=== PATIENT | male | born 1940 | race Caucasian/White ===

== ENCOUNTER 2022-06-22 11:22 | Emergency (ER) | payer MEDICARE, SELFPAY ==
[2022-06-22 11:26] VITALS: BP 153/73; PULSE 50; RESP 18; TEMP 36.3; O2SAT 100; BMI 27.8
--- NOTE | 2022-06-22 11:36 | ED.GENADULT ---
HPI - General Adult General Time Seen by Provider: 11:37 Date Seen: 06/22/22 Chief complaint: Laceration/Wound Stated complaint: Fell, scraped face hurt right hand Time Seen by Provider: 06/22/22 11:27 Source: patient and RN notes reviewed Mode of arrival: ambulatory Limitations: no limitations History of Present Illness HPI narrative: Patient is an 82-year-old male coming in after a fall on his face. They were dropping their dog off at a [employer] daycare and the dog got out of the car quite rambunctious. The dog pulled on the leash and the patient fell forward. His right 5th finger is hurting up along the base at the hand. He states he can move it. There is some bruising along the 5th metacarpophalangeal joint. He injured his right face in its bleeding. The right upper lip is injured as well. He feels like his teeth are occluding normally. Initially he thought there was some visual disturbances but is glasses were just dirty. He is not having any visual problems now, no double vision. He hit his right face along the cheek. He is not any blood thinners, denies any headache. No neck pain or back pain. He did have a his her arm underneath them along the right ribcage in it is hurting where he points to the right anterolateral lower rib cage. He is not having any difficulty breathing, no shortness of breath. They were going to go to the [employer] and have lunch to celebrate his birthday. Related Data Home Medications Medication Instructions Recorded Confirmed latanoprost 0.005 % eye drops 1 drp ophthalmic (eye) QDAY 03/24/22 03/24/22 timolol 0.5 % eye drops 1 drp ophthalmic (eye) BID 03/24/22 03/24/22 Allergies Allergy/AdvReac Type Severity Reaction Status Date / Time iodine Allergy Mild Nausea Verified 03/24/22 10:10 Review of Systems Status of ROS: Reports: 10 or more systems reviewed and unremarkable except as noted in History and below [facility] Medical History (Updated 06/22/22 @ 13:56 by Winsome Solis MD) History of squamous cell carcinoma of skin (2019) Surgical History (Updated 03/23/22 @ 14:31 by Murtaza Oseguera) History of appendectomy (06/30/11) History of blepharoplasty (12/11/15) History of cholecystectomy (06/30/11) History of tonsillectomy and adenoidectomy History of umbilical hernia repair (09/16/11) Status post myringotomy with insertion of tube Social History (Updated 03/24/22 @ 10:44 by Gabo Negro MD) Narrative: SOCIAL HISTORY: He is . He lives with his in [place] where he lives when he was working. A few years ago he moved back from [facility] where they planned to retire. Children live far away but his daughter has a summer house in [place]. He is not sexually active. Four children. He walks 7 days per week for exercise. Overall he is less active than he was last year. HABITS: No tobacco or recreational drug use. Alcohol use is about 2 drinks per week. Tobacco use, quit 2006 per [facility] record Smoking Status: Never smoker Do you use any of these nicotine containing products: None How often do you have a drink containing alcohol: never AUDIT-C Alcohol total score: 0 Non-prescribed substance use: denies use Exam Const: Vital Signs, click to edit/add: Vital Signs - 24 hr 06/22/22 11:26 Temperature 97.4 F L Pulse Rate [Right Pulse Oximeter] 50 L Respiratory Rate 18 Blood Pressure [Ri ght Upper Arm] 153/73 H Pulse Oximetry 100 Oxygen Delivery Me thod Room Air Documenting provider has reviewed patient's vital signs: yes Common normals: no apparent distress, oriented x3, no limitations, healthy appearing, alert and well nourished General appearance: cooperative, comfortable and well kempt Other: Has bandage over his right cheek area. This was removed, has a superficial epidermis skin tear with the skin retracting inferiorly on the face. There is a central deeper wound into the dermis with some ongoing oozing. The more lateral portion is a little deeper, about a cm long. I do wonder if this was compression by his glasses into his face as it follows curvilinear pattern. The more central area of by his nose is just more skin tear. Nasal bridge is nontender, no drainage from nares. On his right upper lip there is a superficial skin tear of the epidermis, no active bleeding, lip is mildly swollen on that right upper lip area. There is some ecchymosis developing. There is nothing to repair here. HENMT: Common normals: hearing grossly normal bilaterally, external ears normal (Has what appears to be well-healed partial removal of the right upper ear.) and external nose normal Nose: external nose normal and nares normal External ear: external ears normal (Has what appears to be well-healed partial removal of the right upper ear.) Mouth: oral and palatal mucosa normal and tongue normal Throat: posterior oropharynx normal Eye: Common normals: PERRL, EOMs intact bilaterally, conjunctivae normal and no scleral icterus Conjunctiva: conjunctiva(e) normal Pupil: PERRL Neck & C-Spine: Common normals: full ROM (No tenderness), no lymphadenopathy, supple, no JVD and thyroid normal Thyroid: thyroid normal Chest: Common normals: inspection of chest normal and palpation of chest normal Resp: Common normals: normal respiratory effort, no retractions, no use of accessory muscles and clear to auscultation bilaterally Auscultation: clear to auscultation bilaterally Cardio: Common normals: no JVD, regular rate, regular rhythm, S1 normal heart sound, S2 normal heart sound, no gallops, no clicks and no murmurs Rate: regular rate Rhythm: regular rhythm Heart sounds: S1 normal and S2 normal GI: Common normals: Normal to inspection, nondistended, normoactive bowel sounds present, soft to palpation, non-tender, no hepatosplenomegaly and no masses Palpation: soft and no hepatosplenomegaly Extremity: Other: Has bruising along the medial aspect of the right 5th metacarpophalangeal joint. Sensation is intact, range of motion is intact. Neuro: Daniel Coma Scale: document GCS findings [place] coma scale eye opening: Spontaneous (4) Daniel coma scale verbal response: Orientated (5) [place] coma scale motor response: Obey commands (6) [place] coma scale total score: 15 Common normals: oriented x3, CN's II-XII intact bilaterally, moves all extremities, no focal motor deficits, no sensory deficits noted and gait normal Sensorium/orientation: alert Speech: speech normal Psych: Appearance: well kempt Course Course Hospital Course: Reviewed with him that I do believe part of that facial laceration would be improved with a few sutures. He does agree to that. Will also be imaging his facial bones with a CT to ensure no traumatic change. Trauma is over the zygomatic arch area and we do want to make sure that we do not need to have him watch for any orbital complications. Will look up his tetanus and see if he needs that updated. Will be imaging his hand as well as his chest with right rib views. Reevaluation(s) Reevaluation #1: Reviewed the fracture in the hand, he is clinically tender at the base of this 5th metacarpal. Splint was applied, see procedure. Did discuss tetanus in they would like to have this updated. His last tetanus was 08/08/2013. He is closing in on a year of having this do. Given that he has open wounds will update. Time: 13:57 Vital Signs Vital signs: Initial Vital Signs Temperature 97.4 F L 06/22/22 11:26 Temperature Source Temporal Artery Scan 06/22/22 11:26 Pulse Rate 50 L 06/22/22 11:26 Respiratory Rate 18 06/22/22 11:26 Blood Pressure 153/73 H 06/22/22 11:26 Blood Pressure Mean 99 06/22/22 11:26 Blood Pressure Position Sitting 06/22/22 11:26 Pulse Oximetry 100 06/22/22 11:26 Oxygen Delivery Method 06/22/22 11:26 Vital Signs Temperature 97.4 F L 06/22/22 11:26 Pulse Rate 50 L 06/22/22 11:26 Respiratory Rate 18 06/22/22 11:26 Blood Pressure 153/73 H 06/22/22 11:26 Pulse Oximetry 100 06/22/22 11:26 Oxygen Delivery Method 06/22/22 11:26 Temperature 97.4 F L 06/22/22 11:26 Pulse Rate 50 L 06/22/22 11:26 Respiratory Rate 18 06/22/22 11:26 Blood Pressure 153/73 H 06/22/22 11:26 Pulse Oximetry 100 06/22/22 11:26 Oxygen Delivery Method 06/22/22 11:26 Medical Decision Making Imaging Data CT- Other: Attestation: I have reviewed the pertinent imaging results. Radiologist's impression: Patient: [facility] Facility:?[facility] Patient ID:?[id number] Site Patient ID:?[id number]. Site :?[id number] Study:?CT Facial W/O-06/22/2022 12:30:07 PM Ordering Physician:?Will Schumacher Final Report: INDICATION: Fall, facial trauma. TECHNIQUE: CT maxillofacial without contrast. Coronal and sagittal reformats were generated. COMPARISON: None. FINDINGS: Facial bones: No fractures or bone lesions. Specifically the nasal bones, temporomandibular joints, maxilla, and mandible appear intact. Orbits and globes: Unremarkable. Globes are intact. No sign of intraorbital hemorrhage or emphysema. Sinuses: Mucosal thickening of the frontal sinus and ethmoid air cells. Small mucous retention cyst or polyp in the left maxillary sinus. The other paranasal sinuses are clear. Soft tissues: Mild soft tissue swelling and edema in the right infraorbital region. Small area of subcutaneous emphysema could be from a laceration. No radiopaque foreign body. IMPRESSION: No facial fractures. Right infraorbital soft tissue swelling and probable laceration. Please note that all CT scans at this facility use dose modulation, iterative reconstruction, and/or weight-based dosing when appropriate to reduce radiation dose to as low as reasonably achievable. Dictated by Flex Aponte MD @ 06/22/2022 12:44:28 PM (Electronic Signature) Chest x-ray: Attestation: I have reviewed the pertinent imaging results. Radiologist's impression: Patient: [facility] Facility:?[facility] Patient ID:?[id number] Site Patient ID:?[id number]. Site :?[id number] Study:?XRay Chest 3 VIEWS RIBS-06/22/2022 12:50:51 PM Ordering Physician:?Will Schumacher Final Report: INDICATION: Fall, right rib pain TECHNIQUE: Single view chest with AP and oblique views of the right chest COMPARISON: None available. FINDINGS: There is no dense consolidation, effusion, or pneumothorax. The cardiomediastinal silhouette is within normal limits. There is demonstration of a minimally displaced fracture of the lateral 8th and 9th ribs. The bony thorax is otherwise intact. IMPRESSION: No acute cardiopulmonary abnormality. Minimally displaced fracture of the lateral 8th and 9th ribs. If pain and clinical symptoms persist, subtle, non-displaced injuries are not entirely excluded. Dictated by Maxime Rankin MD @ 06/22/2022 12:59:58 PM (Electronic Signature) X-ray right hand: Attestation: I have reviewed the pertinent imaging results. Radiologist's impression: Patient: ANTHONY SAENZ Facility:?[facility] Patient ID:?[id number] Site Patient ID:?[id number]. Site :?[id number] Study:?XRay Extremity Right HAND 3 VIEWS-06/22/2022 12:49:17 PM Ordering Physician:Jessica Schumacher Final Report: Indication: Fall, pain primarily 1/5 finger Comparison: None available. Technique: AP, lateral, and oblique views right hand were obtained. Findings: There is a nondisplaced fracture at the base of the proximal 5th metacarpal. There are no other displaced fractures identified. Moderate degenerative changes of the metacarpophalangeal and interphalangeal joints are appreciated. There is mild proximal soft tissue swelling. Impression: Nondisplaced fracture at the base of the 5th proximal metacarpal with associated soft tissue swelling. Dictated by Maxime Rankin MD @ 06/22/2022 1:05:44 PM (Electronic Signature) Discharge Plan Discharge Clinical Impression: Multiple rib fractures, Fx metacarpal, Facial laceration, Multiple skin tears, Fall Patient Disposition: Home, Self-Care Condition: Stable Instructions: Laceration (ED), Hand Fracture (ED), Rib Fracture (ED), Skin Tear (ED) Additional Instructions: 1. For the laceration on your face and facial skin tears, use bacitracin or Vaseline to keep the wounds moist. May need to use it 3 4 times a day, can be used more if you find it helpful. Need to schedule a clinic followup in 5-7 days to assess the facial laceration for suture removal. If there is concerns for infection, please seek re-evaluation. 2. Need to call the [facility] at [phone] to get scheduled for followup. They will likely see you in 5-7 days. Ice elevate to help decrease any pain or swelling. Can use [id number] medicines that you typically would for pain management, follow bottle directions for dosing. Need to keep this splint clean and dry. 3. You splinting technique with position movement, coughing or sneezing. Need to focus on taking deep breaths to help keep the lung expanded. Should you develop difficulty breathing, shortness of breath, fever/cough, do need to be re-evaluated. Activity Level: Activity as Tolerated Prescriptions: No Action timolol 0.5 % drops 1 drp ophthalmic (eye) BID latanoprost 0.005 % drops 1 drp ophthalmic (eye) QDAY Follow Up/Referrals: Gabo Negro MD [Primary Care Provider] - Stand Alone Forms: [facility] Info Instructions Procedures Laceration Laceration 1: Pre procedure diagnosis: Facial laceration Post procedure diagnosis: Same Site marking: not applicable Verification/time out: correct patient, correct site and correct procedure Name of person performing procedure: Winsome Solis Site: face Size (cm): 1 Description: linear (Also surrounding skin tear of the epidermis with a deeper laceration) Depth: simple, single layer (Ongoing oozing, stopped after suture) Local Anesthetic: lidocaine 1% and with epi Amount of anesthesia used (mL): 5 (5 mL drawn up, about 2 mL required locally.) Pre-repair: wound explored and irrigated extensively Skin layer closed with: other (Ethilon) Size (cm): 5-0 Number of sutures: 3 Technique: simple, interrupted Conclusion: patient tolerated procedure Orthopedic Splinting/Casting Injury #1: Side: right Upper Extremity Injury Location: hand (Right) Upper extremity immobilizer: ulnar gutter Applied by clinician: / Conclusion: patient tolerated procedure
--- NOTE | 2022-06-22 11:54 | CRLHL7_ITS ---
For Patients: As a result of the Cures Act, medical imaging exams and procedure reports are released immediately into your electronic medical record. You may view this report before your referring provider. If you have questions, please contact your health care provider. INDICATION: Fall, facial trauma. TECHNIQUE: CT maxillofacial without contrast. Coronal and sagittal reformats were generated. COMPARISON: None. FINDINGS: Facial bones: No fractures or bone lesions. Specifically the nasal bones, temporomandibular joints, maxilla, and mandible appear intact. Orbits and globes: Unremarkable. Globes are intact. No sign of intraorbital hemorrhage or emphysema. Sinuses: Mucosal thickening of the frontal sinus and ethmoid air cells. Small mucous retention cyst or polyp in the left maxillary sinus. The other paranasal sinuses are clear. Soft tissues: Mild soft tissue swelling and edema in the right infraorbital region. Small area of subcutaneous emphysema could be from a laceration. No radiopaque foreign body. IMPRESSION: No facial fractures. Right infraorbital soft tissue swelling and probable laceration. Please note that all CT scans at this facility use dose modulation, iterative reconstruction, and/or weight-based dosing when appropriate to reduce radiation dose to as low as reasonably achievable. Dictated by Flex Aponte MD @ 06/22/2022 12:44:28 PM (Electronically Signed)
--- NOTE | 2022-06-22 11:54 | CRLHL7_ITS ---
For Patients: As a result of the Cures Act, medical imaging exams and procedure reports are released immediately into your electronic medical record. You may view this report before your referring provider. If you have questions, please contact your health care provider. INDICATION: Fall, right rib pain TECHNIQUE: Single view chest with AP and oblique views of the right chest COMPARISON: None available. FINDINGS: There is no dense consolidation, effusion, or pneumothorax. The cardiomediastinal silhouette is within normal limits. There is demonstration of a minimally displaced fracture of the lateral 8th and 9th ribs. The bony thorax is otherwise intact. IMPRESSION: No acute cardiopulmonary abnormality. Minimally displaced fracture of the lateral 8th and 9th ribs. If pain and clinical symptoms persist, subtle, non-displaced injuries are not entirely excluded. Dictated by Maxime Rankin MD @ 06/22/2022 12:59:58 PM (Electronically Signed)
--- NOTE | 2022-06-22 11:54 | CRLHL7_ITS ---
For Patients: As a result of the Century Cures Act, medical imaging exams and procedure reports are released immediately into your electronic medical record. You may view this report before your referring provider. If you have questions, please contact your health care provider. Indication: Fall, pain primarily 1/5 finger Comparison: None available. Technique: AP, lateral, and oblique views right hand were obtained. Findings: There is a nondisplaced fracture at the base of the proximal 5th metacarpal. There are no other displaced fractures identified. Moderate degenerative changes of the metacarpophalangeal and interphalangeal joints are appreciated. There is mild proximal soft tissue swelling. Impression: Nondisplaced fracture at the base of the 5th proximal metacarpal with associated soft tissue swelling. Dictated by Maxime Rankin MD @ 06/22/2022 1:05:44 PM (Electronically Signed)
--- OUTSIDE RECORDS SUMMARY | 2022-06-22 12:12 | XMS_ITS | Encounter Summary ---
:1940 Author Organization [facility] Address [address] [place] [address] Care Team Providers Name Role Phone Unavailable Primary Care Provider Unavailable Reason for Referral Outpatient (Routine) - Authorized Specialty Diagnoses / Procedures Referred By Contact Refer red To Contact Hematology Oncology Yessenia Montalvo M.D., [facility] Ph.D. [address] [place] [address] Referral ID Status Reason Start Date Expiration Date Visits V isits Requested Authorized [id number] Authorized 06/18/2022 06/17/2025 1 1 Reason for Visit Outpatient (Routine) - Closed Specialty Diagnoses / Procedures Referred By Contact Refer red To Contact Hematology Oncology Yessenia Montalvo M.D., [facility] Ph.D. 200 [place] [address] Referral ID Status Reason Start Date Expiration Date Visits Requ ested Visits Authorized [id number] Closed 12/22/2021 12/22/2022 1 1 Encounter Details Date Type Department Care Team Description 06/18/2022 Office Visit Division of Yessenia Montalvo, [place] [facility] L ymphoma Splenic (HCC) (Primary Dx); Hematology in [place], Ph.D. Thrombocytopenia (HCC) [place], [place] [address] [facility] [address] [place] [phone] Social History Tobacco Use Types Packs/Day Years Used Date Smoking Tobacco: Former Cigarettes Quit : 2006 Smokeless Tobacco: Never Alcohol Use Standard Drinks/Week Comments Yes 10 (1 standard drink = 0.6 oz pure alcoh ol) Alcohol Habits Answer Date Recorded How often do you have a drink containing 4 or more times a w [place] 06/14/2022 alcohol? How many drinks containing alcohol do you have 1 or 2 06/14/2022 on a typical day when you are drinking? How often do you have six or more drinks on one Never 06/14/2022 occasion? Social Isolation Answer Date Recorded In a typical week, how many times do you talk on the Three t imes a week 06/14/2022 phone with family, friends, or neighbors? How often do you get together with friends or Once a week 06/14/2022 relatives? How often do you attend taoist or confucianism Never 06/14/2022 services? Do you belong to any clubs or organizations such as No 06/14/2022 taoist groups, unions, fraternal or athletic groups, or school groups? How often do you attend meetings of the clubs or Never 06/14/2022 organizations you belong to? Are you now , , , , 06/14/2022 never or living with a partner? Physical Activity Answer Date Recorded On average, how many days per week do you engage in moderate 7 days 06/14/2022 to strenuous exercise (like walking fast, running, jogging, dancing, swimming, biking, or other activities that cause a light or heavy sweat)? On average, how many minutes do you engage in exercise at th is 150+ min 06/14/2022 level? Stress Answer Date Recorded Do you feel stress - tense, restless, nervous, or anxious, N ot at all 06/14/2022 or unable to sleep at night because your mind is troubled all the time - these days? Financial Resource Strain Answer Date Recorded How hard is it for you to pay for the very basics like Not h [place] at all 06/14/2022 food, housing, medical care, and heating? Intimate Partner Violence Answer Date Recorded Within the last year, have you been afraid of your partner o r No 06/14/2022 ex-partner? Within the last year, have you been humiliated or emotionall y No 06/14/2022 abused in other ways by your partner or ex-partner? Within the last year, have you been kicked, hit, slapped, or No 06/14/2022 otherwise physically hurt by your partner or ex-partner? Within the last year, have you been raped or forced to have any No 06/14/2022 kind of sexual activity by your partner or ex-partner? Food Insecurity Answer Date Recorded Within the past 12 months, you worried that your food would Never true 06/14/2022 run out before you got money to buy more. Within the past 12 months, the food you bought just didn't N ever true 06/14/2022 last and you didn't have money to get more. Transportation Needs Answer Date Recorded In the past 12 months, has lack of transportation kept you f rom No 06/14/2022 medical appointments or from getting medications? In the past 12 months, has lack of transportation kept you f rom No 06/14/2022 meetings, work, or getting things needed for daily living? Housing Stability Answer Date Recorded In the last 12 months, was there a time when you were not No 06/14/2022 able to pay the mortgage or rent on time? In the last 12 months, how many places have you lived? Not a sked In the last 12 months, was there a time when you did not hav e No 06/14/[address] or slept in a correction (including now)? Education Answer Date Recorded What is the highest level of school Bachelor's degree (e.g., BA, AB, 06/20/2020 you have completed or the highest BS) degree you have received? 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 - 06/18/2022 2:15 PM CDT SUBJECTIVE CHIEF COMPLAINT/REASON FOR VISIT Splenic marginal zone lymphoma Thrombocytopenia HISTORY OF PRESENT ILLNESS Mr. Rayo is a 81 y.o. male with a past medical history of splenic marginal zone lymphoma, splenomegaly, and thrombocytopenia, who presents for follow-up. Mr. Rayo initially presented with lymphocytosis in August of 2002. Due to persistence of lymphocytosis, a bone marrow biopsy was done on December 17, 2002, which showed 20% involvement of chronic lymphoproliferative disorder, CD5 positive, CD20 positive, CD23 positive. 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 The differential diagnosis included marginal zone lymphoma and atypical CLL. CT abdomen did show [id number] splenomegaly. Blood work also showed mild thrombocytopenia. He has been observed over the years without significant disease progression. [facility] his WBC and ALC as well as hemoglobin were normal from 8120-6539, but his platelet count were in the 70-90 range. Oncology History Marginal Zone Lymphoma Splenic (HCC) 12/17/2002 Initial Diagnosis Marginal Zone Lymphoma Splenic (HCC) Bone marrow biopsy on December 17, 2002 showed 20% involvement of chronic lymphoproliferative disorder,CD5 positive, CD20 positive, CD23 positive. Interval History: Mr. Rayo returns for follow-up today. He was last seen here 6 months ago. In the interval, he has been doing well. He denies B symptoms. No short of breath or chest pain. No GI symptoms. He notices mild early satiety but he is still satisfied with his oral intake. He lost approximately 15 lb in the last couple of years, by eating less and having more activities. ECOG PS 0. The following portions of the patient's history were reviewed and updated as appropriate: allergies,current medications, family history, medical history, social history, surgical history, and problem list. REVIEW OF SYSTEMS Pertinent items are noted in History of Present Illness; all other review of systems was negative. OBJECTIVE Vitals: 06/18/22 1348 BP: 135/77 Pulse: 60 Temp: (!) 35.2 ??C Height: 162.8 cm Weight: 77 kg Body mass index is 29.05 kg/m??. Body surface area is 1.87 meters squared. PHYSICAL EXAMINATION General: In no apparent distress. Alert and oriented x3. Skin: Grossly warm, dry, and intact. HEENT: Normocephalic, atraumatic. Extraocular movements intact. Moist mucosa. Lymph: No cervical, supraclavicular, infraclavicular, axillary, or inguinal lymphadenopathy palpated. Cardiovascular: Regular rhythm, normal rate. No murmurs, rubs, or gallops. Respiratory: Lungs clear to auscultation bilaterally. No wheezing, rhonchi, or rales. Abdomen: Soft, non-tender, non-distended. Spleen is palpable under the left costal margin, more obvious with deep breathing. Neurologic: No focal deficit. DIAGNOSTICS Reviewed in [facility]. ASSESSMENT / PLAN #1 Marginal Zone Lymphoma Splenic (HCC) Mr. Rayo is clinically stable. No B symptoms. His spleen is palpable but he is not quite symptomatic from that. His blood counts are stable. WBC 13, 80% lymphocytes, hemoglobin 13.4, platelets 75.The thrombocytopenia has been very stable. We will continue observation. We will pay special attention to any symptoms associated with the splenomegaly. We will continue to monitor blood counts. He has received flu vaccination and the new COVID-19 booster shot. Not reflected in immunization record yet. We will see him in 6 months. PATIENT EDUCATION Ready to learn, no apparent learning barriers were identified; learning preferences include listening. Explained diagnosis and treatment plan; patient expressed understanding of the content. Total time spent was 35 minutes with more than 50% of time spent in counseling, coordination of care, explanation of plan of care, chart review, fovi-[id number] interview. documented in this encounter Plan of Treatment Scheduled Orders Name Type Priority Associated Diagnoses Order S chedule Alkaline Phosphatase Lab Routine Marginal Zone Lympho ma Expected: 12/17/2022, Splenic (HCC) Expires: 06/18/2023 Thrombocytopenia (HCC) AST (Aspartate Lab Routine Marginal Zone Lymphoma Exp ected: 12/17/2022, Aminotransferase) Splenic (HCC) Expires: 06/18/2023 Thrombocytopenia (HCC) Basic Metabolic Panel Lab Routine Marginal Zone Lymph andie Expected: 12/17/2022, Splenic (HCC) Expires: 06/18/2023 Thrombocytopenia (HCC) Bilirubin, Total Lab Routine Marginal Zone Lymphoma E xpected: 12/17/2022, Splenic (HCC) Expires: 06/18/2023 Thrombocytopenia (HCC) CBC with Differential, Lab Routine Marginal Zone Lymp arlette Expected: 12/17/2022, Blood Splenic (HCC) Expires: 09/18/2023 Thrombocytopenia (HCC) LD (Lactate Lab Routine Marginal Zone Lymphoma Expec aimee: 12/17/2022, Dehydrogenase) Splenic (HCC) Expires: 06/18/2023 Thrombocytopenia (HCC) Scheduled Referrals Name Type Priority Associated Order Schedule Diagnoses Hematology office Outpatient Referral Routine Exp ected: visit (clinic) 12/17/2022, [facility]; Expires: Lymphoma; General 06/18/2023 documented as of this encounter Visit Diagnoses Diagnosis Marginal Zone Lymphoma Splenic (HCC) - P rimary Thrombocytopenia (HCC) documented in this encounter
--- OUTSIDE RECORDS SUMMARY | 2022-06-22 12:12 | XMS_ITS | Encounter Summary ---
:1940 Author Organization [facility] Address [address] [place] [address] Care Team Providers Name Role Phone Unavailable Primary Care Provider Unavailable Reason for Visit Outpatient (Routine) - Closed Specialty Diagnoses / Procedures Referred By Contact Refer red To Contact Hematology Oncology Yessenia Montalvo M.D., [facility] Ph.D. [address] [place] [phone] Referral ID Status Reason Start Date Expiration Date Visits Requ ested Visits Authorized [id number] Closed 06/26/2021 06/26/2022 1 1 Encounter Details Date Type Department Care Team Description 12/21/2021 Office Visit Division of Denilson Olson Marginal Zon e Lymphoma Splenic (HCC) (Primary Dx); Hematology in L, SUPERVISOR TITLE, Thrombocytopen ia (HCC) [place], [place] C.N.P., M.S. [address] [facility] [address] [place] [phone] Social History Tobacco Use Types Packs/Day Years Used Date Smoking Tobacco: Former Cigarettes Quit : 2006 Smokeless Tobacco: Never Alcohol Use Standard Drinks/Week Comments Yes 10 (1 standard drink = 0.6 oz pure alcoh ol) Alcohol Habits Answer Date Recorded How often do you have a drink containing 4 or more times a w [place] 06/14/2022 alcohol? How many drinks containing alcohol [...] 06/14/2022 relatives? How often do you attend gnosticist or adventist Never 06/14/2022 services? Do you belong to any clubs or organizations such as No 06/14/2022 gnosticist groups, unions, fraternal or athletic groups, or [...] place to sleep or slept in a prison (including now)? Education Answer Date Recorded What is the highest level of school Bachelor's degree (e.g., BA, AB, 06/20/2020 you have completed or the highest BS) degree you have received? 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 - 12/21/2021 3:00 PM CDT SUBJECTIVE Six-month follow-up of marginal zone lymphoma HISTORY OF PRESENT ILLNESS Gopi is a 81-year-old male who is seen in the hematology clinic today for a 6 month follow-up of hismarginal zone lymphoma. He is doing well. No new concerns. Denies new lumps bumps or masses. Denies B symptoms. Denies new infections. REVIEW OF SYSTEMS Constitutional: Negative for fatigue, fever, loss of appetite, night sweats and weight gain of more than 10 pounds. The following systems were negative: CV, Respiratory, GI, , Hematologic, Musculoskeletal, Neuro No Known Allergies Oncology History No history exists. OBJECTIVE Vitals: 12/21/21 1449 BP: 129/79 Pulse: 64 Temp: (!) 33.7 ??C PHYSICAL EXAMINATION General: In no acute distress, alert oriented x3. Lymph: No cervical, infraclavicular, supraclavicular, axilary, or inguinal lymphadenopathy. Cardiovascular: S1-S2, RRR, no rubs murmurs or gallops noted. Lungs: Clear throughout, no wheezes or rhonchi noted. Abdomen: Soft, nontender, tympany upon percussion throughout, no hepatosplenomegaly noted. ASSESSMENT / PLAN #1 Marginal Zone Lymphoma Splenic (HCC) - He is doing well today. He has no concerns today. Denies B symptoms. His labs today relatively normal for him. - His creatinine is elevated today at 1.36. His previous was 1.19. He denies new medications, dehydration, nausea/vomiting, or supplement/herbals. Recommend this is monitored by his primary care provider. - White blood cell count is 14.7. This is up from 11.7. He denies active/new infections or sickness.This is most likely due to his lymphoma. We will continue to monitor this. #2 Thrombocytopenia (HCC) - Platelets are 74,000 day. This has increased from his past below level of 70,000. He denies excessive bruising or bleeding. -Follow up labs and physical exam with Dr. Montalvo in 6 months. Wood Sanabria CUSTOMER PROGRAM MANAGER DNP Student [facility] Associated attestation - Denilson Olson APRN, C.N.P., M.S. - 12/21/2021 3:55 PM CDT Mr. Rayo left after waiting for the provider to enter the exam room after Wood Sanabria NP student saw the patient. Therefore, Patient will need to call for future appts.since I have not seen this patient. documented in this encounter Plan of Treatment Not on filedocumented as of this encounter Visit Diagnoses Diagnosis Marginal Zone Lymphoma Splenic (HCC) - P rimary Thrombocytopenia (HCC) documented in this encounter
--- OUTSIDE RECORDS SUMMARY | 2022-06-22 12:12 | XMS_ITS | Encounter Summary ---
:1940 Author Organization [facility] Address [address] [place] [address] Care Team Providers Name Role Phone Unavailable Primary Care Provider Unavailable Reason for Referral Outpatient (Routine) - Closed Specialty Diagnoses / Procedures Referred By Contact Refer red To Contact Hematology Oncology Yessenia Montalvo M.D., [facility] Ph.D. [address] [place] [address] Referral ID Status Reason Start Date Expiration Date Visits Requ ested Visits Authorized [id number] Closed 12/22/2021 12/22/2022 1 1 Encounter Details Date Type Department Care Team Description 12/22/2021 Orders Only Division of Hematology Yessenia Montalvo Margi nal Zone Lymphoma in [facility] linus Weber, Ph.D. Splenic (HCC) (Primary 200 [facility] 200 [facility]x) [place] [phone] Social History Tobacco Use Types Packs/Day Years Used Date Smoking Tobacco: Former Cigarettes Quit : 2006 Smokeless Tobacco: Never Alcohol Use Standard Drinks/Week Comments Yes 10 (1 standard drink = 0.6 oz pure alcoh ol) Alcohol Habits Answer Date Recorded How often do you have a drink containing 4 or more times a w [place] 06/14/2022 alcohol? How many drinks containing alcohol [...] 06/14/2022 relatives? How often do you attend faith or gnosticism Never 06/14/2022 services? Do you belong to any clubs or organizations such as No 06/14/2022 faith groups, unions, [employer] or athletic groups, or school groups? How [...] place to sleep or slept in a halfway (including now)? Education Answer Date Recorded What is the highest level of school Bachelor's degree (e.g., BA, AB, 06/20/2020 you have completed or the highest BS) degree you have received? 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 Plan of Treatment Scheduled Referrals Name Type Priority Associated Order Schedule Diagnoses Hematology office Outpatient Referral Routine Exp ected: visit (clinic) 06/23/2022 (Approximate), Expires: 12/22/2022 documented as of this encounter Results LD (Lactate Dehydrogenase) (06/18/2022 10:28 AM CDT) Analysis Performed At Patho logist Time Signature Lactate 193 122 - 222 06/18/2022 DTL Dehydrogenase U/L 11:23 AM CDT (LD), S Specimen Anatomical Collection Method Collection Time Receive d Time (Source) Location / / Volume Laterality Blood (Blood, 06/18/2022 10:28 06/18/2022 Venous) AM CDT 11:06 AM CDT Yessenia Montalvo M.D., Ph.D. LAB BLOOD NON ADD-ON Performing Organization Address City/State/ZIP Code Phon e Number [facility] - 200 [place], [place] [address] [place] [address] Laboratories-[address] (ABNORMAL) CBC with Differential, Blood (06/18/2022 10:28 AM CDT) Patholo gist Method Time Signature Hemoglobin 13.4 13.2 - 06/18/2022 DTL 16.6 g/dL 11:07 AM CDT Hematocrit 39.5 38.3 - 06/18/2022 DTL 48.6 % 11:07 AM CDT Erythrocytes 3.96 (L) 4.35 - 06/18/2022 DTL 5.65 11:07 AM CDT x10(12)/L MCV 99.7 (H) 78.2 - 06/18/2022 DTL 97.9 fL 11:07 AM CDT RBC Distrib 13.9 11.8 - 06/18/2022 DTL Width 14.5 % 11:07 AM CDT Platelet Count 75 (L) 135 - 317 06/18/2022 DTL x10(9)/L 11:07 AM CDT Leukocytes 13.0 (H) 3.4 - 9.6 06/18/2022 DTL x10(9)/L 11:43 AM CDT Neutrophils SeeComment 1.56 - 06/18/2022 DTL 6.45 11:43 AM CDT x10(9)/L Comment: Auto-diff results not valid. Se e manual differential. Specimen Anatomical Collection Method Collection Time Receive d Time (Source) Location / / Volume Laterality Blood (Blood, 06/18/2022 10:28 06/18/2022 Venous) AM CDT 10:57 AM CDT Yessenia Montalvo M.D., Ph.D. LAB BLOOD ADD-ON Performing Organization Address City/State/ZIP Code Phon e Number [facility] - 200 [place] [address] [address] [place] [address] [facility]-[address] (ABNORMAL) Bilirubin, Total (06/18/2022 10:28 AM CDT) P athologist Signature Bilirubin, 1.7 (H) <=1.2 06/18/2022 DTL Total, S mg/dL 11:23 AM CDT Specimen Anatomical Collection Method Collection Time Receive d Time (Source) Location / / Volume Laterality Blood (Blood, 06/18/2022 10:28 06/18/2022 Venous) AM CDT 11:06 AM CDT Yessenia Montalvo M.D., Ph.D. LAB BLOOD ADD-ON Performing Organization Address City/State/ZIP Code Phon e Number [facility] - 200 [place], [place] [address] [place] [address] Laboratories-[facility] [address] [facility] (ABNORMAL) Basic Metabolic Panel (06/18/2022 10:28 AM CDT) athologist Signature Potassium, S 5.1 3.6 - 5.2 06/18/2022 DTL mmol/L 11:23 AM CDT Sodium, S 142 135 - 145 06/18/2022 DTL mmol/L 11:23 AM CDT Chloride, S 107 98 - 107 06/18/2022 DTL mmol/L 11:23 AM CDT Bicarbonate, S 24 22 - 29 06/18/2022 DTL mmol/L 11:23 AM CDT Anion Gap 11 7 - 15 06/18/2022 DTL 11:23 AM CDT BUN (Blood Urea 22 8 - 24 06/18/2022 DTL Nitrogen), S mg/dL 11:23 AM CDT Creatinine 1.31 0.74 - 06/18/2022 DTL 1.35 mg/dL 11:23 AM CDT Estimated GFR 55 (L) >=60 06/18/2022 DTL (eGFR) mL/min/BSA 11:23 AM CDT Comment: Estimated GFR calculated using the 2020 CKD_EPI creatinine equation. Calcium, Total, S 9.6 8.8 - 10.2 mg/dL 06/18/2022 11:2 3 AM CDT DTL Glucose, S 97 70 - 140 mg/dL 06/18/2022 11:23 AM CDT DTL Specimen Anatomical Collection Method Collection Time Receive d Time (Source) Location / / Volume Laterality Blood (Blood, 06/18/2022 10:28 06/18/2022 Venous) AM CDT 11:06 AM CDT Yessenia Montalvo M.D., Ph.D. LAB BLOOD ADD-ON Performing Organization Address City/[facility]/ZIP Code Phon e Number [facility] - 200 [place], [place] [address] [place], [place] [id number] [place] [address] 200 [facility] AST (Aspartate Aminotransferase) (06/18/2022 10:28 AM CDT) Patholo gist Method Time Signature Aspartate 23 8 - 48 06/18/2022 DTL Aminotransferase U/L 11:23 AM CDT (AST), S Specimen Anatomical Collection Method Collection Time Receive d Time (Source) Location / / Volume Laterality Blood (Blood, 06/18/2022 10:28 06/18/2022 Venous) AM CDT 11:06 AM CDT Yessenia Montalvo M.D., Ph.D. LAB BLOOD ADD-ON Performing Organization Address City/[facility]/ZIP Code Phon e Number [facility] - [address] [place] [address] [address] [place] [address] Alkaline Phosphatase (06/18/2022 10:28 AM CDT) P athologist Signature Alkaline 107 40 - 129 06/18/2022 DTL Phosphatase, S U/L 11:23 AM CDT Specimen Anatomical Collection Method Collection Time Receive d Time (Source) Location / / Volume Laterality Blood (Blood, 06/18/2022 10:28 06/18/2022 Venous) AM CDT 11:06 AM CDT Yessenia Montalvo M.D., Ph.D. LAB BLOOD ADD-ON Performing Organization Address City/State/ZIP Code Phon e Number [facility] - [address] [place], [place] [address] [address] [place] [id number] [place] [address] documented in this encounter Visit Diagnoses Diagnosis Marginal Zone Lymphoma Splenic (HCC) - P rimary documented in this encounter
--- OUTSIDE RECORDS SUMMARY | 2022-06-22 12:12 | XMS_ITS | Encounter Summary ---
:1940 Author Organization [facility] Address [address] [place] [address] Care Team Providers Name Role Phone Unavailable Primary Care Provider Unavailable Encounter Details Date Type Department Care Team Description 06/09/2021 Admin Visit Department of Family Medicine, [address] [address] [facility] [phone] Social History Tobacco Use Types Packs/Day Years Used Date Smoking Tobacco: Former Cigarettes Quit : 2006 Smokeless Tobacco: Never Alcohol Use Standard Drinks/Week Comments Yes 10 (1 standard drink = 0.6 oz pure alcoh ol) Alcohol Habits Answer Date Recorded How often do you have a drink containing 4 or more times a w [place] 06/14/2022 alcohol? How many drinks containing alcohol [...] 06/14/2022 relatives? How often do you attend shinto or anglican Never 06/14/2022 services? Do you belong to any clubs or organizations such as No 06/14/2022 shinto groups, unions, fraternal or athletic groups, or [...] place to sleep or slept in a half-way (including now)? Education Answer Date Recorded What is the highest level of school Bachelor's degree (e.g., BA, AB, 06/20/2020 you have completed or the highest BS) degree you have received? 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
--- OUTSIDE RECORDS SUMMARY | 2022-06-22 12:12 | XMS_ITS | Clinical Summary ---
:1940 Author Organization [facility] Address [address] [place] [address] Care Team Providers Name Role Phone Unavailable Primary Care Provider Unavailable Source Comments Patient records contain information from all sites at [facility]. For routine questions regarding patient records, call [phone] during business hours, M-F 8:00 AM - 5:00 PM Central Time. Record requests for emergency care only can be directed to [phone] at any time.[facility] Allergies No known active allergies Medications Medication Sig Dispensed Refills Start Date End Date Status dorzolamide-timolol INSTILL 1 DROP 12 04/17/2019 Active (COSOPT) 22.3-6.8 mg/mL INTO RIGHT EYE ophthalmic solution TWICE A DAY latanoprost (XALATAN) 1 drop daily. 0 08/13/2015 Active 0.005 % ophthalmic solution ibuprofen Take 200 mg by 0 Activ e (ADVIL,MOTRIN) 200 mg mouth 2 (two) tablet times a day. glucosamine/chondr carter A Take by mouth. 0 Active sod (OSTEO BI-FLEX ORAL) multivit-min/folic/vit Take by mouth. 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 Thrombocytopeni a (HCC) 06/18/2022 Hospital Encounter Laboratory Yessenia Montalvo Marginal [facility] Lymphoma Medicine Gus, Ph.D. Splenic (HCC) 06/16/2022 Clinical Admitting/Central Communication Scheduling from Last 3 Months Immunizations Name Administration Dates Next Due Influenza (IM) Preservative Free 06/18/2013, 07/18/2012, , 06/02/2009, 06/26/2008 Influenza Split 06/05/2013, 06/27/2006, 07/12/2005, 07/08/2004, 07/15/2003 Influenza, Quadrivalent, Adjuvanted, 06/05/2021, 05/21/2020 Preservative Free Influenza, Seasonal, Injectable 06/16/2014, 08/01/2007, 06/06, 07/12/2005, 07/08/2004, 07/15/2003 Influenza, Unspecified 06/17/2010 PCV13 08/20/2015 PPSV23 01/11/2007 Td Preservative Free (TENIVAC, 09/18/2008 DECAVAC) Td, (Adult) Unspecified 09/18/2008 Tdap 08/08/2013, 06/05/2013 influenza high dose (65 years or 06/07/2019, 07/25/2015 older) (PF) Family History Medical History Relation Name Comments Breast cancer Mother Relation Name Status Comments Mother Social History Tobacco Use Types Packs/Day Years Used Date Smoking Tobacco: Former Cigarettes Quit : 2006 Smokeless Tobacco: Never Tobacco Cessation: Counseling Given: Not Answered Alcohol Use Standard Drinks/Week Comments Yes 10 (1 standard drink = 0.6 oz pure alcoh ol) Alcohol Habits Answer Date Recorded How often do you have a drink containing 4 or more times a w [place] 06/14/2022 alcohol? How many drinks containing alcohol [...] 06/14/2022 relatives? How often do you attend restorationist or yarsanism Never 06/14/2022 services? Do you belong to any clubs or organizations such as No 06/14/2022 restorationist groups, unions, fraternal or athletic groups, or [...] place to sleep or slept in a chcf (including now)? Education Answer Date Recorded What is the highest level of school Bachelor's degree (e.g., BA, AB, 06/20/2020 you have completed or the highest BS) degree you have received? 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 Vital Signs Vital Sign Reading [...] Mass Index 29.05 06/18/2022 1:48 PM CDT Plan of Treatment Health Maintenance Due Date Last Done Comments Zoster Vaccines (1 of 2) 1961 Pneumococcal vaccine (65+ years) 08/20/2016 08/20/2015, 05/2007 (3 - PPSV23 or PCV20) Depression Screening (Annual 09/05/2021 PHQ-2) Fall Risk Screen (Annual) 09/05/2021 COVID-19 Vaccine (5 - Booster for 03/20/2022 01/23/2022, , Pfizer series) 11/04/2020, Additional history exists Influenza Vaccine (#1) 2022 06/05/2021, 05/21/2020, 06/07/2019, Additional history exists DTaP,Tdap,and Td Vaccines (3 - Td 08/08/2023 08/08/2013, , or Tdap) 09/18/2008, Additional history exists Procedures Procedure Name Priority Date/Time Associated Comments Diagnosis SPSMA RESULT Routine 06/18/2022 10:28 Results for this AM CDT procedure are i n the results section. LACTATE DEHYDROGENASE Routine 06/18/2022 10:28 Marginal Zone R esults for this (LD), S AM CDT Lymphoma Splenic procedure a re in (HCC) the results section. CBC WITH DIFFERENTIAL, B Routine 06/18/2022 10:28 Marginal Zon e Results for this AM CDT Lymphoma Splenic procedure a re in (HCC) the results section. BILIRUBIN, TOT, S/P Routine 06/18/2022 10:28 Marginal Zone Res ults for this AM CDT Lymphoma Splenic procedure a re in ([facility]) the results section. BASIC METABOLIC PANEL, Routine 06/18/2022 10:28 Marginal Zone Results for this S/P AM CDT Lymphoma Splenic procedure a re in ([facility]) the results section. ASPARTATE Routine 06/18/2022 10:28 Marginal Zone Results fo r this AMINOTRANSFERASE (AST), AM CDT Lymphoma Splenic procedure are in S/P (HCC) the results section. ALKALINE PHOSPHATASE, Routine 06/18/2022 10:28 Marginal Zone R esults for this S/P AM CDT Lymphoma Splenic procedure a re in ([facility]) the results section. from Last 3 Months Results (ABNORMAL) SPSMA Result (06/18/2022 10:28 AM CDT) Analysis Performed At Patho logist Time Signature Neutrophilic Segs 18 (L) 50 - 75 % 06/18/2022 [facility] 11:43 AM CDT Lymphocytes 80 (H) 18 - 42 % 06/18/2022 [facility] 11:43 AM CDT Monocytes 1 (L) 2 - 11 % 06/18/2022 [facility] 11:43 AM CDT Eosinophils 1 1 - 3 % 06/18/2022 [facility] 11:43 AM CDT Manual Absolute 2.34 1.56 - 06/18/2022 [facility] Neutrophil Count 6.45 11:43 AM CDT x10(9)/L Comment: ----ADDITIONAL INFORMATION---- The manual absolute neutrophil count is derived from a manual differential count and therefore is not exactly comparable to the automated absolute lucho trophil count. 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 Reviewed by: Tech 06/18/2022 11:43 AM CDT [facility] Specimen Anatomical Collection Method Collection Time Receive d Time (Source) Location / / Volume Laterality Blood 06/18/2022 10:28 06/18/2022 AM CDT 10:57 AM CDT Yessenia Montalvo M.D., Ph.D. LAB BLOOD ADD-ON Performing Organization Address City/State/ZIP Code Phon e Number [facility] - [address] [place], [place] [address] [place] [address] Laboratories-[facility] [address] [facility] (ABNORMAL) CBC with Differential, Blood (06/18/2022 10:28 AM CDT) [facility] Method Time Signature Hemoglobin 13.4 13.2 - [...] Ph.D. LAB BLOOD ADD-ON Performing Organization Address City/[facility] Phon e Number [facility] - [address] [place], [place] [address] [facility] [place], [place] [id number] [place] [address] AST (Aspartate Aminotransferase) (06/18/2022 10:28 AM CDT) Patholo gist Method Time Signature Aspartate 23 8 - 48 06/18/2022 DTL Aminotransferase U/L 11:23 AM CDT (AST), S Specimen Anatomical Collection Method Collection Time Receive d Time (Source) Location / / Volume Laterality Blood (Blood, 06/18/2022 10:28 06/18/2022 Venous) AM CDT 11:06 AM CDT Yessenia Montalvo M.D., Ph.D. LAB BLOOD ADD-ON Performing Organization Address City/[facility] Phon e Number [facility] - [address] [place] [phone] [facility] [place], [place] [id number] [place] [address] Alkaline Phosphatase (06/18/2022 10:28 AM CDT) P athologist Signature Alkaline 107 40 - 129 06/18/2022 DTL Phosphatase, S U/L 11:23 AM CDT Specimen Anatomical Collection Method Collection Time Receive d Time (Source) Location / / Volume Laterality Blood (Blood, 06/18/2022 10:28 06/18/2022 Venous) AM CDT 11:06 AM CDT Yessenia Montalvo M.D., Ph.D. LAB BLOOD ADD-ON Performing Organization Address City/State/[facility] Phon e Number [facility] - [address] [place], [place] [address] [facility] [address] LD (Lactate Dehydrogenase) (06/18/2022 10:28 AM CDT) [...] LAB BLOOD NON ADD-ON Performing Organization Address City/[facility] Phon e Number [facility] - [address] [place], [place] [address] [place] [address] [address] (ABNORMAL) Bilirubin, Total (06/18/2022 10:28 AM CDT) athologist Signature Bilirubin, 1.7 (H) <=1.2 06/18/2022 DTL Total, S mg/dL 11:23 AM CDT Specimen Anatomical Collection Method Collection Time Receive d Time (Source) Location / / Volume Laterality Blood (Blood, 06/18/2022 10:28 06/18/2022 Venous) AM CDT 11:06 AM CDT Yessenia Montalvo M.D., Ph.D. LAB BLOOD ADD-ON Performing Organization Address City/[facility] Phon e Number [facility] - [address] [place], [place] [address] [place] [address] Laboratories-[address] (ABNORMAL) Basic Metabolic Panel (06/18/2022 10:28 AM [...] Organization Address City/State/ZIP Code Phon e Number [facility] - [address] [place], [place] [address] [facility] [place] [address] Laboratories-[facility] [address] from Last 3 Months Insurance Payer Benefit Plan / Subscriber ID Effective Dates Phone Addre ss Type Group [employer] [place] [id number] 2019-[place] [phone] [address] [address] PPO BLUE [facility] MEDICARE t [address] [facility] [phone]
--- OUTSIDE RECORDS SUMMARY | 2022-06-22 12:12 | XMS_ITS | Encounter Summary ---
:1940 Author Organization [facility] Address [address] [place] [address] Care Team Providers Name Role Phone Unavailable Primary Care Provider Unavailable Encounter Details Date Type Department Care Team Description 06/16/2022 Clinical Communication Visit Review in [place], [place] [address] [place], [place] [id number] Social History Tobacco Use Types Packs/Day Years Used Date Smoking Tobacco: Former Cigarettes Quit : 2006 Smokeless Tobacco: Never Tobacco Cessation: Counseling Given: Not Answered Alcohol Use Standard Drinks/Week Comments Yes 10 (1 standard drink = 0.6 oz pure alcoh ol) Alcohol Habits Answer Date Recorded How often do you have a drink containing 4 or more times a w [place] 06/14/2022 alcohol? How many drinks containing alcohol [...] 06/14/2022 relatives? How often do you attend zoroastrianism or latter-day Never 06/14/2022 services? Do you belong to any clubs or organizations such as No 06/14/2022 zoroastrianism groups, unions, fraternal or athletic groups, or [...] place to sleep or slept in a group home (including now)? Education Answer Date Recorded What is the highest level of school Bachelor's degree (e.g., BA, AB, 06/20/2020 you have completed or the highest BS) degree you have received? 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
--- OUTSIDE RECORDS SUMMARY | 2022-06-22 12:12 | XMS_ITS | Encounter Summary ---
:1940 Author Organization [facility] Address [address] [place] [id number] Care Team Providers Name Role Phone Unavailable Primary Care Provider Unavailable Encounter Details Date Type Department Care Team Description 06/26/2021 Hospital Encounter Department of Regine, Qasim White al Zone Lymphoma Splenic (HCC); Laboratory S, M.D. Thrombocytopenia (HCC) Medicine and [address] [place] [address], [place] [address] [facility] [phone] [place] (Work) [address] [place] [address] [place], [place] (Fax) [phone] Social History Tobacco Use Types Packs/Day Years Used Date Smoking Tobacco: Former Cigarettes Quit : 2006 Smokeless Tobacco: Never Alcohol Use Standard Drinks/Week Comments Yes 10 (1 standard drink = 0.6 oz pure alcoh ol) Alcohol Habits Answer Date Recorded How often do you have a drink containing 4 or more times a w [place] 06/14/2022 alcohol? How many drinks containing alcohol [...] 06/14/2022 relatives? How often do you attend jainism or judaism Never 06/14/2022 services? 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 latanoprost (XALATAN) 1 drop daily. 0 08/13/2015 0.005 % ophthalmic solution TURMERIC ORAL Take by mouth. 0 022 documented as of this encounter Plan of Treatment Not on filedocumented as of this encounter Procedures Procedure Name Priority Date/Time Associated Comments Diagnosis HEMATOPATHOLOGY REVIEW Routine 06/26/2021 9:08 Re sults for this AM CDT procedure are i n the results section. SPSMA RESULT Routine 06/26/2021 9:08 Results for this AM CDT procedure are i n the results section. RETICULOCYTES, B Routine 06/26/2021 9:08 Marginal Zone Results for this AM CDT Lymphoma Splenic procedure a re in ([facility]) the results Thrombocytopenia section. ([facility]) CBC WITH DIFFERENTIAL, B Routine 06/26/2021 9:08 Marginal Zone Results for this AM CDT Lymphoma Splenic procedure a re in ([facility]) the results Thrombocytopenia section. ([facility]) LACTATE DEHYDROGENASE Routine 06/26/2021 9:08 Marginal Zone Re sults for this (LD), S AM CDT Lymphoma Splenic procedure a re in ([facility]) the results Thrombocytopenia section. ([facility]) BILIRUBIN DIRECT, S/P Routine 06/26/2021 9:08 Marginal Zone Re sults for this AM CDT Lymphoma Splenic procedure a re in ([facility]) the results Thrombocytopenia section. ([facility]) COMPREHENSIVE METABOLIC Routine 06/26/2021 9:08 Marginal Zone Results for this PANEL, S/P AM CDT Lymphoma Splenic procedure a re in ([facility]) the results Thrombocytopenia section. ([facility]) documented in this encounter Results Peripheral Smear Interpretation (06/26/2021 9:08 AM CDT) Component Value Ref Test Analysis Performed At [facility] Range Method Time Signature 06/26/2021 [facility] 12:57 PM CDT Participated in [employer] Armaan, 06/26/2021 [facility] the Interpretation [facility] 12:57 PM ology CDT Resident Report Malathi Ocasio M.D. 06/26/2021 [facility] electronically 12:57 PM signed by CDT I verify that I have examined all relevant slides/materials for the specimen(s) and rendered or confirmed the diagnosis. 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 12:57 PM CDT Specimen Anatomical Collection Method Collection Time Receive d Time (Source) Location / / Volume Laterality Blood 06/26/2021 9:08 AM 9:34 CDT AM CDT Qasim Weiner M.D. LAB PATHOLOGY/CYTOLOGY ORDER JANIS Performing Organization Address City/State/ZIP Code Phon e Number [facility] - [address] [place], [place] [address] [place] [address] Laboratories-[employer] [facility] [employer] [facility] [address] (ABNORMAL) Morphology Evaluation (Special Smear) (06/26/2021 9:08 AM CDT) [facility] [employer] Method Time Signature Neutrophilic Segs 13 (L) 50 - 75 % 06/26/2021 [facility] and Bands 1:10 PM CDT Lymphocytes 82 (H) 18 - 42 % 06/26/2021 [facility] 1:10 PM CDT Monocytes 1 (L) 2 - 11 % 06/26/2021 [facility] 1:10 PM CDT Eosinophils 2 1 - 3 % 06/26/2021 [facility] 1:10 PM CDT Basophils 2 0 - 2 % 06/26/2021 [facility] 1:10 PM CDT Fragile Cells Moderate 06/26/2021 [facility] 1:10 PM CDT Manual Absolute 1.52 (L) 1.56 - 06/26/2021 [facility] Neutrophil Count 6.45 1:10 PM CDT x10(9)/L Comment: ----ADDITIONAL INFORMATION---- The manual absolute neutrophil count is derived from a manual differential count and therefore is not exactly comparable to the automated absolute lucho trophil count. Specimen Anatomical Collection Method Collection Time Receive d Time (Source) Location / / Volume Laterality Blood 06/26/2021 9:08 AM 9:34 CDT AM CDT Qasim Weiner M.D. LAB BLOOD ADD-ON Performing Organization Address City/[facility] Phon e Number [facility] [address] Bilirubin, Direct (06/26/2021 9:08 AM CDT) P athologist Signature Bilirubin, 0.3 0.0 - 0.3 06/26/2021 [facility] Direct, S mg/dL 10:14 AM CDT Specimen Anatomical Collection Method Collection Time Receive d Time (Source) Location / / Volume Laterality Blood (Blood, 06/26/2021 9:08 AM 06/26/20 9:56 Venous) CDT AM CDT Qasim Weiner M.D. LAB BLOOD ADD-ON Performing Organization Address City/[facility] Phon e Number [facility] [address] [place], [place] [address] [facility] [place] [address] (ABNORMAL) Reticulocytes (06/26/2021 9:08 AM CDT) Patholo gist Method Time Signature Reticulocytes, B 3.25 (H) 0.60 - 06/26/2021 [facility] 2.71 % 9:47 AM CDT Absolute 131.6 (H) 30.4 - 06/26/2021 [facility] Reticulocyte 110.9 9:47 AM CDT x10(9)/L Specimen Anatomical Collection Method Collection Time Receive d Time (Source) Location / / Volume Laterality Blood (Blood, 06/26/2021 9:08 AM 06/26/20 9:34 Venous) CDT AM CDT Qasim Weiner M.D. LAB BLOOD ADD-ON Performing Organization Address [facility] Phon e Number [facility] - [address] [place] [address] [address] [facility] [place] [address] [address] LD (Lactate Dehydrogenase) (06/26/2021 9:08 AM CDT) Analysis Performed At Patho logist Time Signature Lactate 201 122 - 222 06/26/2021 [facility] Dehydrogenase U/L 10:14 AM CDT (LD), S Specimen Anatomical Collection Method Collection Time Receive d Time (Source) Location / / Volume Laterality Blood (Blood, 06/26/2021 9:08 AM 06/26/20 9:56 Venous) CDT AM CDT Qasim Weiner M.D. LAB BLOOD NON ADD-ON Performing Organization Address City/[facility] Phon e Number [facility] - [address] [place], [place] [id number] [address] (ABNORMAL) Comprehensive Metabolic Panel (06/26/2021 9:08 AM CDT) P athologist Signature Potassium, S 5.3 (H) 3.6 - 5.2 06/26/2021 [facility] mmol/L 10:15 AM CDT Sodium, S 142 135 - 145 06/26/2021 [facility] mmol/L 10:15 AM CDT Chloride, S 106 98 - 107 06/26/2021 [facility] mmol/L 10:15 AM CDT Bicarbonate, S 26 22 - 29 06/26/2021 D[facility] mmol/L 10:15 AM CDT Anion Gap 10 7 - 15 06/26/2021 DTL 10:15 AM CDT BUN (Blood Urea 21 8 - 24 06/26/2021 DTL Nitrogen), S mg/dL 10:15 AM CDT Creatinine 1.19 0.74 - 06/26/2021 DTL 1.35 mg/dL 10:15 AM CDT eGFR-Non 58 (L) >=60 06/26/2021 [facility] Black/ mL/min/BSA 10:15 AM CDT [place] Comment: ----ADDITIONAL INFORMATION---- Estimated GFR calculated using the 2009 CKD_EPI creatinine equation. eGFR-Black/ 67 >=60 mL/min/BSA 2020 10:15 AM CDT DTL Comment: ----ADDITIONAL INFORMATION---- Estimated GFR calculated using the 2009 CKD_EPI creatinine equation. Calcium, Total, S 9.3 8.8 - 10.2 mg/dL 06/26/2021 10:1 5 AM CDT DTL Glucose, S 98 70 - 140 mg/dL 06/26/2021 10:15 AM CDT DTL Protein, Total, S 6.6 6.3 - 7.9 g/dL 06/26/2021 10:15 AM CDT DTL Albumin, S 4.8 3.5 - 5.0 g/dL 06/26/2021 10:15 AM CDT DTL Aspartate Aminotransferase 22 8 - 48 U/L 06/26/2021 1 0:15 AM CDT DTL (AST), S Alkaline Phosphatase, S 113 40 - 129 U/L 06/26/2021 10 :15 AM CDT DTL Alanine Aminotransferase 13 7 - 55 U/L 06/26/2021 10: 15 AM CDT DTL (ALT), S Bilirubin, Total, S 1.5 (H) <=1.2 mg/dL 06/26/2021 10:15 A M CDT DTL Specimen Anatomical Collection Method Collection Time Receive d Time (Source) Location / / Volume Laterality Blood (Blood, 06/26/2021 9:08 AM 06/26/20 9:56 Venous) CDT AM CDT Qasim Weiner M.D. LAB BLOOD ADD-ON Performing Organization Address City/State/ZIP Code Phon e Number [facility] - [address] [place], [place] [address] [facility] [place] [address] Laboratories-[facility] [address] (ABNORMAL) CBC with Differential, Blood (06/26/2021 9:08 AM CDT) [facility] gist Method Time Signature Hemoglobin 13.8 13.2 - 06/26/2021 DTL 16.6 g/dL 9:47 AM CDT Hematocrit 40.8 38.3 - 06/26/2021 DTL 48.6 % 9:47 AM CDT Erythrocytes 4.05 (L) 4.35 - 06/26/2021 DTL 5.65 9:47 AM CDT x10(12)/L MCV 100.7 (H) 78.2 - 06/26/2021 DTL 97.9 fL 9:47 AM CDT RBC Distrib Width 14.4 11.8 - 06/26/2021 DTL 14.5 % 9:47 AM CDT Platelet Count 70 (L) 135 - 317 06/26/2021 DTL x10(9)/L 9:47 AM CDT Leukocytes 11.7 (H) 3.4 - 9.6 06/26/2021 DTL x10(9)/L 10:25 AM CDT Comment: Results confirmed by smear. Neutrophils SeeComment 1.56 - 6.45 x10(9)/L 06/26/2021 10:25 AM CDT DTL Comment: Auto-diff results not valid. Se e manual differential. Specimen Anatomical Collection Method Collection Time Receive d Time (Source) Location / / Volume Laterality Blood (Blood, 06/26/2021 9:08 AM 06/26/20 9:34 Venous) CDT AM CDT Qasim Weiner M.D. LAB BLOOD ADD-ON Performing Organization Address City/State/ZIP Code Phon e Number [facility] - [address] [place], [place] [address] [facility] [place] [address] Laboratories[facility] [address] documented in this encounter Visit Diagnoses Diagnosis Marginal Zone Lymphoma Splenic (HCC) Thrombocytopenia (HCC) documented in this encounter
--- OUTSIDE RECORDS SUMMARY | 2022-06-22 12:12 | XMS_ITS | Encounter Summary ---
:1940 Author Organization [facility] Address [address] [place] [address] Care Team Providers Name Role Phone Unavailable Primary Care Provider Unavailable Encounter Details Date Type Department Care Team Description 12/22/2021 Clinical Communication Division of Hematology Tigist Montalvo, in [facility] linus Weber, Ph.D. [address] [facility] [address] [place] [phone] Social History Tobacco Use Types Packs/Day Years Used Date Smoking Tobacco: Former Cigarettes Quit : 2006 Smokeless Tobacco: Never Alcohol Use Standard Drinks/Week Comments Yes 10 (1 standard drink = 0.6 oz pure alcoh ol) Alcohol Habits Answer Date Recorded How often do you have a drink containing 4 or more times a w [place] 06/14/2022 alcohol? How many drinks containing alcohol [...] 06/14/2022 relatives? How often do you attend advent or mormonism Never 06/14/2022 services? Do you belong to any clubs or organizations such as No 06/14/2022 advent groups, unions, fraternal or athletic groups, or [...] place to sleep or slept in a [facility] (including now)? Education Answer Date Recorded What is the highest level of school Bachelor's degree (e.g., BA, AB, 06/20/2020 you have completed or the highest BS) degree you have received? 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 Patient waited for over 45 minutes had a student come into the room he was not all that versed in giving patient lab results. He then waited another 20 minutes all in all totally 45 minutes. He went to the desk stated he was not waiting any longer for gary. Hewould like to have his lab results given to him by you if you can let me know when you can do a phone call on this I will add to your calendar. I read the note from yesterday it mentioned a return in six months with you. Patient doesn't want tosee gary or any tariq for his next appointments. Can you please look at that request and put in return orders with that note attached. Thanks much Patient feels he should not have to pay for yesterdays appointment with gary. Advice/Action: Please review and let me know when you can call patient and when you put through new orders for return Best phone number to call back: [phone] Additional instructions: Thank you, Ophelia If replying please route to P RST HEM SCHEDULING documented in this encounter Plan of Treatment Not on filedocumented as of this encounter Visit Diagnoses Not on filedocumented in this encounter
--- OUTSIDE RECORDS SUMMARY | 2022-06-22 12:12 | XMS_ITS | Encounter Summary ---
:1940 Author Organization [facility] Address [address] [place] [address] Care Team Providers Name Role Phone Unavailable Primary Care Provider Unavailable Encounter Details Date Type Department Care Team Description 12/26/2020 Hospital Encounter Department of Yessenia Montalvo, [facility] Laboratory Medicine Gus, Ph.D. Lymphoma Splenic and Pathology, [address] [place] [address] in [place], [place] [address] [place] [address] [place], [place] (Work) [address] [phone] Social History Tobacco Use Types Packs/Day Years Used Date Smoking Tobacco: Former Cigarettes Quit : 2006 Smokeless Tobacco: Never Alcohol Use Standard Drinks/Week Comments Yes 10 (1 standard drink = 0.6 oz pure alcoh ol) Alcohol Habits Answer Date Recorded How often do you have a drink containing 4 or more times a w [place] 06/14/2022 alcohol? How many drinks containing alcohol [...] 06/14/2022 relatives? How often do you attend mormonism or mormonism Never 06/14/2022 services? Do you belong to any clubs or organizations such as No 06/14/2022 mormonism groups, unions, fraternal or athletic groups, or [...] place to sleep or slept in a fci (including now)? Education Answer Date Recorded What is the highest level of school Bachelor's degree (e.g., BA, AB, 06/20/2020 you have completed or the highest BS) degree you have received? 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 RETICULOCYTES, B Routine 12/26/2020 7:31 Marginal Zone Results for this AM CDT Lymphoma Splenic procedure a re in ([facility]) the results section. CBC WITH DIFFERENTIAL, B Routine 12/26/2020 7:31 Marginal Zone Results for this AM CDT Lymphoma Splenic procedure a re in ([facility]) the results section. ASPARTATE Routine 12/26/2020 7:31 Marginal Zone Results for this AMINOTRANSFERASE (AST), AM CDT Lymphoma Splenic procedure are in S/P ([facility]) the results section. ALKALINE PHOSPHATASE, Routine 12/26/2020 7:31 Marginal Zone Re sults for this S/P AM CDT Lymphoma Splenic procedure a re in ([facility]) the results section. LACTATE DEHYDROGENASE Routine 12/26/2020 7:31 Marginal Zone Re sults for this (LD), S AM CDT Lymphoma Splenic procedure a re in ([facility]) the results section. BILIRUBIN DIRECT, S/P Routine 12/26/2020 7:31 Marginal Zone Re sults for this AM CDT Lymphoma Splenic procedure a re in ([facility]) the results section. BILIRUBIN, TOT, S/P Routine 12/26/2020 7:31 Marginal Zone Resu lts for this AM CDT Lymphoma Splenic procedure a re in ([facility]) the results section. BASIC METABOLIC PANEL, Routine 12/26/2020 7:31 Marginal Zone R esults for this S/P AM CDT Lymphoma Splenic procedure a re in ([facility]) the results section. documented in this encounter Results Lipid Panel (12/26/2020 7:31 AM CDT) athologist Signature Cholesterol, 143 mg/dL 12/26/2020 DTL Total 8:36 AM CDT Comment: ----REFERENCE VALUE---- Desirable: < 200 Borderline high: 200 - 239 High: > or = 240 Triglycerides 70 mg/dL 12/26/2020 8:36 AM CDT DTL Comment: ----REFERENCE VALUE---- Normal: <150 Borderline high: 150-199 High: 200-499 Very high: > or =500 Cholesterol, HDL, S 47 >=40 mg/dL 12/26/2020 8:36 AM CDT DTL Calculated LDL 82 mg/dL 12/26/2020 8:36 AM CDT DT L Comment: ----REFERENCE VALUE---- Desirable: <100 Above Desirable: 100-129 Borderline high: 130-159 High: 160-189 Very high: > or =190 Cholesterol, Non-HDL, Calculated 96 mg/dL 021 8:36 AM CDT DTL Comment: ----REFERENCE VALUE---- Desirable: <130 Above Desirable: 130-159 Borderline high: 160-189 High: 190-219 Very high: > or =220 Specimen Anatomical Collection Method Collection Time Receive d Time (Source) Location / / Volume Laterality Blood (Blood, 12/26/2020 7:31 AM 12/27/19 7:57 Venous) CDT AM CDT Yessenia Montalvo M.D., Ph.D. LAB BLOOD ADD-ON Performing Organization Address City/[facility]/ZIP Code Phon e Number [facility] - 200 [place] [address] [place] [address] 200 [facility] Reticulocytes (12/26/2020 7:31 AM CDT) P athologist Signature Reticulocytes, B 2.56 0.60 - 12/26/2020 DTL 2.71 % 8:12 AM CDT Absolute 110.6 30.4 - 12/26/2020 DTL Reticulocyte 110.9 8:12 AM CDT x10(9)/L Specimen Anatomical Collection Method Collection Time Receive d Time (Source) Location / / Volume Laterality Blood (Blood, 12/26/2020 7:31 AM 12/27/19 7:57 Venous) CDT AM CDT Yessenia Montalvo M.D., Ph.D. LAB BLOOD ADD-ON Performing Organization Address City/[facility]/ZIP Code Phon e Number [facility] - [address] LD (Lactate Dehydrogenase) (12/26/2020 7:31 AM CDT) Analysis Performed At Patho logist Time Signature Lactate 172 122 - 222 12/26/2020 DTL Dehydrogenase U/L 8:36 AM CDT (LD), S Specimen Anatomical Collection Method Collection Time Receive d Time (Source) Location / / Volume Laterality Blood (Blood, 12/26/2020 7:31 AM 12/27/19 21 7:57 Venous) CDT AM CDT Yessenia Montalvo M.D., Ph.D. LAB BLOOD NON ADD-ON Performing Organization Address City/[facility]/ZIP Code Phon e Number [facility] - [address] [place], [place] [address] [place] [address] (ABNORMAL) CBC with Differential, Blood (12/26/2020 7:31 AM CDT) Patholo gist Method Time Signature Hemoglobin 14.1 13.2 - 12/26/2020 DTL 16.6 g/dL 8:12 AM CDT Hematocrit 42.1 38.3 - 12/26/2020 DTL 48.6 % 8:12 AM CDT Erythrocytes 4.32 (L) 4.35 - 12/26/2020 DTL 5.65 8:12 AM CDT x10(12)/L MCV 97.5 78.2 - 12/26/2020 DTL 97.9 fL 8:12 AM CDT RBC Distrib Width 15.3 (H) 11.8 - 12/26/2020 DTL 14.5 % 8:12 AM CDT Platelet Count 62 (L) 135 - 317 12/26/2020 DTL x10(9)/L 9:13 AM CDT Comment: Results confirmed by smear, no clumping or interference seen. Leukocytes 9.5 3.4 - 9.6 x10(9)/L 12/26/2020 9:13 AM C DT DTL Comment: Results confirmed by smear. Neutrophils 1.93 1.56 - 6.45 x10(9)/L 12/26/2020 9:13 A M CDT DTL Comment: Rechecked Lymphocytes 5.48 (H) 0.95 - 3.07 x10(9)/L 12/26/2020 9:13 A M CDT DTL Monocytes 1.87 (H) 0.26 - 0.81 x10(9)/L 12/26/2020 9:13 AM CDT DTL Eosinophils 0.17 0.03 - 0.48 x10(9)/L 12/26/2020 9:13 A M CDT DTL Basophils 0.04 0.01 - 0.08 x10(9)/L 12/26/2020 9:13 AM CDT DTL Specimen Anatomical Collection Method Collection Time Receive d Time (Source) Location / / Volume Laterality Blood (Blood, 12/26/2020 7:31 AM 12/27/19 7:57 Venous) CDT AM CDT Yessenia Montalvo M.D., Ph.D. LAB BLOOD ADD-ON Performing Organization Address City/State/ZIP Code Phon e Number [facility] - [address] [place], [place] [address] [place] [address] [facility] 200 [facility] Bilirubin, Direct (12/26/2020 7:31 AM CDT) athologist Signature Bilirubin, 0.3 0.0 - 0.3 12/26/2020 DTL Direct, S mg/dL 8:36 AM CDT Specimen Anatomical Collection Method Collection Time Receive d Time (Source) Location / / Volume Laterality Blood (Blood, 12/26/2020 7:31 AM 12/27/19 7:57 Venous) CDT AM CDT Yessenia Montalvo M.D., Ph.D. LAB BLOOD ADD-ON Performing Organization Address City/[facility] Phon e Number [facility] - [address] (ABNORMAL) Bilirubin, Total (12/26/2020 7:31 AM CDT) athologist Signature Bilirubin, 1.7 (H) <=1.2 12/26/2020 DTL Total, S mg/dL 8:36 AM CDT Specimen Anatomical Collection Method Collection Time Receive d Time (Source) Location / / Volume Laterality Blood (Blood, 12/26/2020 7:31 AM 12/27/19 7:57 Venous) CDT AM CDT Yessenia Montalvo M.D., Ph.D. LAB BLOOD ADD-ON Performing Organization Address City/State/[facility] Code Phon e Number [facility] - [address] (ABNORMAL) Basic Metabolic Panel (12/26/2020 7:31 AM CDT) athologist Signature Potassium, S 4.6 3.6 - 5.2 12/26/2020 DTL mmol/L 8:35 AM CDT Sodium, S 143 135 - 145 12/26/2020 DTL mmol/L 8:35 AM CDT Chloride, S 107 98 - 107 12/26/2020 DTL mmol/L 8:35 AM CDT Bicarbonate, S 27 22 - 29 12/26/2020 DTL mmol/L 8:35 AM CDT Anion Gap 9 7 - 15 12/26/2020 DTL 8:35 AM CDT BUN (Blood Urea 21 8 - 24 12/26/2020 DTL Nitrogen), S mg/dL 8:35 AM CDT Creatinine 1.24 0.74 - 12/26/2020 DTL 1.35 mg/dL 8:35 AM CDT eGFR-Non 55 (L) >=60 12/26/2020 DTL Black/ mL/min/BSA 8:35 AM CDT Japanese Comment: ----ADDITIONAL INFORMATION---- Estimated GFR calculated using the 2009 CKD_EPI creatinine equation. eGFR-Black/ 64 >=60 mL/min/BSA 2020 8:35 AM CDT DTL Comment: ----ADDITIONAL INFORMATION---- Estimated GFR calculated using the 2009 CKD_EPI creatinine equation. Calcium, Total, S 9.2 8.8 - 10.2 mg/dL 12/26/2020 8:35 AM CDT DTL Glucose, S 99 70 - 140 mg/dL 12/26/2020 8:35 AM CDT D TL Specimen Anatomical Collection Method Collection Time Receive d Time (Source) Location / / Volume Laterality Blood (Blood, 12/26/2020 7:31 AM 12/27/19 7:57 Venous) CDT AM CDT Yessenia Montalvo M.D., Ph.D. LAB BLOOD ADD-ON Performing Organization Address City/State/ZIP Code Phon e Number [facility] - [address] [place], [place] [address] [facility] [address] [facility] [address] AST (Aspartate Aminotransferase) (12/26/2020 7:31 AM CDT) Patholo gist Method Time Signature Aspartate 21 8 - 48 12/26/2020 DTL Aminotransferase U/L 8:36 AM CDT (AST), S Specimen Anatomical Collection Method Collection Time Receive d Time (Source) Location / / Volume Laterality Blood (Blood, 12/26/2020 7:31 AM 12/27/19 7:57 Venous) CDT AM CDT Yessenia Montalvo M.D., Ph.D. LAB BLOOD ADD-ON Performing Organization Address City/[facility]/ZIP Code Phon e Number [facility] - [address] [address] [place] 200 [facility] Alkaline Phosphatase (12/26/2020 7:31 AM CDT) athologist Signature Alkaline 99 40 - 129 12/26/2020 DTL Phosphatase, S U/L 8:36 AM CDT Specimen Anatomical Collection Method Collection Time Receive d Time (Source) Location / / Volume Laterality Blood (Blood, 12/26/2020 7:31 AM 12/27/19 7:57 Venous) CDT AM CDT Yessenia Montalvo M.D., Ph.D. 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
--- OUTSIDE RECORDS SUMMARY | 2022-06-22 12:12 | XMS_ITS | Encounter Summary ---
:1940 Author Organization [facility] Address [address] [place] [address] Care Team Providers Name Role Phone Unavailable Primary Care Provider Unavailable Encounter Details Date Type Department Care Team Description 05/15/2021 Orders Only RST PCP [facility] Myranda Mack M.D. [address] [place], [place] [phone] (Wo rk) Social History Tobacco Use Types Packs/Day Years Used Date Smoking Tobacco: Former Cigarettes Quit : 2006 Smokeless Tobacco: Never Alcohol Use Standard Drinks/Week Comments Yes 10 (1 standard drink = 0.6 oz pure alcoh ol) Alcohol Habits Answer Date Recorded How often do you have a drink containing 4 or more times a w [place] 06/14/2022 alcohol? How many drinks containing alcohol [...] 06/14/2022 relatives? How often do you attend quaker or restoration Never 06/14/2022 services? Do you belong to any clubs or organizations such as No 06/14/2022 quaker groups, unions, fraternal or athletic groups, or [...] place to sleep or slept in a fdc (including now)? Education Answer Date Recorded What is the highest level of school Bachelor's degree (e.g., BA, AB, 06/20/2020 you have completed or the highest BS) degree you have received? 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
--- OUTSIDE RECORDS SUMMARY | 2022-06-22 12:12 | XMS_ITS | Encounter Summary ---
:1940 Author Organization [facility] Address [address] [place] [address] Care Team Providers Name Role Phone Unavailable Primary Care Provider Unavailable Reason for Visit Reason Onset Date Comments Testing For Upper Respiratory Virus Symptoms 06/09/2021 Encounter Details Date Type Department Care Team Description 06/09/2021 External Outreach Department of [facility] Tony Torres Contact With And Medicine, [facility] Mendez Green D.O. (Suspected) Exposure Building, in [address] To COVID-19 (Primary [place], [place] Dx) [address] [facility] [address] [place], [place] [phone] [address] (Work) [phone] Social History Tobacco Use Types Packs/Day Years Used Date Smoking Tobacco: Former Cigarettes Quit : 2006 Smokeless Tobacco: Never Alcohol Use Standard Drinks/Week Comments Yes 10 (1 standard drink = 0.6 oz pure alcoh ol) Alcohol Habits Answer Date Recorded How often do you have a drink containing 4 or more times a w [place] 06/14/2022 alcohol? How many drinks containing alcohol [...] 06/14/2022 relatives? How often do you attend mandaen or sikh Never 06/14/2022 services? Do you belong to any clubs or organizations such as No 06/14/2022 mandaen groups, unions, fraternal or athletic groups, or [...] place to sleep or slept in a nursing home (including now)? Education Answer Date Recorded What is the highest level of school Bachelor's degree (e.g., BA, AB, 06/20/2020 you have completed or the highest BS) degree you have received? 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 - 06/09/2021 9:33 AM CDT Encounter created for symptomatic infectious disease screening with possible COVID, Influenza, RSV, and/or Group A Strep testing. documented in this encounter Plan of Treatment Not on filedocumented as of this encounter Procedures Procedure Name Priority Date/Time Associated Diagnosis Comme nts SARS CORONAVIRUS-2 Routine 06/09/2021 2:51 PM Contact With And Results for this RNA, V CDT (Suspected) Exposure procedu re are in To COVID-19 the results section. documented in this encounter Results SARS Coronavirus-2 RNA, V Symptomatic (06/09/2021 2:51 PM CDT) [facility] Method Time Signature SARS-CoV-2 Swab, 06/10/2021 MKTO Specimen Nasopharynx 2:26 PM CDT Source SARS CoV-2 Undetected Undetected 06/10/2021 MKTO RNA, TMA 2:26 PM CDT Comment: SARS-CoV-2 RNA absent. This result does not rule out COVID-19 in the patient, as the sensitivity of the test depends o n the timing of the specimen collection and the quality of the specim en. Result should be correlated with patient's history and clinical presentat ion. ----ADDITIONAL INFORMATION---- This molecular amplification test was pe rformed using the Aptima SARS-CoV-2 assay ([employer] on the [employer] tem under emergency use authorization (EUA) by the U.S. Food and Drug Administ ration. Fact sheets for this EUA assay can be fo und at the following links: For Healthcare Providers: https://www.atOnePlace.com a.gov/media/064357/download For Patients: https://www.fda.gov/media/ 727032/download Specimen Anatomical Collection Method Collection Time Receive d Time (Source) Location / / Volume Laterality Varies 06/09/2021 2:51 PM 2:32 (Nasopharynx) CDT AM CDT Tony Torres D.O. LAB MICROBIOLOGY - GENERAL [place] Performing Organization Address City/State/ZIP [facility] Phon e Number [facility]- [address] [place] [address] [place] [address] System [address] documented in this encounter Visit Diagnoses Diagnosis Contact With And (Suspected) Exposure To COVID-19 - Primary documented in this encounter Additional Health Concerns Infection Onset Date Last Indicated Resolved Time COVID19 Pending 06/09/2021 06/09/2021 06/10/2021 2:27 PM CDT documented as of this encounter
--- OUTSIDE RECORDS SUMMARY | 2022-06-22 12:12 | XMS_ITS | Encounter Summary ---
:1940 Author Organization [facility] Address [address] [place] [address] Care Team Providers Name Role Phone Unavailable Primary Care Provider Unavailable Encounter Details Date Type Department Care Team Description 06/18/2022 Hospital Encounter Department of Yessenia Montalvo, [facility]inal [facility] Laboratory Medicine Gus, Ph.D. Lymphoma Splenic and Pathology, [address] [place] [address] in [place], [place] [address] [place] [address] [place], [place] (Work) [phone] Social History Tobacco Use Types Packs/Day Years Used Date Smoking Tobacco: Former Cigarettes Quit : 2006 Smokeless Tobacco: Never Alcohol Use Standard Drinks/Week Comments Yes 10 (1 standard drink = 0.6 oz pure alcoh ol) Alcohol Habits Answer Date Recorded How often do you have a drink containing 4 or more times a w [place] 06/14/2022 alcohol? How many drinks containing alcohol [...] 06/14/2022 relatives? How often do you attend oriental orthodox or presybeterian Never 06/14/2022 services? Do you belong to any clubs or organizations such as No 06/14/2022 oriental orthodox groups, unions, fraternal or athletic groups, or [...] place to sleep or slept in a residential (including now)? Education Answer Date Recorded What is the highest level of school Bachelor's degree (e.g., BA, AB, 06/20/2020 you have completed or the highest BS) degree you have received? 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 0 sod (OSTEO BI-FLEX ORAL) ibuprofen (ADVIL,MOTRIN) Take 200 mg by mouth 0 200 mg tablet 2 (two) times a day. latanoprost (XALATAN) 1 drop daily. 0 08/13/2015 0.005 % ophthalmic solution multivit-min/folic/vit Take by mouth. 0 K/lycop (MEN'S 50 PLUS MULTIVITAMIN ORAL) documented as of this encounter Plan of Treatment Not on filedocumented as of this encounter Procedures Procedure Name Priority Date/Time Associated Comments Diagnosis SPSMA RESULT Routine 06/18/2022 10:28 Results for this AM CDT procedure are i n the results section. CBC WITH DIFFERENTIAL, B Routine 06/18/2022 10:28 Marginal Zon e Results for this AM CDT Lymphoma Splenic procedure a re in ([facility]) the results section. ASPARTATE Routine 06/18/2022 10:28 Marginal Zone Results fo r this AMINOTRANSFERASE (AST), AM CDT Lymphoma Splenic procedure are in S/P (HCC) the results section. ALKALINE PHOSPHATASE, Routine 06/18/2022 10:28 Marginal Zone R esults for this S/P AM CDT Lymphoma Splenic procedure a re in ([facility]) the results section. LACTATE DEHYDROGENASE Routine 06/18/2022 10:28 Marginal Zone R esults for this (LD), S AM CDT Lymphoma Splenic procedure a re in (HCC) the results section. BILIRUBIN, TOT, S/P Routine 06/18/2022 10:28 Marginal Zone Res ults for this AM CDT Lymphoma Splenic procedure a re in (HCC) the results section. BASIC METABOLIC PANEL, Routine 06/18/2022 10:28 Marginal Zone Results for this S/P AM CDT Lymphoma Splenic procedure a re in (HCC) the results section. documented in this encounter Results (ABNORMAL) SPSMA Result (06/18/2022 10:28 AM [...] count. 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 Reviewed by: Tech 06/18/2022 11:43 AM CDT [facility] Specimen Anatomical Collection Method Collection Time Receive d Time (Source) Location / / Volume Laterality Blood 06/18/2022 10:28 06/18/2022 AM CDT 10:57 AM CDT Yessenia Montalvo M.D., Ph.D. LAB BLOOD ADD-ON Performing Organization Address City/State/ZIP Code Phon e Number [facility] - [address] [place], [place] [address] [place] [address] [facility] [address] LD (Lactate Dehydrogenase) (06/18/2022 10:28 AM [...] LAB BLOOD NON ADD-ON Performing Organization Address City/State/[facility] Code Phon e Number [facility] - [address] [place], [place] [address] [facility] [place] [address] [facility] [address] [facility] (ABNORMAL) CBC with Differential, Blood (06/18/2022 10:28 [...] Ph.D. LAB BLOOD ADD-ON Performing Organization Address City/State/[facility] Phon e Number [facility] - 200 [place] [address] (ABNORMAL) Bilirubin, Total (06/18/2022 10:28 AM CDT) athologist Signature Bilirubin, 1.7 (H) <=1.2 06/18/2022 DTL Total, S mg/dL 11:23 AM CDT Specimen Anatomical Collection Method Collection Time Receive d Time (Source) Location / / Volume Laterality Blood (Blood, 06/18/2022 10:28 06/18/2022 Venous) AM CDT 11:06 AM CDT Yessenia Montalvo M.D., Ph.D. LAB BLOOD ADD-ON Performing Organization Address City/[facility] Phon e Number [facility] - 200 [place] [address] [address] (ABNORMAL) Basic Metabolic Panel (06/18/2022 10:28 [...] Ph.D. LAB BLOOD ADD-ON Performing Organization Address City/[facility] Phon e Number [facility] - 200 [place], [place] [address] [place] [address] AST (Aspartate Aminotransferase) (06/18/2022 10:28 AM CDT) Patholo gist Method Time Signature Aspartate 23 8 - 48 06/18/2022 DTL Aminotransferase U/L 11:23 AM CDT (AST), S Specimen Anatomical Collection Method Collection Time Receive d Time (Source) Location / / Volume Laterality Blood (Blood, 06/18/2022 10:28 06/18/2022 Venous) AM CDT 11:06 AM CDT Yessenia Montalvo M.D., Ph.D. 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
--- OUTSIDE RECORDS SUMMARY | 2022-06-22 12:12 | XMS_ITS | Encounter Summary ---
:1940 Author Organization [facility] Address [address] [place] [address] Care Team Providers Name Role Phone Unavailable Primary Care Provider Unavailable Reason for Referral Outpatient (Routine) - Closed Specialty Diagnoses / Procedures Referred By Contact Refer red To Contact Hematology Oncology Yessenia Montalvo M.D., [facility] Ph.D. [address] [place] [address] Referral ID Status Reason Start Date Expiration Date Visits Requ ested Visits Authorized [id number] Closed 06/26/2021 06/26/2022 1 1 Reason for Visit Outpatient (Routine) - Closed Specialty Diagnoses / Procedures Referred By Contact Refer red To Contact Hematology Oncology Qasim Weiner M. D. [facility] [address] [place] [phone] Referral ID Status Reason Start Date Expiration Date Visits Requ ested Visits Authorized [id number] Closed 12/26/2020 12/26/2021 1 1 Encounter Details Date Type Department Care Team Description 06/26/2021 Office Visit Division of Yessenia Montalvo, [place] L ymphoma Splenic (HCC) (Primary Dx); Hematology in [place], Ph.D. Thrombocytopenia (HCC) [place], [place] [address] [facility] [address] [place] [phone] Social History Tobacco Use Types Packs/Day Years Used Date Smoking Tobacco: Former Cigarettes Quit : 2006 Smokeless Tobacco: Never Alcohol Use Standard Drinks/Week Comments Yes 10 (1 standard drink = 0.6 oz pure alcoh ol) Alcohol Habits Answer Date Recorded How often do you have a drink containing 4 or more times a w [place] 06/14/2022 alcohol? How many drinks containing alcohol [...] How often do you attend mormonism or pentecostalism Never 06/14/2022 services? Do you belong to [...] place to sleep or slept in a penitentiary (including now)? Education Answer Date Recorded What is the highest level of school Bachelor's degree (e.g., BA, AB, 06/20/2020 you have completed or the highest BS) degree you have received? 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 - 06/26/2021 11:00 AM CDT Chief Complaint/Reason for Visit: Splenic marginal zone lymphoma Thrombocytopenia History of Present Illness: Mr. Rayo is a 81 y.o. male with a history of splenic marginal zone lymphoma, splenomegaly, and thrombocytopenia. Mr. Rayo initially presented with lymphocytosis in August of 2002. Due to persistence of lymphocytosis, a bone marrow biopsy was done on December 17, 2002, which showed 20% involvement of chronic lymphoproliferative disorder, CD5 positive, CD20 positive, CD23 positive. 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 The differential diagnosis included marginal zone lymphoma and atypical CLL. CT abdomen did show [id number] splenomegaly. Blood work also showed mild thrombocytopenia. He has been observed over the years without significant disease progression. In the epic records, his WBC and ALC as well as hemoglobin were normal from 4613-8466, but his platelet count were in the 70-90 range. Interval history Mr. Rayo returns for follow-up today. He has been doing well in the past 6 months. He denies fevers, chills, night sweats. No weight loss. He denies chest pain, short of breath, nausea, vomiting, diarrhea, abdominal pain. No bleeding. ECOG PS 0. Past Medical History: Past Medical History: Diagnosis Date ??? Arthritis ??? Benign Prostatic Hyperplasia Without Obstruction ??? 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 Marginal Zone Lymphoma Splenic (HCC) 2002 ??? Splenomegaly Acquired ??? Thrombocytopenia (HCC) Past Surgical History: Past Surgical History: Procedure Laterality Date ??? HERNIA REPAIR 2012 Umbilical ??? OTHER CONVERTED SHX (SEE COMMENT) N/A 01/26/2006 >Colonoscopy ??? SKIN CANCER EXCISION 2019 ??? TONSILECTOMY, ADENOIDECTOMY, BILATERAL MYRINGOTOMY AND TUBES Family History: Family History Problem Relation Age of Onset ??? Breast cancer Mother Social History: Social History Socioeconomic History ??? Marital status: Spouse name: Not on file ??? Number of children: Not on file ??? Years of education: Not on file ??? Highest education level: Bachelor's degree (e.g., BA, AB, BS) Occupational History ??? 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 Smoking status: Former Smoker Types: Cigarettes Quit date: 2006 Years since quittin.8 ??? Smokeless tobacco: Never Used Substance and Sexual Activity ??? Alcohol use: Yes Alcohol/week: 10.0 standard drinks Types: 10 Glasses of wine per week ??? Drug use: Not on file ??? Sexual activity: Not on file Other Topics Concern ??? Not on file Social History Narrative ??? Not on file Social Determinants of Health Financial Resource Strain: Not on file Food Insecurity: Not on file Transportation Needs: Not on file Physical Activity: Not on file Stress: Not on file Social Connections: Not on file Intimate Partner Violence: Not on file Housing Stability: Not on file Medications: Current Outpatient Medications Medication Sig ??? dorzolamide-timolol (COSOPT) 22.3-6.8 mg/mL ophthalmic solution INSTILL 1 DROP INTO RIGHT EYE TWICE A DAY ??? ibuprofen (ADVIL,MOTRIN) 200 mg tablet Take 200 mg by mouth 2 (two) times a day. ??? latanoprost (XALATAN) 0.005 % ophthalmic solution 1 drop daily. ??? TURMERIC ORAL Take by mouth. Allergies: No Known Allergies Review of Systems: Pertinent items are noted in HPI; all other review of systems was negative. Vitals: Vitals: 06/26/21 1043 BP: 116/61 Pulse: 60 Temp: (!) 34.5 ??C Height: 165.7 cm Weight: 81.1 kg Physical Exam GENERAL: In no apparent distress. Alert and oriented x3. SKIN: Grossly warm, dry, and intact. HEENT: Normocephalic, atraumatic. Extraocular movements intact. Moist mucosa. LYMPH: No cervical, supraclavicular, infraclavicular, axillary, or inguinal lymphadenopathy palpated. CARDIOVASCULAR: Regular rhythm, normal rate. No murmurs, rubs or gallops. RESPIRATORY: Lungs clear to auscultation bilaterally. No wheezing, rhonchi, or rales. ABDOMEN: Soft, non-tender, non-distended. No palpable hepatosplenomegaly. NEUROLOGIC: No focal deficit. Diagnostics I reviewed labs, path reports, and imaging. 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 Rayo is being followed for splenic marginal zone lymphoma. He has been observed since the diagnosis in 2002 without significant disease progression. He has no B symptoms. Physical examination is unremarkable today. His lymphocyte count slowly trended up again but is not very significant. His platelet has been in the 70-90 range in the past few years. His hemoglobin stable at 13.8. He may have some degree of subclinical hemolysis given reticulocyte count and bilirubin. We will continue observation. We will see him in 6 months for follow-up. Total time spent was 35 minutes for this encounter. Yessenia Montalvo M.D., Ph.D. 06/26/21 11:09 AM CDT documented in this encounter Plan of Treatment Scheduled Referrals Name Type Priority Associated Order Schedule Diagnoses Hematology office Outpatient Referral Routine Exp ected: visit (clinic) 12/25/2021, Expires: 06/26/2024 documented as of this encounter Results LD (Lactate Dehydrogenase) (12/21/2021 10:45 AM CDT) Analysis Performed At Patho logist Time Signature Lactate 170 122 - 222 12/21/2021 DTL Dehydrogenase U/L 12:21 PM CDT (LD), S Specimen Anatomical Collection Method Collection Time Receive d Time (Source) Location / / Volume Laterality Blood (Blood, 12/21/2021 10:45 12/21/2021 Venous) AM CDT 11:39 AM CDT Yessenia Montalvo M.D., Ph.D. LAB BLOOD NON ADD-ON Performing Organization Address City/State/ZIP Code Phon e Number [facility] - [address] [place], [place] [address] [facility] [place] [address] [facility] [address] (ABNORMAL) CBC with Differential, Blood (12/21/2021 10:45 AM CDT) [facility] Method Time Signature Hemoglobin 13.7 13.2 - 12/21/2021 DTL 16.6 g/dL 11:51 AM CDT Hematocrit 40.5 38.3 - 12/21/2021 DTL 48.6 % 11:51 AM CDT Erythrocytes 4.07 (L) 4.35 - 12/21/2021 DTL 5.65 11:51 AM CDT x10(12)/L MCV 99.5 (H) 78.2 - 12/21/2021 DTL 97.9 fL 11:51 AM CDT RBC Distrib Width 15.2 (H) 11.8 - 12/21/2021 DTL 14.5 % 11:51 AM CDT Platelet Count 74 (L) 135 - 317 12/21/2021 DTL x10(9)/L 11:51 AM CDT Leukocytes 14.7 (H) 3.4 - 9.6 12/21/2021 DTL x10(9)/L 12:28 PM CDT Neutrophils CANCELED x10(9)/L 12/21/2021 DHPM 12:31 PM CDT Comment: REVISED RESULTS ----PREVIOUSLY REPORTED ---- 2.12, Flagged as: Normal (Reported 12/21/2021 12:28) Lymphocytes CANCELED x10(9)/L 12/21/2021 12:31 PM CDT [facility] Comment: REVISED RESULTS ----PREVIOUSLY REPORTED ---- 10.10, Flagged as: Abnormal_High (Reported 12/21/2021 12:28) Monocytes CANCELED x10(9)/L 12/21/2021 12:31 PM CDT [facility] Comment: REVISED RESULTS ----PREVIOUSLY REPORTED ---- 2.33, Flagged as: Abnormal_High (Reported 12/21/2021 12:28) Eosinophils CANCELED x10(9)/L 12/21/2021 12:31 PM CDT [facility] Comment: REVISED RESULTS ----PREVIOUSLY REPORTED ---- 0.15, Flagged as: Normal (Reported 12/21/2021 12:28) Basophils CANCELED x10(9)/L 12/21/2021 12:31 PM CDT [facility] Comment: REVISED RESULTS ----PREVIOUSLY REPORTED ---- 0.03, Flagged as: Normal (Reported 12/21/2021 12:28) Specimen Anatomical Collection Method Collection Time Receive d Time (Source) Location / / Volume Laterality Blood (Blood, 12/21/2021 10:45 12/21/2021 Venous) AM CDT 11:14 AM CDT Yessenia Montalvo M.D., Ph.D. LAB BLOOD ADD-ON Performing Organization Address [facility] Phon e Number [facility] - [address] (ABNORMAL) Bilirubin, Total (12/21/2021 10:45 AM CDT) P athologist Signature Bilirubin, 1.7 (H) <=1.2 12/21/2021 DTL Total, S mg/dL 12:21 PM CDT Specimen Anatomical Collection Method Collection Time Receive d Time (Source) Location / / Volume Laterality Blood (Blood, 12/21/2021 10:45 12/21/2021 Venous) AM CDT 11:39 AM CDT Yessenia Montalvo M.D., Ph.D. LAB BLOOD ADD-ON Performing Organization Address [facility] Phon e Number [facility] - [address] (ABNORMAL) Basic Metabolic Panel (12/21/2021 10:45 AM CDT) Analysis Performed At Patho logist Time Signature Potassium, S 4.5 3.6 - 5.2 12/21/2021 DTL mmol/L 12:21 PM CDT Sodium, S 141 135 - 145 12/21/2021 DTL mmol/L 12:21 PM CDT Chloride, S 105 98 - 107 12/21/2021 DTL mmol/L 12:21 PM CDT Bicarbonate, S 23 22 - 29 12/21/2021 DTL mmol/L 12:21 PM CDT Anion Gap 13 7 - 15 12/21/2021 DTL 12:21 PM CDT BUN (Blood Urea 21 8 - 24 12/21/2021 DTL Nitrogen), S mg/dL 12:21 PM CDT Creatinine 1.36 (H) 0.74 - 12/21/2021 DTL 1.35 mg/dL 12:21 PM CDT eGFR-Non 49 (L) >=60 12/21/2021 DTL Black/ mL/min/BSA 12:21 PM CDT [place] Comment: ----ADDITIONAL INFORMATION---- Estimated GFR calculated using the 2009 CKD_EPI creatinine equation. eGFR-Black/ 57 (L) >=60 mL/min/BSA 2021 12:21 PM CDT DTL Comment: ----ADDITIONAL INFORMATION---- Estimated GFR calculated using the 2009 CKD_EPI creatinine equation. Calcium, Total, S 9.2 8.8 - 10.2 mg/dL 12/21/2021 1:28 PM CDT DTL Glucose, S 90 70 - 140 mg/dL 12/21/2021 12:21 PM CDT DTL Specimen Anatomical Collection Method Collection Time Receive d Time (Source) Location / / Volume Laterality Blood (Blood, 12/21/2021 10:45 12/21/2021 Venous) AM CDT 11:39 AM CDT Yessenia Montalvo M.D., Ph.D. LAB BLOOD ADD-ON Performing Organization Address City/State/ZIP Code Phon e Number [facility] - [address] [place], [place] [address] [facility] [place] [address] [facility] [address] AST (Aspartate Aminotransferase) (12/21/2021 10:45 AM CDT) Patholo gist Method Time Signature Aspartate 16 8 - 48 12/21/2021 DTL Aminotransferase U/L 12:21 PM CDT (AST), S Specimen Anatomical Collection Method Collection Time Receive d Time (Source) Location / / Volume Laterality Blood (Blood, 12/21/2021 10:45 12/21/2021 Venous) AM CDT 11:39 AM CDT Yessenia Montalvo M.D., Ph.D. LAB BLOOD ADD-ON Performing Organization Address City/[facility] Code Phon e Number [facility] - [address] [address] [facility] 200 [facility] Alkaline Phosphatase (12/21/2021 10:45 AM CDT) P athologist Signature Alkaline 117 40 - 129 12/21/2021 DTL Phosphatase, S U/L 12:21 PM CDT Specimen Anatomical Collection Method Collection Time Receive d Time (Source) Location / / Volume Laterality Blood (Blood, 12/21/2021 10:45 12/21/2021 Venous) AM CDT 11:39 AM CDT Yessenia Montalvo M.D., Ph.D. LAB BLOOD ADD-ON Performing Organization Address City/[facility] Code Phon e Number [facility] - [address] [place] [phone] 05 [place] [address] [facility] 200 [facility] documented in this encounter Visit Diagnoses Diagnosis Marginal Zone Lymphoma Splenic (HCC) - P rimary Thrombocytopenia (HCC) documented in this encounter
--- OUTSIDE RECORDS SUMMARY | 2022-06-22 12:12 | XMS_ITS | Encounter Summary ---
:1940 Author Organization [facility] Address [address] [place] [address] Care Team Providers Name Role Phone Unavailable Primary Care Provider Unavailable Encounter Details Date Type Department Care Team Description 12/21/2021 Hospital Encounter Department of Yessenia Montalvo, Marginal Zone Lymphoma Splenic (HCC); Laboratory Medicine M.D., Ph.D. Thrombocytopenia (HCC) and Pathology, [address] [place] [address], in [place] [phone] [place] [phone] [place] [address] (Work) [place], [place] [phone] (Fax) [phone] Social History Tobacco Use Types Packs/Day Years Used Date Smoking Tobacco: Former Cigarettes Quit : 2006 Smokeless Tobacco: Never Alcohol Use Standard Drinks/Week Comments Yes 10 (1 standard drink = 0.6 oz pure alcoh ol) Alcohol Habits Answer Date Recorded How often do you have a drink containing 4 or more times a w [place] 06/14/2022 alcohol? How many drinks containing alcohol [...] 06/14/2022 relatives? How often do you attend mandaeism or methodist Never 06/14/2022 services? Do you belong to any clubs or organizations such as No 06/14/2022 mandaeism groups, unions, fraternal or athletic groups, or [...] place to sleep or slept in a [place] facility (including now)? Education Answer Date Recorded What is the highest level of school Bachelor's degree (e.g., BA, AB, 06/20/2020 you have completed or the highest BS) degree you have received? 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 latanoprost (XALATAN) 1 drop daily. 0 08/13/2015 0.005 % ophthalmic solution documented as of this encounter Plan of Treatment Not on filedocumented as of this encounter Procedures Procedure Name Priority Date/Time Associated Comments Diagnosis SPSMA RESULT Routine 12/21/2021 10:45 Results for this AM CDT procedure are i n the results section. CBC WITH DIFFERENTIAL, B Routine 12/21/2021 10:45 Marginal Zon e Results for this AM CDT Lymphoma Splenic procedure a re in ([facility]) the results Thrombocytopenia section. ([facility]) ASPARTATE Routine 12/21/2021 10:45 Marginal Zone Results fo r this AMINOTRANSFERASE (AST), AM CDT Lymphoma Splenic procedure are in S/P ([facility]) the results Thrombocytopenia section. ([facility]) ALKALINE PHOSPHATASE, Routine 12/21/2021 10:45 Marginal Zone R esults for this S/P AM CDT Lymphoma Splenic procedure a re in ([facility]) the results Thrombocytopenia section. ([facility]) LACTATE DEHYDROGENASE Routine 12/21/2021 10:45 Marginal Zone R esults for this (LD), S AM CDT Lymphoma Splenic procedure a re in ([facility]) the results Thrombocytopenia section. (HCC) BILIRUBIN, TOT, S/P Routine 12/21/2021 10:45 Marginal Zone Res ults for this AM CDT Lymphoma Splenic procedure a re in ([facility]) the results Thrombocytopenia section. ([facility]) BASIC METABOLIC PANEL, Routine 12/21/2021 10:45 Marginal Zone Results for this S/P AM CDT Lymphoma Splenic procedure a re in ([facility]) the results Thrombocytopenia section. ([facility]) documented in this encounter Results (ABNORMAL) Morphology Evaluation (Special Smear) (12/21/2021 10:45 AM CDT) Analysis Performed At Patho logist Time Signature Neutrophilic Segs 12 (L) 50 - 75 % 12/21/2021 DTL and Bands 12:36 PM CDT Lymphocytes 82 (H) 18 - 42 % 12/21/2021 DHPM 12:36 PM CDT Monocytes 3 2 - 11 % 12/21/2021 DHPM 12:36 PM CDT Eosinophils 3 1 - 3 % 12/21/2021 DHPM 12:36 PM CDT Manual Absolute 1.76 1.56 - 12/21/2021 DHPM Neutrophil Count 6.45 12:36 PM CDT x10(9)/L Comment: ----ADDITIONAL INFORMATION---- The manual absolute neutrophil count is derived from a manual differential count and therefore is not exactly comparable to the automated absolute lucho trophil count. Reviewed by: Raymon 12/21/2021 12:36 PM CDT DHP M Specimen Anatomical Collection Method Collection Time Receive d Time (Source) Location / / Volume Laterality Blood 12/21/2021 10:45 12/21/2021 AM CDT 11:14 AM CDT Yessenia Montalvo M.D., Ph.D. LAB BLOOD ADD-ON Performing Organization Address City/State/ZIP Code Phon e Number [facility] - [address] [place], [place] [address] [facility] [place] [address] [facility] [address] [place] [address] [facility] [address] LD (Lactate Dehydrogenase) (12/21/2021 10:45 AM CDT) [facility] Time Signature Lactate 170 122 - 222 12/21/2021 DTL Dehydrogenase U/L 12:21 PM CDT (LD), S Specimen Anatomical Collection Method Collection Time Receive d Time (Source) Location / / Volume Laterality Blood (Blood, 12/21/2021 10:45 12/21/2021 Venous) AM CDT 11:39 AM CDT Yessenia Montalvo M.D., Ph.D. LAB BLOOD NON ADD-ON Performing Organization Address City/State/ZIP Code Phon e Number [facility] - 200 [place], [place] [address] [facility] [place] [place] [address] [facility] [address] [facility] (ABNORMAL) CBC with Differential, Blood (12/21/2021 10:45 AM CDT) [facility] Method Time Signature Hemoglobin 13.7 13.2 - [...] Lymphocytes CANCELED x10(9)/L 12/21/2021 12:31 PM CDT DHPM Comment: REVISED RESULTS ----PREVIOUSLY REPORTED ---- 10.10, [...] Ph.D. LAB BLOOD ADD-ON Performing Organization Address [facility] Phon e Number [facility] - [address] (ABNORMAL) Bilirubin, Total (12/21/2021 10:45 AM CDT) P athologist Signature Bilirubin, 1.7 (H) <=1.2 12/21/2021 DT Total, S mg/dL 12:21 PM CDT Specimen Anatomical Collection Method Collection Time Receive d Time (Source) Location / / Volume Laterality Blood (Blood, 12/21/2021 10:45 12/21/2021 Venous) AM CDT 11:39 AM CDT Yessenia Montalvo M.D., Ph.D. LAB BLOOD ADD-ON Performing Organization Address City/[facility] Phon e Number [facility] - 200 [place] [phone] [facility] [address] (ABNORMAL) Basic Metabolic Panel (12/21/2021 10:45 AM [...] 12/21/2021 DTL Black/ mL/min/BSA 12:21 PM CDT [place] Comment: ----ADDITIONAL INFORMATION---- Estimated GFR calculated using [...] Organization Address City/State/ZIP Code Phon e Number [facility] - [address] [place], [place] [address] [place] [address] [facility] 200 [facility] AST (Aspartate Aminotransferase) (12/21/2021 10:45 AM CDT) Patholo gist Method Time Signature Aspartate 16 8 - 48 12/21/2021 DTL Aminotransferase U/L 12:21 PM CDT (AST), S Specimen Anatomical Collection Method Collection Time Receive d Time (Source) Location / / Volume Laterality Blood (Blood, 12/21/2021 10:45 12/21/2021 Venous) AM CDT 11:39 AM CDT Yessenia Montalvo M.D., Ph.D. LAB BLOOD ADD-ON Performing Organization Address City/[facility]/ZIP Code Phon e Number [facility] - [address] Alkaline Phosphatase (12/21/2021 10:45 AM CDT) P athologist Signature Alkaline 117 40 - 129 12/21/2021 DTL Phosphatase, S U/L 12:21 PM CDT Specimen Anatomical Collection Method Collection Time Receive d Time (Source) Location / / Volume Laterality Blood (Blood, 12/21/2021 10:45 12/21/2021 Venous) AM CDT 11:39 AM CDT Yessenia Montalvo M.D., Ph.D. LAB BLOOD ADD-ON Performing Organization Address City/State/ZIP Code Phon e Number [facility] - [id number] [place] [address] documented in this encounter Visit Diagnoses Diagnosis Marginal Zone Lymphoma Splenic (HCC) Thrombocytopenia (HCC) documented in this encounter
--- OUTSIDE RECORDS SUMMARY | 2022-06-22 12:13 | XMS_ITS | Encounter Summary ---
:1940 Author Organization [facility] Address [address] [place] [address] Care Team Providers Name Role Phone Unavailable Primary Care Provider Unavailable Reason for Visit Reason Comments COVID Nurse Line Encounter Details Date Type Department Care Team Description 05/06/2020 Clinical Communication Division of Yessenia Montalvo COVID Nurse Line Hematology in M.D., Ph.D. [place], [place] [address] [facility] [address] [place] [phone] Social History Tobacco Use Types Packs/Day Years Used Date Smoking Tobacco: Former Cigarettes Quit : 2006 Smokeless Tobacco: Never Alcohol Use Standard Drinks/Week Comments Yes 10 (1 standard drink = 0.6 oz pure alcoh ol) Alcohol Habits Answer Date Recorded How often do you have a drink containing 4 or more times a w [place] 06/14/2022 alcohol? How many drinks containing alcohol [...] 06/14/2022 relatives? How often do you attend buddhist or moravian Never 06/14/2022 services? Do you belong to any clubs or organizations such as No 06/14/2022 buddhist groups, unions, fraternal or athletic groups, or [...] or slept in a residential (including now)? 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 Do you have a pending COVID test because you had symptoms or exposure to someone with COVID or you have tested positive for COVID in the last 30 days?no 1. In the past 14 days, do you, anyone in the household, or anyone you have had prolonged exposure have any of the following? a. Fever greater than or equal to 37.8 C (100.0 F)? no b. New symptoms (Specifically: headache, cough, shortness of breath, respiratory distress, sore throat, diarrhea, nausea, vomiting, chills and repeated shaking with chills, myalgia's (muscle aches), loss of smell, or change or loss of taste sensation)? No c. Had close contact with a patient with known or possible COVID-19 in the last 14 days? 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
--- OUTSIDE RECORDS SUMMARY | 2022-06-22 12:13 | XMS_ITS | Encounter Summary ---
:1940 Author Organization [facility] Address [address] [place] [id number] Care Team Providers Name Role Phone Unavailable Primary Care Provider Unavailable Encounter Details Date Type Department Care Team Description 03/04/2020 Ancillary Procedure Department of Dermatology Social History Tobacco Use Types Packs/Day Years Used Date Smoking Tobacco: Former Cigarettes Quit : 2006 Smokeless Tobacco: Never Alcohol Use Standard Drinks/Week Comments Yes 10 (1 standard drink = 0.6 oz pure alcoh ol) Alcohol Habits Answer Date Recorded How often do you have a drink containing 4 or more times a w [place] 06/14/2022 alcohol? How many drinks containing alcohol [...] 06/14/2022 relatives? How often do you attend mormon or worship Never 06/14/2022 services? Do you belong to any clubs or organizations such as No 06/14/2022 mormon groups, unions, fraternal or athletic groups, or [...] or slept in a prison (including now)? 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 documented in this encounter Results ear, right upper antihelix 120 Mohs micrographic surgery-Dermatology Image Exam (03/04/2020 12:05 PMCDT) Specimen (Source) Anatomical Collection Method Collection Time Re ceived Time Location / / Volume Laterality 03/04/2020 12:00 PM CDT Narrative [facility] - 03/04/2020 12:30 PM CDT This order has been created and auto-finalized to support the import of images acquired without order. The clini olga documentation to support these images can be found on the encounter lexx t produced images. Provider Not In System IMG NON RAD IMAGING PROCEDUR ES Performing Organization Address City/State/ZIP Code Phon e Number [facility] NA documented in this encounter Visit Diagnoses Not on filedocumented in this encounter
--- OUTSIDE RECORDS SUMMARY | 2022-06-22 12:13 | XMS_ITS | Encounter Summary ---
:1940 Author Organization [facility] Address [address] [place] [address] Care Team Providers Name Role Phone Unavailable Primary Care Provider Unavailable Reason for Visit Reason Comments COVID Inquiry Encounter Details Date Type Department Care Team Description 03/03/2020 Clinical Communication Department of Rafal Vicente C OVID Inquiry Dermatology in .. [place], [place] [address] [facility] [address] [place] [phone] Social History Tobacco Use Types Packs/Day Years Used Date Smoking Tobacco: Former Cigarettes Quit : 2006 Smokeless Tobacco: Never Alcohol Use Standard Drinks/Week Comments Yes 10 (1 standard drink = 0.6 oz pure alcoh ol) Alcohol Habits Answer Date Recorded How often do you have a drink containing 4 or more times a w [place] 06/14/2022 alcohol? How many drinks containing alcohol [...] How often do you attend mormonism or faith Never 06/14/2022 services? Do you belong to [...] or slept in a [facility] (including now)? 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 1. Do you have a pending COVID test because you had symptoms or exposure to someone with COVID or you have tested positive for COVID in the last 30 days? no 2. In the past 14 days, do you, [...] or change or loss of taste sensation)? no c. Had close contact with a patient with known or possible COVID-19 in the last 14 days? no Route reply to: HERNAN ANGULO DESK Scheduling Contact Number: [phone] documented in this encounter Plan of Treatment Not on filedocumented as of this encounter Visit Diagnoses Not on filedocumented in this encounter
--- OUTSIDE RECORDS SUMMARY | 2022-06-22 12:13 | XMS_ITS | Encounter Summary ---
:1940 Author Organization [facility] Address [address] [place] [address] Care Team Providers Name Role Phone Unavailable Primary Care Provider Unavailable Reason for Visit Reason Comments Pain Appointment Request (Routine) - Closed Specialty Diagnoses / Procedures Referred By Contact Refer red To Contact Orthopedic Surgery Diagnoses Pain Knee Left Referral ID Status Reason Start Date Expiration Date Visits Requ ested Visits Authorized [id number] Closed 09/08/2020 09/08/2021 1 1 Encounter Details Date Type Department Care Team Description 09/09/2020 Office Visit Department of Candido Starks, Pain Knee Ri t Orthopedic Surgery in M.D. (Primary Dx) [place], [place] [address] [place] [phone] Social History Tobacco Use Types Packs/Day Years Used Date Smoking Tobacco: Former Cigarettes Quit : 2006 Smokeless Tobacco: Never Alcohol Use Standard Drinks/Week Comments Yes 10 (1 standard drink = 0.6 oz pure alcoh ol) Alcohol Habits Answer Date Recorded How often do you have a drink containing 4 or more times a w [place] 06/14/2022 alcohol? How many drinks containing alcohol [...] 06/14/2022 relatives? How often do you attend denominational or moravian Never 06/14/2022 services? Do you belong to any clubs or organizations such as No 06/14/2022 denominational groups, unions, fraternal or athletic groups, or [...] place to sleep or slept in a skilled nursing (including now)? Education Answer Date Recorded What is the highest level of school Bachelor's degree (e.g., BA, AB, 06/20/2020 you have completed or the highest BS) degree you have received? 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 - 09/09/2020 2:30 PM CST HISTORY OF PRESENT ILLNESS The patient is a 80-year-old male with left knee pain. Both of his knees bother him a little bit, but the left is worse than the right. It is anterior pain along the inferior pole of the patella. It bothers him when he increases his walking. Going to walk in the evening with his and it will be painful by the end. Kneeling can be bothersome. They really do not ache at night. They do not bother him at night. It does not keep him up. It does not keep him from doing things he wants to do, but he wanted to get it checked out. X-rays taken show both of his knees have some lateral tilting of his patellas, osteophyte laterally in the left knee, so his pain definitely seems to be patellofemoral pain. ALLERGIES/CONTRAINDICATIONS No known drug allergies. CURRENT MEDICATIONS Include: Turmeric. Multiple eye drops. Ibuprofen. MEDICAL HISTORY Includes: Marginal zone lymphoma. Splenic lymphoma. Thrombocytopenia. REVIEW OF SYSTEMS No recent fever, chills, chest pain, shortness of breath. SOCIAL HISTORY Smoking and alcohol history unknown. OBJECTIVE PHYSICAL EXAMINATION General: He is a well-developed, well-nourished, pleasant, 80-year-old male in no acute distress. Oriented x3. Mood and affect are normal. Vital Signs: Vital signs as per nurse's note that are taken today. Extremities: Left knee has range of motion 0 to at least 120 degrees, stable ligamentously. He has got some tenderness over the inferior pole of the patella. Positive inhibition test for patellofemoralpain. No joint line tenderness. No swelling, redness, or warmth about his knees. Right knee also hasexcellent motion. He is neurovascularly intact in bilateral lower extremities. Bilateral feet are pink and warm. ASSESSMENT / PLAN #1 Patellofemoral pain, bilateral knees, left worse than right PLAN: I recommend quad strengthening. Compression sleeve if he does a lot a walking. Using Aleve or ibuprofen when he goes on a longer walk. At this point his knee does not look bad enough to consider knee replacement surgery. He really did not wish to go to any formal therapy. I will see him back with any worsening symptoms. 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
--- OUTSIDE RECORDS SUMMARY | 2022-06-22 12:13 | XMS_ITS | Encounter Summary ---
:1940 Author Organization [facility] Address [address] [place] [address] Care Team Providers Name Role Phone Unavailable Primary Care Provider Unavailable Encounter Details Date Type Department Care Team Description 02/25/2020 Hospital Encounter Department of Yessenia Montalvo, Marginal Zone Lymphoma Splenic (HCC); Laboratory Medicine M.D., Ph.D. Thrombocytopenia (HCC) and Pathology, [address] [place] [address] in [place] [id number] [place] [phone] [place] [address] (Work) [place], [place] [phone] [address] (Fax) [phone] Social History Tobacco Use Types Packs/Day Years Used Date Smoking Tobacco: Former Cigarettes Quit : 2006 Smokeless Tobacco: Never Alcohol Use Standard Drinks/Week Comments Yes 10 (1 standard drink = 0.6 oz pure alcoh ol) Alcohol Habits Answer Date Recorded How often do you have a drink containing 4 or more times a w [place] 06/14/2022 alcohol? How many drinks containing alcohol [...] 06/14/2022 relatives? How often do you attend alevism or presybeterian Never 06/14/2022 services? 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 ([facility]) HCV AB W/REFLEX TO HCV Routine 02/25/2020 10:14 Marginal Zone Results for this PCR, S AM CDT Lymphoma Splenic procedure a re in ([facility]) the results section. HBC TOTAL AB, SERUM Routine 02/25/2020 10:14 Marginal Zone Res ults for this AM CDT Lymphoma Splenic procedure a re in ([facility]) the results section. HBS ANTIBODY, SERUM Routine 02/25/2020 10:14 Marginal Zone Res ults for this AM CDT Lymphoma Splenic procedure a re in ([facility]) the results section. HEPATITIS B SURFACE Routine 02/25/2020 10:14 Marginal Zone Res ults for this ANTIGEN AM CDT Lymphoma Splenic procedure a re in ([facility]) the results section. RETICULOCYTES, B Routine 02/25/2020 10:14 Marginal Zone Result s for this AM CDT Lymphoma Splenic procedure a re in ([facility]) the results section. CBC WITH DIFFERENTIAL, B Routine 02/25/2020 10:14 Marginal Zon e Results for this AM CDT Lymphoma Splenic procedure a re in ([facility]) the results Thrombocytopenia section. (HCC) ASPARTATE Routine 02/25/2020 10:14 Marginal Zone Results fo r this AMINOTRANSFERASE (AST), AM CDT Lymphoma Splenic procedure are in S/P ([facility]) the results section. ALKALINE PHOSPHATASE, Routine 02/25/2020 10:14 Marginal Zone R esults for this S/P AM CDT Lymphoma Splenic procedure a re in ([facility]) the results section. LACTATE DEHYDROGENASE Routine 02/25/2020 10:14 Marginal Zone R esults for this (LD), S AM CDT Lymphoma Splenic procedure a re in ([facility]) the results section. BILIRUBIN DIRECT, S/P Routine 02/25/2020 10:14 Marginal Zone R esults for this AM CDT Lymphoma Splenic procedure a re in ([facility]) the results section. BILIRUBIN, TOT, S/P Routine 02/25/2020 10:14 Marginal Zone Res ults for this AM CDT Lymphoma Splenic procedure a re in ([facility]) the results section. BASIC METABOLIC PANEL, Routine 02/25/2020 10:14 Marginal Zone Results for this S/P AM CDT Lymphoma Splenic procedure a re in ([facility]) the results section. documented in this encounter Results Cell Bound Platelet Autoantibody Screen (02/25/2020 10:15 AM CDT) [facility] Method Time Signature Cell Bound Ab. Negative Not 02/26/2020 DBB8 Overall Result Applicable 2:51 PM CDT Cell Bound Ab. see below 02/26/2020 DBB8 Interpretation 2:51 PM CDT Comment: No platelet antibodies were det ected. GPIIb/IIIa Negative Not Applicable 02/26/2020 2:51 PM CDT D BB8 Comment: Observed OD Value: 0.042/Cutoff : 0.070 GPIb/IX Negative Not Applicable 02/26/2020 2:51 PM CDT DB B8 Comment: Observed OD Value: 0.036/Cutoff : 0.068 GPIa/IIa Negative Not Applicable 02/26/2020 2:51 PM CDT DB B8 Comment: Observed OD Value: 0.035/Cutoff: 0.066 ----ADDITIONAL INFORMATION---- Method: Lee Ann Based Assay CLIA: [id number] ??CLIA Seat Cover Installer: MERVAT GURROLA MD,PhD Cell Bound Ab. Reason Autoimmune Thrombocytopenia 02/25/2020 11:22 AM DBB8 for request? CDT IVIg in last month? No 02/25/2020 11:22 AM DBB8 CDT Plt Transfusion in last No 02/25/2020 11:22 AM DBB8 72 hours? CDT Platelet Count x 69 02/26/2020 2:30 PM CDT DBB8 10(9)/L? Specimen Anatomical Collection Method Collection Time Receive d Time (Source) Location / / Volume Laterality Blood (Blood, 02/25/2020 10:15 02/25/2020 Venous) AM CDT 11:22 AM CDT Narrative [facility] - 02/26/2020 2:51 PM CDT Specimen Information: Specimen ID: [id number] Specimen Type: Blood Specimen Collection Start Date: 02/25/20 10:15 AM Specimen Received Date: 02/25/2020 11:22 AM Specimen ID: [id number] Specimen Type: Blood Specimen Collection Start Date: 02/25/20 10:15 AM Specimen Received Date: 02/25/2020 11:22 AM Yessenia Montalvo M.D., Ph.D. LAB BLOOD NON ADD-ON Performing Organization Address City/[facility] Phon e Number [place] [address] [address] [place], [place] [address] [facility] DBB8 [place] [address] [facility] [address] [facility] HCV Ab w/Reflex to HCV PCR, Serum (02/25/2020 10:14 AM CDT) P athologist Signature HCV Ab, S Negative Negative 02/25/2020 [facility] 3:24 PM CDT Comment: Qkqpfm-zh-dyyujk ratio is <1.00 . Specimen Anatomical Collection Method Collection Time Receive d Time (Source) Location / / Volume Laterality Blood (Blood, 02/25/2020 10:14 02/25/2020 2:06 Venous) AM CDT PM CDT Yessenia Montalvo M.D., Ph.D. LAB MICROBIOLOGY - BLOOD ORD ERABLES Performing Organization Address City/[facility]/ZIP Code Phon e Number [facility] [address] [place] [address] SUPPORT [facility] [place] [address] Laboratory Medicine and Pathology [address] [place] [address] Dr. WILLIS HBc Total Ab, Serum (02/25/2020 10:14 AM CDT) athologist Signature HBc Total Ab, Negative Negative 02/25/2020 [facility] S 3:22 PM CDT Specimen Anatomical Collection Method Collection Time Receive d Time (Source) Location / / Volume Laterality Blood (Blood, 02/25/2020 10:14 02/25/2020 2:06 Venous) AM CDT PM CDT Yessenia Montalvo M.D., Ph.D. LAB MICROBIOLOGY - BLOOD ORD ERABLES Performing Organization Address City/[facility] Phon e Number [address] [place] Man [address] [place] [address] Laboratory Medicine and Pathology [address] [place] [address] Dr. WILLIS HBs Antibody, Serum (02/25/2020 10:14 AM CDT) athologist [facility] HBs Antibody, Negative 02/25/2020 [facility] S 3:22 PM CDT Comment: Patient is presumed to be not immune to infection with HBV. ----REFERENCE VALUE---- Unvaccinated: Negative Vaccinated: Positive HBs Antibody, Quantitative, S <5.0 mIU/mL 02/25/2020 3:22 PM CDT [facility] Comment: ----REFERENCE VALUE---- Unvaccinated: <5.0 Vaccinated: >=12.0 Specimen Anatomical Collection Method Collection Time Receive d Time (Source) Location / / Volume Laterality Blood (Blood, 02/25/2020 10:14 02/25/2020 2:06 Venous) AM CDT PM CDT Yessenia Montalvo M.D., Ph.D. LAB MICROBIOLOGY - BLOOD ORD ERABLES Performing Organization Address City/State/[facility] Code Phon e Number [place] [id number] [place] [address] [facility] [place] [address] Laboratory Medicine and Pathology [address] [place] [address] Dr. WILLIS Hepatitis B Surface Antigen (02/25/2020 10:14 AM CDT) athologist [facility] HBs Antigen, S Negative Negative 02/25/2020 [facility] 3:07 PM CDT Specimen Anatomical Collection Method Collection Time Receive d Time (Source) Location / / Volume Laterality Blood (Blood, 02/25/2020 10:14 02/25/2020 2:06 Venous) AM CDT PM CDT Yessenia Montalvo M.D., Ph.D. LAB MICROBIOLOGY - BLOOD ORD ERABLES Performing Organization Address City/State/ZIP Code Phon e Number [facility] [address] [place], [place] [address] SU[facility] [place] [address] Laboratory Medicine and Pathology [address] WILLIS Bilirubin, Direct (02/25/2020 10:14 AM CDT) P athologist Signature Bilirubin, 0.3 0.0 - 0.3 02/25/2020 D[facility] Direct, S mg/dL 11:51 AM CDT Specimen Anatomical Collection Method Collection Time Receive d Time (Source) Location / / Volume Laterality Blood (Blood, 02/25/2020 10:14 02/25/2020 Venous) AM CDT 11:15 AM CDT Yessenia Montalvo M.D., Ph.D. LAB BLOOD ADD-ON Performing Organization Address City/[facility] Phon e Number [facility] - [address] [place] [address] (ABNORMAL) Bilirubin, Total (02/25/2020 10:14 AM CDT) P athologist Signature Bilirubin, 1.6 (H) <=1.2 02/25/2020 DTL Total, S mg/dL 11:51 AM CDT Specimen Anatomical Collection Method Collection Time Receive d Time (Source) Location / / Volume Laterality Blood (Blood, 02/25/2020 10:14 02/25/2020 Venous) AM CDT 11:15 AM CDT Yessenia Montalvo M.D., Ph.D. LAB BLOOD ADD-ON Performing Organization Address City/State/ZIP Code Phon e Number [facility] - [address] [place], [place] [address] [facility] [place] [address] [facility] [address] (ABNORMAL) Basic Metabolic Panel (02/25/2020 10:14 AM CDT) P athologist Signature Potassium, S 5.4 (H) 3.6 - 5.2 02/25/2020 DTL mmol/L 11:51 AM CDT Sodium, S 142 135 - 145 02/25/2020 DTL mmol/L 11:51 AM CDT Chloride, S 105 98 - 107 02/25/2020 DTL mmol/L 11:51 AM CDT Bicarbonate, S 25 22 - 29 02/25/2020 DTL mmol/L 11:51 AM CDT Anion Gap 12 7 - 15 02/25/2020 DTL 11:51 AM CDT BUN (Blood Urea 22 8 - 24 02/25/2020 DTL Nitrogen), S mg/dL 11:51 AM CDT Creatinine 1.14 0.74 - 02/25/2020 DTL 1.35 mg/dL 11:51 AM CDT eGFR-Non 62 >=60 02/25/2020 DTL Black/ mL/min/BSA 11:51 AM CDT [place] Comment: ----ADDITIONAL INFORMATION---- Estimated GFR calculated using the 2009 CKD_EPI creatinine equation. eGFR-Black/ 71 >=60 mL/min/BSA 2019 11:51 AM CDT DTL Comment: ----ADDITIONAL INFORMATION---- Estimated GFR calculated using the 2009 CKD_EPI creatinine equation. Calcium, Total, S 9.2 8.8 - 10.2 mg/dL 02/25/2020 11:5 1 AM CDT DTL Glucose, S 99 70 - 140 mg/dL 02/25/2020 11:51 AM CDT DTL Specimen Anatomical Collection Method Collection Time Receive d Time (Source) Location / / Volume Laterality Blood (Blood, 02/25/2020 10:14 02/25/2020 Venous) AM CDT 11:15 AM CDT Yessenia Montalvo M.D., Ph.D. LAB BLOOD ADD-ON Performing Organization Address City/State/ZIP Code Phon e Number [facility] - [address] [place], [place] [address] [facility] [place] [address] Laboratories-[facility] [address] AST (Aspartate Aminotransferase) (02/25/2020 10:14 AM CDT) Pathclyde gist Method Time Signature Aspartate 21 8 - 48 02/25/2020 DTL Aminotransferase U/L 11:51 AM CDT (AST), S Specimen Anatomical Collection Method Collection Time Receive d Time (Source) Location / / Volume Laterality Blood (Blood, 02/25/2020 10:14 02/25/2020 Venous) AM CDT 11:15 AM CDT Yessenia Montalvo M.D., Ph.D. LAB BLOOD ADD-ON Performing Organization Address City/[facility] Code Phon e Number [facility] - [address] Alkaline Phosphatase (02/25/2020 10:14 AM CDT) P athologist Signature Alkaline 95 40 - 129 02/25/2020 DTL Phosphatase, S U/L 11:51 AM CDT Specimen Anatomical Collection Method Collection Time Receive d Time (Source) Location / / Volume Laterality Blood (Blood, 02/25/2020 10:14 02/25/2020 Venous) AM CDT 11:15 AM CDT Yessenia Montalvo M.D., Ph.D. LAB BLOOD ADD-ON Performing Organization Address City/[facility]/ZIP Code Phon e Number [facility] - [address] (ABNORMAL) Reticulocytes (02/25/2020 10:14 AM CDT) [facility] Method Time Signature Reticulocytes, B 2.86 (H) 0.60 - 02/25/2020 DTL 2.71 % 11:04 AM CDT Absolute 115.3 (H) 30.4 - 02/25/2020 DTL Reticulocyte 110.9 11:04 AM CDT x10(9)/L Specimen Anatomical Collection Method Collection Time Receive d Time (Source) Location / / Volume Laterality Blood (Blood, 02/25/2020 10:14 02/25/2020 Venous) AM CDT 10:44 AM CDT Yessenia Montalvo M.D., Ph.D. LAB BLOOD ADD-ON Performing Organization Address City/[facility]/ZIP Code Phon e Number [facility] - 200 [place], [place] [address] [facility] [place] [address] Laboratories-[address] LD (Lactate Dehydrogenase) (02/25/2020 10:14 AM CDT) Analysis Performed At Patho logist Time Signature Lactate 185 122 - 222 02/25/2020 DTL Dehydrogenase U/L 11:51 AM CDT (LD), S Specimen Anatomical Collection Method Collection Time Receive d Time (Source) Location / / Volume Laterality Blood (Blood, 02/25/2020 10:14 02/25/2020 Venous) AM CDT 11:15 AM CDT Yessenia Montalvo M.D., Ph.D. LAB BLOOD NON ADD-ON Performing Organization Address City/State/[facility] Code Phon e Number [facility] - [address] [address] Laboratories-[address] (ABNORMAL) CBC with Differential, Blood (02/25/2020 10:14 AM CDT) Patholo gist Method Time Signature Hemoglobin 13.7 13.2 - 02/25/2020 DTL 16.6 g/dL 11:04 AM CDT Hematocrit 39.8 38.3 - 02/25/2020 DTL 48.6 % 11:04 AM CDT Erythrocytes 4.03 (L) 4.35 - 02/25/2020 DTL 5.65 11:04 AM CDT x10(12)/L MCV 98.8 (H) 78.2 - 02/25/2020 DTL 97.9 fL 11:04 AM CDT RBC Distrib Width 14.5 11.8 - 02/25/2020 DTL 14.5 % 11:04 AM CDT Platelet Count 69 (L) 135 - 317 02/25/2020 DTL x10(9)/L 11:04 AM CDT Leukocytes 7.1 3.4 - 9.6 02/25/2020 DTL x10(9)/L 11:04 AM CDT Neutrophils 2.14 1.56 - 02/25/2020 DTL 6.45 11:53 AM CDT x10(9)/L Comment: Rechecked Lymphocytes 3.85 (H) 0.95 - 3.07 x10(9)/L 02/25/2020 11:53 AM CDT DTL Monocytes 0.87 (H) 0.26 - 0.81 x10(9)/L 02/25/2020 11:53 AM CDT DTL Eosinophils 0.23 0.03 - 0.48 x10(9)/L 02/25/2020 11:53 AM CDT DTL Basophils 0.05 0.01 - 0.08 x10(9)/L 02/25/2020 11:53 AM CDT DTL Specimen Anatomical Collection Method Collection Time Receive d Time (Source) Location / / Volume Laterality Blood (Blood, 02/25/2020 10:14 02/25/2020 Venous) AM CDT 10:44 AM CDT Yessenia Montalvo M.D., Ph.D. LAB BLOOD ADD-ON Performing Organization Address City/State/ZIP Code Phon e Number [facility] - [address] [place], [place] [address] [facility] [place] [address] Laboratories-[facility] [address] documented in this encounter Visit Diagnoses Diagnosis Marginal Zone Lymphoma Splenic (HCC) Thrombocytopenia (HCC) documented in this encounter
--- OUTSIDE RECORDS SUMMARY | 2022-06-22 12:13 | XMS_ITS | Encounter Summary ---
:1940 Author Organization [facility] Address [address] [place] [address] Care Team Providers Name Role Phone Unavailable Primary Care Provider Unavailable Reason for Visit Reason Comments Pre-visit Testing Orders Encounter Details Date Type Department Care Team Description 09/08/2020 Clinical Department of Barbara Edmonds Pre-visit Temo olivarez Communication Orthopedic Surgery Gus Michel Orders in [place], [address] [place], [place] [address]Siobhanjonah keys [place], [place] [address] [phone] (Work) [phone] Social History Tobacco Use Types Packs/Day Years Used Date Smoking Tobacco: Former Cigarettes Quit : 2006 Smokeless Tobacco: Never Alcohol Use Standard Drinks/Week Comments Yes 10 (1 standard drink = 0.6 oz pure alcoh ol) Alcohol Habits Answer Date Recorded How often do you have a drink containing 4 or more times a w [place] 06/14/2022 alcohol? How many drinks containing alcohol [...] How often do you attend gnosticist or restorationism Never 06/14/2022 services? Do you belong to [...] place to sleep or slept in a retirement (including now)? Education Answer Date Recorded What is the highest level of school Bachelor's degree (e.g., BA, AB, 06/20/2020 you have completed or the highest BS) degree you have received? 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 Age-indeterminate, probable chronic appe aring small osteocartilaginous loose body projected along the lateral margin of the distal left intracondylar notch and along the peripheral margin of the l eft lateral patellofemoral joint line. If clinically indicated MRI of the left knee may be helpful for further characterization of relative acuity of t he above stated findings. Narrative 09/09/2020 2:07 PM GR[employer]ES 7 8 TUTOR EXAM: DX KNEE LEFT 4+ VIEWS COMPARISON: None Procedure Note Tyree Reddy M.D. - 09/09/2020Forma tting of this note might be different from the original. EXAM: DX KNEE LEFT 4+ VIEWS COMPARISON: None IMPRESSION: Impression: Small amount hypertrophic sp urring along the peripheral margin of the lateral patellofemoral. Age-indeterminate, probable chronic appe aring small osteocartilaginous loose body projected along the lateral margin of the distal left intracondylar notch and along the peripheral margin of the l eft lateral patellofemoral joint line. If clinically indicated MRI of the left knee may be helpful for further characterization of relative acuity of t he above stated findings. Barbara [facility] KIERAN MUJICA documented in this encounter Visit Diagnoses Diagnosis Pain Knee Left - Primary Pain Knee Left documented in this encounter
--- OUTSIDE RECORDS SUMMARY | 2022-06-22 12:13 | XMS_ITS | Encounter Summary ---
:1940 Author Organization [facility] Address [address] [place] [address] Care Team Providers Name Role Phone Unavailable [...] containing 4 or more times a w [place] 06/14/2022 alcohol? How many drinks containing alcohol [...] 06/14/2022 relatives? How often do you attend episcopalian or zoroastrianism Never 06/14/2022 services? Do you belong to any clubs or organizations such as No 06/14/2022 episcopalian groups, unions, fraternal or athletic groups, or [...] place to sleep or slept in a senior living (including now)? 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 documented in this encounter Results cheek, right upper 14 Excision-Dermatology Image Exam (03/04/2020 12:15 PM CDT) Specimen (Source) Anatomical Collection Method Collection Time Re ceived Time Location / / Volume Laterality 03/04/2020 12:00 PM CDT Narrative [facility] - 03/04/2020 12:31 PM CDT This order has been created [...]
--- OUTSIDE RECORDS SUMMARY | 2022-06-22 12:13 | XMS_ITS | Encounter Summary ---
:1940 Author Organization [facility] Address [address] [place] [address] Care Team Providers Name Role Phone Unavailable Primary Care Provider Unavailable Reason for Visit Outpatient (Routine) - Closed Specialty Diagnoses / Procedures Referred By Contact Refer red To Contact Dermatology Diagnoses Squamous Cell Carcinoma In Situ Yasmany Edgar M.D. [facility] Procedures ROBERT MOHS 1-4 sites [address] [facility] [address] [place] [address] Referral ID Status Reason Start Date Expiration Date Visits Requ ested Visits Authorized [id number] Closed 10/25/2019 10/24/2020 1 1 Encounter Details Date Type Department Care Team Description 03/04/2020 Procedure visit Department of Rafal Vicente, Squamous Cell Carcinoma In Situ; Dermatology in M.D. Basal Cell Carcinoma Skin Other Parts Fa ce [place], [place] [address] [facility] [address] [place] [phone] Social History Tobacco Use Types Packs/Day Years Used Date Smoking Tobacco: Former Cigarettes Quit : 2006 Smokeless Tobacco: Never Alcohol Use Standard Drinks/Week Comments Yes 10 (1 standard drink = 0.6 oz pure alcoh ol) Alcohol Habits Answer Date Recorded How often do you have a drink containing 4 or more times a w [place] 06/14/2022 alcohol? How many drinks containing alcohol [...] 06/14/2022 relatives? How often do you attend hinduism or church Never 06/14/2022 services? Do you belong to any clubs or organizations such as No 06/14/2022 hinduism groups, unions, fraternal or athletic groups, or [...] place to sleep or slept in a detention (including now)? 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 - 03/04/2020 8:30 AM CDT PREOP INDICATION: REMOVAL. Date of Surgery: 03/04/2020 Surgeon: Dr. Rafal Vicente Solder Technician: Dr. Alberta Avitia and Dr. Yasmany Edgar Location: [facility] Floor:16 Room:[facility] Visit Type: Outpatient PostOp Diagnosis: Squamous cell carcinoma in situ Anatomic Location: Right upper anterior helix Preoperative size: 0.8 x 0.8 cm [facility] number: 120 Indication(s) for Mohs Micrographic Surgery: anatomic location where tissue conservation is critical Procedure(s): Mohs micrographic surgery with second-intention wound healing. Procedural pause conducted to verify: correct patient identity, procedure to be performed and as applicable, correct side and site, correct patient position, and availability of implants, special equipment or special requirements. INFORMED CONSENT Discussed the risks, benefits, alternatives, and the necessity of other members of the healthcare team participating in the procedure. All questions answered and consent given. PATIENT EDUCATION Ready to learn, no apparent learning barriers were identified; learning preferences include listening. Explained diagnosis and treatment plan; patient expressed understanding of the content. Preoperative medications: None The anesthesia used was 1% lidocaine and 0.25% bupivacaine with 1:200,000 epinephrine. The skin was prepped in a sterile fashion with Iodine. Histologic tumor-free margins were obtained in 1 stage and 1 block by standard Mohs micrographic techniques with the Mohs surgeon performing both the surgery and pathology. The final defect depth was down to level of: Perichondrium. Postoperative size: 1.2 x 1.2 cm. After discussing the options for wound management, it was decided to allow the wound to heal by second intention and assess the cosmetic and functional outcome at a later date. Estimated blood loss: Minimal. Complications: None. Wound care: Routine. Postoperative medications: None documented in this encounter Consult Notes Alberta Avitia M.D. - 03/04/2020 8:30 AM CDT Referral Yasmany Edgar M.D. Chief Complaint Squamous cell carcinoma in situ Supervising qa consultant: Dr. Vicente HISTORY OF THE PRESENT ILLNESS Gopi Rayo is a 79 y.o. 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 The dermatologic surgery preoperative information sheet was reviewed. The patient reports ibuprofen use and alcohol use occasionally. Patient denies Heart disease, Hypertension, Pacemaker, Defibrillator, Lung disease, Liver disease, Stroke, Infectious disease, Diabetes, Organ transplant, Bleeding problems, Artificial joints and Tobacco use. No Known Allergies PHYSICAL EXAM Vitals: Vitals: 03/04/20 0800 BP: 144/76 General: Awake, alert, in no acute distress Skin: A limited skin examination was performed per patient preference. Biopsy site noted over right upper cheek and right anterior helix/antihelix. 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 We discussed the diagnosis andpotential treatment options. Given the location and pathology in previous treatment, we recommended treatment with Mohs micrographic surgery. After discussing alternatives, risks including but not limited to bleeding, scar formation, infection, recurrence, and benefits, patient elected to proceed. Briefly, the area was treated with Mohs micrographic surgery and defect was left to heal by 2nd intention wound healing. See operative note for further details. #2 Superficial basal cell carcinoma over right upper cheek We discussed diagnosis and recommended treatment with electrodessication and curettage. After discussing alternatives, risks including scar, recurrence, and infection, and benefits, patient elected to proceed and area was treated electrodessication and curettage. Using 1% lidocaine with epinephrine for local anesthesia, the lesion was curetted with a 4-mm curette in three different directions and electrodessication of the base until clinically tumor-free margins were obtained. Postoperative size: 1.2 x 1.2 cm. Complications: None. Wound care: Routine. PROCEDURAL PAUSE Procedural pause conducted to verify: correct patient identity, procedure to be performed, and as applicable, correct side and site, correct patient position, and availability of implants, special equipment, or special requirements. INFORMED CONSENT Discussed the risks, benefits, alternatives, and the necessity of other members of the healthcare team participating in the procedure. All questions answered and consent given. PATIENT EDUCATION Ready to learn. No apparent learning barriers were identified. Learning preferences include listening. Explained diagnosis and treatment plan; patient/guardian of patient expressed understanding of thecontent. Associated attestation - Rafal Vicente M.D. - 03/04/2020 4:19 PM CDT I was present during all critical and best portions of the procedure(s) and immediately available to furnish services the entire duration. See resident/fellow note for details. Gopi Rayo is a 79 y.o. male here for two sites. Right helix treated with Mohs micrographic surgery based on site and pathology, cleared in 1 stage, healing by second intent (see op note). basal cell carcinoma on right cheek was superficial. Discussed ED&C versus Mohs micrographic surgery and he wanted to proceed with ED&C (see clinic note). Negative clinical Lymph node exam today of head/neck sites. Electronically signed by: Rafal Vicente M.D. 03/04/20 4:19 PM CDT documented in this encounter Plan of Treatment Not on filedocumented as of this encounter Visit Diagnoses Diagnosis Squamous Cell Carcinoma In Situ Basal Cell Carcinoma Skin Other Parts Fa ce documented in this encounter Administered Medications Inactive Administered Medications - up to 3 most recent administrations Medication Order MAR Action Action Date Dose Rate Site uuixkjmeurr-[id number] Given 03/04/2020 8:53 AM CDT 2 mL 0.25%-1%-1:200,000 injection 2-25 mL 2-25 mL, injection, As needed, may repeat if the patient complains of pain/discomfort at the site up to 50 mL for entire procedure, Starting on Tue03/04/20 at 0852, For 1 day lidocaine-EPINEPHrine 1%-1:200,000 injection Given 03/04/2020 8: 53 AM CDT 4 mL 2-50 mL (XYLOCAINE W/EPI) 2-50 mL, injection, As needed, may repeat if the patient complains of pain/discomfort at the site up to 50 mL for entire procedure, Starting on Tue03/04/20 at 0852, For 1 day documented in this encounter
--- OUTSIDE RECORDS SUMMARY | 2022-06-22 12:13 | XMS_ITS | Encounter Summary ---
:1940 Author Organization [facility] Address [address] [place] [address] Care Team Providers Name Role Phone Unavailable Primary Care Provider Unavailable Reason for Visit Reason Comments Intake Assessment Encounter Details Date Type Department Care Team Description 12/25/2020 Clinical Communication Division of Yessenia Montalvo Intak e Assessment Hematology in M.D., Ph.D. [place], [place] [address] [facility] [address] [place] [phone] Social History Tobacco Use Types Packs/Day Years Used Date Smoking Tobacco: Former Cigarettes Quit : 2006 Smokeless Tobacco: Never Alcohol Use Standard Drinks/Week Comments Yes 10 (1 standard drink = 0.6 oz pure alcoh ol) Alcohol Habits Answer Date Recorded How often do you have a drink containing 4 or more times a w [place] 06/14/2022 alcohol? How many drinks containing alcohol [...] How often do you attend quaker or advent Never 06/14/2022 services? 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
--- OUTSIDE RECORDS SUMMARY | 2022-06-22 12:13 | XMS_ITS | Encounter Summary ---
:1940 Author Organization [facility] Address [address] [place] [address] Care Team Providers Name Role Phone Unavailable Primary Care Provider Unavailable Encounter Details Date Type Department Care Team Description 09/09/2020 Hospital Encounter Department of Grey, Berhane Jackson in Knee Left Radiology in [place] [address] [place] [address] [facility] [place] [phone] (Wo rk) [address] [phone] Social History Tobacco Use Types Packs/Day Years Used Date Smoking Tobacco: Former Cigarettes Quit : 2006 Smokeless Tobacco: Never Alcohol Use Standard Drinks/Week Comments Yes 10 (1 standard drink = 0.6 oz pure alcoh ol) Alcohol Habits Answer Date Recorded How often do you have a drink containing 4 or more times a w [place] 06/14/2022 alcohol? How many drinks containing alcohol [...] 06/14/2022 relatives? How often do you attend yazdanism or christianity Never 06/14/2022 services? Do you belong to any clubs or organizations such as No 06/14/2022 yazdanism groups, unions, fraternal or athletic groups, or [...] place to sleep or slept in a [facility] (including now)? Education Answer Date Recorded What is the highest level of school Bachelor's degree (e.g., BA, AB, 06/20/2020 you have completed or the highest BS) degree you have received? 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 documented in this encounter Results DX Knee Left 4+ Views (09/09/2020 1:57 PM HEALTH AND SAFETY INSTRUCTOR) Anatomical Region Laterality Modality Lower Extremity, Knee, Musculoskeletal RST LOS, Left Digital Radiography Musculoskeletal ARZ LOS, Muskuloskeletal FLA LOS Specimen (Source) Anatomical Collection Method Collection Time Re ceived Time Location / / Volume Laterality 09/09/2020 2:04 PM HEALTH AND SAFETY INSTRUCTOR Impressions 09/09/2020 2:07 PM HEALTH AND SAFETY INSTRUCTOR Impression: Small amount hypertrophic spurring along the [...] above stated findings. Narrative 09/09/2020 2:07 PM HEALTH AND SAFETY INSTRUCTOR EXAM: DX KNEE LEFT 4+ VIEWS COMPARISON: [...] encounter Visit Diagnoses Diagnosis Pain Knee Left documented in this encounter
--- OUTSIDE RECORDS SUMMARY | 2022-06-22 12:13 | XMS_ITS | Encounter Summary ---
:1940 Author Organization [facility] Address [address] [place] [address] Care Team Providers Name Role Phone Unavailable Primary Care Provider Unavailable Encounter Details Date Type Department Care Team Description 06/24/2020 Hospital Encounter Department of Yessenia Montalvo, Marginal Zone Lymphoma Splenic (HCC); Laboratory Medicine M.D., Ph.D. Thrombocytopenia (HCC) and Pathology, [address] [place] [address] in [place] [phone] [place] [phone] [place] [address] (Work) [place], [place] [phone] [address] (Fax) [phone] Social History Tobacco Use Types Packs/Day Years Used Date Smoking Tobacco: Former Cigarettes Quit : 2006 Smokeless Tobacco: Never Alcohol Use Standard Drinks/Week Comments Yes 10 (1 standard drink = 0.6 oz pure alcoh ol) Alcohol Habits Answer Date Recorded How often do you have a drink containing 4 or more times a w [place] 06/14/2022 alcohol? How many drinks containing alcohol [...] 06/14/2022 relatives? How often do you attend sabianism or mu-ism Never 06/14/2022 services? 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 ([facility]) CBC WITH DIFFERENTIAL, B Routine 06/24/2020 8:13 Marginal Zone Results for this AM CDT Lymphoma Splenic procedure a re in ([facility]) the results Thrombocytopenia section. ([facility]) ASPARTATE Routine 06/24/2020 8:13 Marginal Zone Results for this AMINOTRANSFERASE (AST), AM CDT Lymphoma Splenic procedure are in S/P ([facility]) the results Thrombocytopenia section. ([facility]) ALKALINE PHOSPHATASE, Routine 06/24/2020 8:13 Marginal Zone Re sults for this S/P AM CDT Lymphoma Splenic procedure a re in ([facility]) the results Thrombocytopenia section. ([facility]) MAGNESIUM, S Routine 06/24/2020 8:13 Marginal Zone Results for this AM CDT Lymphoma Splenic procedure a re in ([facility]) the results Thrombocytopenia section. ([facility]) LACTATE DEHYDROGENASE Routine 06/24/2020 8:13 Marginal Zone Re sults for this (LD), S AM CDT Lymphoma Splenic procedure a re in ([facility]) the results Thrombocytopenia section. ([facility]) BILIRUBIN, TOT, S/P Routine 06/24/2020 8:13 Marginal Zone Resu lts for this AM CDT Lymphoma Splenic procedure a re in ([facility]) the results Thrombocytopenia section. ([facility]) BASIC METABOLIC PANEL, Routine 06/24/2020 8:13 Marginal Zone R esults for this S/P AM CDT Lymphoma Splenic procedure a re in ([facility]) the results Thrombocytopenia section. ([facility]) documented in this encounter Results (ABNORMAL) Reticulocytes (06/24/2020 8:13 AM CDT) Patholo gist Method Time Signature Reticulocytes, B 3.77 (H) 0.60 - 06/24/2020 DTL 2.71 % 8:47 AM CDT Absolute 153.4 (H) 30.4 - 06/24/2020 DTL Reticulocyte 110.9 8:47 AM CDT x10(9)/L Specimen Anatomical Collection Method Collection Time Receive d Time (Source) Location / / Volume Laterality Blood (Blood, 06/24/2020 8:13 AM 06/24/20 8:35 Venous) CDT AM CDT Yessenia Montalvo M.D., Ph.D. LAB BLOOD ADD-ON Performing Organization Address City/State/[facility] Code Phon e Number [facility] - [address] [place], [place] [address] [employer] [facility] [place] [address] [facility] [address] LD (Lactate Dehydrogenase) (06/24/2020 8:13 AM CDT) Analysis Performed At Patho logist Time Signature Lactate 202 122 - 222 06/24/2020 DTL Dehydrogenase U/L 10:09 AM CDT (LD), S Specimen Anatomical Collection Method Collection Time Receive d Time (Source) Location / / Volume Laterality Blood (Blood, 06/24/2020 8:13 AM 06/24/20 8:48 Venous) CDT AM CDT Yessenia Montalvo M.D., Ph.D. LAB BLOOD NON ADD-ON Performing Organization Address City/State/ZIP Code Phon e Number [facility] - [address] [place], [place] [address] [employer] [facility] [facility] [place] [address] [facility] [address] [facility] (ABNORMAL) CBC with Differential, Blood (06/24/2020 8:13 AM CDT) [facility] Method Time Signature Hemoglobin 13.6 13.2 - 06/24/2020 DTL 16.6 g/dL 8:47 AM CDT Hematocrit 40.8 38.3 - 06/24/2020 DTL 48.6 % 8:47 AM CDT Erythrocytes 4.07 (L) 4.35 - 06/24/2020 DTL 5.65 8:47 AM CDT x10(12)/L MCV 100.2 (H) 78.2 - 06/24/2020 DTL 97.9 fL 8:47 AM CDT RBC Distrib Width 14.4 11.8 - 06/24/2020 DTL 14.5 % 8:47 AM CDT Platelet Count 69 (L) 135 - 317 06/24/2020 DTL x10(9)/L 8:47 AM CDT Leukocytes 7.6 3.4 - 9.6 06/24/2020 DTL x10(9)/L 8:47 AM CDT Neutrophils 1.95 1.56 - 06/24/2020 DTL 6.45 9:55 AM CDT x10(9)/L Comment: Rechecked Lymphocytes 4.62 (H) 0.95 - 3.07 x10(9)/L 06/24/2020 9:55 A M CDT DTL Monocytes 0.81 0.26 - 0.81 x10(9)/L 06/24/2020 9:55 AM CDT DTL Eosinophils 0.21 0.03 - 0.48 x10(9)/L 06/24/2020 9:55 A M CDT DTL Basophils 0.05 0.01 - 0.08 x10(9)/L 06/24/2020 9:55 AM CDT DTL Specimen Anatomical Collection Method Collection Time Receive d Time (Source) Location / / Volume Laterality Blood (Blood, 06/24/2020 8:13 AM 06/24/20 8:35 Venous) CDT AM CDT Yessenia Montalvo M.D., Ph.D. LAB BLOOD ADD-ON Performing Organization Address City/[facility] Phon e Number [facility] - [address] Magnesium (06/24/2020 8:13 AM CDT) athologist Signature Magnesium, S 2.2 1.7 - 2.3 06/24/2020 DTL mg/dL 10:09 AM CDT Specimen Anatomical Collection Method Collection Time Receive d Time (Source) Location / / Volume Laterality Blood (Blood, 06/24/2020 8:13 AM 06/24/20 8:48 Venous) CDT AM CDT Yessenia Montalvo M.D., Ph.D. LAB BLOOD ADD-ON Performing Organization Address [facility] Phon e Number [facility] - [address] (ABNORMAL) Bilirubin, Total (06/24/2020 8:13 AM CDT) athologist Signature Bilirubin, 1.4 (H) <=1.2 06/24/2020 DTL Total, S mg/dL 10:09 AM CDT Specimen Anatomical Collection Method Collection Time Receive d Time (Source) Location / / Volume Laterality Blood (Blood, 06/24/2020 8:13 AM 06/24/20 8:48 Venous) CDT AM CDT Yessenia Montalvo M.D., Ph.D. LAB BLOOD ADD-ON Performing Organization Address City/[facility]/ZIP Code Phon e Number [facility] - [address] (ABNORMAL) Basic Metabolic Panel (06/24/2020 8:13 AM CDT) athologist Signature Potassium, S 4.7 3.6 - 5.2 06/24/2020 DTL mmol/L 10:09 AM CDT Sodium, S 141 135 - 145 06/24/2020 DTL mmol/L 10:09 AM CDT Chloride, S 104 98 - 107 06/24/2020 DTL mmol/L 10:09 AM CDT Bicarbonate, S 27 22 - 29 06/24/2020 DTL mmol/L 10:09 AM CDT Anion Gap 10 7 - 15 06/24/2020 DTL 10:09 AM CDT BUN (Blood Urea 20 8 - 24 06/24/2020 DTL Nitrogen), S mg/dL 10:09 AM CDT Creatinine 1.19 0.74 - 06/24/2020 DTL 1.35 mg/dL 10:09 AM CDT eGFR-Non 58 (L) >=60 06/24/2020 DTL Black/ mL/min/BSA 10:09 AM CDT Turkish Comment: ----ADDITIONAL INFORMATION---- Estimated GFR calculated using the 2009 CKD_EPI creatinine equation. eGFR-Black/ 67 >=60 mL/min/BSA 2019 10:09 AM CDT DTL Comment: ----ADDITIONAL INFORMATION---- Estimated GFR calculated using the 2009 CKD_EPI creatinine equation. Calcium, Total, S 9.4 8.8 - 10.2 mg/dL 06/24/2020 10:0 9 AM CDT DTL Glucose, S 76 70 - 140 mg/dL 06/24/2020 10:09 AM CDT DTL Specimen Anatomical Collection Method Collection Time Receive d Time (Source) Location / / Volume Laterality Blood (Blood, 06/24/2020 8:13 AM 06/24/20 8:48 Venous) CDT AM CDT Yessenia Montalvo M.D., Ph.D. LAB BLOOD ADD-ON Performing Organization Address City/State/ZIP Code Phon e Number [facility] - [address] [place], [place] [address] [employer] [facility] [place] [address] [facility] [address] Alkaline Phosphatase (06/24/2020 8:13 AM CDT) P athologist Signature Alkaline 96 40 - 129 06/24/2020 DTL Phosphatase, S U/L 10:09 AM CDT Specimen Anatomical Collection Method Collection Time Receive d Time (Source) Location / / Volume Laterality Blood (Blood, 06/24/2020 8:13 AM 06/24/20 8:48 Venous) CDT AM CDT Yessenia Montalvo M.D., Ph.D. LAB BLOOD ADD-ON Performing Organization Address City/[facility]/ZIP Code Phon e Number [facility] - [address] AST (Aspartate Aminotransferase) (06/24/2020 8:13 AM CDT) [facility] gist Method Time Signature Aspartate 21 8 - 48 06/24/2020 DTL Aminotransferase U/L 10:09 AM CDT (AST), S Specimen Anatomical Collection Method Collection Time Receive d Time (Source) Location / / Volume Laterality Blood (Blood, 06/24/2020 8:13 AM 06/24/20 8:48 Venous) CDT AM CDT Yessenia Montalvo M.D., Ph.D. LAB BLOOD ADD-ON Performing Organization Address City/[facility] Code Phon e Number [facility] - [address] documented in this encounter Visit Diagnoses Diagnosis Marginal Zone Lymphoma Splenic (HCC) Thrombocytopenia (HCC) documented in this encounter
--- OUTSIDE RECORDS SUMMARY | 2022-06-22 12:13 | XMS_ITS | Encounter Summary ---
:1940 Author Organization [facility] Address [address] [place] [address] Care Team Providers Name Role Phone Unavailable [...] containing 4 or more times a w [place] 06/14/2022 alcohol? How many drinks containing alcohol [...] 06/14/2022 relatives? How often do you attend religion or jehovah's witness Never 06/14/2022 services? Do you belong to any clubs or organizations such as No 06/14/2022 religion groups, unions, fraternal or athletic groups, or [...] to sleep or slept in a senior care (including now)? 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 documented in this encounter Results ear, right upper antihelix 120 Mohs micrographic surgery-Dermatology Image Exam (03/04/2020 12:00 PMCDT) Specimen (Source) Anatomical Collection Method Collection Time Re ceived Time Location / / Volume Laterality 03/04/2020 12:00 PM CDT Narrative [facility] - 03/04/2020 12:29 PM CDT This order has been created [...]
--- OUTSIDE RECORDS SUMMARY | 2022-06-22 12:13 | XMS_ITS | Encounter Summary ---
:1940 Author Organization [facility] Address [address] [place] [id number] Care Team Providers Name Role Phone Unavailable [...] or more times a w [place] 06/14/2022 alcohol? How many drinks containing alcohol [...] 06/14/2022 relatives? How often do you attend zoroastrian or christian Never 06/14/2022 services? Do you belong to any clubs or organizations such as No 06/14/2022 zoroastrian groups, unions, fraternal or athletic groups, or [...] or slept in a retirement (including now)? 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 documented in this encounter Results ear, right upper antihelix 120 Mohs micrographic surgery-Dermatology Image Exam (03/04/2020 12:10 PMCDT) Specimen (Source) Anatomical Collection Method Collection [...]
--- OUTSIDE RECORDS SUMMARY | 2022-06-22 12:13 | XMS_ITS | Encounter Summary ---
:1940 Author Organization [facility] Address [address] [place] [id number] Care Team Providers Name Role Phone Unavailable Primary Care Provider Unavailable Reason for Referral Outpatient (Routine) - Closed Specialty Diagnoses / Procedures Referred By Contact Refer red To Contact Hematology Oncology Qasim Weiner M. D. [facility] [address] [place] [address] Referral ID Status Reason Start Date Expiration Date Visits Requ ested Visits Authorized [id number] Closed 12/26/2020 12/26/2021 1 1 Scheduling Instructions Return with DENNY Reason for Visit Outpatient (Routine) - Closed Specialty Diagnoses / Procedures Referred By Contact Refer red To Contact Hematology Oncology Yessenia Montalvo M.D., [facility] Ph.D. [address] [place] [id number] Referral ID Status Reason Start Date Expiration Date Visits Requ ested Visits Authorized [id number] Closed 06/24/2020 06/24/2021 1 1 Encounter Details Date Type Department Care Team Description 12/26/2020 Office Visit Division of Yessenia Montalvo, [place] [facility] ymphoma Splenic (HCC) (Primary Dx); Hematology in M.Miguelangel, Ph.D. Thrombocytopenia (HCC) [place], [place] [address] [facility] [address] [place] [phone] Social History Tobacco Use Types Packs/Day Years Used Date Smoking Tobacco: Former Cigarettes Quit : 2006 Smokeless Tobacco: Never Alcohol Use Standard Drinks/Week Comments Yes 10 (1 standard drink = 0.6 oz pure alcoh ol) Alcohol Habits Answer Date Recorded How often do you have a drink containing 4 or more times a w [place] 06/14/2022 alcohol? How many drinks containing alcohol [...] 06/14/2022 relatives? How often do you attend christianity or cheondoism Never 06/14/2022 services? Do you belong to any clubs or organizations such as No 06/14/2022 christianity groups, unions, fraternal or athletic groups, or [...] slept in a senior care (including now)? Education Answer Date Recorded What is the highest level of school Bachelor's degree (e.g., BA, AB, 06/20/2020 you have completed or the highest BS) degree you have received? 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 - 12/26/2020 2:15 PM CDT Chief Complaint/Reason for Visit: Splenic marginal zone lymphoma Thrombocytopenia Primary/staffing practice clinician: Yessenia Montalvo M.D., Ph.D. Hematologic history is outlined by Dr. Montalvo: Mr. Rayo is a 80 y.o. male with a history of splenic marginal zone lymphoma, splenomegaly, and thrombocytopenia. Mr. Rayo initially presented with lymphocytosis in August of 2002. Due to persistence of lymphocytosis, a bone marrow biopsy was done on December 17, 2002, which showed 20% involvement of chronic lymphoproliferative disorder, CD5 positive, CD20 positive, CD23 positive. The differential diagnosis included marginal zone lymphoma and atypical CLL. CT abdomen did show qaae-jv-poetacff splenomegaly. Blood work also showed mild thrombocytopenia. He has been observed over the years without significant disease progression. In the [facility] records, his WBC and ALC as well as hemoglobin were actually normal from 8022-7155, but his platelet count were in the 70-90 range. Interval history Mr. Rayo returns for follow-up today. He has been doing well in the past 4 months. He denies fevers, chills, night sweats, early satiety, abnormal bleeding/bruising. He has lost 17 lbs, intentionally, after switching to a Mediterranean diet. He denies symptoms attributable to splenomegaly. Overall, he feels well. 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 He walks 3-4 miles daily. ECOG 0. Review of systems is otherwise negative. Past Medical History: Past Medical History: Diagnosis Date ??? Arthritis ??? Benign Prostatic Hyperplasia Without Obstruction ??? Malignant Neoplasm Of Ear Squamous Cell 2019 ??? Marginal Zone Lymphoma Splenic (HCC) 2002 ??? Splenomegaly Acquired ??? Thrombocytopenia (HCC) Past Surgical History: Past Surgical History: Procedure Laterality Date ??? HERNIA REPAIR 2012 Umbilical ??? OTHER CONVERTED SHX (SEE COMMENT) N/A 01/26/2006 >Colonoscopy ??? SKIN CANCER EXCISION 2018 ??? TONSILECTOMY, ADENOIDECTOMY, BILATERAL MYRINGOTOMY AND TUBES [...] status: Former Smoker Types: Cigarettes Quit date: 2007 Years since quittin.3 ??? Smokeless tobacco: Never Used Substance and Sexual Activity ??? Alcohol use: Yes Alcohol/week: 10.0 standard drinks Types: 10 Glasses of wine per week ??? Drug use: Not on file ??? Sexual activity: Not on file Other Topics Concern ??? Not on file Social History Narrative ??? Not on file Social Determinants of Health Financial Resource Strain: Low Risk ??? Difficulty of Paying Living Expenses: Not hard at all Food Insecurity: No Food Insecurity ??? Worried About Running Out of Food in the Last Year: Never true ??? Ran Out of Food in the Last Year: Never true Transportation Needs: No Transportation Needs ??? Lack of Transportation (Medical): No ??? Lack of Transportation (Non-Medical): No Physical Activity: Sufficiently Active ??? Days of Exercise per Week: 6 days ??? Minutes of Exercise per Session: 50 min Stress: No Stress Concern Present ??? Feeling of Stress : Not at all Social Connections: Moderately Isolated ??? Frequency of Communication with Friends and Family: Twice a week ??? Frequency of Social Gatherings with Friends and Family: Once a week ??? Attends Spiritism Services: Never ??? Active Member of Clubs or Organizations: Not on file ??? Attends Club or Organization Meetings: Never ??? Marital Status: Intimate Partner Violence: ??? Fear of Current or Ex-Partner: ??? Emotionally Abused: ??? Physically Abused: ??? Sexually Abused: Medications: Current Outpatient Medications Medication Sig ??? [...] all other review of systems was negative. Answers for HPI/ROS submitted by the patient on 06/20/2020 No general issues: Yes No eye issues: Yes No ENT issues: Yes No heart issues: Yes No respiratory issues: Yes No GI issues: Yes No muscle/bone issues: Yes No skin issues: Yes No neurologic issues: Yes No mental health issues: Yes No blood/lymph issues: Yes No urinary/reproductive issues: Yes Vitals: Vitals: 12/26/20 1325 BP: 128/77 Pulse: (!) 59 Temp: (!) 35 ??C Physical Exam GENERAL: In no apparent distress. Alert and oriented x3. SKIN: Grossly warm, dry, and intact. HEENT: Normocephalic, atraumatic. Extraocular movements intact. Moist mucosa. LYMPH: No cervical, supraclavicular, infraclavicular, axillary, or inguinal lymphadenopathy palpated. CARDIOVASCULAR: Regular rhythm, normal rate. Slight systolic ejection murmur right upper sternal border.. RESPIRATORY: Lungs clear to auscultation bilaterally. No wheezing, rhonchi, or rales. ABDOMEN: Soft, non-tender, non-distended. No hepatosplenomegaly. NEUROLOGIC: No focal deficit. EXTREMITIES: No edema Diagnostics I reviewed labs, path reports, and imaging. 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 Rayo is being followed for splenic marginal zone lymphoma. He has been observed since the diagnosis in 2002 without significant disease progression. His lymphocyte count slowly trended up verygradually. His platelet have been in the 60s since early 2019. Hemoglobin is normal. His total bilirubin is stabilely elevated with no suggestion of active hemolysis at this time. We will continue to monitor. Return to clinic in 6 months or sooner if symptoms develop. Total time spent with the patient around 20 minutes with more than 50% of time spent in counseling, coordination of care, explanation of plan of care, chart review, [id number] interview. Yessenia Montalvo M.D., Ph.D. - 12/26/2020 2:15 PM CDT I have seen and evaluated the patient, reviewed the electronic medical record, and discussed the case in detail with Dr. Weiner. We reviewed the management plan with the patient. I agree with Dr. Varghese's note of 12/26/20. In brief, Mr. Rayo is a 80 y.o. male with a history of splenic marginal zone and thrombocytopenia since December 2002. He has been observed without the need of treatment. He continues to do well clinically. No B symptoms. No left upper quadrant discomfort. Blood counts are stable. WBC 9.5, ALC 5.48,hemoglobin 14.1. Platelet overall stable, 62,000. There is no indication to treat at this time. We will continue observation. 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 He has completed COVID-19 vaccinations. documented in this encounter Plan of Treatment Scheduled Referrals Name Type Priority Associated Order Schedule Diagnoses Hematology office Outpatient Referral Routine Exp ected: visit (clinic) 06/27/2021, Expires: 12/27/2023 documented as of this encounter Results Bilirubin, Direct (06/26/2021 9:08 AM CDT) P [...] [facility] - [address] [place], [address] [place] [address] (ABNORMAL) Reticulocytes (06/26/2021 9:08 AM CDT) [...] M.D. LAB BLOOD ADD-ON Performing Organization Address City/[facility]/ZIP [facility] Phon e Number [facility] [address] [place] [address] LD (Lactate Dehydrogenase) (06/26/2021 9:08 AM [...] [facility] Code Phon e Number [facility] - [address] [place], [place] [address] [address] [facility] [place] [address] (ABNORMAL) Comprehensive Metabolic Panel (06/26/2021 9:08 [...] 06/26/2021 DTL Black/ mL/min/BSA 10:15 AM CDT Uzbek Comment: ----ADDITIONAL INFORMATION---- Estimated GFR calculated using [...] M.D. LAB BLOOD ADD-ON Performing Organization Address City/State/[facility] Code Phon e Number [facility] - [address] [place] [address] 05 [facility] [place] [address] Laboratories-[address] (ABNORMAL) CBC with Differential, Blood (06/26/2021 9:08 AM CDT) [employer] Method Time Signature Hemoglobin 13.8 13.2 - [...] M.D. LAB BLOOD ADD-ON Performing Organization Address City/State/[facility] Code Phon e Number [facility] - [address] [place] [address] 05 [facility] [place] [address] Laboratories-[place] [address] [place] [address] documented in this encounter Visit Diagnoses Diagnosis Marginal Zone Lymphoma Splenic (HCC) - P rimary Thrombocytopenia (HCC) documented in this encounter
--- OUTSIDE RECORDS SUMMARY | 2022-06-22 12:13 | XMS_ITS | Encounter Summary ---
:1940 Author Organization [facility] Address [address] [place] [address] Care Team Providers Name Role Phone Unavailable Primary Care Provider Unavailable Reason for Visit Reason Comments intake/ covid screening Encounter Details Date Type Department Care Team Description 06/23/2020 Clinical Communication Division of Yessenia Montalvo intak e/ covid Hematology in M.D., Ph.D. screening [place], [address] [place] [address] [place] [phone] [place], [place] [phone] (Work) [phone] Social History Tobacco Use Types Packs/Day Years Used Date Smoking Tobacco: Former Cigarettes Quit : 2006 Smokeless Tobacco: Never Alcohol Use Standard Drinks/Week Comments Yes 10 (1 standard drink = 0.6 oz pure alcoh ol) Alcohol Habits Answer Date Recorded How often do you have a drink containing 4 or more times a w [place] 06/14/2022 alcohol? How many drinks containing alcohol [...] 06/14/2022 relatives? How often do you attend hindu or sikh Never 06/14/2022 services? 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 Is the patient requesting a COVID test only or other appointments? Other Appointments 2. Have you tested positive for COVID-19 in the last 30 days or do you have a pending COVID-19 test because you had symptoms? no 3. In the last 14 days have you had close contact with a lab confirmed positive case of COVID-19 (close contact is defined as a household case of COVID or being within 6 feet of a COVID-19 patient for more than 5 minutes or having direct contact with infectious secretions, e.g., being coughed on)? no 4. In the past 14 days, are any of the following symptoms new to you and not related to an existing health condition? a. Fever greater than or equal to 37.8 C (100.0 F)? no b. New symptoms (Specifically: headache, cough, shortness of breath, respiratory distress, sore throat, diarrhea, nausea, vomiting, chills and repeated shaking with chills, myalgia's (muscle aches), loss of smell, or change or loss of taste sensation)? no 5. Are you having NEW trouble breathing, worsening breathing, or feeling as though you're going to collapse when you stand or sit up? no 6. Have you tested positive for COVID in the last 90 days? no Route reply to: billie Scheduling Contact Number: [id number] documented in this encounter Plan of Treatment Not on filedocumented as of this encounter Visit Diagnoses Not on filedocumented in this encounter
--- OUTSIDE RECORDS SUMMARY | 2022-06-22 12:13 | XMS_ITS | Encounter Summary ---
:1940 Author Organization [facility] Address [address] [place] [address] Care Team Providers Name Role Phone Unavailable Primary Care Provider Unavailable Reason for Referral Outpatient (Routine) - Closed Specialty Diagnoses / Procedures Referred By Contact Refer red To Contact Hematology Oncology Yessenai Montalvo M.D., [facility] Ph.D. [address] [place] [address] Referral ID Status Reason Start Date Expiration Date Visits Requ ested Visits Authorized [id number] Closed 06/24/2020 06/24/2021 1 1 Reason for Visit Outpatient (Routine) - Closed Specialty Diagnoses / Procedures Referred By Contact Refer red To Contact Hematology Oncology Yessenia Montalvo M.D., [facility] Ph.D. [address] [place] [address] Referral ID Status Reason Start Date Expiration Date Visits Requ ested Visits Authorized [id number] Closed 02/25/2020 02/24/2021 1 1 Encounter Details Date Type Department Care Team Description 06/24/2020 Office Visit Division of Yessenia Montalvo, [place] [facility] L ymphoma Splenic (HCC) (Primary Dx); Hematology in [place], Ph.D. Thrombocytopenia (HCC) [place], [place] [address] [facility] [address] [place] [phone] Social History Tobacco Use Types Packs/Day Years Used Date Smoking Tobacco: Former Cigarettes Quit : 2006 Smokeless Tobacco: Never Alcohol Use Standard Drinks/Week Comments Yes 10 (1 standard drink = 0.6 oz pure alcoh ol) Alcohol Habits Answer Date Recorded How often do you have a drink containing 4 or more times a w [place] 06/14/2022 alcohol? How many drinks containing alcohol [...] 06/14/2022 relatives? How often do you attend sikhism or hinduism Never 06/14/2022 services? 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 - 06/24/2020 11:30 AM CDT Chief Complaint/Reason for Visit: Splenic marginal zone lymphoma Thrombocytopenia History of Present Illness: Mr. Rayo is a 80 y.o. male [...] and atypical CLL. CT abdomen did show yfgf-lm-[id number] splenomegaly. Blood work also showed mild thrombocytopenia. He has been observed over the years without significant disease progression. In the [facility] records, his WBC and ALC as well as hemoglobin were actually normal from 7436-6651, but his platelet count were in the 70-90 range. Interval history Mr. Rayo returns for follow-up today. He has been doing well in the past 4 months. He denies fevers, chills, night sweats. No weight loss. He denies chest pain, short of breath, nausea, vomiting, diarrhea, abdominal pain. No bleeding. ECOG PS 0. Past Medical History: Past Medical History: Diagnosis Date ??? Arthritis ??? Benign Prostatic Hyperplasia Without Obstruction ??? Malignant Neoplasm Of Ear Squamous Cell 2018 ??? Marginal Zone Lymphoma Splenic (HCC) 2002 [...] AB, BS) Occupational History ??? 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 Financial resource strain: Not hard at all ??? Food insecurity Worry: Never true Inability: Never true ??? Transportation needs Medical: No Non-medical: No Tobacco Use ??? Smoking status: Former Smoker Types: Cigarettes Last attempt to quit: 2007 Years since quittin.8 ??? Smokeless tobacco: Never Used Substance and Sexual Activity ??? Alcohol use: Yes Alcohol/week: 10.0 standard drinks Types: 10 Glasses of wine per week Frequency: 4 or more times a week Drinks per session: 1 or 2 Binge frequency: Never ??? Drug use: Not on file ??? Sexual activity: Not on file Lifestyle ??? Physical activity Days per week: 6 days Minutes per session: 50 min ??? Stress: Not at all Relationships ??? Social connections Talks on phone: Twice a week Gets together: Once a week Attends hinduism service: Never Active member of club or organization: No Attends meetings of clubs or organizations: Never Relationship status: ??? Intimate partner violence Fear of current or ex partner: Not on file Emotionally abused: Not on file Physically abused: Not on file Forced sexual activity: Not on file Other Topics Concern ??? Not on file Social History Narrative ??? Not on file Medications: Current Outpatient Medications [...] Yes No urinary/reproductive issues: Yes Vitals: Vitals: 06/24/20 1137 BP: 144/72 BP Location: Left arm Patient Position: Sitting Pulse: 60 Temp: (!) 34.6 ??C PainSc: 0-No pain Physical Exam GENERAL: In no apparent distress. [...] non-distended. No hepatosplenomegaly. NEUROLOGIC: No focal deficit. Diagnostics I [...] today. His lymphocyte count slowly trended up but is not very significant. His platelet has been in the 70-90 range in the past few years. For this past year, the platelet count was around 70. He did not haveany bleeding. His hemoglobin trended down a little bit, and currently it is 13.6, compared with 14.4last year. He probably has some degree of subclinical hemolysis given reticulocyte count and bilirubin. We will continue observation. Given the stability of blood counts, we will see him every 6 movingforward unless anything changes. He sees his summer clerk once yearly given history of squamous cell carcinoma. He has not established care with primary care yet after he moved to [place]. We will check a lipid panel when he returnshe, in addition to the CBC and chemistry panel. Total time spent with the patient around 25 minutes with more than 50% of time spent in counseling, coordination of care, explanation of plan of care, chart review, tont-dm-lrle interview. Yessenia Montalvo M.D., Ph.D. 06/24/20 12:26 PM CDT documented in this encounter Plan of Treatment Scheduled Referrals Name Type Priority Associated Order Schedule Diagnoses Hematology office Outpatient Referral Routine Exp ected: visit (clinic) 12/23/2020 (Approximate), Expires: 06/24/2023 documented as of this encounter Results Lipid Panel (12/26/2020 7:31 AM CDT) P athologist Signature Cholesterol, 143 mg/dL 12/26/2020 DTL [...] Organization Address City/State/ZIP Code Phon e Number [facility] - [address] [place], [place] [address] [facility] [place] [address] [facility] 200 [facility] Reticulocytes (12/26/2020 7:31 AM CDT) P athologist [...] Ph.D. LAB BLOOD ADD-ON Performing Organization Address City/[facility] Phon e Number [facility] - 200 [place], [place] [address] [facility] [place] [id number] [place] [address] LD (Lactate Dehydrogenase) (12/26/2020 7:31 AM CDT) [...] LAB BLOOD NON ADD-ON Performing Organization Address City/[facility] Phon e Number [facility] - 200 [place], [place] [address] [facility] [place] [address] (ABNORMAL) CBC with Differential, Blood (12/26/2020 7:31 [...] Organization Address City/State/ZIP Code Phon e Number [facility] - [address] [place], [place] [address] [facility] [place] [address] [facility] [address] Bilirubin, Direct (12/26/2020 7:31 AM CDT) P athologist Signature Bilirubin, 0.3 0.0 - 0.3 12/26/2020 DTL Direct, S mg/dL 8:36 AM CDT Specimen Anatomical Collection Method Collection Time Receive d Time (Source) Location / / Volume Laterality Blood (Blood, 12/26/2020 7:31 AM 12/27/19 7:57 Venous) CDT AM CDT Yessenia Montalvo M.D., Ph.D. LAB BLOOD ADD-ON Performing Organization Address City/[facility]/ZIP Code Phon e Number [facility] - 200 [place], [place] [address] [facility] [place] [address] [address] (ABNORMAL) Bilirubin, Total (12/26/2020 7:31 AM CDT) athologist Signature Bilirubin, 1.7 (H) <=1.2 12/26/2020 DTL Total, S mg/dL 8:36 AM CDT Specimen Anatomical Collection Method Collection Time Receive d Time (Source) Location / / Volume Laterality Blood (Blood, 12/26/2020 7:31 AM 12/27/19 7:57 Venous) CDT AM CDT Yessenia Montalvo M.D., Ph.D. LAB BLOOD ADD-ON Performing Organization Address City/[facility] Code Phon e Number [facility] - 200 [place], [place] [address] [facility] [place] [address] [address] (ABNORMAL) Basic Metabolic Panel (12/26/2020 7:31 [...] 12/26/2020 DTL Black/ mL/min/BSA 8:35 AM CDT Yemeni Comment: ----ADDITIONAL INFORMATION---- Estimated GFR calculated using [...] City/State/[facility] Code Phon e Number [facility] - [address] [place] [address] AST (Aspartate Aminotransferase) (12/26/2020 7:31 AM CDT) [facility] gist Method Time Signature Aspartate 21 8 - 48 12/26/2020 DTL Aminotransferase U/L 8:36 AM CDT (AST), S Specimen Anatomical Collection Method Collection Time Receive d Time (Source) Location / / Volume Laterality Blood (Blood, 12/26/2020 7:31 AM 12/27/19 7:57 Venous) CDT AM CDT Yessenia Montalvo M.D., Ph.D. LAB BLOOD ADD-ON Performing Organization Address City/State/[facility] Code Phon e Number [facility] - [address] [place], [place] [address] [place] [address] Alkaline Phosphatase (12/26/2020 7:31 AM CDT) athologist Signature Alkaline 99 40 - 129 12/26/2020 DTL Phosphatase, S U/L 8:36 AM CDT Specimen Anatomical Collection Method Collection Time Receive d Time (Source) Location / / Volume Laterality Blood (Blood, 12/26/2020 7:31 AM 12/27/19 7:57 Venous) CDT AM CDT Yessenia Montalvo M.D., Ph.D. LAB BLOOD ADD-ON Performing Organization Address City/State/ZIP Code Phon e Number [facility] - [address] [place], [place] [address] [facility] [place] [address] [facility] [address] [facility] documented in this encounter Visit Diagnoses Diagnosis Marginal Zone Lymphoma Splenic (HCC) - P rimary Thrombocytopenia (HCC) documented in this encounter
--- OUTSIDE RECORDS SUMMARY | 2022-06-22 12:13 | XMS_ITS | Encounter Summary ---
:1940 Author Organization [facility] Address [address] [place] [address] Care Team Providers Name Role Phone Unavailable Primary Care Provider Unavailable Encounter Details Date Type Department Care Team Description 02/27/2020 Orders Only Department of Rafal Vicente, Encounter F or Dermatology in M.D. Screening For Other [place], [place] [address] [facility] Viral Diseases [address] [place], [place] (COVID-19) ([place] [address] Dx) [id number] [phone] Social History Tobacco Use Types Packs/Day Years Used Date Smoking Tobacco: Former Cigarettes Quit : 2006 Smokeless Tobacco: Never Alcohol Use Standard Drinks/Week Comments Yes 10 (1 standard drink = 0.6 oz pure alcoh ol) Alcohol Habits Answer Date Recorded How often do you have a drink containing 4 or more times a w [place] 06/14/2022 alcohol? How many drinks containing alcohol [...] How often do you attend quaker or hoahaoism Never 06/14/2022 services? Do you belong to [...] or slept in a halfway (including now)? 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 This result does not rule out COVID-19 in the patient, as the sensitivity of the test depends o n the timing of the specimen collection and the quality of the specim en. Result should be correlated with patient's history and clinical presentat ion. ----ADDITIONAL INFORMATION---- This test is performed using the Aptima SARS-CoV-2 assay ([employer] which has received Emergency Use Authori zation (EUA) by the U.S. Food and Drug Administration. Fact sheets for this Emergency Use Autho rization (EUA) assay can be found at the following links: For Healthcare Providers: https://www.fd a.gov/media/900349/download For Patients: https://www.fda.gov/media/ 127196/download Specimen Anatomical Collection Method Collection Time Receive d Time (Source) Location / / Volume Laterality Varies 02/29/2020 2:27 PM 0 7:56 (Nasopharynx) CDT PM CDT Rafal Vicente M.D. LAB MICROBIOLOGY - GENERAL O RDERABLES Performing Organization Address City/State/ZIP Code Phon e Number [facility]- [facility] [place] [address] [place] [address] [address] SARS-CoV-2 Total Antibody, Serum (02/29/2020 1:08 PM CDT) [facility] Method Time Signature SARS-CoV-2 Negative Negative 02/29/2020 [facility] Nucleocapsid 8:43 PM CDT Total Ab, S Comment: No antibodies to SARS-CoV-2 detected. Ne gative results may occur in serum collected too soon fo llowing infection or in immunosuppressed patients. Follow- up testing with a molecular test is recommended in symptom atic patients. This test should not be used to exclude activ e/recent COVID-19. ----ADDITIONAL INFORMATION---- Testing was performed using the [employer] El [employer]ys [id number] Reagent assay from [employer], which has received Emergency Use Authori zation(EUA) by the U.S. Food and Drug Administration . Fact sheets for this Emergency Use Autho rization (EUA) assay can be found at the following link s: For Healthcare Providers: https://www.fda.gov/media/619840/downloa d For Patients: https://www.fda.gov/media/243498/downloa d Specimen Anatomical Collection Method Collection Time Receive d Time (Source) Location / / Volume Laterality Blood (Blood, 02/29/2020 1:08 PM 02/29/20 20 7:05 Venous) CDT PM CDT Rafal Vicente M.D. LAB [facility]OLOGY [facility] Organization Address City/State/ZIP Code Phon e Number [facility]- [address] [place] [address] [place] [address] System [address] documented in this encounter Visit Diagnoses Diagnosis Encounter For Screening For Other Viral Diseases (COVID-19) - Primary documented in this encounter
--- OUTSIDE RECORDS SUMMARY | 2022-06-22 12:13 | XMS_ITS | Encounter Summary ---
:1940 Author Organization [facility] Address [address] [place] [address] Care Team Providers Name Role Phone Unavailable Primary Care Provider Unavailable Encounter Details Date Type Department Care Team Description 07/07/2020 Clinical Communication Department of Family Elsewhere, Pcp Medicine, [facility], in [place], [place] [address] [place] [address] [facility] [phone] Social History Tobacco Use Types Packs/Day Years Used Date Smoking Tobacco: Former Cigarettes Quit : 2006 Smokeless Tobacco: Never Alcohol Use Standard Drinks/Week Comments Yes 10 (1 standard drink = 0.6 oz pure alcoh ol) Alcohol Habits Answer Date Recorded How often do you have a drink containing 4 or more times a w [place] 06/14/2022 alcohol? How many drinks containing [...] 06/14/2022 relatives? How often do you attend yarsani or gnosticist Never 06/14/2022 services? 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
--- OUTSIDE RECORDS SUMMARY | 2022-06-22 12:13 | XMS_ITS | Encounter Summary ---
:1940 Author Organization [facility] Address [address] [place] [address] Care Team Providers Name Role Phone Unavailable Primary Care Provider Unavailable Encounter Details Date Type Department Care Team Description 02/29/2020 Hospital Encounter Department of Rafal Vicente Encou nter For Laboratory Medicine M.DRui Screening For Other in [place], [facility] [address] [facility] Viral Diseases [place], [place] (COVID-19) [address] [address] [facility] [place] [phone] [address] (Work) [phone] Social History Tobacco Use Types Packs/Day Years Used Date Smoking Tobacco: Former Cigarettes Quit : 2006 Smokeless Tobacco: Never Alcohol Use Standard Drinks/Week Comments Yes 10 (1 standard drink = 0.6 oz pure alcoh ol) Alcohol Habits Answer Date Recorded How often do you have a drink containing 4 or more times a w [place] 06/14/2022 alcohol? How many drinks containing alcohol [...] 06/14/2022 relatives? How often do you attend judaism or alevism Never 06/14/2022 services? 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 SARS-COV-2 TOTAL Routine 02/29/2020 1:08 PM Encounter For Resu lts for this ANTIBODY, SERUM CDT Screening For Other proce dure are in Viral Diseases the results (COVID-19) section. documented in this encounter Results SARS Coronavirus-2 RNA, V Asymptomatic (02/29/2020 2:27 PM CDT) [facility] Method Time Signature SARS-CoV-2 Swab, 03/01/2020 [facility] [...] is performed using the Aptima SARS-CoV-2 assay ([employer] which has received Emergency Use Authori zation (EUA) by the U.S. Food and Drug Administration. Fact sheets for this Emergency Use Autho rization (EUA) assay can be found at the following links: For Healthcare Providers: https://www.[employer] Trees a.gov/media/981805/download For Patients: https://www.fda.gov/media/ 238573/download Specimen Anatomical Collection Method Collection Time Receive d Time (Source) Location / / Volume Laterality Varies 02/29/2020 2:27 PM 0 7:56 (Nasopharynx) CDT PM CDT Rafal Vicente M.D. LAB MICROBIOLOGY - GENERAL O RDERABLES Performing Organization Address City/State/ZIP Code Phon e Number [facility]- [address] [place] [address] [place] [address] [address] SARS-CoV-2 Total Antibody, Serum (02/29/2020 1:08 PM CDT) [facility] Method Time Signature SARS-CoV-2 Negative Negative 02/29/2020 [facility] Nucleocapsid 8:43 PM CDT Total Ab, S [...] was performed using the [employer] [id number] Reagent assay from [employer], which has received Emergency Use Authori zation(EUA) by the U.S. Food and Drug Administration . Fact sheets for this Emergency Use Autho rization (EUA) assay can be found at the following link s: For Healthcare Providers: https://www.fda.gov/media/951300/downloa d For Patients: https://www.fda.gov/media/965096/downloa d Specimen Anatomical Collection Method Collection Time Receive d Time (Source) Location / / Volume Laterality Blood (Blood, 02/29/2020 1:08 PM 02/29/20 20 7:05 Venous) CDT PM CDT Rafal Vicente M.D. LAB MICROBIOLOGY - BLOOD ORD ERABLES Performing Organization Address City/State/ZIP Code Phon e Number [facility]- [address] [place] [address] [place] [address] [address] documented in this encounter Visit Diagnoses Diagnosis Encounter For Screening For Other Viral Diseases (COVID-19) documented in this encounter Additional Health Concerns Infection Onset Date Last Indicated Resolved Time COVID19 Pending 02/29/2020 02/29/2020 03/01/2020 4:05 PM CDT documented as of this encounter
--- OUTSIDE RECORDS SUMMARY | 2022-06-22 12:13 | XMS_ITS | Encounter Summary ---
:1940 Author Organization [facility] Address [address] [place] [address] Care Team Providers Name Role Phone Unavailable Primary Care Provider Unavailable Reason for Visit Reason Comments Pre-scheduling Questionnaire Encounter Details Date Type Department Care Team Description 09/08/2020 Clinical Department of Prescheduling, Pre-scheduli ng Communication Orthopedic Surgery Provider Question naire in [place], [place] [address] [place] [address] Social History Tobacco Use Types Packs/Day Years Used Date Smoking Tobacco: Former Cigarettes Quit : 2006 Smokeless Tobacco: Never Alcohol Use Standard Drinks/Week Comments Yes 10 (1 standard drink = 0.6 oz pure alcoh ol) Alcohol Habits Answer Date Recorded How often do you have a drink containing 4 or more times a w [place] 06/14/2022 alcohol? How many drinks containing alcohol [...] 06/14/2022 relatives? How often do you attend confucianist or religion Never 06/14/2022 services? 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
--- OUTSIDE RECORDS SUMMARY | 2022-06-22 12:13 | XMS_ITS | Encounter Summary ---
:1940 Author Organization [facility] Address [address] [place] [address] Care Team Providers Name Role Phone Unavailable Primary Care Provider Unavailable Reason for Visit Reason Comments Outside labs Encounter Details Date Type Department Care Team Description 08/04/2020 Clinical Communication Division of Hematology Tigist Montalvo, Outside labs in DonovanGus, Ph.D. [place] [address] [address] [facility] [address] [place] [phone] Social History Tobacco Use Types Packs/Day Years Used Date Smoking Tobacco: Former Cigarettes Quit : 2006 Smokeless Tobacco: Never Alcohol Use Standard Drinks/Week Comments Yes 10 (1 standard drink = 0.6 oz pure alcoh ol) Alcohol Habits Answer Date Recorded How often do you have a drink containing 4 or more times a w [place] 06/14/2022 alcohol? How many drinks containing alcohol [...] 06/14/2022 relatives? How often do you attend restorationism or shinto Never 06/14/2022 services? Do you belong to any clubs or organizations such as No 06/14/2022 restorationism groups, unions, fraternal or athletic groups, or [...] place to sleep or slept in a alf (including now)? Education Answer Date Recorded What is the highest level of school Bachelor's degree (e.g., BA, AB, 06/20/2020 you have completed or the highest BS) degree you have received? 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 - 08/04/2020 5:30 PM CST These tests were not requested by Hematology or Dr. Montalvo. CBC was not included. Results have been added to the patient's Labs flowsheet. E CUT OFF SAW OPERATOR Telephone Encounter - Emmy Harris - 08/04/2020 11:27 AM CST Outside labs collected on July, have been received. The fax has been placed in the eFax folder. Lipid panel, PSA screening, and comp panel. E CUT OFF SAW OPERATOR documented in this encounter Plan of Treatment Not on filedocumented as of this encounter Procedures Procedure Name Priority Date/Time Associated Diagnosis Comme nts HEMATOLOGY/ONCOLOGY - Routine 07/25/2020 Result s for this BLOOD, EXTERNAL LAB procedur e are in the RESULTS results section . documented in this encounter Results Hematology/Oncology - Blood, External Lab Results (07/25/2020) P athologist Signature EXT AST 31 EXT ALT 17 EXT Alkaline 97 Phosphatase EXT Bilirubin, 2.0 mg/dL Total EXT 1.68 Prostate-Specifi c Ag Diagnostic, S EXT Sodium 140 mmol/L EXT Potassium 5.1 EXT Calcium, 9.7 Total EXT Creatinine 1.1 mg/dL EXT Cholesterol, 153 Total, S EXT 85 Triglycerides, S EXT Cholesterol, 37 HDL, S EXT LDL 99 Cholesterol EXT Albumin 4.5 g/dL EXT BUN (Blood 22 Urea Nitrogen) Specimen (Source) Anatomical Location Collection Method / Collectio n Time Received Time / Laterality Volume Blood 07/25/2020 Historical Provider LAB BLOOD NON ADD-ON documented in this encounter Visit Diagnoses Not on filedocumented in this encounter
--- OUTSIDE RECORDS SUMMARY | 2022-06-22 12:14 | XMS_ITS | Encounter Summary ---
:1940 Author Organization [facility] Address [address] [place] [address] Care Team Providers Name Role Phone Unavailable Primary Care Provider Unavailable Reason for Visit Reason Comments COVID Inquiry Encounter Details Date Type Department Care Team Description 02/22/2020 Clinical Communication Division of Hematology Tigist Montalvo, COVID Inquiry in Gus Man, Ph.D. [place] [address] [address] [facility] [address] [place] [phone] Social History Tobacco Use Types Packs/Day Years Used Date Smoking Tobacco: Former Cigarettes Quit : 2006 Smokeless Tobacco: Never Alcohol Use Standard Drinks/Week Comments Yes 10 (1 standard drink = 0.6 oz pure alcoh ol) Alcohol Habits Answer Date Recorded How often do you have a drink containing 4 or more times a w [place] 06/14/2022 alcohol? How many drinks containing alcohol [...] 06/14/2022 relatives? How often do you attend amish or roman catholic Never 06/14/2022 services? Do you belong to any clubs or organizations such as No 06/14/2022 amish groups, unions, fraternal or athletic groups, or [...] place to sleep or slept in a intermediate (including now)? 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 1. Do you have a pending COVID [...] last 14 days? no Route reply to: desk 2 Scheduling Contact Number: [phone] documented in this encounter Plan of Treatment Not on filedocumented as of this encounter Visit Diagnoses Not on filedocumented in this encounter Additional Health Concerns Infection Onset Date Last Indicated Resolved Time COVID19 Pending 02/29/2020 02/29/2020 03/01/2020 4:05 PM CDT documented as of this encounter
--- OUTSIDE RECORDS SUMMARY | 2022-06-22 12:14 | XMS_ITS | Encounter Summary ---
:1940 Author Organization [facility] Address [address] [place] [address] Care Team Providers Name Role Phone Unavailable Primary Care Provider Unavailable Encounter Details Date Type Department Care Team Description 05/19/2010 Hospital Encounter [facility]X [facility] Calvin Pickering M.D. [address] [place], [place] [address] (Wo rk) Social History Tobacco Use Types Packs/Day Years Used Date Smoking Tobacco: Never Assessed Alcohol Habits Answer Date Recorded How often do you have a drink containing 4 or more times a w [place] 06/14/2022 alcohol? How many drinks containing alcohol [...] 06/14/2022 relatives? How often do you attend jewish or samaritan Never 06/14/2022 services? 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 - 05/19/2010 12:00 AM CDT [id number] CHIEF COMPLAINT / REASON FOR VISIT Cough. HISTORY OF PRESENT ILLNESS Gopi comes in with a 1-month history of persistent cough. He was bringing up yellow sputum. His sputum is now clear. He received some Zithromax in Urgent Care. He subsequently received an Albuterol inhaler, but that has not been helping him. He is a former smoker. He has not had any hemoptysis. No fevers currently. CURRENT MEDICATIONS Reviewed and no changes per EMR. ALLERGIES No known drug allergies. VITAL SIGNS WEIGHT: 88.0 kg TEMP: 36.9 degreesC RESP RATE: 18/min PULSE: 62 BLOOD PRESSURE: 120/76 PHYSICAL EXAM GENERAL: Alert, in no distress. ENT: TMs are clear. Oropharynx with mild erythema. NECK: No masses or adenopathy. HEART: Regular rate and rhythm. LUNGS: Clear to auscultation in all cooper. IMPRESSION / REPORT / PLAN IMAGING STUDIES: Chest x-ray negative. 1) Bronchitis. At this point, we will provide additional cough suppression with some Robitussin AC as per EMR. Continue generous fluids. He will notify us if this cough is not resolving. Gus Barnes Electronically Signed By:MARIAN PICKERING On 05/26/2010 03:36 PM Source: [id number] Document Id: [id number] documented in this encounter Miscellaneous Notes Miscellaneous - Danielle Cedeno L.P.N. 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 Intake/History Entered On: 05/19/2010 14:34 CDT Performed On: 05/19/2010 14:31 CDT by DANIELLE CEDENO Intake Chief Complaint: cough x 1 month night sweats Temperature Oral: 36.9C(Converted to: 98.4DegF) Peripheral Pulse Rate: 62/min Respiratory Rate: 18br/min Systolic Blood Pressure: 120mmHg Diastolic Blood Pressure: 76mmHg NIBP Mean: 91mmHg BP Location: Right upper extremity Actual Weight: 88.000kg(Converted to: 194lb 0oz) Dosing Weight Clinic: 88.00kg DANIELLE CEDENO - 05/19/2010 14:31 CDT Subjective Pain Symptoms: No DANIELLE CEDENO - 05/19/2010 14:31 CDT Dependent Habits Tobacco Use/Currently Using: No Exposure to Tobacco Smoke: Other: former DANIELLE CEDENO - 05/19/2010 14:31 CDT Tobacco Use Grid Last Use: 4 years ago DANIELLE CEDENO - 05/19/2010 14:31 CDT Allergies Allergies (Active) NKA Estimated Onset Date: Unspecified ; Created By: KRISTINE REIS; Reaction Status: Active ; Category: Drug ; Substance: NKA ; Type: Allergy ; Updated By: KRISTINE REIS; Reviewed Date: 05/13/2010 9:18 CDT Source: [facility] [employer] Document Id: [id number] documented in this encounter Plan of Treatment Not on filedocumented as of this encounter Procedures Procedure Name Priority Date/Time Associated Diagnosis Comme nts DX CHEST AP OR PA Routine 05/19/2010 4:18 PM Resu lts for this AND LATERAL 2 VIEWS CDT procedur e are in the results section. documented in this encounter Results DX Chest AP or PA and Lateral 2 Views (05/19/2010 4:18 PM CDT) Anatomical Region Laterality Modality Chest N/A Radiographic Imaging Specimen (Source) Anatomical Collection Method Collection Time Re ceived Time Location / / Volume Laterality 05/19/2010 4:18 PM CDT Addenda Addendum by Provider, Gus Marinelli 05/19/2010 4:18 PM CDT RAD^^^OW XR Chest 2 Views 05/19/2010 16:18:16 Narrative 05/19/2010 3:25 PM CDT PA and lateral chest. INDICATION Cough, not otherwise specified. FINDINGS Cardiac silhouette is the upper limits n ormal. ??Mildly tortuous thoracic aorta. ??Small infiltrate or atelectasis right lung base. ??Old healed left lower rib fractures. ??No focal areas of consolidation. ??No pneumothorax. Slight anterior wedging of several mid t horacic vertebral bodies with associate mild kyphosis. Tyree Reddy, ?? jws ?D: 0 05/19/2010T: 05/19/2010 03:25 pm M.D. ? THIS IS AN ELEC TRONICALLY VERIFIED REPORT 05/19/2010 3:25 PM: ??Anand Mckenzie Procedure Note Tyree Reddy M.D. / Provider, Edward tsai M.D. - 01/27/2017 PA and lateral chest. INDICATION Cough, not otherwise specified. FINDINGS Cardiac silhouette is the upper limits n ormal. Mildly tortuous thoracic aorta. Small infiltrate or atelectasis r ight lung base. Old healed left lower rib fractures. No focal areas of c onsolidation. No pneumothorax. Slight anterior wedging of several mid t horacic vertebral bodies with associate mild kyphosis. sandra Mckenzie T: 03:25 pm MRuiDRui THIS IS AN ELECTRONICALLY VERIFIED REPORT 05/19/2010 3:25 PM: Markus Mckenzie Penny Bonilla([place]) OZZIE DIAGNOSTIC IMAGING PROCE DURES documented in this encounter Visit Diagnoses Not on filedocumented in this encounter
--- OUTSIDE RECORDS SUMMARY | 2022-06-22 12:14 | XMS_ITS | Encounter Summary ---
:1940 Author Organization [facility] Address [address] [place] [address] Care Team Providers Name Role Phone Unavailable Primary Care Provider Unavailable Encounter Details Date Type Department Care Team Description 02/19/2011 Hospital Encounter HX [facility] Dom Edouard Jr., M.D. [address] [place], [place] [phone] (Wo rk) Social History Tobacco Use Types Packs/Day Years Used Date Smoking Tobacco: Never Assessed Alcohol Habits Answer Date Recorded How often do you have a drink containing 4 or more times a w [place] 06/14/2022 alcohol? How many drinks containing alcohol [...] How often do you attend jewish or latter day Never 06/14/2022 services? 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
--- OUTSIDE RECORDS SUMMARY | 2022-06-22 12:14 | XMS_ITS | Encounter Summary ---
:1940 Author Organization [facility] Address [address] [place] [address] Care Team Providers Name Role Phone Unavailable Primary Care Provider Unavailable Reason for Referral Outpatient (Routine) - Closed Specialty Diagnoses / Procedures Referred By Contact Refer red To Contact Hematology Oncology Yessenia Montalvo M.D., [facility] Ph.D. [address] [place] [address] Referral ID Status Reason Start Date Expiration Date Visits Requ ested Visits Authorized [id number] Closed 04/23/2019 04/22/2020 1 1 Encounter Details Date Type Department Care Team Description 04/23/2019 Orders Only Division of Hematology Yessenia Montalvo Macro cytosis (Primary Dx); [place] Ph.D[place] Marginal Zone Lymphoma Splenic (HCC) [address] [place] [phone] Social History Tobacco Use Types Packs/Day Years Used Date Smoking Tobacco: Former Cigarettes Quit : 2006 Smokeless Tobacco: Never Alcohol Use Standard Drinks/Week Comments Yes 10 (1 standard drink = 0.6 oz pure alcoh ol) Alcohol Habits Answer Date Recorded How often do you have a drink containing 4 or more times a w [place] 06/14/2022 alcohol? How many drinks containing alcohol [...] 06/14/2022 relatives? How often do you attend evangelical or sabianist Never 06/14/2022 services? Do you belong to any clubs or organizations such as No 06/14/2022 evangelical groups, unions, fraternal or athletic groups, or [...] slept in a skilled nursing (including now)? 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 Plan of Treatment Scheduled Referrals Name Type Priority Associated Order Schedule Diagnoses Hematology office Outpatient Referral Routine Exp ected: visit (clinic) 10/24/2019 (Approximate), Expires: 04/23/2022 documented as of this encounter Results (ABNORMAL) CBC with Differential, Blood (10/22/2019 8:46 AM BANK OPERATIONS OFFICER) [facility] gist Method Time Signature Hemoglobin 14.4 13.2 - 10/22/2019 DTL 16.6 g/dL 9:17 AM BANK OPERATIONS OFFICER Hematocrit 41.1 38.3 - 10/22/2019 DTL 48.6 % 9:17 AM BANK OPERATIONS OFFICER Erythrocytes 4.13 (L) 4.35 - 10/22/2019 DTL 5.65 9:17 AM BANK OPERATIONS OFFICER x10(12)/L MCV 99.5 (H) 78.2 - 10/22/2019 DTL 97.9 fL 9:17 AM BANK OPERATIONS OFFICER RBC Distrib Width 14.8 (H) 11.8 - 10/22/2019 DTL 14.5 % 9:17 AM BANK OPERATIONS OFFICER Platelet Count 61 (L) 135 - 317 10/22/2019 DTL x10(9)/L 9:17 AM BANK OPERATIONS OFFICER Leukocytes 6.7 3.4 - 9.6 10/22/2019 DTL x10(9)/L 9:17 AM BANK OPERATIONS OFFICER Neutrophils 2.69 1.56 - 10/22/2019 DTL 6.45 10:14 AM BANK OPERATIONS OFFICER x10(9)/L Comment: Rechecked Lymphocytes 3.29 (H) 0.95 - 3.07 x10(9)/L 10/22/2019 10:14 AM BANK OPERATIONS OFFICER DTL Monocytes 0.46 0.26 - 0.81 x10(9)/L 10/22/2019 10:14 AM BANK OPERATIONS OFFICER DTL Eosinophils 0.23 0.03 - 0.48 x10(9)/L 10/22/2019 10:14 AM BANK OPERATIONS OFFICER DTL Basophils 0.05 0.01 - 0.08 x10(9)/L 10/22/2019 10:14 AM BANK OPERATIONS OFFICER DTL Specimen Anatomical Collection Method Collection Time Receive d Time (Source) Location / / Volume Laterality Blood (Blood, 10/22/2019 8:46 AM 10/22/19 9:07 Venous) BANK OPERATIONS OFFICER AM BANK OPERATIONS OFFICER Yessenia Montalvo M.D., Ph.D. LAB BLOOD ADD-ON Performing Organization Address City/[facility] Code Phon e Number [facility] - [address] DTL [address] Direct Antiglobulin Test (Poly) (10/22/2019 8:46 AM BANK OPERATIONS OFFICER) [facility] gist Method Time Signature Direct Negative Negative 10/22/2019 ETRM Antiglobulin 11:52 AM BANK OPERATIONS OFFICER Test, Polyspecific Specimen Anatomical Collection Method Collection Time Receive d Time (Source) Location / / Volume Laterality Blood (Blood, 10/22/2019 8:46 AM 10/22/19 20 9:41 Venous) BANK OPERATIONS OFFICER AM BANK OPERATIONS OFFICER Yessenia Montalvo M.D., Ph.D. LAB BLOOD BANK TEST ORDERABL ES Performing Organization Address City/[facility] Code Phon e Number [facility] - [address] [place] [address] 05 [facility] ETRM [address] (ABNORMAL) Reticulocytes (10/22/2019 8:46 AM BANK OPERATIONS OFFICER) Patholo gist Method Time Signature Reticulocytes, B 3.32 (H) 0.60 - 10/22/2019 DTL 2.71 % 9:17 AM BANK OPERATIONS OFFICER Absolute 137.1 (H) 30.4 - 10/22/2019 DTL Reticulocyte 110.9 9:17 AM BANK OPERATIONS OFFICER x10(9)/L Specimen Anatomical Collection Method Collection Time Receive d Time (Source) Location / / Volume Laterality Blood (Blood, 10/22/2019 8:46 AM 10/22/19 9:07 Venous) BANK OPERATIONS OFFICER AM BANK OPERATIONS OFFICER Yessenia Montalvo M.D., Ph.D. LAB BLOOD ADD-ON Performing Organization Address [facility] Phon e Number [facility] - [address] [place] [address] LD (Lactate Dehydrogenase) (10/22/2019 8:46 AM BANK OPERATIONS OFFICER) Analysis Performed At Patho logist Time Signature Lactate 180 122 - 222 10/22/2019 DTL Dehydrogenase U/L 10:35 AM BANK OPERATIONS OFFICER (LD), S Specimen Anatomical Collection Method Collection Time Receive d Time (Source) Location / / Volume Laterality Blood (Blood, 10/22/2019 8:46 AM 10/22/19 9:07 Venous) BANK OPERATIONS OFFICER AM BANK OPERATIONS OFFICER Yessenia Montalvo M.D., Ph.D. LAB BLOOD NON ADD-ON Performing Organization Address City/[facility]/ZIP Code Phon e Number [facility] - [address] (ABNORMAL) Bilirubin, Total (10/22/2019 8:46 AM BANK OPERATIONS OFFICER) P athologist Signature Bilirubin, 1.6 (H) <=1.2 10/22/2019 DTL Total, S mg/dL 10:35 AM BANK OPERATIONS OFFICER Specimen Anatomical Collection Method Collection Time Receive d Time (Source) Location / / Volume Laterality Blood (Blood, 10/22/2019 8:46 AM 10/22/19 9:07 Venous) BANK OPERATIONS OFFICER AM BANK OPERATIONS OFFICER Yessenia Montalvo M.D., Ph.D. LAB BLOOD ADD-ON Performing Organization Address City/[facility]/ZIP Code Phon e Number [facility] - [address] [place] [address] Formerly [facility]-[address] Basic Metabolic Panel (10/22/2019 8:46 AM BANK OPERATIONS OFFICER) P athologist Signature Potassium, S 4.6 3.6 - 5.2 10/22/2019 DTL mmol/L 10:35 AM BANK OPERATIONS OFFICER Sodium, S 141 135 - 145 10/22/2019 DTL mmol/L 10:35 AM BANK OPERATIONS OFFICER Chloride, S 104 98 - 107 10/22/2019 DTL mmol/L 10:35 AM BANK OPERATIONS OFFICER Bicarbonate, S 25 22 - 29 10/22/2019 DTL mmol/L 10:35 AM BANK OPERATIONS OFFICER Anion Gap 12 7 - 15 10/22/2019 DTL 10:35 AM BANK OPERATIONS OFFICER BUN (Blood Urea 19 8 - 24 10/22/2019 DTL Nitrogen), S mg/dL 10:35 AM BANK OPERATIONS OFFICER Creatinine 1.13 0.74 - 10/22/2019 DTL 1.35 mg/dL 10:35 AM BANK OPERATIONS OFFICER eGFR-Non 62 >=60 10/22/2019 DTL Black/ mL/min/BSA 10:35 AM BANK OPERATIONS OFFICER [place] Comment: ----ADDITIONAL INFORMATION---- Estimated GFR calculated using the 2009 CKD_EPI creatinine equation. eGFR-Black/ 72 >=60 mL/min/BSA 2019 10:35 AM BANK OPERATIONS OFFICER DTL Comment: ----ADDITIONAL INFORMATION---- Estimated GFR calculated using the 2009 CKD_EPI creatinine equation. Calcium, Total, S 9.2 8.8 - 10.2 mg/dL 10/22/2019 10:3 5 AM BANK OPERATIONS OFFICER DTL Glucose, S 101 70 - 140 mg/dL 10/22/2019 10:35 AM BANK OPERATIONS OFFICER DTL Specimen Anatomical Collection Method Collection Time Receive d Time (Source) Location / / Volume Laterality Blood (Blood, 10/22/2019 8:46 AM 10/22/19 9:07 Venous) BANK OPERATIONS OFFICER AM BANK OPERATIONS OFFICER Yessenia Montalvo M.D., Ph.D. LAB BLOOD ADD-ON Performing Organization Address City/[facility] Phon e Number [facility] - [address] [place], [place] [address] [facility] [place], [place] [id number] [place] [address] [address] [facility] Bilirubin, Direct (10/22/2019 8:46 AM BANK OPERATIONS OFFICER) P athologist Signature Bilirubin, 0.3 0.0 - 0.3 10/22/2019 DTL Direct, S mg/dL 10:35 AM BANK OPERATIONS OFFICER Specimen Anatomical Collection Method Collection Time Receive d Time (Source) Location / / Volume Laterality Blood (Blood, 10/22/2019 8:46 AM 10/22/19 9:07 Venous) BANK OPERATIONS OFFICER AM BANK OPERATIONS OFFICER Yessenia Montalvo M.D., Ph.D. LAB BLOOD ADD-ON Performing Organization Address City/[facility]/ZIP Code Phon e Number [facility] - [address] [facility] AST (Aspartate Aminotransferase) (10/22/2019 8:46 AM BANK OPERATIONS OFFICER) Patholo gist Method Time Signature Aspartate 20 8 - 48 10/22/2019 DTL Aminotransferase U/L 10:35 AM BANK OPERATIONS OFFICER (AST), S Specimen Anatomical Collection Method Collection Time Receive d Time (Source) Location / / Volume Laterality Blood (Blood, 10/22/2019 8:46 AM 10/22/19 9:07 Venous) BANK OPERATIONS OFFICER AM BANK OPERATIONS OFFICER Yessenia Montalvo M.D., Ph.D. LAB BLOOD ADD-ON Performing Organization Address City/State/ZIP Code Phon e Number [facility] - [address] [facility] Alkaline Phosphatase (10/22/2019 8:46 AM BANK OPERATIONS OFFICER) P athologist Signature Alkaline 89 40 - 129 10/22/2019 DTL Phosphatase, S U/L 10:35 AM BANK OPERATIONS OFFICER Specimen Anatomical Collection Method Collection Time Receive d Time (Source) Location / / Volume Laterality Blood (Blood, 10/22/2019 8:46 AM 10/22/19 9:07 Venous) BANK OPERATIONS OFFICER AM BANK OPERATIONS OFFICER Yessenia Montalvo M.D., Ph.D. LAB BLOOD ADD-ON Performing Organization Address City/State/ZIP Code Phon e Number [facility] - [address] [employer], [place] [address] [place] [address] Laboratories-[facility] [address] Methylmalonic Acid (MMA), Quantitative (10/22/2019 8:46 AM BANK OPERATIONS OFFICER) Analysis Performed At [facility] Time Signature Methylmalonic 0.29 <=0.40 10/24/2019 DT Acid, QN, S nmol/mL 8:54 AM BANK OPERATIONS OFFICER Comment: ----ADDITIONAL INFORMATION---- This test was developed and its performa nce characteristics determined by [facility] in a manner consistent with CLIA requirements. This test has not been cleared or approved by the [place] d and Drug Administration. Specimen Anatomical Collection Method Collection Time Receive d Time (Source) Location / / Volume Laterality Blood (Blood, 10/22/2019 8:46 AM 10/22/19 20 Venous) BANK OPERATIONS OFFICER 10:00 AM BANK OPERATIONS OFFICER Yessenia Montavlo M.D., Ph.D. 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
--- OUTSIDE RECORDS SUMMARY | 2022-06-22 12:14 | XMS_ITS | Encounter Summary ---
:1940 Author Organization [facility] Address [address] [place] [address] Care Team Providers Name Role Phone Unavailable Primary Care Provider Unavailable Reason for Visit Reason Comments COVID Nurse Line Encounter Details Date Type Department Care Team Description 01/07/2020 Clinical Communication Division of Yessenia Montalvo COVID Nurse Line Hematology in M.D., Ph.D. [place], [place] [address] [facility] [address] [place] [phone] Social History Tobacco Use Types Packs/Day Years Used Date Smoking Tobacco: Former Cigarettes Quit : 2006 Smokeless Tobacco: Never Alcohol Use Standard Drinks/Week Comments Yes 10 (1 standard drink = 0.6 oz pure alcoh ol) Alcohol Habits Answer Date Recorded How often do you have a drink containing 4 or more times a w stebbins 06/14/2022 alcohol? How many drinks containing alcohol [...] 06/14/2022 relatives? How often do you attend restoration or methodist Never 06/14/2022 services? Do you belong to any clubs or organizations such as No 06/14/2022 restoration groups, unions, fraternal or athletic groups, or [...] place to sleep or slept in a long-term (including now)? 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 Sent PAG. 1. In the past 14 days, have you been tested for COVID-19 with a positive or pending result? no 2. In the past 14 days, do you, anyone in the household, or anyone you have had prolonged exposure have (any of the following)? a. Fever = 38.0 C (100.5 F) lasting 24 hours? no b. New symptoms (Specifically: cough, shortness of breath, respiratory distress, sore throat, diarrhea, chills, myalgia's (muscle aches), loss of smell, or change or loss of taste sensation)? no Had close contact with persons who are under quarantine or isolation for COVID?no Had close contact with a patient with known or possible COVID-19? no Route reply to: Scheduling Contact Number: documented in this encounter Plan of Treatment Not on filedocumented as of this encounter Visit Diagnoses Not on filedocumented in this encounter
--- OUTSIDE RECORDS SUMMARY | 2022-06-22 12:14 | XMS_ITS | Encounter Summary ---
:1940 Author Organization [facility] Address [address] [place] [address] Care Team Providers Name Role Phone Unavailable Primary Care Provider Unavailable Encounter Details Date Type Department Care Team Description 05/13/2010 Hospital Encounter [facility] Emmanuel Dick P.A. [address] [place] [address] (Wo rk) Social History Tobacco Use Types Packs/Day Years Used Date Smoking Tobacco: Never Assessed Alcohol Habits Answer Date Recorded How often do you have a drink containing 4 or more times a w hoh 06/14/2022 alcohol? How many drinks containing alcohol [...] How often do you attend restorationism or episcopalian Never 06/14/2022 services? Do you belong to [...] or slept in a alf (including now)? 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 - 05/13/2010 12:00 AM CDT [id number] CHIEF COMPLAINT / REASON FOR VISIT I have a horrific cough. HISTORY OF PRESENT ILLNESS This 69-year-old male complains of a cough of 2 weeks' duration. One week ago he came to Urgent Care, was treatment with Zithromax and actually felt quite a bit better. He has episodes of coughing, paroxysms where he really hacks and hacks. Has been afebrile and no longer feels ill. CURRENT MEDICATIONS Reviewed and no changes per EMR. ALLERGIES None. VITAL SIGNS Stable. PAST MEDICAL / SURGICAL HISTORY Negative for significant lung disease. PHYSICAL EXAM GENERAL: Well-nourished adult male in no acute distress. SKIN: Clear. ENT: All clear. Oral mucosa is moist. Neck is supple without adenopathy. LUNGS: Auscultation is clear throughout. HEART: Regular rate and rhythm without murmur. IMPRESSION / REPORT / PLAN 1) Postinfectious bronchitis. PLAN: 1) Explained etiology, that I think he has inflammation resulting from his recent bronchitis. 2) Pro-Air 1 or 2 puffs every 4 to 6 hours as needed. Discussed indications, appropriate use and potential side effects. 3) Advised on adequate fluids and appropriate follow up if symptoms progress or persist. 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 Entered On: 05/13/2010 9:20 CDT Performed On: 05/13/2010 9:18 CDT by KRISTINE REIS Intake Chief Complaint: Cough Onset of Symptoms: 2 weeks ago Ambulatory Intake Additional Information: Was given rx for z-mireille last week, still has cough Temperature Oral: 36.5DegC(Converted to: 97.7DegF) Peripheral Pulse Rate: 56bpm (LOW) Respiratory Rate: 14br/min Systolic Blood Pressure: 114mmHg Diastolic Blood Pressure: 72mmHg NIBP Mean: 86mmHg BP Location: Right upper extremity Actual Weight: 89.100kg(Converted to: 196lb 7oz) Dosing Weight Clinic: 89.10kg KRISTINE REIS - 05/13/2010 9:18 CDT Subjective Pain Symptoms: No KRISTINE REIS - 05/13/2010 9:18 CDT Dependent Habits Tobacco Use/Currently Using: No KRISTINE REIS - 05/13/2010 9:18 CDT Tobacco Use Grid Last Use: 4 years ago KRISTINE REIS - 05/13/2010 9:18 CDT Allergies Allergies (Active) NKA Estimated Onset Date: Unspecified ; Created By: KRISTINE REIS; Reaction Status: Active ; Category: Drug ; Substance: NKA ; Type: Allergy ; Updated By: KRISTINE REIS; Reviewed Date: 05/13/2010 9:18 CDT Source: [facility] [employer] Document Id: [id number] CDT!21 documented in this encounter Plan of Treatment Not on filedocumented as of this encounter Visit Diagnoses Not on filedocumented in this encounter
--- OUTSIDE RECORDS SUMMARY | 2022-06-22 12:14 | XMS_ITS | Encounter Summary ---
:1940 Author Organization [facility] Address [address] [place] [address] Care Team Providers Name Role Phone Unavailable Primary Care Provider Unavailable Encounter Details Date Type Department Care Team Description 08/10/2019 Clinical Communication Division of Hematology Tigist Monatlvo, in [facility] linus Weber, Ph.D. [address] [facility] [address] [place] [phone] [phone] Social History Tobacco Use Types Packs/Day Years Used Date Smoking Tobacco: Former Cigarettes Quit : 2006 Smokeless Tobacco: Never Alcohol Use Standard Drinks/Week Comments Yes 10 (1 standard drink = 0.6 oz pure alcoh ol) Alcohol Habits Answer Date Recorded How often do you have a drink containing 4 or more times a w kenaitze 06/14/2022 alcohol? How many drinks containing alcohol [...] How often do you attend quaker or mormonism Never 06/14/2022 services? Do you [...] slept in a nursing home (including now)? 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 Sent PAG. RAM SCHEDULE CLERK documented in this encounter Plan of Treatment Not on filedocumented as of this encounter Visit Diagnoses Not on filedocumented in this encounter
--- OUTSIDE RECORDS SUMMARY | 2022-06-22 12:14 | XMS_ITS | Encounter Summary ---
:1940 Author Organization [facility] Address [address] [place] [address] Care Team Providers Name Role Phone Unavailable Primary Care Provider Unavailable Encounter Details Date Type Department Care Team Description 03/09/2011 Hospital Encounter HX [facility] Dom Edouard Jr., M.D. [address] [place], [place] [phone] (Wo rk) Social History Tobacco Use Types Packs/Day Years Used Date Smoking Tobacco: Never Assessed Alcohol Habits Answer Date Recorded How often do you have a drink containing 4 or more times a w [place]ai-apache 06/14/2022 alcohol? How many drinks containing alcohol [...] 06/14/2022 relatives? How often do you attend pentecostalism or buddhist Never 06/14/2022 services? 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
--- OUTSIDE RECORDS SUMMARY | 2022-06-22 12:14 | XMS_ITS | Encounter Summary ---
:1940 Author Organization [facility] Address [address] [place] [address] Care Team Providers Name Role Phone Unavailable Primary Care Provider Unavailable Reason for Referral Outpatient (Routine) - Closed Specialty Diagnoses / Procedures Referred By Contact Refer red To Contact Hematology Oncology Yessenia Montalvo M.D., [facility] Ph.D. [address] [place] [address] Referral ID Status Reason Start Date Expiration Date Visits Requ ested Visits Authorized [id number] Closed 02/25/2020 02/24/2021 1 1 Reason for Visit Outpatient (Routine) - Closed Specialty Diagnoses / Procedures Referred By Contact Refer red To Contact Hematology Oncology Yessenia Montalvo M.D., [facility] Ph.D. [address] [place] [address] Referral ID Status Reason Start Date Expiration Date Visits Requ ested Visits Authorized [id number] Closed 10/22/2019 10/21/2020 1 1 Encounter Details Date Type Department Care Team Description 02/25/2020 Office Visit Division of Yessenia Montalvo, [facility] L ymphoma Splenic (HCC) (Primary Dx); Hematology in Gus, Ph.D. Thrombocytopenia (HCC) [place], [place] [address] [facility] [address] [place] [phone] Social History Tobacco Use Types Packs/Day Years Used Date Smoking Tobacco: Former Cigarettes Quit : 2006 Smokeless Tobacco: Never Alcohol Use Standard Drinks/Week Comments Yes 10 (1 standard drink = 0.6 oz pure alcoh ol) Alcohol Habits Answer Date Recorded How often do you have a drink containing 4 or more times a w [place] 06/14/2022 alcohol? How many drinks containing alcohol [...] 06/14/2022 relatives? How often do you attend roman catholic or christian Never 06/14/2022 services? Do you belong to any clubs or organizations such as No 06/14/2022 roman catholic groups, unions, fraternal or athletic groups, or [...] place to sleep or slept in a snf (including now)? 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 Rayo is a 79 y.o. male with a history of splenic [...] and atypical CLL. CT abdomen did show yqzj-tt-elgqxzjp splenomegaly. Blood work also showed mild thrombocytopenia. He has been observed over the years without significant disease progression. In the [facility] records, his WBC and ALC as well as hemoglobin were actually normal from [id number], but his platelet count were in the 70-90 range. Interval history Mr. Rayo returns for follow-up today. He has been doing well in the past 4 months. No fevers, chills, night sweats. No weight loss. [...] Not on file ??? Highest education level: Not on file Occupational History ??? 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 Financial resource strain: Not on file ??? Food insecurity Worry: Not on file Inability: Not on file ??? Transportation needs Medical: Not on file Non-medical: Not on file Tobacco Use ??? Smoking status: Former Smoker Types: Cigarettes Last attempt to quit: 2007 Years since quittin.4 ??? Smokeless tobacco: Never Used Substance and Sexual Activity ??? Alcohol use: Yes Alcohol/week: 10.0 standard drinks Types: 10 Glasses of wine per week Frequency: 4 or more times a week Drinks per session: 1 or 2 ??? Drug use: Not on file ??? Sexual activity: Not on file Lifestyle ??? Physical activity Days per week: 7 days Minutes per session: 80 min ??? Stress: Not on file Relationships ??? Social connections Talks on phone: Not on file Gets together: Three times a week Attends christian service: Not on file Active member of club or organization: No Attends meetings of clubs or organizations: Not on file Relationship status: Not on file ??? Intimate partner violence Fear of current [...] review of systems was negative. 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 He has been observed since the diagnosis in 2002 without significant disease progression. His platelet has been in the 70-90 range in the past few years. At last visit his platelet was 61 and we arranged for an earlier return this time. Most recent CBC showed a platelet count of 69. Hemoglobin 13.7. White count 7.1 with ALC 3.85. Clinically heis doing well without B symptoms or symptomatic lymphadenopathy or splenomegaly. We will continue observation. I will see him in 4 months. If his blood counts remain stable, we may go back to the every6 month follow-up schedule. Total time spent with the patient around 25 minutes with more than 50% of time spent in counseling, coordination of care, explanation of plan of care, chart review, tasq-ar-ghee interview. Yessenia Montalvo M.D., Ph.D. 02/25/20 3:47 PM CDT documented in this encounter Plan of Treatment Scheduled Referrals Name Type Priority Associated Order Schedule Diagnoses Hematology office Outpatient Referral Routine Exp ected: visit (clinic) 06/26/2020 (Approximate), Expires: 02/24/2023 documented as of this encounter Results (ABNORMAL) Reticulocytes (06/24/2020 8:13 AM CDT) [facility] gist Method Time Signature Reticulocytes, B 3.77 [...] Ph.D. LAB BLOOD ADD-ON Performing Organization Address [facility] Phon e Number [facility] - 200 [place], [place] [address] [place] [address] LD (Lactate Dehydrogenase) (06/24/2020 8:13 AM [...] LAB BLOOD NON ADD-ON Performing Organization Address [facility] Phon e Number [facility] - [address] [place], [place] [address] [place] [address] (ABNORMAL) CBC with Differential, Blood (06/24/2020 8:13 AM CDT) Patholo gist Method Time Signature Hemoglobin 13.6 13.2 - [...] Ph.D. LAB BLOOD ADD-ON Performing Organization Address City/State/[facility] Phon e Number [facility] - [address] [place] [address] [facility] Magnesium (06/24/2020 8:13 AM CDT) P athologist Signature Magnesium, S 2.2 1.7 - 2.3 06/24/2020 DTL mg/dL 10:09 AM CDT Specimen Anatomical Collection Method Collection Time Receive d Time (Source) Location / / Volume Laterality Blood (Blood, 06/24/2020 8:13 AM 06/24/20 8:48 Venous) CDT AM CDT Yessenia Montalvo M.D., Ph.D. LAB BLOOD ADD-ON Performing Organization Address City/State/[facility] Phon e Number [facility] - [address] [place] [address] [facility] (ABNORMAL) Bilirubin, Total (06/24/2020 8:13 AM CDT) athologist Signature Bilirubin, 1.4 (H) <=1.2 06/24/2020 DTL Total, S mg/dL 10:09 AM CDT Specimen Anatomical Collection Method Collection Time Receive d Time (Source) Location / / Volume Laterality Blood (Blood, 06/24/2020 8:13 AM 06/24/20 8:48 Venous) CDT AM CDT Yessenia Montalvo M.D., Ph.D. LAB BLOOD ADD-ON Performing Organization Address City/State/ZIP Code Phon e Number [facility] - [address] [place], [place] [address] [facility] [place] [address] Laboratories-[facility] [address] (ABNORMAL) Basic Metabolic Panel (06/24/2020 8:13 [...] 06/24/2020 DTL Black/ mL/min/BSA 10:09 AM CDT Dominican Comment: ----ADDITIONAL INFORMATION---- Estimated GFR calculated using [...] Ph.D. LAB BLOOD ADD-ON Performing Organization Address City/[facility]/ZIP Code Phon e Number [facility] - [address] [place] [address] Alkaline Phosphatase (06/24/2020 8:13 AM CDT) P athologist Signature Alkaline 96 40 - 129 06/24/2020 DTL Phosphatase, S U/L 10:09 AM CDT Specimen Anatomical Collection Method Collection Time Receive d Time (Source) Location / / Volume Laterality Blood (Blood, 06/24/2020 8:13 AM 06/24/20 8:48 Venous) CDT AM CDT Yessenia Montalvo M.D., Ph.D. LAB BLOOD ADD-ON Performing Organization Address City/State/ZIP Code Phon e Number [facility] - [address] AST (Aspartate Aminotransferase) (06/24/2020 8:13 AM CDT) Patholo gist Method [...] Organization Address City/State/ZIP Code Phon e Number [facility] - 200 [place] [address] [place], [place] [id number] [place] [address] documented in this encounter Visit Diagnoses Diagnosis Marginal Zone Lymphoma Splenic (HCC) - P rimary Thrombocytopenia (HCC) documented in this encounter
--- OUTSIDE RECORDS SUMMARY | 2022-06-22 12:14 | XMS_ITS | Encounter Summary ---
:1940 Author Organization [facility] Address [address] [place] [address] Care Team Providers Name Role Phone Unavailable Primary Care Provider Unavailable Encounter Details Date Type Department Care Team Description 06/17/2010 Hospital Encounter HX [facility] Ophelia De Jesus P.A. [address] [place] [address] (Wo rk) Social History Tobacco Use Types [...] 06/14/2022 relatives? How often do you attend synagogue or jew Never 06/14/2022 services? 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
--- OUTSIDE RECORDS SUMMARY | 2022-06-22 12:14 | XMS_ITS | Encounter Summary ---
:1940 Author Organization [facility] Address [address] [place] [address] Care Team Providers Name Role Phone Unavailable Primary Care Provider Unavailable Encounter Details Date Type Department Care Team Description 02/15/2011 Hospital Encounter HX [facility] Dom Edouard Jr., M.D. [address] [place], [place] [phone] (Wo rk) Social History Tobacco Use Types Packs/Day Years Used Date Smoking Tobacco: Never Assessed Alcohol Habits Answer Date Recorded How often do you have a drink containing 4 or more times a w ak[place]ok 06/14/2022 alcohol? How many drinks containing alcohol [...] How often do you attend denominational or sikh Never 06/14/2022 services? Do you [...] or slept in a penitentiary (including now)? 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
--- OUTSIDE RECORDS SUMMARY | 2022-06-22 12:14 | XMS_ITS | Encounter Summary ---
:1940 Author Organization [facility] Address [address] [place] [address] Care Team Providers Name Role Phone Unavailable Primary Care Provider Unavailable Encounter Details Date Type Department Care Team Description 10/22/2019 Ancillary Procedure Department of Dermatology Social History Tobacco Use Types Packs/Day Years Used Date Smoking Tobacco: Former Cigarettes Quit : 2006 Smokeless Tobacco: Never Alcohol Use Standard Drinks/Week Comments Yes 10 (1 standard drink = 0.6 oz pure alcoh ol) Alcohol Habits Answer Date Recorded How often do you have a drink containing 4 or more times a w [place] 06/14/2022 alcohol? How many drinks containing alcohol [...] How often do you attend evangelical or confucianist Never 06/14/2022 services? Do you belong to [...] or slept in a half-way (including now)? 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 documented in this encounter Results ear, right upper antihelix 120 Biopsy-Dermatology Image Exam (10/22/2019 12:00 PM TREASURY CONSULTANT) Specimen (Source) Anatomical Location Collection Method / Collectio n Time Received Time / Laterality Volume Narrative [facility] - 10/23/2019 11:25 AM TREASURY CONSULTANT This order has been created and auto-finalized [...]
--- OUTSIDE RECORDS SUMMARY | 2022-06-22 12:14 | XMS_ITS | Encounter Summary ---
:1940 Author Organization [facility] Address [address] [place] [id number] Care Team Providers Name Role Phone Unavailable Primary Care Provider Unavailable Reason for Visit Appointment Request (Routine) - Closed Specialty Diagnoses / Procedures Referred By Contact Refer red To Contact Hematology Diagnoses - [facility] Procedures - Referral ID Status Reason Start Date Expiration Date Visits Requ ested Visits Authorized [id number] Closed 02/22/2019 02/22/2020 2 2 Encounter Details Date Type Department Care Team Description 04/23/2019 Comprehensive Visit Division of Yessenia Montalvo, Marginal Zone Lymphoma Splenic (HCC) (Primary Dx); Hematology in M.D., Ph.D. Thrombocytopenia (HCC) [place], [address] [place] [address] [address] [facility] [id number] [phone] Social History Tobacco Use Types Packs/Day Years Used Date Smoking Tobacco: Former Cigarettes Quit : 2006 Smokeless Tobacco: Never Alcohol Use Standard Drinks/Week Comments Yes 10 (1 standard drink = 0.6 oz pure alcoh ol) Alcohol Habits Answer Date Recorded How often do you have a drink containing 4 or more times a w [place] 06/14/2022 alcohol? How many drinks containing alcohol [...] 06/14/2022 relatives? How often do you attend anabaptist or nondenominational Never 06/14/2022 services? Do you belong to any clubs or organizations such as No 06/14/2022 anabaptist groups, unions, fraternal or athletic groups, or [...] place to sleep or slept in a usp (including now)? 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 - 04/23/2019 8:30 AM CDT Chief Complaint/Reason for Consulation: Splenic marginal zone lymphoma History of Present Illness: Mr. Rayo is a 78 y.o. male with a history of splenic marginal zone lymphoma, splenomegaly, and thrombocytopenia, who presents back to [facility] for continued follow-up. Mr. Rayo initially presented with lymphocytosis in August of 2002. Due to persistence of lymphocytosis, a bone marrow biopsy was done on December 17, 2002, which showed 20% involvement of chronic lymphoproliferative disorder, CD5 positive, CD20 positive, CD23 positive. The differential diagnosis included marginal zone lymphoma and atypical CLL. CT abdomen did show [id number] splenomegaly. Blood work also showed mild thrombocytopenia. He has been observed over the years without significant disease progression. The last CBC available from June 2018 showed WBC 5.6, hemoglobin 14.2, platelets 76. Mr. Rayo moved to [place] in 2015 and recently just moved back to [place]. Currently he lives in [place] and feels well. He denies any B symptoms, such as fever, chills, night sweats, unintentional weight loss. He did intentionally lose some weight, through diet and exercising, approximately 20 lb in the past 3 years. No short of breath or chest pain. No nausea, vomiting, diarrhea, abdominal pain. No urinary symptoms. ECOG PS 0. Past Medical History: Past [...] resource strain: Not on file ??? Food insecurity: Worry: Not on file Inability: Not on file ??? Transportation needs: Medical: Not on file Non-medical: Not on file Tobacco Use ??? Smoking status: Former Smoker Types: Cigarettes Last attempt to quit: 2007 Years since quittin.6 ??? Smokeless tobacco: Never Used Substance and Sexual Activity ??? Alcohol use: Yes Alcohol/week: 10.0 standard drinks Types: 10 Glasses of wine per week Frequency: 4 or more times a week Drinks per session: 1 or 2 ??? Drug use: Not on file ??? Sexual activity: Not on file Lifestyle ??? Physical activity: Days per week: 7 days Minutes per session: 80 min ??? Stress: Not on file Relationships ??? Social connections: Talks on phone: Not on file Gets together: Three times a week Attends nondenominational service: Not on file Active member of club or organization: No Attends meetings of clubs or organizations: Not on file Relationship status: Not on file ??? Intimate partner violence: Fear of current or ex partner: Not [...] for HPI/ROS submitted by the patient on 04/23/2019 No general issues: Yes No eye issues: Yes No ENT issues: Yes No heart issues: Yes No respiratory issues: Yes No GI issues: Yes No muscle/bone issues: Yes No skin issues: Yes No neurologic issues: Yes No mental health issues: Yes No blood/lymph issues: Yes No urinary/reproductive issues: Yes Vitals: There were no vitals filed for this visit. No data recorded Physical Exam GENERAL: In no apparent distress. [...] the diagnosis in 2002 without significant disease progression or the need of treatment. His last blood work was in 2018, and the last CT scan was in 2011. We will obtain blood work and CT chest / abdomen / pelvis today. We will evaluate his spleen size, any lymphadenopathy, and the previously seen pulmonary nodules. If he is stable from the marginal zone lymphoma standpoint, we can follow up approximately every 6 months. 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 He requests Dermatology follow-up here in [facility]. We will request the consultation. Total time spent with the patient around 45 minutes with more than 50% of time spent in counseling, coordination of care, explanation of plan of care, chart review, [id number] interview. Yessenia Montalvo M.D., Ph.D. 04/23/19 9:27 AM documented in this encounter Plan of Treatment Not on filedocumented as of this encounter Visit Diagnoses Diagnosis Marginal Zone Lymphoma Splenic (HCC) - P rimary Thrombocytopenia (HCC) documented in this encounter
--- OUTSIDE RECORDS SUMMARY | 2022-06-22 12:14 | XMS_ITS | Encounter Summary ---
:[address] [facility] Address [address] [place] [address] Care Team Providers Name Role Phone Unavailable Primary Care Provider Unavailable Reason for Visit Outpatient (Routine) - Closed Specialty Diagnoses / Procedures Referred By Contact Refer red To Contact Dermatology Diagnoses Malignant Neoplasm Of Skin Of Ear Laterality Unknown Squamous Cell Yessenia Montalvo M.D., Ph.D. [facility] [address] [place] [address] Referral ID Status Reason Start Date Expiration Date Visits V isits Requested Authorized [id number] Closed Specialty 04/23/2019 04/22/2020 1 1 Services Required Encounter Details Date Type Department Care Team Description 10/22/2019 Comprehensive Visit Department of Yasmany Edgar (Primary Dx); Dermatology in [facility]; [place], [place] [address] Tumor Skin Uncertain Behavio r; [address] [facility] [place] [address] Malignant Neoplasm Of Ear Squamous Cell; [place], [place] CARLINE VALDOVINOS Personal Histo ry Of Other Malignant Neoplasm Of Skin; [id number] Screening Examination Skin Cancer [phone] Social History Tobacco Use Types Packs/Day Years Used Date Smoking Tobacco: Former Cigarettes Quit : 2006 Smokeless Tobacco: Never Alcohol Use Standard Drinks/Week Comments Yes 10 (1 standard drink = 0.6 oz pure alcoh ol) Alcohol Habits Answer Date Recorded How often do you have a drink containing 4 or more times a w [place] 06/14/2022 alcohol? How many drinks containing alcohol [...] How often do you attend jainism or scientology Never 06/14/2022 services? Do you belong to [...] or slept in a fci (including now)? 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 - 10/22/2019 3:20 PM CST CHIEF COMPLAINT / REASON FOR VISIT Personal history of skin cancer, skin cancer screening examination HISTORY OF PRESENT ILLNESS Gopi Rayo is a pleasant 79 y.o. male who presents today for a skin cancer screening examination. He is not aware of any new or changing skin lesions and has no specific cutaneous complaints today. Personal Hx of Skin Ca: Squamous cell carcinoma on the right helical rim, approximately 1-2 years ago. He tries to be diligent with photoprotective measures. No Known Allergies REVIEW OF SYSTEMS Negative except as per HPI PHYSICAL EXAM General: Awake, alert, in no acute distress. Psych: Mood and affect are within normal limits. Eyes: No scleral injection or icterus. No eyelid abnormalities. Respiratory: No accessory muscle use or evidence of respiratory distress. Skin: I have examined the scalp, face, neck, chest, abdomen, back, bilateral upper extremities, and bilateral lower extremities, and buttocks. Goldstein type II skin. Moderate to severe dermatoheliosis. On the midline forehead, left yazdanism, and left rice are three hyperkeratotic papules with erythematous base consistent with actinic keratoses. On the right upper cheek is a small pearly macule with overlying telangiectasias concerning for basal cell carcinoma. There is a thin plaque of hyperkeratosis with underlying erythema on the right anterior upper helix. ASSESSMENT / PLAN #1 Past history of squamous cell carcinoma on the right ear #2 Dermatoheliosis #3 Skin cancer screening examination Sun protection and sun avoidance were reviewed with the patient. Education provided regarding skin self-examination, the warning signs and symptoms of skin cancer, and the proper use of sunscreens. I would recommend a full skin cancer screening examination with an appropriately trained clinician everyyear. #4 Actinic keratoses x 3 Given the precancerous nature of these lesions, treatment is medically indicated. After discussion of the risks, benefits and alternatives to treatment with cryotherapy, informed consent was obtained. We treated a total of 3 lesions with two 20-second freeze-thaw cycles of liquid nitrogen cryotherapy.He tolerated the procedure well. Aftercare instructions were provided to the patient. Should any of these lesions recur, he should return for biopsy or further evaluation. All questions answered and consent given. #5 Skin tumor of uncertain behavior, right upper cheek Differential dx: Basal cell carcinoma Photographs obtained. Shave biopsy performed. PROCEDURAL PAUSE Prior to the procedure, final verification of the patient identity and correctly marked surgical site was performed. SHAVE BIOPSY PROCEDURE The anesthesia used was 1% lidocaine with epinephrine 1:200,000. The skin was prepped in a sterile fashion with alcohol. A shave biopsy specimen was obtained from the right upper cheek. Blood loss: Minimal. Complications: None. Wound care: Routine. The specimen was sent for Dermatopathology. The pathology report and recommendations will be communicated to the patient. #6 Skin tumor of uncertain behavior, right anterior upper helix Differential dx: Squamous cell carcinoma in situ, versus recurrence of his previously removed squamous cell carcinoma Photographs obtained. Shave biopsy performed. PROCEDURAL PAUSE Prior to the procedure, final verification of the patient identity and correctly marked surgical site was performed. SHAVE BIOPSY PROCEDURE The anesthesia used was 1% lidocaine with epinephrine 1:200,000. The skin was prepped in a sterile fashion with alcohol. A shave biopsy specimen was obtained from the right anterior upper helix. Blood loss: Minimal. Complications: None. Wound care: Routine. The specimen was sent for Dermatopathology. The pathology report and recommendations will be communicated to the patient. #7 Seborrheic keratoses The benign nature of these skin lesions was discussed with the patient. No treatment is required. I recommend continued observation. Should symptoms or changes develop related to this condition, I would recommend a return visit for reassessment. All questions answered. INFORMED CONSENT Discussed the risks, benefits, alternatives, and the necessity of other members of the healthcare team participating in the procedure. All questions answered and consent given. PATIENT EDUCATION Ready to learn. No apparent learning barriers were identified. Explained diagnosis and treatment plan; patient/guardian of patient expressed understanding of the content. Y CLEANER documented in this encounter Plan of Treatment Not on filedocumented as of this encounter Procedures Procedure Name Priority Date/Time Associated Diagnosis Comme nts DERMATOPATHOLOGY Routine 10/22/2019 3:14 PM Malignant Neoplasm Results for this ALLEY CLEANER Of Ear Squamous Cell procedu re are in the results section. documented in this encounter Results Dermatopathology (10/22/2019 3:14 PM ALLEY CLEANER) Component Value Ref Test Analysis Performed At [facility] gist Range Method Time Signature 10/24/2019 [facility] 10:52 AM ALLEY CLEANER Participated in Faiza Zadii 10/24/2019 [facility] the Interpretation Dirk, 10:52 AM Gus-Patholog ALLEY CLEANER y Fellow Report Paul Chance 10/24/2019 [facility] electronically Daniel, 10:52 AM signed by Gus DE LEÓN Gross Description A: ??Received in formalin labeled with the patien t's name, 10/24/2019 [facility] medical record number, and right upper cheek is a 0.8 x 10:52 AM 0.4 x 0.1 cm pale franklin skin shave biopsy. No discrete lesion ALLEY CLEANER is grossly identified on the skin surface. ??Specimen is bisected and submitted entirely in cassette A1. ??Grossed by ARG. B: ??Received in formalin labeled with the patient's name, medical record number, and right anterior upper helix is a 0.8 x 0.8 x 0.1 cm pale franklin, previously inked blue skin shave biopsy. ??There is a 0.4 x 0.2 cm pale franklin-red, slightly raised, slightly crusted lesion with irregular borders centrally located on the skin surface. ??Specimen is bisected and submitted entirely in cassette B1. ??Grossed by ARG. Interpretation FINAL DIAGNOSIS 10/24/2019 [facility] A. 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 ??Right anterior upper helix, Skin shave biopsy: Ulcerated squamous cell carcinoma in situ, involving biopsy border Specimen (Source) Anatomical Collection Method Collection Time Re ceived Time Location / / Volume Laterality Skin (Right upper 10/22/2019 3:14 PM cheek) ALLEY CLEANER Skin (Right 10/22/2019 3:15 PM anterior upper ALLEY CLEANER helix) Narrative This result has an attachment that is no t available. Yasmany Edgar M.D. LAB PATH DERM ORDERABLES Performing Organization Address City/State/ZIP Code Phon e Number [facility] - [address] [place], [place] [address] [place] [address] Laboratories-[facility] [address] documented in this encounter Visit Diagnoses Diagnosis Photodamage - Primary Keratosis Actinic Tumor Skin Uncertain Behavior Malignant Neoplasm Of Skin Of Ear Latera lity Unknown Squamous Cell Personal History Of Other Malignant Neop lasm Of Skin Screening Examination Skin Cancer documented in this encounter
--- OUTSIDE RECORDS SUMMARY | 2022-06-22 12:14 | XMS_ITS | Encounter Summary ---
:1940 Author Organization [facility] Address [address] [place] [address] Care Team Providers Name Role Phone Unavailable Primary Care Provider Unavailable Encounter Details Date Type Department Care Team Description 05/26/2010 Hospital Encounter HX [facility] Dom Barajas Jr., M.D. [address] [place], [place] [phone] (Wo rk) Social History Tobacco Use Types Packs/Day Years Used Date Smoking Tobacco: Never Assessed Alcohol Habits Answer Date Recorded How often do you have a drink containing 4 or more times a w [place] 06/14/2022 alcohol? How many drinks containing alcohol [...] 06/14/2022 relatives? How often do you attend yazidism or druze Never 06/14/2022 services? 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 (Comment: ROS: Cough X 1 m. Heart and lungs WNL [ERNA HICKEY - 05/26/2010 14:02 CDT] ) ERNA HICKEY - 05/26/2010 14:02 CDT Optometry Exam Familty History Grid Glaucoma: Mother EDELMIRA ERNA Michel - 05/26/2010 14:02 CDT Vision Testing Visual Acuity: Glasses Eye, Right with Correction: 20/20 Eye, Left w/Correction: 20/20 (Comment: -2 [ERNA HICKEY - 05/26/2010 14:02 CDT] ) Eye, Right w/ Correction Comment: Other Measurement Comment: W: -5.00 +.25 X 150 -4.50 +.75 X 180 +2.50 Add MRx: -4.75 +.25 X 150 -4.50 +1.25 X 180 +2.50 J1+ ERNA HICKEY - 05/26/2010 14:02 CDT Ocular Testing EOMS: Normal Pupils: Normal Comment: 4-2 4-2 Confrontation Vega: Normal ERNA HICKEY - 05/26/2010 14:02 CDT Eye Drops Exam Other Medication Eye Drops: n/m Other Medication Eye Drops Eye: Both eyes Other Medication Eye Drops Amnt: One drop Other Medication Eye Drops Time: 14:13 STONEMASON ERNA HICKEY - 05/26/2010 14:02 CDT Glaucoma Screen Glaucoma Screen Grid IOP Right: 19 IOP Left: 18 ERNA HICKEY - 05/26/2010 14:02 CDT Source: [facility] POWERCHART Document Id: [id number] CDT!26 Dom Ruvalcaba M.D. - 05/26/2010 12:00 AM CDT [id number] CHIEF COMPLAINT/REASON FOR VISIT He is here for an annual examination. States he is doing well with no problems noted. Visual acuity is 20/20 with his current correction. He has nearsightedness with presbyopia. Remainder of examination is within normal limits. IMPRESSION/REPORT/PLAN 1) Myopia with astigmatism. 2) Presbyopia. PLAN: New glasses only if desired. We will see him back in 1 year. Dom Ruvalcaba M.D. klj Electronically Signed By:DOM RUVALCABA MD On 06/01/2010 10:23 AM Source: [facility] MHSDOLBEYNONRADSYS Document Id: [id number] documented in this encounter Plan of Treatment Not on filedocumented as of this encounter Visit Diagnoses Not on filedocumented in this encounter
--- OUTSIDE RECORDS SUMMARY | 2022-06-22 12:14 | XMS_ITS | Encounter Summary ---
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 [facility] [address] [place] [address] Referral ID Status Reason Start Date Expiration Date Visits V isits Requested Authorized [id number] Closed Specialty 04/23/2019 04/22/2020 1 1 Services Required Reason for Visit Appointment Request (Routine) - Closed Specialty Diagnoses / Procedures Referred By Contact Refer red To Contact Hematology Diagnoses - [facility] Procedures - Referral ID Status Reason Start Date Expiration Date Visits Requ ested Visits Authorized [id number] Closed 02/22/2019 02/22/2020 2 2 Encounter Details Date Type Department Care Team Description 04/23/2019 Office Visit Division of Yessenia Montalvo, 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 Thrombocytopenia (HCC); [place], [place] [address] [facility] Malignant Neoplasm Of Ear Squamous Cell [address] [place] [phone] Social History Tobacco Use Types Packs/Day Years Used Date Smoking Tobacco: Former Cigarettes Quit : 2006 Smokeless Tobacco: Never Alcohol Use Standard Drinks/Week Comments Yes 10 (1 standard drink = 0.6 oz pure alcoh ol) Alcohol Habits Answer Date Recorded How often do you have a drink containing 4 or more times a w [place] 06/14/2022 alcohol? How many drinks containing alcohol [...] How often do you attend shinto or buddhism Never 06/14/2022 services? 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 Last Filed Vital Signs Vital Sign Reading Time Taken Comments Blood Pressure - - Pulse - - Temperature 36.8 ??C (98.2 ??F) 04/23/2019 8:44 AM CDT Respiratory Rate - - Oxygen Saturation - - Inhaled Oxygen Concentration - - Weight 80.5 kg (177 lb 7.5 oz) 04/23/2019 8:44 AM CDT Height 162.9 cm (5' 4.13) 04/23/2019 8:44 AM CDT Body Mass Index 30.34 04/23/2019 8:44 AM CDT documented in this encounter Plan of Treatment Scheduled Referrals Name Type Priority Associated Order Schedule Diagnoses Dermatology - General Outpatient Referral Routine Malignant Ne oplasm Expected: consult (clinic) Of Ear Squamous 10/24/19 20 Cell (Approximate), Expires: 04/23/2022 documented as of this encounter Results Vitamin B12 Assay (04/23/2019 10:30 AM CDT) P athologist Signature Vitamin B12 233 180 - 914 04/23/2019 Assay, S ng/L 12:01 PM CDT Comment: ----ADDITIONAL INFORMATION---- In patients being evaluated for vitamin B12 deficiency who have intrinsic factor blocking antibodie s (IFBA), false elevations of B12 may occur due to IFBA interference thus potentially obscuring a physiological de ficiency of B12. If observed B12 concentrations are disco rdant with clinical presentation, measurement of methylmalon ic acid (MMA) should be considered. Specimen Anatomical Collection Method Collection Time Receive d Time (Source) Location / / Volume Laterality Blood (Blood, 04/23/2019 10:30 04/23/2019 Venous) AM CDT 10:50 AM CDT Yessenia Montalvo M.D., Ph.D. LAB BLOOD ADD-ON Performing Organization Address City/[facility] Phon e Number [facility] - [address] LD (Lactate Dehydrogenase) (04/23/2019 10:30 AM CDT) Analysis Performed At Patho logist Time Signature Lactate 192 122 - 222 04/23/2019 Dehydrogenase U/L 11:29 AM CDT (LD), S Specimen Anatomical Collection Method Collection Time Receive d Time (Source) Location / / Volume Laterality Blood (Blood, 04/23/2019 10:30 04/23/2019 Venous) AM CDT 10:50 AM CDT Yessenia Montalvo M.D., Ph.D. LAB BLOOD NON ADD-ON Performing Organization Address City/State/[facility] Phon e Number [facility] - [address] (ABNORMAL) CBC with Differential, Blood (04/23/2019 10:30 AM CDT) Patholo gist Method Time Signature Hemoglobin 14.4 13.2 - 04/23/2019 16.6 g/dL 10:56 AM CDT Hematocrit 41.6 38.3 - 04/23/2019 48.6 % 10:56 AM CDT Erythrocytes 4.24 (L) 4.35 - 04/23/2019 5.65 10:56 AM CDT x10(12)/L MCV 98.1 (H) 78.2 - 04/23/2019 97.9 fL 10:56 AM CDT RBC Distrib Width 14.1 11.8 - 04/23/2019 14.5 % 10:56 AM CDT Platelet Count 73 (L) 135 - 317 04/23/2019 x10(9)/L 10:56 AM CDT Leukocytes 5.8 3.4 - 9.6 04/23/2019 x10(9)/L 10:56 AM CDT Neutrophils 2.52 1.56 - 04/23/2019 6.45 12:20 PM CDT x10(9)/L Comment: Rechecked Lymphocytes 2.61 0.95 - 3.07 x10(9)/L 04/23/2019 12:20 PM CDT Monocytes 0.45 0.26 - 0.81 x10(9)/L 04/23/2019 12:20 PM CDT Eosinophils 0.22 0.03 - 0.48 x10(9)/L 04/23/2019 12:20 PM CDT Basophils 0.03 0.01 - 0.08 x10(9)/L 04/23/2019 12:20 PM CDT Specimen Anatomical Collection Method Collection Time Receive d Time (Source) Location / / Volume Laterality Blood (Blood, 04/23/2019 10:30 04/23/2019 Venous) AM CDT 10:50 AM CDT Yessenia Montalvo M.D., Ph.D. LAB BLOOD ADD-ON Performing Organization Address City/State/ZIP Code Phon e Number [facility] - [address] [place] [address] [place] [address] (ABNORMAL) Bilirubin, Total (04/23/2019 10:30 AM CDT) P athologist Signature Bilirubin, 2.3 (H) <=1.2 04/23/2019 Total, S mg/dL 11:29 AM CDT Specimen Anatomical Collection Method Collection Time Receive d Time (Source) Location / / Volume Laterality Blood (Blood, 04/23/2019 10:30 04/23/2019 Venous) AM CDT 10:50 AM CDT Yessenia Montalvo M.D., Ph.D. LAB BLOOD ADD-ON Performing Organization Address City/[facility] Phon e Number [facility] - [address] (ABNORMAL) Bilirubin, Direct (04/23/2019 10:30 AM CDT) athologist Signature Bilirubin, 0.4 (H) 0.0 - 0.3 04/23/2019 Direct, S mg/dL 11:29 AM CDT Specimen Anatomical Collection Method Collection Time Receive d Time (Source) Location / / Volume Laterality Blood (Blood, 04/23/2019 10:30 04/23/2019 Venous) AM CDT 10:50 AM CDT Yessenia Montalvo M.D., Ph.D. LAB BLOOD ADD-ON Performing Organization Address City/[facility] Code Phon e Number [facility] - [address] [place] [address] [facility] (ABNORMAL) Basic Metabolic Panel (04/23/2019 10:30 AM CDT) athologist Signature Potassium, S 4.6 3.6 - 5.2 04/23/2019 mmol/L 11:29 AM CDT Sodium, S 140 135 - 145 04/23/2019 mmol/L 11:29 AM CDT Chloride, S 105 98 - 107 04/23/2019 mmol/L 11:29 AM CDT Bicarbonate, S 24 22 - 29 04/23/2019 mmol/L 11:29 AM CDT Anion Gap 11 7 - 15 04/23/2019 11:29 AM CDT BUN (Blood Urea 25 (H) 8 - 24 04/23/2019 Nitrogen), S mg/dL 11:29 AM CDT Creatinine 1.17 0.74 - 04/23/2019 1.35 mg/dL 11:29 AM CDT eGFR-Non 60 >=60 04/23/2019 Black/ mL/min/BSA 11:29 AM CDT Uzbek Comment: ----ADDITIONAL INFORMATION---- Estimated GFR calculated using the 2009 CKD_EPI creatinine equation. eGFR-Black/ 70 >=60 mL/min/BSA 2018 11:29 AM CDT Comment: ----ADDITIONAL INFORMATION---- Estimated GFR calculated using the 2009 CKD_EPI creatinine equation. Calcium, Total, S 8.9 8.8 - 10.2 mg/dL 04/23/2019 11:2 9 AM CDT Glucose, S 101 70 - 140 mg/dL 04/23/2019 11:29 AM CDT Specimen Anatomical Collection Method Collection Time Receive d Time (Source) Location / / Volume Laterality Blood (Blood, 04/23/2019 10:30 04/23/2019 Venous) AM CDT 10:50 AM CDT Yessenia Montalvo M.D., Ph.D. LAB BLOOD ADD-ON Performing Organization Address City/[facility]/ZIP Code Phon e Number [facility] - [address] AST (Aspartate Aminotransferase) (04/23/2019 10:30 AM CDT) Patholo gist Method Time Signature Aspartate 24 8 - 48 04/23/2019 Aminotransferase U/L 11:29 AM CDT (AST), S Specimen Anatomical Collection Method Collection Time Receive d Time (Source) Location / / Volume Laterality Blood (Blood, 04/23/2019 10:30 04/23/2019 Venous) AM CDT 10:50 AM CDT Yessenia Montalvo M.D., Ph.D. LAB BLOOD ADD-ON Performing Organization Address City/[facility]/ZIP Code Phon e Number [facility] - [address] Alkaline Phosphatase (04/23/2019 10:30 AM CDT) P athologist Signature Alkaline 95 40 - 129 04/23/2019 Phosphatase, S U/L 11:29 AM CDT Specimen Anatomical Collection Method Collection Time Receive d Time (Source) Location / / Volume Laterality Blood (Blood, 04/23/2019 10:30 04/23/2019 Venous) AM CDT 10:50 AM CDT Yessenia Montalvo M.D., Ph.D. 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
--- OUTSIDE RECORDS SUMMARY | 2022-06-22 12:14 | XMS_ITS | Encounter Summary ---
:1940 Author Organization [facility] Address [address] [place] [address] Care Team Providers Name Role Phone Unavailable Primary Care Provider Unavailable Reason for Referral Outpatient (Routine) - Closed Specialty Diagnoses / Procedures Referred By Contact Refer red To Contact Hematology Oncology Yessenia Montalvo M.D., [facility] Ph.D. 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 Thrombocytopenia (HCC) [place], [place] [address] [facility] [address] [place] [phone] Social History Tobacco Use Types Packs/Day Years Used Date Smoking Tobacco: Former Cigarettes Quit : 2006 Smokeless Tobacco: Never Alcohol Use Standard Drinks/Week Comments Yes 10 (1 standard drink = 0.6 oz pure alcoh ol) Alcohol Habits Answer Date Recorded How often do you have a drink containing 4 or more times a w [place] 06/14/2022 alcohol? How many drinks containing alcohol [...] 06/14/2022 relatives? How often do you attend yazidi or bahai Never 06/14/2022 services? 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 CT abdomen did show biju-wi-ynuncuqj splenomegaly. Blood work also showed mild thrombocytopenia. He has been observed over the years without significant disease progression. In the the medical center records, his WBC and ALC as well as hemoglobin were actually normal from 2165-0490, but his platelet count were in the 70-90 range. Interval history Mr. Rayo returns for follow-up today. He has been doing well in the past 6 months. No B symptoms. No weight loss. He denies lymphadenopathy, chest pain, short of breath, nausea, vomiting, diarrhea, abdominal pain. ECOG PS 0. Past Medical History: Past [...] Last attempt to quit: 2007 Years since quittin.1 ??? Smokeless tobacco: Never Used Substance and [...] Gets together: Three times a week Attends bahai service: Not on file Active member of [...] review of systems was negative. Vitals: Vitals: 10/22/19 1424 BP: 127/77 BP Location: Right arm Patient Position: Sitting Cuff Size: Regular Pulse: 60 Temp: 36.5 ??C TempSrc: Tympanic Physical Exam GENERAL: In no apparent distress. [...] His platelet has been in the 70-90 range. However, today his CBC showed a platelet count of 61. At the same time, ALC has increased to 3.3 while it has been normal for the past 7 or 8 years. Hemoglobin remains normal. We discussed that the disease might be progressing. We will repeat CBC in 3 month for a closer follow- up. We discussed that if the platelet count keeps trending down we should do a bone marrow biopsy and CT scan at that time. In terms of treatment options, we can do single agent rituximab versus splenomegaly. I will probably offer rituximab 1st. We will check his hepatitis panel next time. Total time spent with the patient around 25 minutes with more than 50% of time spent in counseling, coordination of care, explanation of plan of care, chart review, eiit-pk-mygf interview. Yessenia Montalvo M.D., Ph.D. 10/22/19 2:49 PM TURFGRASS MANAGEMENT PROFESSOR GRASS MANAGEMENT PROFESSOR documented in this encounter Plan of Treatment Scheduled Referrals Name Type Priority Associated Order Schedule Diagnoses Hematology office Outpatient Referral Routine Exp ected: visit (clinic) 01/20/2020 (Approximate), Expires: 10/22/2022 documented as of this encounter Results Cell Bound Platelet Autoantibody Screen (02/25/2020 10:15 AM CDT) [facility] Method Time Signature Cell Bound Ab. Negative [...] INFORMATION---- Method: Lee Ann Based Assay CLIA: [id number] ??CLIA Turret Lathe Operator: MERVAT GURROLA MD,PhD Cell Bound Ab. Reason [...] Venous) AM CDT 11:22 AM CDT Narrative [facility] - 02/26/2020 2:51 PM CDT Specimen Information: Specimen ID: [id number] Specimen Type: Blood Specimen Collection Start Date: 02/25/20 10:15 AM Specimen Received Date: 02/25/2020 11:22 AM Specimen ID: [id number] Specimen Type: Blood Specimen Collection Start Date: 02/25/20 10:15 AM Specimen Received Date: 02/25/2020 11:22 AM Yessenia Montalvo M.D., Ph.D. LAB BLOOD NON ADD-ON Performing Organization Address City/State/ZIP Code Phon e Number [facility] - [address] [place] [address] [facility] [address] [place] [address] [facility] 200 [facility] HCV Ab w/Reflex to HCV PCR, Serum (02/25/2020 10:14 AM CDT) athologist Signature HCV Ab, S Negative Negative 02/25/2020 [facility] 3:24 PM CDT Comment: Niwiaj-tn-orffyy ratio is <1.00 . Specimen Anatomical Collection Method Collection Time Receive d Time (Source) Location / / Volume Laterality Blood (Blood, 02/25/2020 10:14 02/25/2020 2:06 Venous) AM CDT PM CDT Yessenia Montalvo M.D., Ph.D. LAB MICROBIOLOGY - BLOOD ORD ERABLES Performing Organization Address [facility] Phon e Number [address] [place] [address] [address] [place] [address] Laboratory Medicine and Pathology [address] [place] [address] Dr. WILLIS HBc Total Ab, Serum (02/25/2020 10:14 AM CDT) athologist Signature HBc Total Ab, Negative Negative 02/25/2020 [facility] S 3:22 PM CDT Specimen Anatomical Collection Method Collection Time Receive d Time (Source) Location / / Volume Laterality Blood (Blood, 02/25/2020 10:14 02/25/2020 2:06 Venous) AM CDT PM CDT Yessenia Montalvo M.D., Ph.D. LAB MICROBIOLOGY - BLOOD ORD ERABLES Performing Organization Address City/[facility] Phon e Number [address] [place] [address] [place] [address] Laboratory Medicine and Pathology [address] [place] [address] Dr. WILLIS HBs Antibody, Serum (02/25/2020 10:14 AM CDT) athologist Signature HBs Antibody, Negative 02/25/2020 [facility] S 3:22 PM CDT Comment: Patient is presumed to be not immune to infection with HBV. ----REFERENCE VALUE---- Unvaccinated: Negative Vaccinated: Positive HBs Antibody, Quantitative, S <5.0 mIU/mL 02/25/2020 3:22 PM CDT [facility] Comment: ----REFERENCE VALUE---- Unvaccinated: <5.0 Vaccinated: >=12.0 Specimen Anatomical Collection Method Collection Time Receive d Time (Source) Location / / Volume Laterality Blood (Blood, 02/25/2020 10:14 02/25/2020 2:06 Venous) AM CDT PM CDT Yessenia Montalvo M.D., Ph.D. LAB MICROBIOLOGY - BLOOD ORD ERABLES Performing Organization Address City/[facility]/ZIP Code Phon e Number [facility] [address] [place] [address] [place] [address] Laboratory Medicine and Pathology [address] [place] [address] Dr. WILLIS Hepatitis B Surface Antigen (02/25/2020 10:14 AM CDT) athologist Signature HBs Antigen, S Negative Negative 02/25/2020 [facility] 3:07 PM CDT Specimen Anatomical Collection Method Collection Time Receive d Time (Source) Location / / Volume Laterality Blood (Blood, 02/25/2020 10:14 02/25/2020 2:06 Venous) AM CDT PM CDT Yessenia Montalvo M.D., Ph.D. LAB MICROBIOLOGY - BLOOD ORD ERABLES Performing Organization Address City/[facility]/ZIP [facility] Phon e Number [facility] [address] [place] [address] 05 [place] [address] Laboratory Medicine and Pathology [address] [place] [address] Dr. WILLIS Bilirubin, Direct (02/25/2020 10:14 AM CDT) athologist Signature Bilirubin, 0.3 0.0 - 0.3 02/25/2020 [facility] Direct, S mg/dL 11:51 AM CDT Specimen Anatomical Collection Method Collection Time Receive d Time (Source) Location / / Volume Laterality Blood (Blood, 02/25/2020 10:14 02/25/2020 Venous) AM CDT 11:15 AM CDT Yessenia Montalvo M.D., Ph.D. LAB BLOOD ADD-ON Performing Organization Address City/State/ZIP Code Phon e Number [facility] - [address] [place], [place] [address] [facility] [place] [address] [facility] [address] (ABNORMAL) Bilirubin, Total (02/25/2020 10:14 AM CDT) athologist Signature Bilirubin, 1.6 (H) <=1.2 02/25/2020 [facility] Total, S mg/dL 11:51 AM CDT Specimen Anatomical Collection Method Collection Time Receive d Time (Source) Location / / Volume Laterality Blood (Blood, 02/25/2020 10:14 02/25/2020 Venous) AM CDT 11:15 AM CDT Yessenia Montalvo M.D., Ph.D. LAB BLOOD ADD-ON Performing Organization Address City/State/ZIP Code Phon e Number [facility] - [address] [place], [place] [address] [facility] [place] [address] [facility] [address] [facility] (ABNORMAL) Basic Metabolic Panel (02/25/2020 10:14 AM [...] 02/25/2020 [facility] Black/ mL/min/BSA 11:51 AM CDT Slovenian Comment: ----ADDITIONAL INFORMATION---- Estimated GFR calculated using [...] Ph.D. LAB BLOOD ADD-ON Performing Organization Address City/[facility] Code Phon e Number [facility] - [address] [place], [place] [address] [facility] [place] [address] [place] [address] [address] [facility] AST (Aspartate Aminotransferase) (02/25/2020 10:14 AM CDT) [facility] Method Time Signature Aspartate 21 8 - 48 02/25/2020 [facility] Aminotransferase U/L 11:51 AM CDT (AST), S Specimen Anatomical Collection Method Collection Time Receive d Time (Source) Location / / Volume Laterality Blood (Blood, 02/25/2020 10:14 02/25/2020 Venous) AM CDT 11:15 AM CDT Yessenia Montalvo M.D., Ph.D. LAB BLOOD ADD-ON Performing Organization Address City/[facility] Phon e Number [facility] - [address] [place] [address] 05 [facility] [place], [place] [address] [place] [address] Alkaline Phosphatase (02/25/2020 10:14 AM CDT) P athologist Signature Alkaline 95 40 - 129 02/25/2020 [facility] Phosphatase, S U/L 11:51 AM CDT Specimen Anatomical Collection Method Collection Time Receive d Time (Source) Location / / Volume Laterality Blood (Blood, 02/25/2020 10:14 02/25/2020 Venous) AM CDT 11:15 AM CDT Yessenia Montalvo M.D., Ph.D. LAB BLOOD ADD-ON Performing Organization Address City/[facility] Phon e Number [facility] - [address] [place], [place] [address] [facility] [address] (ABNORMAL) Reticulocytes (02/25/2020 10:14 AM CDT) Patholo gist Method Time Signature Reticulocytes, B 2.86 (H) [...] Ph.D. LAB BLOOD ADD-ON Performing Organization Address City/[facility] Code Phon e Number [facility] - 200 [place], [place] [address] [facility] [place] [address] Laboratories-[address] LD (Lactate Dehydrogenase) (02/25/2020 10:14 AM [...] LAB BLOOD NON ADD-ON Performing Organization Address City/[facility] Code Phon e Number [facility] - 200 [place], [place] [address] [facility] [address] (ABNORMAL) CBC with Differential, Blood (02/25/2020 [...] Organization Address City/State/ZIP Code Phon e Number [facility] - [address] [place], [place] [address] [facility] [place] [address] [facility] [address] documented in this encounter Visit Diagnoses Diagnosis 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
--- OUTSIDE RECORDS SUMMARY | 2022-06-22 12:14 | XMS_ITS | Encounter Summary ---
:1940 Author Organization [facility] Address [address] [place] [address] Care Team Providers Name Role Phone Unavailable Primary Care Provider Unavailable Reason for Referral Outpatient (Routine) - Closed Specialty Diagnoses / Procedures Referred By Contact Refer red To Contact Dermatology Diagnoses Squamous Cell Carcinoma In Situ Yasmany Edgar M.D. 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 Encounter Details Date Type Department Care Team Description 10/25/2019 Orders Only Department of Yasmany Edgar Squamous C ell Dermatology in [place] Carcinoma In Situ [place], [place] 1861 [facility] (Primary Dx) 200 [facility] [place], [place] [phone] Social History Tobacco Use Types Packs/Day Years Used Date Smoking Tobacco: Former Cigarettes Quit : 2006 Smokeless Tobacco: Never Alcohol Use Standard Drinks/Week Comments Yes 10 (1 standard drink = 0.6 oz pure alcoh ol) Alcohol Habits Answer Date Recorded How often do you have a drink containing 4 or more times a w [place] 06/14/2022 alcohol? How many drinks containing alcohol [...] 06/14/2022 relatives? How often do you attend jain or mormonism Never 06/14/2022 services? Do you belong to any clubs or organizations such as No 06/14/2022 jain groups, unions, fraternal or athletic groups, or [...] place to sleep or slept in a long term (including now)? 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
--- OUTSIDE RECORDS SUMMARY | 2022-06-22 12:14 | XMS_ITS | Encounter Summary ---
:1940 Author Organization [facility] Address [address] [place] [address] Care Team Providers Name Role Phone Unavailable Primary Care Provider Unavailable Reason for Visit MRI/CAT/PET Scan (Routine) - Closed Specialty Diagnoses / Procedures Referred By Contact Refer red To Contact Radiology Diagnoses Marginal Zone Lymphoma Splenic (HCC) Thrombocytopenia (HCC) Yessenia Montalvo M.D., Ph.D. [facility] Procedures CT Chest with IV Contrast CT Chest without and with IV Contrast [address] [place] [address] [phone] Referral ID Status Reason Start Date Expiration Date Visits Requ ested Visits Authorized [id number] Closed 04/23/2019 04/22/2020 1 1 Encounter Details Date Type Department Care Team Description 04/23/2019 Hospital Encounter Department of Yessenia Montalvo, Marginal Zone Lymphoma Splenic (HCC); Radiology, Cas Weber, Ph.D. Thrombocytopenia (HCC) [place] [address] [place] [phone] [place] [address] [place], [place] (Work) [phone] Social History Tobacco Use Types Packs/Day Years Used Date Smoking Tobacco: Former Cigarettes Quit : 2006 Smokeless Tobacco: Never Alcohol Use Standard Drinks/Week Comments Yes 10 (1 standard drink = 0.6 oz pure alcoh ol) Alcohol Habits Answer Date Recorded How often do you have a drink containing 4 or more times a w [place] 06/14/2022 alcohol? How many drinks containing alcohol [...] How often do you attend jewish or mormonism Never 06/14/2022 services? Do you [...] or slept in a ch[facility] (including now)? 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 Last Filed Vital Signs Vital Sign Reading Time Taken Comments Blood Pressure - - Pulse - - Temperature - - Respiratory Rate - - Oxygen Saturation - - Inhaled Oxygen Concentration - - Weight 80.5 kg (177 lb 7.5 oz) 04/23/2019 1:53 PM CDT Height 162 cm (5' 3.78) 04/23/2019 1:53 PM CDT Body Mass Index 30.67 04/23/2019 1:53 PM CDT documented in this encounter Medications at Time of Discharge [...] Procedure Name Priority Date/Time Associated Comments Diagnosis CT ABDOMEN PELVIS RAD - Routine 04/23/2019 2:28 Marginal Zone Resul ts for this WITH IV CONTRAST (most inpatients PM CDT Lymphoma Splenic pro cedure are in and all (HCC) the results outpatients) Thrombocytopenia section. (HCC) CT CHEST WITH IV RAD - Routine 04/23/2019 2:28 Marginal Zone Result s for this CONTRAST (most inpatients PM CDT Lymphoma Splenic procedu re are in and all (HCC) the results outpatients) Thrombocytopenia section. (HCC) documented in this encounter Results CT Abdomen Pelvis with IV Contrast (04/23/2019 2:28 PM CDT) Anatomical Region Laterality Modality Abdomen, Pelvis, Abdominal RST LOS, Abdominal ARZ LOS, N/A Computed Tomography Abdominal FLA LOS Specimen (Source) Anatomical Collection Method Collection Time Re ceived Time Location / / Volume Laterality 04/24/2019 12:56 PM CDT Impressions 04/23/2019 2:38 PM CDT Mild progression of splenomegaly. No new masses or lymphadenopathy are demonstrated. Narrative 04/23/2019 2:38 PM CDT REVISED REPORT: (REVISED REPORT TO CHANGE EXAM DESCRIPTO R) EXAM: ??CT ABDOMEN PELVIS WITH IV CONTRA ST COMPARISON: ??09/28/2011 CT FINDINGS: ??Mild splenomegaly. Spleen si ze has increased from 15 cm to 16 cm in CC diameter. No masses or lymphadenopath y are demonstrated. Left renal cysts. Small bilateral fat-containing inguinal hernias. Aortoiliac calcifications. Remainder negative or unchanged. This examination was performed in conjun ction with a CT of the chest, which will be reported separately. Procedure Note Bhavik Joshua M.D. - 04/25/2019For matting of this note might be different from the original. REVISED REPORT: (REVISED REPORT TO CHANGE EXAM DESCRIPTO R) EXAM: CT ABDOMEN PELVIS WITH IV CONTRAST COMPARISON: 09/28/2011 CT FINDINGS: Mild splenomegaly. Spleen size has increased from 15 cm to 16 cm in CC diameter. No masses or lymphadenopath y are demonstrated. Left renal cysts. Small bilateral fat-containing inguinal hernias. Aortoiliac calcifications. Remainder negative or unchanged. This examination was performed in conjun ction with a CT of the chest, which will be reported separately. IMPRESSION: Mild progression of splenomegaly. No new masses or lymphadenopathy are demonstrated. Yessenia Montalvo M.D., Ph.D. IMG CT PROCEDURES CT Chest with IV Contrast (04/23/2019 2:28 PM CDT) Anatomical Region Laterality Modality Chest, Thoracic RST LOS, Thoracic ARZ LOS, Thoracic N/A Computed Tomography ARZ LOS, Thoracic FLA LOS Specimen (Source) Anatomical Collection Method Collection Time Re ceived Time Location / / Volume Laterality 04/23/2019 2:33 PM CDT Impressions 04/23/2019 2:46 PM CDT 1. New tiny nodule in the left lower lobe is indeterminate. Additional pulmonary nodules are stable and should be benign. 2. No adenopathy in the chest. 3. 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 Narrative 04/23/2019 2:46 PM CDT REVISED REPORT: EXAM: CT CHEST WITH IV CONTRAST 3D maximum intensity projection (MIP) im ages were created on a dependent workstation as ordered by the treating p rovider and reviewed by the radiologist to increase sensitivity for detection of pulmonary nodules. COMPARISON: CT chest 09/28/2011. FINDINGS: 2 mm nodule in the left lower lobe poste rolaterally (series 6, image 357) is new since 09/28/2011. Additional bilateral p ulmonary nodules including the 6 mm nodule in the right lower lobe posterior ly (image 312) are stable and should be benign. Emphysematous changes bilaterall y. Mild fibrosis in the lower lungs. Scattered nodes in the chest without tono nopathy. Soft tissue opacities between the scapular tip and ribs bilaterally, l arger on the left, have developed in the interval. Coronary artery calcification. Degenerative changes both shoulders. This examination was performed in conjun ction with a CT of the abdomen, which will be reported separately. Procedure Note Chidi Jacobs M.D. - 04/23/2019Form atting of this note might be different from the original. REVISED REPORT: EXAM: CT CHEST WITH IV CONTRAST 3D maximum intensity projection (MIP) im ages were created on a dependent workstation as ordered by the treating p rovider and reviewed by the radiologist to increase sensitivity for detection of pulmonary nodules. COMPARISON: CT chest 09/28/2011. FINDINGS: 2 mm nodule in the left lower lobe poste rolaterally (series 6, image 357) is new since 09/28/2011. Additional bilateral p ulmonary nodules including the 6 mm nodule in the right lower lobe posterior ly (image 312) are stable and should be benign. Emphysematous changes bilaterall y. Mild fibrosis in the lower lungs. Scattered nodes in the chest without tono nopathy. Soft tissue opacities between the scapular tip and ribs bilaterally, l arger on the left, have developed in the interval. Coronary artery calcification. Degenerative changes both shoulders. This examination was performed in conjun ction with a CT of the abdomen, which will be reported separately. IMPRESSION: 1. New tiny nodule in the left lower lob e is indeterminate. Additional pulmonary nodules are stable and should be benign. 2. No adenopathy in the chest. 3. 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 Yessenia Montalvo M.D., Ph.D. IMG CT PROCEDURES documented in this encounter Visit Diagnoses Diagnosis Marginal Zone Lymphoma Splenic (HCC) Thrombocytopenia (HCC) documented in this encounter Administered Medications Inactive Administered Medications - up to 3 most recent administrations Medication Order MAR Action Action Date Dose Rate Site iohexol 300 mg iodine/mL solution Given 04/23/2019 2:31 PM CDT 1 40 mL 1-200 mL (OMNIPAQUE) 1-200 mL, intravenous, Once in imaging, contrast, Starting on Tue04/23/19 at 1353, For 1 dose, Imaging Protocol Orders, Dose per Radiant Medication Guidelines sodium chloride (PF) 0.9 % injection 1-1 00 mL Given 04/23/2019 2:31 PM CDT 50 mL 1-100 mL, intravenous, Once, On Tue04/23/19 at 1400, For 1 dose, Imaging Protocol Orders documented in this encounter
--- OUTSIDE RECORDS SUMMARY | 2022-06-22 12:14 | XMS_ITS | Encounter Summary ---
:1940 Author Organization [facility] Address [address] [place] [address] Care Team Providers Name Role Phone Unavailable [...] containing 4 or more times a w [place] 06/14/2022 alcohol? How many drinks containing [...] 06/14/2022 relatives? How often do you attend worship or tenriism Never 06/14/2022 services? 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 documented in this encounter Results cheek, right upper 14 Biopsy-Dermatology Image Exam (10/22/2019 12:05 PM PROGRAM MANAGER SLP) Specimen (Source) Anatomical Location Collection Method / Collectio n Time Received Time / Laterality Volume Narrative IIMS - 10/23/2019 11:25 AM PROGRAM MANAGER SLP This order has been created and auto-finalized [...]
--- OUTSIDE RECORDS SUMMARY | 2022-06-22 12:14 | XMS_ITS | Encounter Summary ---
:1940 Author Organization [facility] Address [address] [place] [address] Care Team Providers Name Role Phone Unavailable Primary Care Provider Unavailable Encounter Details Date Type Department Care Team Description 04/23/2019 Hospital Encounter Department of Yessenia Montalvo, Marginal Zone Lymphoma Splenic (HCC); Laboratory Medicine M.D., Ph.D. Thrombocytopenia (HCC) and Pathology, [address] [place] [address] in [place] [phone] [place] [phone] [place] [address] (Work) [place], [place] [phone] (Fax) [phone] Social History Tobacco Use Types Packs/Day Years Used Date Smoking Tobacco: Former Cigarettes Quit : 2006 Smokeless Tobacco: Never Alcohol Use Standard Drinks/Week Comments Yes 10 (1 standard drink = 0.6 oz pure alcoh ol) Alcohol Habits Answer Date Recorded How often do you have a drink containing 4 or more times a w [place] 06/14/2022 alcohol? How many drinks containing alcohol [...] How often do you attend judaism or orthodoxy Never 06/14/2022 services? 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 ([facility]) ASPARTATE Routine 04/23/2019 10:30 Marginal Zone Results fo r this AMINOTRANSFERASE (AST), AM CDT Lymphoma Splenic procedure are in S/P ([facility]) the results Thrombocytopenia section. ([facility]) ALKALINE PHOSPHATASE, Routine 04/23/2019 10:30 Marginal Zone R esults for this S/P AM CDT Lymphoma Splenic procedure a re in ([facility]) the results Thrombocytopenia section. ([facility]) LACTATE DEHYDROGENASE Routine 04/23/2019 10:30 Marginal Zone R esults for this (LD), S AM CDT Lymphoma Splenic procedure a re in ([facility]) the results Thrombocytopenia section. ([facility]) VITAMIN B12 ASSAY, S Routine 04/23/2019 10:30 Marginal Zone Re sults for this AM CDT Lymphoma Splenic procedure a re in ([facility]) the results Thrombocytopenia section. ([facility]) BILIRUBIN DIRECT, S/P Routine 04/23/2019 10:30 Marginal Zone R esults for this AM CDT Lymphoma Splenic procedure a re in (HCC) the results Thrombocytopenia section. ([facility]) BILIRUBIN, TOT, S/P Routine 04/23/2019 10:30 Marginal Zone Res ults for this AM CDT Lymphoma Splenic procedure a re in ([facility]) the results Thrombocytopenia section. ([facility]) BASIC METABOLIC PANEL, Routine 04/23/2019 10:30 Marginal Zone Results for this S/P AM CDT Lymphoma Splenic procedure a re in ([facility]) the results Thrombocytopenia section. ([facility]) documented in this encounter Results Vitamin B12 Assay (04/23/2019 [...] Ph.D. LAB BLOOD ADD-ON Performing Organization Address City/[facility] Phon e Number [facility] - 200 [place], [place] [address] [place] [address] LD (Lactate Dehydrogenase) (04/23/2019 10:30 AM CDT) [...] LAB BLOOD NON ADD-ON Performing Organization Address City/[facility] Phon e Number [facility] - [address] (ABNORMAL) CBC with Differential, Blood (04/23/2019 10:30 AM CDT) [facility] Method Time Signature Hemoglobin 14.4 13.2 - [...] City/State/ZIP Code Phon e Number [facility] - 200 [place] [address] [facility] (ABNORMAL) Bilirubin, Total (04/23/2019 10:30 AM CDT) athologist Signature Bilirubin, 2.3 (H) <=1.2 04/23/2019 Total, S mg/dL 11:29 AM CDT Specimen Anatomical Collection Method Collection Time Receive d Time (Source) Location / / Volume Laterality Blood (Blood, 04/23/2019 10:30 04/23/2019 Venous) AM CDT 10:50 AM CDT Yessenia Montalvo M.D., Ph.D. LAB BLOOD ADD-ON Performing Organization Address [facility] Phon e Number [facility] - [address] [place] [address] (ABNORMAL) Bilirubin, Direct (04/23/2019 10:30 AM CDT) athologist Signature Bilirubin, 0.4 (H) 0.0 - 0.3 04/23/2019 Direct, S mg/dL 11:29 AM CDT Specimen Anatomical Collection Method Collection Time Receive d Time (Source) Location / / Volume Laterality Blood (Blood, 04/23/2019 10:30 04/23/2019 Venous) AM CDT 10:50 AM CDT Yessenia Montalvo M.D., Ph.D. LAB BLOOD ADD-ON Performing Organization Address City/[facility] Phon e Number [address] (ABNORMAL) Basic Metabolic Panel (04/23/2019 10:30 AM [...] >=60 04/23/2019 Black/ mL/min/BSA 11:29 AM CDT Montserratian Comment: ----ADDITIONAL INFORMATION---- Estimated GFR calculated using [...] Ph.D. LAB BLOOD ADD-ON Performing Organization Address City/[facility] Phon e Number [facility] - [address] AST (Aspartate Aminotransferase) (04/23/2019 10:30 AM CDT) Patholo gist Method Time Signature Aspartate 24 8 - 48 04/23/2019 Aminotransferase U/L 11:29 AM CDT (AST), S Specimen Anatomical Collection Method Collection Time Receive d Time (Source) Location / / Volume Laterality Blood (Blood, 04/23/2019 10:30 04/23/2019 Venous) AM CDT 10:50 AM CDT Yessenia Montalvo M.D., Ph.D. LAB BLOOD ADD-ON Performing Organization Address City/[facility] Phon e Number [facility] - 200 [place] [address] [facility] Alkaline Phosphatase (04/23/2019 10:30 AM CDT) P [...] City/State/ZIP Code Phon e Number [facility] - [address] [place], [place] [address] [facility] documented in this encounter Visit Diagnoses Diagnosis Marginal Zone Lymphoma Splenic (HCC) Thrombocytopenia (HCC) documented in this encounter
--- OUTSIDE RECORDS SUMMARY | 2022-06-22 12:14 | XMS_ITS | Encounter Summary ---
:1940 Author Organization [facility] Address [address] [place] [address] Care Team Providers Name Role Phone Unavailable Primary Care Provider Unavailable Encounter Details Date Type Department Care Team Description 10/22/2019 Hospital Encounter Department of Yessenia Montalvo Macrocyt osis; Laboratory Medicine MMartin, Ph.D. 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 How many drinks [...] 06/14/2022 relatives? How often do you attend rastafari or nondenominational Never 06/14/2022 services? 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 RETICULOCYTES, B Routine 10/22/2019 8:46 Marginal Zone Results for this AM ENVIRONMENTAL COMPLIANCE TECHNICIAN Lymphoma Splenic procedure a re in ([facility]) the results section. CBC WITH DIFFERENTIAL, B Routine 10/22/2019 8:46 Marginal Zone Results for this AM ENVIRONMENTAL COMPLIANCE TECHNICIAN Lymphoma Splenic procedure a re in ([facility]) the results section. DIRECT ANTIGLOBULIN TEST Routine 10/22/2019 8:46 Marginal Zone Results for this (POLYSPECIFIC) AM ENVIRONMENTAL COMPLIANCE TECHNICIAN Lymphoma Splenic procedure are in ([facility]) the results section. ASPARTATE Routine 10/22/2019 8:46 Marginal Zone Results for this AMINOTRANSFERASE (AST), AM ENVIRONMENTAL COMPLIANCE TECHNICIAN Lymphoma Splenic procedure are in S/P (HCC) the results section. ALKALINE PHOSPHATASE, Routine 10/22/2019 8:46 Marginal Zone Re sults for this S/P AM ENVIRONMENTAL COMPLIANCE TECHNICIAN Lymphoma Splenic procedure a re in ([facility]) the results section. LACTATE DEHYDROGENASE Routine 10/22/2019 8:46 Marginal Zone Re sults for this (LD), S AM ENVIRONMENTAL COMPLIANCE TECHNICIAN Lymphoma Splenic procedure a re in (HCC) the results section. BILIRUBIN DIRECT, S/P Routine 10/22/2019 8:46 Marginal Zone Re sults for this AM ENVIRONMENTAL COMPLIANCE TECHNICIAN Lymphoma Splenic procedure a re in (HCC) the results section. BILIRUBIN, TOT, S/P Routine 10/22/2019 8:46 Marginal Zone Resu lts for this AM ENVIRONMENTAL COMPLIANCE TECHNICIAN Lymphoma Splenic procedure a re in (HCC) the results section. BASIC METABOLIC PANEL, Routine 10/22/2019 8:46 Marginal Zone R esults for this S/P AM ENVIRONMENTAL COMPLIANCE TECHNICIAN Lymphoma Splenic procedure a re in (HCC) the results section. documented in this encounter Results (ABNORMAL) CBC with Differential, Blood (10/22/2019 8:46 AM ENVIRONMENTAL COMPLIANCE TECHNICIAN) [facility] Method Time Signature Hemoglobin 14.4 13.2 - 10/22/2019 DTL 16.6 g/dL 9:17 AM ENVIRONMENTAL COMPLIANCE TECHNICIAN Hematocrit 41.1 38.3 - 10/22/2019 DTL 48.6 % 9:17 AM ENVIRONMENTAL COMPLIANCE TECHNICIAN Erythrocytes 4.13 (L) 4.35 - 10/22/2019 DTL 5.65 9:17 AM ENVIRONMENTAL COMPLIANCE TECHNICIAN x10(12)/L MCV 99.5 (H) 78.2 - 10/22/2019 DTL 97.9 fL 9:17 AM ENVIRONMENTAL COMPLIANCE TECHNICIAN RBC Distrib Width 14.8 (H) 11.8 - 10/22/2019 DTL 14.5 % 9:17 AM ENVIRONMENTAL COMPLIANCE TECHNICIAN Platelet Count 61 (L) 135 - 317 10/22/2019 DTL x10(9)/L 9:17 AM ENVIRONMENTAL COMPLIANCE TECHNICIAN Leukocytes 6.7 3.4 - 9.6 10/22/2019 DTL x10(9)/L 9:17 AM ENVIRONMENTAL COMPLIANCE TECHNICIAN Neutrophils 2.69 1.56 - 10/22/2019 DTL 6.45 10:14 AM ENVIRONMENTAL COMPLIANCE TECHNICIAN x10(9)/L Comment: Rechecked Lymphocytes 3.29 (H) 0.95 - 3.07 x10(9)/L 10/22/2019 10:14 AM ENVIRONMENTAL COMPLIANCE TECHNICIAN DTL Monocytes 0.46 0.26 - 0.81 x10(9)/L 10/22/2019 10:14 AM ENVIRONMENTAL COMPLIANCE TECHNICIAN DTL Eosinophils 0.23 0.03 - 0.48 x10(9)/L 10/22/2019 10:14 AM ENVIRONMENTAL COMPLIANCE TECHNICIAN DTL Basophils 0.05 0.01 - 0.08 x10(9)/L 10/22/2019 10:14 AM ENVIRONMENTAL COMPLIANCE TECHNICIAN DTL Specimen Anatomical Collection Method Collection Time Receive d Time (Source) Location / / Volume Laterality Blood (Blood, 10/22/2019 8:46 AM 10/22/19 9:07 Venous) ENVIRONMENTAL COMPLIANCE TECHNICIAN AM ENVIRONMENTAL COMPLIANCE TECHNICIAN Yessenia Montalvo M.D., Ph.D. LAB BLOOD ADD-ON Performing Organization Address City/[facility] Code Phon e Number [facility] - [address] DTL [address] Direct Antiglobulin Test (Poly) (10/22/2019 8:46 AM ENVIRONMENTAL COMPLIANCE TECHNICIAN) [facility] Method Time Signature Direct Negative Negative 10/22/2019 ET Antiglobulin 11:52 AM ENVIRONMENTAL COMPLIANCE TECHNICIAN Test, Polyspecific Specimen Anatomical Collection Method Collection Time Receive d Time (Source) Location / / Volume Laterality Blood (Blood, 10/22/2019 8:46 AM 10/22/19 9:41 Venous) ENVIRONMENTAL COMPLIANCE TECHNICIAN AM ENVIRONMENTAL COMPLIANCE TECHNICIAN Yessenia Montalvo M.D., Ph.D. LAB BLOOD BANK TEST ORDERABL ES Performing Organization Address [facility] Code Phon e Number [facility] - [address] ETRM [address] (ABNORMAL) Reticulocytes (10/22/2019 8:46 AM ENVIRONMENTAL COMPLIANCE TECHNICIAN) [facility] Method Time Signature Reticulocytes, B 3.32 (H) 0.60 - 10/22/2019 DTL 2.71 % 9:17 AM ENVIRONMENTAL COMPLIANCE TECHNICIAN Absolute 137.1 (H) 30.4 - 10/22/2019 DTL Reticulocyte 110.9 9:17 AM ENVIRONMENTAL COMPLIANCE TECHNICIAN x10(9)/L Specimen Anatomical Collection Method Collection Time Receive d Time (Source) Location / / Volume Laterality Blood (Blood, 10/22/2019 8:46 AM 10/22/19 9:07 Venous) ENVIRONMENTAL COMPLIANCE TECHNICIAN AM ENVIRONMENTAL COMPLIANCE TECHNICIAN Yessenia Montalvo M.D., Ph.D. LAB BLOOD ADD-ON Performing Organization Address City/[facility]/ZIP Code Phon e Number [facility] - [address] LD (Lactate Dehydrogenase) (10/22/2019 8:46 AM ENVIRONMENTAL COMPLIANCE TECHNICIAN) Analysis Performed At Patho logist Time Signature Lactate 180 122 - 222 10/22/2019 DTL Dehydrogenase U/L 10:35 AM ENVIRONMENTAL COMPLIANCE TECHNICIAN (LD), S Specimen Anatomical Collection Method Collection Time Receive d Time (Source) Location / / Volume Laterality Blood (Blood, 10/22/2019 8:46 AM 10/22/19 9:07 Venous) ENVIRONMENTAL COMPLIANCE TECHNICIAN AM ENVIRONMENTAL COMPLIANCE TECHNICIAN Yessenia Montalvo M.D., Ph.D. LAB BLOOD NON ADD-ON Performing Organization Address City/State/[facility] Phon e Number [facility] - [address] (ABNORMAL) Bilirubin, Total (10/22/2019 8:46 AM ENVIRONMENTAL COMPLIANCE TECHNICIAN) P athologist Signature Bilirubin, 1.6 (H) <=1.2 10/22/2019 DTL Total, S mg/dL 10:35 AM ENVIRONMENTAL COMPLIANCE TECHNICIAN Specimen Anatomical Collection Method Collection Time Receive d Time (Source) Location / / Volume Laterality Blood (Blood, 10/22/2019 8:46 AM 10/22/19 9:07 Venous) ENVIRONMENTAL COMPLIANCE TECHNICIAN AM ENVIRONMENTAL COMPLIANCE TECHNICIAN Yessenia Montalvo M.D., Ph.D. LAB BLOOD ADD-ON Performing Organization Address City/State/ZIP [facility] Phon e Number [facility] - [address] Basic Metabolic Panel (10/22/2019 8:46 AM ENVIRONMENTAL COMPLIANCE TECHNICIAN) P athologist Signature Potassium, S 4.6 3.6 - 5.2 10/22/2019 DTL mmol/L 10:35 AM ENVIRONMENTAL COMPLIANCE TECHNICIAN Sodium, S 141 135 - 145 10/22/2019 DTL mmol/L 10:35 AM ENVIRONMENTAL COMPLIANCE TECHNICIAN Chloride, S 104 98 - 107 10/22/2019 DTL mmol/L 10:35 AM ENVIRONMENTAL COMPLIANCE TECHNICIAN Bicarbonate, S 25 22 - 29 10/22/2019 DTL mmol/L 10:35 AM ENVIRONMENTAL COMPLIANCE TECHNICIAN Anion Gap 12 7 - 15 10/22/2019 DTL 10:35 AM ENVIRONMENTAL COMPLIANCE TECHNICIAN BUN (Blood Urea 19 8 - 24 10/22/2019 DTL Nitrogen), S mg/dL 10:35 AM ENVIRONMENTAL COMPLIANCE TECHNICIAN Creatinine 1.13 0.74 - 10/22/2019 DTL 1.35 mg/dL 10:35 AM ENVIRONMENTAL COMPLIANCE TECHNICIAN eGFR-Non 62 >=60 10/22/2019 DTL Black/ mL/min/BSA 10:35 AM ENVIRONMENTAL COMPLIANCE TECHNICIAN [place] Comment: ----ADDITIONAL INFORMATION---- Estimated GFR calculated using the 2009 CKD_EPI creatinine equation. eGFR-Black/ 72 >=60 mL/min/BSA 2019 10:35 AM ENVIRONMENTAL COMPLIANCE TECHNICIAN DTL Comment: ----ADDITIONAL INFORMATION---- Estimated GFR calculated using the 2009 CKD_EPI creatinine equation. Calcium, Total, S 9.2 8.8 - 10.2 mg/dL 10/22/2019 10:3 5 AM ENVIRONMENTAL COMPLIANCE TECHNICIAN DTL Glucose, S 101 70 - 140 mg/dL 10/22/2019 10:35 AM ENVIRONMENTAL COMPLIANCE TECHNICIAN DTL Specimen Anatomical Collection Method Collection Time Receive d Time (Source) Location / / Volume Laterality Blood (Blood, 10/22/2019 8:46 AM 10/22/19 9:07 Venous) ENVIRONMENTAL COMPLIANCE TECHNICIAN AM ENVIRONMENTAL COMPLIANCE TECHNICIAN Yessenia Montalvo M.D., Ph.D. LAB BLOOD ADD-ON Performing Organization Address City/[facility]/ZIP Code Phon e Number [facility] - [address] [place], [place] [address] [facility] [address] [facility] [address] [facility] Bilirubin, Direct (10/22/2019 8:46 AM ENVIRONMENTAL COMPLIANCE TECHNICIAN) P athologist Signature Bilirubin, 0.3 0.0 - 0.3 10/22/2019 DTL Direct, S mg/dL 10:35 AM ENVIRONMENTAL COMPLIANCE TECHNICIAN Specimen Anatomical Collection Method Collection Time Receive d Time (Source) Location / / Volume Laterality Blood (Blood, 10/22/2019 8:46 AM 10/22/19 9:07 Venous) ENVIRONMENTAL COMPLIANCE TECHNICIAN AM ENVIRONMENTAL COMPLIANCE TECHNICIAN Yessenia Montalvo M.D., Ph.D. LAB BLOOD ADD-ON Performing Organization Address City/[facility]/ZIP Code Phon e Number [facility] - [address] AST (Aspartate Aminotransferase) (10/22/2019 8:46 AM ENVIRONMENTAL COMPLIANCE TECHNICIAN) Patholo gist Method Time Signature Aspartate 20 8 - 48 10/22/2019 DTL Aminotransferase U/L 10:35 AM ENVIRONMENTAL COMPLIANCE TECHNICIAN (AST), S Specimen Anatomical Collection Method Collection Time Receive d Time (Source) Location / / Volume Laterality Blood (Blood, 10/22/2019 8:46 AM 10/22/19 9:07 Venous) ENVIRONMENTAL COMPLIANCE TECHNICIAN AM ENVIRONMENTAL COMPLIANCE TECHNICIAN Yessenia Montalvo M.D., Ph.D. LAB BLOOD ADD-ON Performing Organization Address City/[facility]/ZIP [facility] Phon e Number [facility] - [address] Alkaline Phosphatase (10/22/2019 8:46 AM ENVIRONMENTAL COMPLIANCE TECHNICIAN) P athologist Signature Alkaline 89 40 - 129 10/22/2019 DTL Phosphatase, S U/L 10:35 AM ENVIRONMENTAL COMPLIANCE TECHNICIAN Specimen Anatomical Collection Method Collection Time Receive d Time (Source) Location / / Volume Laterality Blood (Blood, 10/22/2019 8:46 AM 10/22/19 9:07 Venous) ENVIRONMENTAL COMPLIANCE TECHNICIAN AM ENVIRONMENTAL COMPLIANCE TECHNICIAN Yessenia Montalvo M.D., Ph.D. LAB BLOOD ADD-ON Performing Organization Address City/State/ZIP Code Phon e Number [facility] - [address] Methylmalonic Acid (MMA), Quantitative (10/22/2019 8:46 AM ENVIRONMENTAL COMPLIANCE TECHNICIAN) Analysis Performed At Patho logist Time Signature Methylmalonic 0.29 <=0.40 10/24/2019 DTL Acid, QN, S nmol/mL 8:54 AM ENVIRONMENTAL COMPLIANCE TECHNICIAN Comment: ----ADDITIONAL INFORMATION---- This test was developed and its performa nce characteristics determined by [facility] in a manner consistent with CLIA requirements. This test has not been cleared or approved by the [place] d and Drug Administration. Specimen Anatomical Collection Method Collection Time Receive d Time (Source) Location / / Volume Laterality Blood (Blood, 10/22/2019 8:46 AM 10/22/19 20 Venous) ENVIRONMENTAL COMPLIANCE TECHNICIAN 10:00 AM ENVIRONMENTAL COMPLIANCE TECHNICIAN Yessenia Montalvo M.D., Ph.D. 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
--- OUTSIDE RECORDS SUMMARY | 2022-06-22 12:15 | XMS_ITS | Encounter Summary ---
:1940 Author Organization [facility] Address [address] [place] [address] Care Team Providers Name Role Phone Unavailable Primary Care Provider Unavailable Encounter Details Date Type Department Care Team Description 05/06/2010 Hospital Encounter HX [facility] URGENTCAR Sven Stone, MiguelangelORui Social History Tobacco Use Types Packs/Day Years Used Date Smoking Tobacco: Never Assessed Alcohol Habits Answer Date Recorded How often do you have a drink containing 4 or more times a w [place] 06/14/2022 alcohol? How many drinks containing alcohol [...] 06/14/2022 relatives? How often do you attend samaritan or caodaism Never 06/14/2022 services? 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 - 05/06/2010 12:00 AM CDT [id number] CHIEF COMPLAINT / REASON FOR VISIT Cough, body aches, sore throat. HISTORY OF PRESENT ILLNESS This is a 69-year-old nonsmoker who has had these symptoms for 1 week. He thought he was getting better but feels like he is getting worse. He has a productive cough, profuse sweats when he coughs although he has not had an objective febrile episode that he is aware of. His back is sore, probably, he thinks, from coughing. CURRENT MEDICATIONS None at the present time. ALLERGIES None. VITAL SIGNS Normal per EMR. PHYSICAL EXAM GENERAL: He is alert, afebrile. Does not appear to be in any distress. HEENT: TMs and canals are normal. Oropharynx is slightly red, no exudate. LUNGS: Scattered rhonchi in the posterior cooper. HEART: Regular in rate and rhythm. IMPRESSION/REPORT/PLAN 1) Cough, probable bronchitis. To [employer], Zithromax Z-TOBI as directed. Increase his fluid intake. Follow up as needed with his regular physician. Segun Stone D.O. bft Electronically Signed By:SEGUN STONE DO On 05/13/2010 09:21 AM Source: [facility] [id number] Document Id: [id number] documented in this encounter Miscellaneous Notes Miscellaneous - Conversion, Historical Provider Ser - 05/06/2010 9:28 AM CDT Adult Co Founder & Ceo Intake/History Adult Co Founder & Ceo Intake/History Entered On: 05/06/2010 9:30 CDT Performed On: 05/06/2010 9:28 CDT by KRISTINE REIS Intake Chief Complaint: Cough, drainage, bodyaches, S/T Onset of Symptoms: 1 week ago Temperature Oral: 36.8DegC(Converted to: 98.2DegF) Peripheral Pulse Rate: 58bpm (LOW) Heart Rhythm: Regular Respiratory Rate: 12br/min (LOW) Systolic Blood Pressure: 112mmHg Diastolic Blood Pressure: 70mmHg NIBP Mean: 84mmHg BP Location: Right upper extremity Actual Weight: 88.700kg(Converted to: 195.550lb) Dosing Weight Clinic: 88.70kg KRISTINE REIS - 05/06/2010 9:28 CDT Subjective Pain Symptoms: No KRISTINE REIS - 05/06/2010 9:28 CDT Dependent Habits Tobacco Use/Currently Using: No Tobacco Use/Last 12 months: No KRISTINE REIS - 05/06/2010 9:28 CDT Tobacco Use Grid Last Use: 4 years ago KRISTINE REIS - 05/06/2010 9:28 CDT Allergies Allergies (Active) NKA Estimated Onset Date: Unspecified ; Created By: KRISTINE REIS; Reaction Status: Active ; Category: Drug ; Substance: NKA ; Type: Allergy ; Updated By: KRISTINE REIS; Reviewed Date: 05/06/2010 9:28 CDT Source: [employer] Document Id: [id number] documented in this encounter Plan of Treatment Not on filedocumented as of this encounter Visit Diagnoses Not on filedocumented in this encounter
--- OUTSIDE RECORDS SUMMARY | 2022-06-22 12:15 | XMS_ITS | Encounter Summary ---
:1940 Author Organization [facility] Address [address] [place] [address] Care Team Providers Name Role Phone Unavailable Primary Care Provider Unavailable Encounter Details Date Type Department Care Team Description 05/24/2007 Hospital Encounter HX [facility] FAMILY[facility] Paul Vang M.D. [address] [place] [address] (Wo rk) Social History Tobacco Use Types Packs/Day Years Used Date Smoking Tobacco: Never Assessed Alcohol Habits Answer Date Recorded How often do you have a drink containing 4 or more times a w [place] 06/14/2022 alcohol? How many drinks containing alcohol [...] How often do you attend mandaen or orthodoxy Never 06/14/2022 services? 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
--- OUTSIDE RECORDS SUMMARY | 2022-06-22 12:15 | XMS_ITS | Encounter Summary ---
:1940 Author Organization [facility] Address [address] [place] [address] Care Team Providers Name Role Phone Unavailable Primary Care Provider Unavailable Encounter Details Date Type Department Care Team Description 06/17/2003 Hospital Encounter HX [facility] FAMILY[facility] Calvin Lloyd M.D. [address] [place], [place] [address] (Wo rk) Social History Tobacco Use Types Packs/Day Years Used Date Smoking Tobacco: Never Assessed Alcohol Habits Answer Date Recorded How often do you have a drink containing 4 or more times a w [place] 06/14/2022 alcohol? How many drinks containing alcohol [...] 06/14/2022 relatives? How often do you attend taoism or druze Never 06/14/2022 services? 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
--- OUTSIDE RECORDS SUMMARY | 2022-06-22 12:15 | XMS_ITS | Encounter Summary ---
:1940 Author Organization [facility] Address [address] [place] [address] Care Team Providers Name Role Phone Unavailable Primary Care Provider Unavailable Encounter Details Date Type Department Care Team Description 11/17/2009 Hospital Encounter HX NO MAPPING Provider, Historical Social History Tobacco Use Types Packs/Day Years Used Date Smoking Tobacco: Never Assessed Alcohol Habits Answer Date Recorded How often do you have a drink containing 4 or more times a w [place] 06/14/2022 alcohol? How many drinks containing alcohol [...] How often do you attend quaker or latter day Never 06/14/2022 services? 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
--- OUTSIDE RECORDS SUMMARY | 2022-06-22 12:15 | XMS_ITS | Encounter Summary ---
:1940 Author Organization [facility] Address [address] [place] [address] Care Team Providers Name Role Phone Unavailable Primary Care Provider Unavailable Encounter Details Date Type Department Care Team Description 11/12/2002 Hospital Encounter HX [facility] INTERNMED Guillermina Gregorio M.D. [address] [phone] (Wo rk) Social History Tobacco Use Types Packs/Day Years Used Date Smoking Tobacco: Never Assessed Alcohol Habits Answer Date Recorded How often do you have a drink containing 4 or more times a w [place] 06/14/2022 alcohol? How many drinks containing alcohol [...] How often do you attend mandaen or islam Never 06/14/2022 services? 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
--- OUTSIDE RECORDS SUMMARY | 2022-06-22 12:15 | XMS_ITS | Encounter Summary ---
:1940 Author Organization [facility] Address [address] [place] [address] Care Team Providers Name Role Phone Unavailable Primary Care Provider Unavailable Encounter Details Date Type Department Care Team Description 06/07/2006 Hospital Encounter HX [facility] Dom Edouard Jr., M.D. [address] [place], [place] [phone] (Wo rk) Social History Tobacco Use Types Packs/Day Years Used Date Smoking Tobacco: Never Assessed Alcohol Habits Answer Date Recorded How often do you have a drink containing 4 or more times a w [place] 06/14/2022 alcohol? How many drinks containing alcohol [...] 06/14/2022 relatives? How often do you attend jew or restorationist Never 06/14/2022 services? 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
--- OUTSIDE RECORDS SUMMARY | 2022-06-22 12:15 | XMS_ITS | Encounter Summary ---
:1940 Author Organization [facility] Address [address] [place] [address] Care Team Providers Name Role Phone Unavailable Primary Care Provider Unavailable Encounter Details Date Type Department Care Team Description 12/19/2008 Hospital Encounter HX [facility] FAMILYPRA Grandfani, Mojgan Marks-[facility] [place] [address] Social History Tobacco Use Types Packs/Day Years Used Date Smoking Tobacco: Never Assessed Alcohol Habits Answer Date Recorded How often do you have a drink containing 4 or more times a w [place] 06/14/2022 alcohol? How many drinks containing alcohol [...] How often do you attend zoroastrian or druze Never 06/14/2022 services? Do you [...] place to sleep or slept in a longterm (including now)? 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
--- OUTSIDE RECORDS SUMMARY | 2022-06-22 12:15 | XMS_ITS | Encounter Summary ---
:1940 Author Organization [facility] Address [address] [place] [address] Care Team Providers Name Role Phone Unavailable Primary Care Provider Unavailable Encounter Details Date Type Department Care Team Description 10/09/2009 Hospital Encounter [facility] Dom Edouard Jr., M.D. [address] [place], [place] [phone] (Wo rk) Social History Tobacco Use Types Packs/Day Years Used Date Smoking Tobacco: Never Assessed Alcohol Habits Answer Date Recorded How often do you have a drink containing 4 or more times a w [place] 06/14/2022 alcohol? How many drinks containing alcohol [...] How often do you attend mandaeism or confucianist Never 06/14/2022 services? 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
--- OUTSIDE RECORDS SUMMARY | 2022-06-22 12:15 | XMS_ITS | Encounter Summary ---
:1940 Author Organization [facility] Address [address] [place] [address] Care Team Providers Name Role Phone Unavailable Primary Care Provider Unavailable Encounter Details Date Type Department Care Team Description 09/18/2008 Hospital Encounter HX NO MAPPING Provider, Historical Social History Tobacco Use Types Packs/Day Years Used Date Smoking Tobacco: Never Assessed Alcohol Habits Answer Date Recorded How often do you have a drink containing 4 or more times a w [place] 06/14/2022 alcohol? How many drinks containing alcohol [...] How often do you attend zoroastrianism or scientology Never 06/14/2022 services? 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
--- OUTSIDE RECORDS SUMMARY | 2022-06-22 12:15 | XMS_ITS | Encounter Summary ---
:1940 Author Organization [facility] Address [address] [place] [address] Care Team Providers Name Role Phone Unavailable Primary Care Provider Unavailable Encounter Details Date Type Department Care Team Description 06/05/2008 Hospital Encounter [facility]X [facility] Dom Edouard Jr., M.D. [address] [place], [place] [phone] (Wo rk) Social History [...] 06/14/2022 relatives? How often do you attend baptism or mormon Never 06/14/2022 services? Do you belong to any clubs or organizations such as No 06/14/2022 baptism groups, unions, fraternal or athletic groups, or [...] or slept in a correction (including now)? 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
--- OUTSIDE RECORDS SUMMARY | 2022-06-22 12:15 | XMS_ITS | Encounter Summary ---
:1940 Author Organization [facility] Address [address] [place] [address] Care Team Providers Name Role Phone Unavailable Primary Care Provider Unavailable Encounter Details Date Type Department Care Team Description 12/03/2002 Hospital Encounter [facility]X [facility] OWOC INTERNMED Guillermina Gregorio M.D. [address] [address] (Wo rk) Social History Tobacco Use Types Packs/Day Years Used Date Smoking Tobacco: Never Assessed Alcohol Habits Answer Date Recorded How often do you have a drink containing 4 or more times a w [place] 06/14/2022 alcohol? How many drinks containing [...] 06/14/2022 relatives? How often do you attend lutheran or druze Never 06/14/2022 services? 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
--- OUTSIDE RECORDS SUMMARY | 2022-06-22 12:15 | XMS_ITS | Encounter Summary ---
:1940 Author Organization [facility] Address [address] [place] [address] Care Team Providers Name Role Phone Unavailable Primary Care Provider Unavailable Encounter Details Date Type Department Care Team Description 09/19/2006 Hospital Encounter [facility]X [facility] OWOC FAMILYPRA Franchesca Pepe M.D. [address] [place] [address] (Wo rk) Social History Tobacco Use Types Packs/Day Years Used Date Smoking Tobacco: Never Assessed Alcohol Habits Answer Date Recorded How often do you have a drink containing 4 or more times a w [place] 06/14/2022 alcohol? How many drinks containing alcohol [...] 06/14/2022 relatives? How often do you attend mosque or sikhism Never 06/14/2022 services? 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
--- OUTSIDE RECORDS SUMMARY | 2022-06-22 12:15 | XMS_ITS | Encounter Summary ---
:1940 Author Organization [facility] Address [address] [place] [address] Care Team Providers Name Role Phone Unavailable Primary Care Provider Unavailable Encounter Details Date Type Department Care Team Description 06/07/2006 Hospital Encounter [facility]X [facility] Justin Xiao M.D. [address] [place], [place] [phone] (Wo rk) Social History Tobacco Use Types Packs/Day Years Used Date Smoking Tobacco: Never Assessed Alcohol Habits Answer Date Recorded How often do you have a drink containing 4 or more times a w [place] 06/14/2022 alcohol? How many drinks containing alcohol [...] How often do you attend alevism or roman catholic Never 06/14/2022 services? 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
--- OUTSIDE RECORDS SUMMARY | 2022-06-22 12:15 | XMS_ITS | Encounter Summary ---
:1940 Author Organization [facility] Address [address] [place] [address] Care Team Providers Name Role Phone Unavailable Primary Care Provider Unavailable Encounter Details Date Type Department Care Team Description 05/08/2008 Hospital Encounter [facility]X [facility] OWOC Fredi Hull M.D. [facility], Lower Level [place] [phone] (Wo rk) Social History Tobacco Use Types Packs/Day Years Used Date Smoking Tobacco: Never Assessed Alcohol Habits Answer Date Recorded How often do you have a drink containing 4 or more times a w [place] 06/14/2022 alcohol? How many drinks containing [...] 06/14/2022 relatives? How often do you attend sikh or religion Never 06/14/2022 services? 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
--- OUTSIDE RECORDS SUMMARY | 2022-06-22 12:15 | XMS_ITS | Encounter Summary ---
:1940 Author Organization [facility] Address [address] [place] [address] Care Team Providers Name Role Phone Unavailable Primary Care Provider Unavailable Encounter Details Date Type Department Care Team Description 10/05/2002 Hospital Encounter [facility]X [facility] OWOC FAMILYPRA Calvin Lloyd M.D. [address] [place], [place] [address] (Wo rk) Social History Tobacco Use Types Packs/Day Years Used Date Smoking Tobacco: Never Assessed Alcohol Habits Answer Date Recorded How often do you have a drink containing 4 or more times a w [place] 06/14/2022 alcohol? How many drinks containing alcohol [...] 06/14/2022 relatives? How often do you attend congregation or shinto Never 06/14/2022 services? 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
--- OUTSIDE RECORDS SUMMARY | 2022-06-22 12:15 | XMS_ITS | Encounter Summary ---
:1940 Author Organization [facility] Address [address] [place] [address] Care Team Providers Name Role Phone Unavailable Primary Care Provider Unavailable Encounter Details Date Type Department Care Team Description 08/21/2008 Hospital Encounter [facility]X [facility] OWOC FAMILYPRA Calvin Lloyd M.D. [address] [place], [place] [address] (Wo rk) Social History [...] How often do you attend faith or taoist Never 06/14/2022 services? Do you belong to any clubs or organizations such as No 06/14/2022 faith groups, unions, fraternal or athletic groups, or [...] a [facility] ([facility] 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
--- OUTSIDE RECORDS SUMMARY | 2022-06-22 12:15 | XMS_ITS | Encounter Summary ---
:1940 Author Organization [facility] Address [address] [place] [address] Care Team Providers Name Role Phone Unavailable Primary Care Provider Unavailable Encounter Details Date Type Department Care Team Description 09/20/2008 Hospital Encounter [facility]X [facility] OWOC FAMILYPRA Calvin Lloyd M.D. [address] [place], [place] [address] (Wo rk) Social History [...] 06/14/2022 relatives? How often do you attend religious or zoroastrianism Never 06/14/2022 services? Do you belong to any clubs or organizations such as No 06/14/2022 religious groups, unions, fraternal or athletic groups, or [...] or slept in a fdc (including now)? 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
--- OUTSIDE RECORDS SUMMARY | 2022-06-22 12:15 | XMS_ITS | Encounter Summary ---
:1940 Author Organization [facility] Address [address] [place] [address] Care Team Providers Name Role Phone Unavailable Primary Care Provider Unavailable Encounter Details Date Type Department Care Team Description 04/30/2003 Hospital Encounter [facility]X [facility] OWOC FAMILYPRA Calvin Lloyd M.D. [address] [place], [place] [address] (Wo rk) Social History Tobacco Use Types Packs/Day Years Used Date Smoking Tobacco: Never Assessed Alcohol Habits Answer Date Recorded How often do you have a drink containing 4 or more times a w [place] 06/14/2022 alcohol? How many drinks containing alcohol [...] How often do you attend rastafari or zoroastrianism Never 06/14/2022 services? 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
--- OUTSIDE RECORDS SUMMARY | 2022-06-22 12:15 | XMS_ITS | Encounter Summary ---
:1940 Author Organization [facility] Address [address] [place] [address] Care Team Providers Name Role Phone Unavailable Primary Care Provider Unavailable Encounter Details Date Type Department Care Team Description 06/26/2008 Hospital Encounter [facility]X [facility] Calvin Islas M.D. [address] [place], [place] [address] (Wo rk) Social History Tobacco Use Types Packs/Day Years Used Date Smoking Tobacco: Never Assessed Alcohol Habits Answer Date Recorded How often do you have a drink containing 4 or more times a w [place] 06/14/2022 alcohol? How many drinks containing alcohol [...] How often do you attend yarsani or methodist Never 06/14/2022 services? Do you [...] slept in a group home (including now)? 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
--- OUTSIDE RECORDS SUMMARY | 2022-06-22 12:15 | XMS_ITS | Encounter Summary ---
:1940 Author Organization [facility] Address [address] [place] [address] Care Team Providers Name Role Phone Unavailable Primary Care Provider Unavailable Encounter Details Date Type Department Care Team Description 01/26/2006 Hospital Encounter HX NO MAPPING Social History Tobacco Use Types Packs/Day Years Used Date Smoking Tobacco: Never Assessed Alcohol Habits Answer Date Recorded How often do you have a drink containing 4 or more times a w [place] 06/14/2022 alcohol? How many drinks containing alcohol [...] 06/14/2022 relatives? How often do you attend druze or christian Never 06/14/2022 services? 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
--- OUTSIDE RECORDS SUMMARY | 2022-06-22 12:15 | XMS_ITS | Encounter Summary ---
:1940 Author Organization [facility] Address [address] [place] [address] Care Team Providers Name Role Phone Unavailable Primary Care Provider Unavailable Encounter Details Date Type Department Care Team Description 04/09/2008 Hospital Encounter [facility]X [facility] OWOC Fredi Hull M.D. [facility] Division [facility], Lower Level [place], [place] [address] (Wo rk) Social History Tobacco Use Types Packs/Day Years Used Date Smoking Tobacco: Never Assessed Alcohol Habits Answer Date Recorded How often do you have a drink containing 4 or more times a w [place] 06/14/2022 alcohol? How many drinks containing alcohol [...] How often do you attend amish or rastafarian Never 06/14/2022 services? 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
--- OUTSIDE RECORDS SUMMARY | 2022-06-22 12:15 | XMS_ITS | Encounter Summary ---
:1940 Author Organization [facility] Address [address] [place] [address] Care Team Providers Name Role Phone Unavailable Primary Care Provider Unavailable Encounter Details Date Type Department Care Team Description 05/08/2004 Hospital Encounter [facility]X [facility] OWOC Fredi Hull M.D. [facility], Lower Level [place], [place] [address] (Wo rk) Social History Tobacco Use Types Packs/Day Years Used Date Smoking Tobacco: Never Assessed Alcohol Habits Answer Date Recorded How often do you have a drink containing 4 or more times a w [place] 06/14/2022 alcohol? How many drinks containing [...] 06/14/2022 relatives? How often do you attend mu-ism or anabaptist Never 06/14/2022 services? 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
--- OUTSIDE RECORDS SUMMARY | 2022-06-22 12:15 | XMS_ITS | Encounter Summary ---
:1940 Author Organization [facility] Address [address] [place] [address] Care Team Providers Name Role Phone Unavailable Primary Care Provider Unavailable Encounter Details Date Type Department Care Team Description 06/27/2006 Hospital Encounter [facility]X [facility] Calvin Islas M.D. [address] [place], [place] [address] (Wo rk) Social History Tobacco Use Types Packs/Day Years Used Date Smoking Tobacco: Never Assessed Alcohol Habits Answer Date Recorded How often do you have a drink containing 4 or more times a w [place] 06/14/2022 alcohol? How many drinks containing alcohol [...] How often do you attend lutheran or jehovah's witness Never 06/14/2022 services? 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
--- OUTSIDE RECORDS SUMMARY | 2022-06-22 12:15 | XMS_ITS | Encounter Summary ---
:1940 Author Organization [facility] Address [address] [place] [address] Care Team Providers Name Role Phone Unavailable Primary Care Provider Unavailable Encounter Details Date Type Department Care Team Description 04/08/2005 Hospital Encounter [facility]X [facility] OWOC Fredi Hull M.D. [facility] Division [facility], Lower Level [place], [place] [address] (Wo rk) Social History Tobacco Use Types Packs/Day Years Used Date Smoking Tobacco: Never Assessed Alcohol Habits Answer Date Recorded How often do you have a drink containing 4 or more times a w [place] 06/14/2022 alcohol? How many drinks containing alcohol [...] How often do you attend yazdanism or worship Never 06/14/2022 services? 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
--- OUTSIDE RECORDS SUMMARY | 2022-06-22 12:15 | XMS_ITS | Encounter Summary ---
:1940 Author Organization [facility] Address [address] [place] [address] Care Team Providers Name Role Phone Unavailable Primary Care Provider Unavailable Encounter Details Date Type Department Care Team Description 11/12/2002 Hospital Encounter HX NO MAPPING Nilo Card M.D. [address] [place], [place] [phone] (Wo rk) Social History Tobacco Use Types Packs/Day Years Used Date Smoking Tobacco: Never Assessed Alcohol Habits Answer Date Recorded How often do you have a drink containing 4 or more times a w [place] 06/14/2022 alcohol? How many drinks containing alcohol [...] How often do you attend shinto or alevism Never 06/14/2022 services? 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
--- OUTSIDE RECORDS SUMMARY | 2022-06-22 12:15 | XMS_ITS | Encounter Summary ---
:1940 Author Organization [facility] Address [address] [place] [address] Care Team Providers Name Role Phone Unavailable Primary Care Provider Unavailable Encounter Details Date Type Department Care Team Description 06/02/2009 Hospital Encounter HX [facility] Lina Cardenas M.D. [address] [place] [address] (Wo rk) Social History Tobacco Use Types Packs/Day Years Used Date Smoking Tobacco: Never Assessed Alcohol Habits Answer Date Recorded How often do you have a drink containing 4 or more times a w [place] 06/14/2022 alcohol? How many drinks containing alcohol [...] 06/14/2022 relatives? How often do you attend uatsdin or druze Never 06/14/2022 services? 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
--- OUTSIDE RECORDS SUMMARY | 2022-06-22 12:15 | XMS_ITS | Encounter Summary ---
:1940 Author Organization [facility] Address [address] [place] [address] Care Team Providers Name Role Phone Unavailable Primary Care Provider Unavailable Encounter Details Date Type Department Care Team Description 07/08/2004 Hospital Encounter [facility]X [facility] OWOC FAMILYPRA Calvin Lloyd M.D. [address] [place], [place] [address] (Wo rk) Social History Tobacco Use Types Packs/Day Years Used Date Smoking Tobacco: Never Assessed Alcohol Habits Answer Date Recorded How often do you have a drink containing 4 or more times a w [place] 06/14/2022 alcohol? How many drinks containing alcohol [...] 06/14/2022 relatives? How often do you attend latter-day or presybeterian Never 06/14/2022 services? 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
--- OUTSIDE RECORDS SUMMARY | 2022-06-22 12:15 | XMS_ITS | Encounter Summary ---
:1940 Author Organization [facility] Address [address] [place] [address] Care Team Providers Name Role Phone Unavailable Primary Care Provider Unavailable Encounter Details Date Type Department Care Team Description 09/18/2008 Hospital Encounter [facility]X [facility] OWOC FAMILYPRA Calvin Lloyd M.D. [address] [place], [place] [address] (Wo rk) Social History Tobacco Use Types Packs/Day Years Used Date Smoking Tobacco: Never Assessed Alcohol Habits Answer Date Recorded How often do you have a drink containing 4 or more times a w [place] 06/14/2022 alcohol? How many drinks containing alcohol [...] How often do you attend jewish or zoroastrianism Never 06/14/2022 services? 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
--- OUTSIDE RECORDS SUMMARY | 2022-06-22 12:15 | XMS_ITS | Encounter Summary ---
:1940 Author Organization [facility] Address [address] [place] [address] Care Team Providers Name Role Phone Unavailable Primary Care Provider Unavailable Encounter Details Date Type Department Care Team Description 10/02/2003 Hospital Encounter [facility]X [facility] OWOC FAMILYPRA Calvin Lloyd M.D. [address] [place], [place] [address] (Wo rk) Social History Tobacco Use Types Packs/Day Years Used Date Smoking Tobacco: Never Assessed Alcohol Habits Answer Date Recorded How often do you have a drink containing 4 or more times a w [place] 06/14/2022 alcohol? How many drinks containing alcohol [...] How often do you attend rastafari or rastafarian Never 06/14/2022 services? Do you [...] place to sleep or slept in a custodial (including now)? 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
--- OUTSIDE RECORDS SUMMARY | 2022-06-22 12:15 | XMS_ITS | Encounter Summary ---
:1940 Author Organization [facility] Address [address] [place] [address] Care Team Providers Name Role Phone Unavailable Primary Care Provider Unavailable Encounter Details Date Type Department Care Team Description 12/17/2002 Hospital Encounter HX [facility] OWOC INTERNMED Guillermina Gregorio M.D. [address] [address] (Wo rk) Social History Tobacco Use Types Packs/Day Years Used Date Smoking Tobacco: Never Assessed Alcohol Habits Answer Date Recorded How often do you have a drink containing 4 or more times a w [place] 06/14/2022 alcohol? How many drinks containing alcohol [...] How often do you attend mormonism or lutheran Never 06/14/2022 services? Do you belong to [...] place to sleep or slept in a fpc (including now)? 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
--- OUTSIDE RECORDS SUMMARY | 2022-06-22 12:15 | XMS_ITS | Encounter Summary ---
:1940 Author Organization [facility] Address [address] [place] [address] Care Team Providers Name Role Phone Unavailable Primary Care Provider Unavailable Encounter Details Date Type Department Care Team Description 07/12/2005 Hospital Encounter [facility] Calvin Islas M.D. [address] [place], [place] [address] (Wo rk) Social History Tobacco Use Types Packs/Day Years Used Date Smoking Tobacco: Never Assessed Alcohol Habits Answer Date Recorded How often do you have a drink containing 4 or more times a w [place] 06/14/2022 alcohol? How many drinks containing alcohol [...] 06/14/2022 relatives? How often do you attend cheondoism or temple Never 06/14/2022 services? 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
--- OUTSIDE RECORDS SUMMARY | 2022-06-22 12:15 | XMS_ITS | Encounter Summary ---
:1940 Author Organization [facility] Address [address] [place] [address] Care Team Providers Name Role Phone Unavailable Primary Care Provider Unavailable Encounter Details Date Type Department Care Team Description 08/01/2007 Hospital Encounter [facility] Calvin Islas M.D. [address] [place], [place] [address] (Wo rk) Social History [...] 06/14/2022 relatives? How often do you attend anabaptism or denominational Never 06/14/2022 services? 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
--- OUTSIDE RECORDS SUMMARY | 2022-06-22 12:15 | XMS_ITS | Encounter Summary ---
:1940 Author Organization [facility] Address [address] [place] [address] Care Team Providers Name Role Phone Unavailable Primary Care Provider Unavailable Encounter Details Date Type Department Care Team Description 05/21/2008 Hospital Encounter [facility]X [facility] Dom Barajas Jr., M.D. [address] [place], [place] [phone] (Wo rk) Social History Tobacco Use Types Packs/Day Years Used Date Smoking Tobacco: Never Assessed Alcohol Habits Answer Date Recorded How often do you have a drink containing 4 or more times a w [place] 06/14/2022 alcohol? How many drinks containing alcohol [...] 06/14/2022 relatives? How often do you attend pentecostal or quaker Never 06/14/2022 services? 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
--- OUTSIDE RECORDS SUMMARY | 2022-06-22 12:15 | XMS_ITS | Encounter Summary ---
:1940 Author Organization [facility] Address [address] [place] [address] Care Team Providers Name Role Phone Unavailable Primary Care Provider Unavailable Encounter Details Date Type Department Care Team Description 12/26/2008 Hospital Encounter [facility] FAMILYPRA Grandfani, Mojgan Marks-Maximus[place] [address] Social History Tobacco Use Types Packs/Day Years Used Date Smoking Tobacco: Never Assessed Alcohol Habits Answer Date Recorded How often do you have a drink containing 4 or more times a w [place] 06/14/2022 alcohol? How many drinks containing alcohol [...] 06/14/2022 relatives? How often do you attend latter day or christian Never 06/14/2022 services? 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
--- OUTSIDE RECORDS SUMMARY | 2022-06-22 12:15 | XMS_ITS | Encounter Summary ---
:1940 Author Organization [facility] Address [address] [place] [address] Care Team Providers Name Role Phone Unavailable Primary Care Provider Unavailable Encounter Details Date Type Department Care Team Description 07/15/2003 Hospital Encounter [facility] FAMILYPRA Calvin Lloyd M.D. [address] [place], [place] [address] (Wo rk) Social History Tobacco Use Types Packs/Day Years Used Date Smoking Tobacco: Never Assessed Alcohol Habits Answer Date Recorded How often do you have a drink containing 4 or more times a w [place] 06/14/2022 alcohol? How many drinks containing alcohol [...] How often do you attend jainism or gnosticist Never 06/14/2022 services? 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
--- OUTSIDE RECORDS SUMMARY | 2022-06-22 12:15 | XMS_ITS | Encounter Summary ---
:1940 Author Organization [facility] Address [address] [place] [address] Care Team Providers Name Role Phone Unavailable Primary Care Provider Unavailable Encounter Details Date Type Department Care Team Description 05/17/2006 Hospital Encounter [facility] Dom Barajas Jr., M.D. [address] [place], [place] [phone] (Wo rk) Social History Tobacco Use Types Packs/Day Years Used Date Smoking Tobacco: Never Assessed Alcohol Habits Answer Date Recorded How often do you have a drink containing 4 or more times a w [place] 06/14/2022 alcohol? How many drinks containing alcohol [...] How often do you attend lutheran or protestant Never 06/14/2022 services? 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
--- OUTSIDE RECORDS SUMMARY | 2022-06-22 12:16 | XMS_ITS | Encounter Summary ---
:1940 Author Organization [facility] Address [address] [place] [address] Care Team Providers Name Role Phone Unavailable Primary Care Provider Unavailable Encounter Details Date Type Department Care Team Description 02/14/2001 Hospital Encounter [facility] FAMILYPRA Calvin Lloyd M.D. [address] [place], [place] [address] (Wo rk) Social History Tobacco Use Types Packs/Day Years Used Date Smoking Tobacco: Never Assessed Alcohol Habits Answer Date Recorded How often do you have a drink containing 4 or more times a w [place] 06/14/2022 alcohol? How many drinks containing alcohol [...] 06/14/2022 relatives? How often do you attend voodoo or evangelical Never 06/14/2022 services? 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
--- OUTSIDE RECORDS SUMMARY | 2022-06-22 12:16 | XMS_ITS | Encounter Summary ---
:1940 Author Organization [facility] Address [address] [place] [address] Care Team Providers Name Role Phone Unavailable Primary Care Provider Unavailable Encounter Details Date Type Department Care Team Description 10/24/2000 Hospital Encounter [facility] URGENTCAR Carlos Collazo W, P.A. [address] [place], [place] [address] (Wo rk) Social History Tobacco Use Types [...] 06/14/2022 relatives? How often do you attend rastafarian or buddhist Never 06/14/2022 services? Do you belong to any clubs or organizations such as No 06/14/2022 rastafarian groups, unions, fraternal or athletic groups, or [...] place to sleep or slept in a jail (including now)? Sex Assigned at Date Recorded Male 10/26/2019 9:31 AM CRAYON SAWYER documented as of this encounter Plan of Treatment Not on filedocumented as of this encounter Visit Diagnoses Not on filedocumented in this encounter
--- OUTSIDE RECORDS SUMMARY | 2022-06-22 12:16 | XMS_ITS | Encounter Summary ---
:1940 Author Organization [facility] Address [address] [place] [address] Care Team Providers Name Role Phone Unavailable Primary Care Provider Unavailable Encounter Details Date Type Department Care Team Description 04/12/2002 Hospital Encounter HX NO MAPPING Nilo Card M.D. [address] [place], [place] [phone] (Wo rk) Social History Tobacco Use Types Packs/Day Years Used Date Smoking Tobacco: Never Assessed Alcohol Habits Answer Date Recorded How often do you have a drink containing 4 or more times a w [place] 06/14/2022 alcohol? How many drinks containing alcohol [...] How often do you attend yazdanism or hoahaoism Never 06/14/2022 services? Do you [...] place to sleep or slept in a assisted (including now)? 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
--- OUTSIDE RECORDS SUMMARY | 2022-06-22 12:16 | XMS_ITS | Encounter Summary ---
:1940 Author Organization [facility] Address [address] [place] [address] Care Team Providers Name Role Phone Unavailable Primary Care Provider Unavailable Encounter Details Date Type Department Care Team Description 09/07/2002 Hospital Encounter [facility] FAMILYPRA Calvin Lloyd M.D. [address] [place], [place] [address] (Wo rk) Social History Tobacco Use Types Packs/Day Years Used Date Smoking Tobacco: Never Assessed Alcohol Habits Answer Date Recorded How often do you have a drink containing 4 or more times a w [place] 06/14/2022 alcohol? How many drinks containing alcohol [...] How often do you attend sikhism or adventism Never 06/14/2022 services? 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
--- OUTSIDE RECORDS SUMMARY | 2022-06-22 12:16 | XMS_ITS | Encounter Summary ---
:1940 Author Organization [facility] Address [address] [place] [address] Care Team Providers Name Role Phone Unavailable Primary Care Provider Unavailable Encounter Details Date Type Department Care Team Description 04/12/2002 Hospital Encounter HX NO MAPPING Michele Lima M.D. [address] [place], [place] [phone] (Wo rk) Social History Tobacco Use Types Packs/Day Years Used Date Smoking Tobacco: Never Assessed Alcohol Habits Answer Date Recorded How often do you have a drink containing 4 or more times a w [place] 06/14/2022 alcohol? How many drinks containing alcohol [...] How often do you attend congregation or lutheran Never 06/14/2022 services? 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
--- OUTSIDE RECORDS SUMMARY | 2022-06-22 12:16 | XMS_ITS | Encounter Summary ---
:[address] [facility] Address [address] [place] [address] Care Team Providers Name Role Phone Unavailable Primary Care Provider Unavailable Encounter Details Date Type Department Care Team Description 05/17/2002 Hospital Encounter [facility]X [facility] MAGNUSOC All Larry M.D. [address] [place], [place] [phone] (Wo rk) Social History [...] How often do you attend druze or yazdanism Never 06/14/2022 services? 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
--- OUTSIDE RECORDS SUMMARY | 2022-06-22 12:16 | XMS_ITS | Encounter Summary ---
:1940 Author Organization [facility] Address [address] [place] [address] Care Team Providers Name Role Phone Unavailable Primary Care Provider Unavailable Encounter Details Date Type Department Care Team Description 07/23/2002 Hospital Encounter [facility]X [facility] FAMILYPRA Calvin Lloyd M.D. [address] [place], [place] [address] (Wo rk) Social History Tobacco Use Types Packs/Day Years Used Date Smoking Tobacco: Never Assessed Alcohol Habits Answer Date Recorded How often do you have a drink containing 4 or more times a w [place] 06/14/2022 alcohol? How many drinks containing alcohol [...] How often do you attend worship or rastafari Never 06/14/2022 services? 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
--- OUTSIDE RECORDS SUMMARY | 2022-06-22 12:16 | XMS_ITS | Encounter Summary ---
:1940 Author Organization [facility] Address [address] [place] [address] Care Team Providers Name Role Phone Unavailable Primary Care Provider Unavailable Encounter Details Date Type Department Care Team Description 08/23/2002 Hospital Encounter [facility]X [facility] Social History Tobacco Use Types Packs/Day Years Used Date Smoking Tobacco: Never Assessed Alcohol Habits Answer Date Recorded How often do you have a drink containing 4 or more times a w [place] 06/14/2022 alcohol? How many drinks containing alcohol [...] 06/14/2022 relatives? How often do you attend congregational or evangelical Never 06/14/2022 services? 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
[2022-06-22] MEDS: TETANUS/DIPHTH/PERTUSSIS 0.5 ML SYRINGE IM (14:13)
== END 2022-06-22 14:16 | disposition home or self-care (01) ==
PROVIDERS: Emergency Provider Family Medicine; PCP Family Medicine
DX: S22.41XA Multiple fractures of ribs, right side, initial encounter for closed fracture (principal); S62.306A Unspecified fracture of fifth metacarpal bone, right hand, initial encounter for closed fracture; W18.39XA Other fall on same level, initial encounter; S01.81XA Laceration without foreign body of other part of head, initial encounter
CPT/HCPCS: 12011; 70486; 71101; 73130; 90471; 90715; 99284

== ENCOUNTER 2024-01-26 13:41 | Outpatient (CLI) | payer MEDICARE, SELFPAY ==
--- OUTSIDE RECORDS SUMMARY | 2024-01-26 13:44 | XMS_ITS | Encounter Summary ---
Author Organization [facility] Address [address] [place] [address] Care Team Providers Care Bulker Name Role Phone Unavailable Primary Care Provider Unavailabl e Reason for Visit * Reason Comments Leg Pain Encounter Details Date Type Department Care Team (Late st Contact Info) Description 11/28/2023 Documentation Department of Vascular Medicine in [place], [place] [address] [place] [phone] Nettie Medina P.A.-C. [address] [place] [address] Leg Pain Social History Tobacco Use Types Packs/Day Years Used Date Smoking Tobacco: Former Cigarettes Q uit: 2007 Smokeless Tobacco: Never Comments:Not sure when I sta rted/stopped but years ago Alcohol Use Standard Drinks/Week Comments Yes 8 (1 standard drink = 0.6 oz pur e alcohol) Moderate consumption Humiliation, Afraid, Rape, and Kick questionnair e Answer Date Recorded Within the last year, have y ou been afraid of your partner or ex-partner? No 04/04/2023 Within the last year, have y ou been humiliated or emotionally abused in other ways by your partner or ex-partner? No Within the last year, have y ou been kicked, hit, slapped, or otherwise physically hurt by your partner or ex-partner? No 04/04/2023 Within the last year, have y ou been raped or forced to have any kind of sexual activity by your partner or ex-partner? No 04/04/2023 Social Connection and Isolation Panel [NHANES] A nswer Date Recorded In a typical week, how many times do you talk on the phone with family, friends, or neighbors? Three times a week 12/24/2022 How often do you get togethe r with friends or relatives? Twice a week 12/24/2022 How often do you attend chur ch or druze services? Never 12/24/2022 Do you belong to any clubs o r organizations such as anabaptist groups, unions, fraternal or athletic groups, or school groups? No 12/24/2022 How often do you attend meet ings of the clubs or organizations you belong to? Never 12/24/2022 Are you , , di vorced, , never , or living with a partner? 12/24/2022 AUDIT-C Answer Date Recorded Q1: How often do you have a drink containing alcohol? 4 or more times a week 12/24/2022 Q2: How many drinks containi ng alcohol do you have on a typical day when you are drinking? 1 or 2 3 Q3: How often do you have si x or more drinks on one occasion? Never 12/24/2022 Overall Financial Resource Strain (CARDIA) Answe r Date Recorded How hard is it for you to pa y for the very basics like food, housing, medical care, and heating? Not hard at all 04/04/2023 [facility] - Occupational Stress Questionnaire Answer Date Recorded Do you feel stress - tense, restless, nervous, or anxious, or unable to sleep at night because your mind is troubled all the time - these days? Not at all 12/24/2022 Exercise Vital Sign Answer Date Recorde d On average, how many days pe r week do you engage in moderate to strenuous exercise (like a brisk walk)? 5 days 12/24/2022 On average, how many minutes do you engage in exercise at this level? 30 min 12/24/2022 Hunger Vital Sign Answer Date Recorded Within the past 12 months, y ou worried that your food would run out before you got the money to buy more. Never true 04/04/20 23 Within the past 12 months, t he food you bought just didn't last and you didn't have money to get more. Never true 04/04/2023 PRAPARE - Transportation Answer Date Re corded In the past 12 months, has l ack of transportation kept you from medical appointments or from getting medications? No 03/07 In the past 12 months, has l ack of transportation kept you from meetings, work, or from getting things needed for daily living? No 04/04/2023 Nutrition Answer Date Recorded Nutrition: EVOO Fat Source Yes 12/24 On average, how many serving s of fruits and vegetables do you eat per day (serving size is equal to 1 cup or approximately the size of a tennis ball)? 4-5 12/24/2022 Dental Answer Date Recorded Dental: Regular Dentist Yes 06/14/20 Employment Answer Date Recorded Employment status Retired 12/24/2022 Housing Stability Answer Date Recorded What is your living situation today? I have a [facility] place to live 04/04/2023 Education Answer Date Recorded What is the highest level of school you have completed or the highest degree you have received? 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 - 11/28/2023 1:05 PM CDT REFERRAL SOURCE No referring provider defined for this encounter. SUBJECTIVE CHIEF COMPLAINT / REASON FOR VISIT Left leg pain HISTORY OF PRESENT ILLNESS Mr. Rayo is a 83 y.o. male that left a message for me to day to contact him about some symptoms he is having. I had seen him on 11/07/2023 and reduced his apixaban dosing from 5 mg b.i.d. to 2.5mg b.i.d. 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 Today he states that the left leg is hurting. There is no pain in the right leg. He feels it mostlywhen he is walking or climbing stairs. He has not noticed specifically any swelling. The following portions of the patient's history were reviewed and updated as appropriate: allergies, current medications, family history, medical history, social history, surgical history, psychiatric history, substance abuse history, problem list, labs, diagnostics tests. I reviewed the pertinent clinical notes in the electronic health record. OBJECTIVE VITALS There were no vitals taken for this visit. This is a phone contact. DIAGNOSTIC REVIEW All labs and diagnostic studies were reviewed. ASSESSMENT / PLAN #1 Marginal Zone Lymphoma Splenic (HCC) #2 Thrombocytopenia (HCC) #3 Anticoagulant Therapy #4 Thrombosis Deep Vein Personal History I called the patient back and discuss the situation with him. It is possible that because of his underlying cancer, he could have had a failure of apixaban at the 2.5 mg b.i.d. dosing. I am concernedbecause his pain is mostly in the left leg, from the knee down to the ankle, and he feels it mostlywhen he is walking. Sometimes a calf vein DVT, especially soleal vein DVT, can be quite painful when people try to walk. He was told it could be joint pain but since he talks about the whole leg from the knee to the calf, I am more concerned about DVT. I am going to order an ultrasound to be done close to his home in [place] on the left leg. If he does have new DVT, then we are going to have to bring his apixaban back up to treatment dose. If there is no DVT, then I will refer him to his primary care provider to follow-up on the leg pain. He is happy with this plan. Total time spent with patient including greater than 50% of time spent in counseling and education.15 minutes. Lilly Medina P.A.-C. documented in this encounter Plan of Treatment Not on file documented as of this encounter Visit Diagnoses Diagnosis Anticoagulant Therapy- Primary Marginal Zone Lymphoma Splenic (HCC) Thrombocytopenia (HCC) Thrombosis Deep Vein Personal History documented in this encounter Additional Health Concerns Infection Onset Date Last Indicated Resolved Time Protective Environment 04/26/2023 04/26/2023 documented as of this encounter
--- OUTSIDE RECORDS SUMMARY | 2024-01-26 13:44 | XMS_ITS ---
Author Organization [facility] Address [address] [place] [address] Care Team Providers Care Perianesthesia Nurse Name Role Phone Unavailable Primary Care Provider Unavailabl e Active Problems Problem Noted Date Diagnosed Date Thrombosis Deep Vein Acute Lower Extremity Right 01/10/2023 Thrombosis Deep Vein Acute Lower Extremity Left 01/10/2023 Embolus Pulmonary 01/10/2023 Thrombosis Deep Vein Personal History 01/07/2023 Anticoagulant Therapy 01/07/2023 Thrombocytopenia 04/23/2019 Marginal Zone Lymphoma Splenic 01/02/2004 Current Oncology Plans riTUXimab* Plan Start Date:04/27/2023 Plan Provider:Yessenia Montalvo M.D., Ph.D. Linked Problems Marginal Zone Lymphoma Splen ic (HCC) Treatment Medications riTUXimab-pvvr (RUXIENCE) IVPB (RESTRICTED) (RIT UXAN) Vascular Access Patency - Peripheral Intravenous Catheter and Rapid Infusion Catheter* Plan Start Date:04/28/2023 Linked Problems Marginal Zone Lymphoma Splen ic (HCC) Treatment Medications No medications scheduled. Past Plans No past plan information found. Radiation Treatments * No radiation treatments are documented for this patient in [facility]. Treatments may have been administered in another system.
--- OUTSIDE RECORDS SUMMARY | 2024-01-26 13:44 | XMS_ITS | Encounter Summary ---
Author Organization [facility] Address [address] [place] [address] Care Team Providers Care Foreign Exchange Dealer Name Role Phone Unavailable Primary Care Provider Unavailabl e Reason for Visit * Reason Onset Date Comments Med Question 11/28/2023 Encounter Details Date Type Department Care Team (Late st Contact Info) Description 11/28/2023 Clinical Communication Division of Hematology in [place], [place] [address] [place] [phone] Yessenia Montalvo M.D., Ph.D. [address] [place] [phone] Med Question Social History Tobacco Use Types Packs/Day Years [...] often do you attend chur ch or worship services? Never 12/24/2022 Do you belong to any clubs o r organizations such as baptism groups, unions, fraternal or athletic groups, [...] and heating? Not hard at all 04/04/2023 [facility] Occupat ional Health - Occupational Stress [...] your living situation today? I have a [facility] place to live 04/04/2023 Education Answer Date Recorded What is the highest level of school you have completed or the highest degree you have received? 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 - 11/28/2023 2:32 PM CDT ASSESSMENT Diagnosis/ treatment: Splenic marginal zone lymphoma, weekly Rituximab x 4 in 2022; thrombocytopenia. Currently on observation. Last Hematology appointment: 10/25/23 office visit with Haritha Corrigan, PRODUCT TEST ENGINEER, FORMING ROLL OPERATOR HEAVY DUTY, DNP Next Hematology appointment: 01/23/24 CT, labs, office visit Primary board stacker: Dr. Montalvo RN spoke with the patient. He had also called [facility] and spoke with them today. They recommended and ordered an ultrasound. They also recommended compression stockings, which he is wearingnow. He's been having a lot of pain in his left leg for about a week. It has progressively gotten worse.By end of day it is really sore and hard to walk. He describes it as a constant shooting pain, mostly in the lower part of his leg by his ankle. He has no swelling and his leg is not hot to touch. He has a history of blood clots and is on Eliquis 2.5 mg twice daily. PLAN Disposition/Recommendation: RN will send update to Dr. Montalvo for review and any additional recommendations . Information/Education: patient/caller able to teach back. Caller agreeable to plan of care: yes. The following references were used: nursing clinical judgement. documented in this encounter Plan of Treatment Not on file documented as of this encounter Visit Diagnoses Not on filedocumented in this encounter Additional Health Concerns Infection Onset Date Last Indicated Resolved Time Protective Environment 04/26/2023 04/26/2023 documented as of this encounter
--- OUTSIDE RECORDS SUMMARY | 2024-01-26 13:44 | XMS_ITS | Encounter Summary ---
Author Organization [facility] Address [address] [place] [id number] Care Team Providers Care Ambulatory Nurse Name Role Phone Unavailable Primary Care Provider Unavailabl e Reason for Referral * Outpatient (Routine) - Closed Specialty Diagnoses / Procedures Referred By Stella cobb Referred To Contact Diagnoses Thrombosis Deep Vein Personal History Procedures US Lower Extremity Veins Left Nettie Medina P.A.-C. 200 [place] [phone] [facility] Region Referral ID Status Reason Start Date Expiration Date Visits Re quested Visits Authorized [id number] Closed 11/28/2023 11/27/2024 1 1 Encounter Details Date Type Department Care Team (Late st Contact Info) Description 11/28/2023 Orders Only Department of Vascular Medicine in [place], [place] [address] [place] [phone] Nettie Medina P.A.-C. [address] [place] [phone] Thrombosis Deep Vein Personal History (Primary Dx); Embolus Pulmonary (HCC) Social History Tobacco Use Types Packs/Day Years [...] often do you attend chur ch or latter day services? Never 12/24/2022 Do you belong to any clubs o r organizations such as uatsdin groups, unions, fraternal or athletic groups, [...] and heating? Not hard at all 04/04/2023 [facility] [place] of Occupat ional [facility] - Occupational Stress Questionnaire Answer Date Recorded [...] money to buy more. Never true 04/04/20 Within the past 12 months, t he [...] your living situation today? I have a [facility] place to live 04/04/2023 Education Answer Date Recorded What is the highest level of school you have completed or the highest degree you have received? Bachelor's degree (e.g., BA, AB, BS) 06/20/2020 Sex and Gender Information Value Date Recorded Sex Assigned at Male 10/26/2019 9:31 AM HAND LAMINATOR Gender Identity Male 10/24/2019 8:47 AM HAND LAMINATOR Sexual Orientation Straight 10/24/2019 8: 47 AM HAND LAMINATOR documented as of this encounter Plan of Treatment Not on file documented as of this encounter Results * US Lower Extremity Veins Left (12/01/2023 3:23 PM CDT) Anatomical Region Laterality Modality Lower Extremity, Ultrasound RST LOS, Ultrasound ARZ LOS, Ultrasound FLA LOS Left Ultrasound Impressions 12/01/2023 3:26 PM CDT Negative for acute DVT. Narrative 12/01/2023 3:26 PM CDT EXAM: US LOWER EXTREMITY VEINS LEFT Exam performed with color and spectral Doppler analysis. COMPARISON: Bilateral lower extremity venous ultrasound 01/07/2023. FINDINGS: LEFT: Common Femoral Vein: Negative. Profunda Femoral Vein: Negative. Femoral Vein: Negative. Popliteal Vein: Negative. Gastrocnemius Veins: Negative where seen. Soleal Veins: Negative where seen. Posterior Tibial Veins: Negative where seen. Peroneal Veins: Negative where seen. Great Saphenous Vein: Negative where seen. Small Saphenous Vein: Not evaluated. Popliteal Fossa: Cyst. Other: n/a Information on venous thrombosis and management can be found on the [employer] site. Link [email or web address] Procedure Note Leann Linton D.O. - 12/01/2023 EXAM: US LOWER EXTREMITY VEINS LEFT Exam performed with color and spectral Doppler analysis. COMPARISON: Bilateral lower extremity venous ultrasound 01/07/2023. FINDINGS: LEFT: Common Femoral Vein: Negative. Profunda Femoral Vein: Negative. Femoral Vein: Negative. Popliteal Vein: Negative. Gastrocnemius Veins: Negative where seen. Soleal Veins: Negative where seen. Posterior Tibial Veins: Negative where seen. Peroneal Veins: Negative where seen. Great Saphenous Vein: Negative where seen. Small Saphenous Vein: Not evaluated. Popliteal Fossa: Cyst. Other: n/a Information on venous thrombosis and management can be found on the[facility] site. [email or web address] IMPRESSION: Negative for acute DVT. Nettie HORNE US PROCEDURES documented in this encounter Visit Diagnoses Diagnosis Thrombosis Deep Vein Personal History- Primary Embolus Pulmonary (HCC) Thrombosis Deep Vein Personal History documented in this encounter Additional Health Concerns Infection Onset Date Last Indicated Resolved Time Protective Environment 04/26/2023 04/26/2023 documented as of this encounter
--- OUTSIDE RECORDS SUMMARY | 2024-01-26 13:44 | XMS_ITS | Clinical Summary ---
Author Organization [facility] Address [address] [place] [address] Care Team Providers Care Brasswind Instrument Repairer Name Role Phone Unavailable Primary Care Provider Unavailabl e Source Comments Patient records contain information from all sites at [facility]. For routine questions regarding patient records, call [phone] during business hours, M-F 8:00 AM - 5:00 PM Central Time. Record requests for emergency care only can be directed to [phone] at any time.[facility] Allergies Active Allergy Reactions Criticality Noted Date Comments Iodine Other (see comments) Low 03/24/2022 Patient explains he does not have problems or reaction to contrast Medications Medication Sig Dispensed Refills Start Date End Date Status dorzolamide-timolol (COSOPT) 22.3-6.8 mg/mL ophthalmic solution INSTILL 1 DROP INTO RIGHT EYE TWICE A DAY 12 04/17/2019 Active latanoprost (XALATAN) 0.005 % ophthalmic solution Administer 1 drop into both eyes daily. 08/13/2015 Active glucosamine/chondr carter A sod (OSTEO BI-FLEX ORAL) Take by mouth daily. Active multivit-min/folic/v it K/lycop (MEN'S 50 PLUS MULTIVITAMIN ORAL) Take by mouth daily. Active brimonidine (ALPHAGAN) 0.2 % ophthalmic solution Administer 1 drop into the right eye 2 (two) times a day. Active acetaminophen (Tylenol Extra Strength) 500 mg tablet 03/17/2023 Active apixaban (ELIQUIS) 2.5 mg tablet Take 1 tablet (2.5 mg total) by mouth 2 (two) times a day. 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 Marginal Zone Lymphoma Splenic (HCC) (Primary Dx) 01/23/2024 9:20 AM CDT - 01/23/2024 11:59 PM CDT Hospital Encounter Department of Laboratory Medicine and Pathology, [facility] in [place], [place] [address] [place] [phone] Haritha Corrigan APRN, C.N.P., D.N.P. Marginal Zone Lymphoma Splenic (HCC) Discharge Disposition: Home or Self Care 01/23/2024 8:53 AM CDT - 01/23/2024 9:19 AM CDT Hospital Encounter Department of Radiology, [facility] in [place], [place] [address] [place] [phone] Haritha Corrigan APRN, C.N.P., D.N.P. Marginal Zone Lymphoma Splenic (HCC) Discharge Disposition: Home or Self Care 01/20/2024 2:00 PM CDT Clinical Communication Virtual Review in [place], [place] [address] [place] [phone] 12/01/2023 2:11 PM CDT - 12/01/2023 11:59 PM CDT Hospital Encounter Department of Radiology in [address] [phone] Nettie Medina P.A.-C. Thrombosis Deep Vein Personal History Discharge Disposition: Home or Self Care 11/28/2023 Documentation Department of Vascular Medicine in [place], [place] [address] [place] [phone] Nettie Medina P.A.-C. Leg Pain 11/28/2023 Orders Only Department of Vascular Medicine in [place], [place] [address] [place] [phone] Nettie Medina P.A.-C. Thrombosis Deep Vein Personal History (Primary Dx); Embolus Pulmonary (HCC) 11/28/2023 Clinical Communication Division of Hematology in [place], [place] [address] [place] [phone] Yessenia Montalvo M.D., Ph.D. Med Question 11/28/2023 Clinical Communication Department of Vascular Medicine in [place], [place] [address] [place] [phone] Nettie Medina P.A.-C. Phone Contact 11/07/2023 1:30 PM LASTING ROOM SUPERVISOR Comprehensive Visit Department of Vascular Medicine in [place], [place] [address] [place] [phone] Nettie Medina P.A.-C. Embolus Pulmonary (HCC) (Primary Dx); Thrombosis Deep Vein Personal History; Marginal Zone Lymphoma Splenic (HCC); Thrombocytopenia (HCC) 11/07/2023 11:16 AM LASTING ROOM SUPERVISOR - 11/07/2023 11:59 PM LASTING ROOM SUPERVISOR Hospital Encounter Department of Laboratory Medicine and Pathology, [facility] in [place], [place] [address] [place] [phone] Haritha Corrigan APRN, C.N.P., D.N.P. Marginal Zone Lymphoma Splenic (HCC); Thrombocytopenia (HCC); Thrombosis Deep Vein Personal History; Embolus Pulmonary (HCC) Discharge Disposition: Home or Self Care from Last 3 Months Immunizations Name Administration Dates Next Due Influenza (IM) Preservative Free 013,07/18/2012,06/30/2011,2008,06/26/2008 Influenza Split 06/05/2013, 6,07/12/2005,2003,07/15/2003 Influenza, Injectable, Quadrivalent 05/07,06/05/2021,05/21/2020,2018,07/25/2015,06/16/2014,06/18/2013,1 09/17/2011,06/30/2011,06/17/2010, 009,06/26/2008,08/01/2007,06/27/2006,,07/08/2004,07/15/2003 Influenza, Quadrivalent, Adj uvanted, Preservative Free 06/02/2022,06/05/2021,05/21/2020 Influenza, Seasonal, Injectable 06/16/20 14,08/01/2007,06/27/2006,2004,07/08/2004,07/15/2003 Influenza, Unspecified 06/17/2010 PCV13 08/20/2015 PPSV23 01/11/2007 Td Preservative Free (TENIVA C, DECAVAC) 09/18/2008 Td, (Adult) Unspecified 09/18/2008 Tdap 2022,08/08/2013,06/05/2013 influenza high dose (65 year s or older) (PF) 06/07/2019,07/25/2015 Family History Medical History Relation Name Comments Breast cancer Mother Milo Rayo Relation Name Status Comments Mother Milo Rayo Social History Tobacco Use Types Packs/Day Years Used Date Smoking Tobacco: Former Cigarettes Q uit: 2007 Smokeless Tobacco: Never Tobacco Cessation:Counseling Given: Not Answered Comments:Not sure when I started/stopped but years ago Alcohol Use Standard Drinks/Week Comments Yes 8 (1 standard drink = 0.6 oz pur e alcohol) Moderate consumption [facility] Utilities Answer Date Recorded In the past 12 months has th e Pure Storage, gas, oil, or water Site[employer] threatened to shut off services in your home? No 01/18/2024 Humiliation, Afraid, Rape, and Kick questionnair e [...] often do you attend chur ch or sabianism services? Never 12/24/2022 Do you belong to any clubs o r organizations such as yazidi groups, unions, fraternal or athletic groups, [...] and heating? Not hard at all 04/04/2023 [facility] of Occupat ional Health - Occupational Stress [...] to strenuous exercise (like a brisk walk)? Patient declined On average, how many minutes do you engage in exercise at this level? Patient declined 01/18/2024 Hunger Vital Sign Answer Date Recorded Within the past 12 months, y ou worried that your food would run out before you got the money to buy more. Never true 01/18/20 24 Within the past 12 months, t he food you bought just didn't last and you didn't have money to get more. Never true 01/18/2024 PRAPARE - Transportation Answer Date Re corded In the past 12 months, has l ack of transportation kept you from medical appointments or from getting medications? No 01/03 In the past 12 months, has l ack of transportation kept you from meetings, work, or from getting things needed for daily living? No 01/18/2024 Nutrition Answer Date Recorded On average, how many serving s of fruits and vegetables do you eat per day (serving size is equal to 1 cup or approximately the size of a tennis ball)? 3-5 01/18/2024 Dental Answer Date Recorded Dental: Regular Dentist Yes 06/14/20 Employment Answer Date Recorded Employment status Retired 01/18/2024 Housing Stability Answer Date Recorded What is your living situation today? I have a [facility] place to live 01/18/2024 Education Answer Date Recorded What is the highest level of school you have completed or the highest degree you have received? Bachelor's degree (e.g., BA, AB, BS) 06/20/2020 Sex and Gender Information Value Date Recorded Sex Assigned at Male 10/26/2019 9:31 AM LASTING ROOM SUPERVISOR Gender Identity Male 10/24/2019 8:47 AM LASTING ROOM SUPERVISOR Sexual Orientation Straight 10/24/2019 8: 47 AM LASTING ROOM SUPERVISOR Last Filed Vital Signs Vital Sign Reading Time Taken Comments Blood Pressure 134/78 01/23/2024 2:52 PM CDT Pulse 73 01/23/2024 2:52 PM CDT Temperature 36.3 ??C (97.4 ??F) 01/23/2024 2:52 PM CD T Respiratory Rate 18 05/19/2023 1:37 PM CDT Oxygen Saturation 96% 01/23/2024 2:52 PM CDT Inhaled Oxygen Concentration - - Weight 78.9 kg (174 lb 0.9 oz) 01/23/2024 2:52 P M CDT Height 163.1 cm (5' 4.21) 01/23/2024 2:52 PM CD T Body Mass Index 29.68 01/23/2024 2:52 PM CDT Plan of Treatment Health Maintenance Due Date Last Done Comments Zoster Vaccines (1 of 2) 1959 Pneumococcal vaccine (65+ years) (3 of 3 - PPSV23 or PCV20) 10/15/2015 08/20/2015, 01/11/2007 COVID-19 Vaccine (2022-24 season) 2023 06/01/2023, 06/02/2022, 01/23/2022, Additional history exists Depression Screening (Annual PHQ-2) 09/05/2023 Fall Risk Screen (Annual) 09/05/2023 DTaP,Tdap,and Td Vaccines (4 - Td or Tdap) 2032 2022, 08/08/2013, 06/05/2013, Additional history exists Influenza Vaccine Completed 06/01/2023, , 06/02/2022, Additional history exists HPV Vaccines Aged Out No longer eligi ble based on patient's age to complete this topic Procedures Procedure Name Priority Date/Time Associated Diagnosis Comments POTASSIUM, S/P Routine 01/23/2024 9:37 AM CDT Marginal Zone Lymphoma Splenic (HCC) LACTATE DEHYDROGENASE (LD), S Routine 01/23/2024 9:37 AM CDT Marginal Zone Lymphoma Splenic (HCC) CREATININE WITH EGFR, S/P Routine 01/23/2024 9:37 AM CDT Marginal Zone Lymphoma Splenic (HCC) CBC WITH DIFFERENTIAL, B Routine 01/23/2024 9:37 AM CDT Marginal Zone Lymphoma Splenic (HCC) CALCIUM, TOT, S/P Routine 01/23/2024 9:3 7 AM CDT Marginal Zone Lymphoma Splenic (HCC) BILIRUBIN, TOT, S/P Routine 01/23/2024 9 :37 AM CDT Marginal Zone Lymphoma Splenic (HCC) ASPARTATE AMINOTRANSFERASE (AST), S/P Routine 01/23/2024 9:37 AM CDT Marginal Zone Lymphoma Splenic (HCC) ALKALINE PHOSPHATASE, S/P Routine 01/23/2024 9:37 AM CDT Marginal Zone Lymphoma Splenic (HCC) CT ABDOMEN PELVIS WITHOUT IV CONTRAST RAD - Routine (most inpatients and all outpatients) 01/23/2024 9:32 AM CDT Marginal Zone Lymphoma Splenic (HCC) CT CHEST WITHOUT IV CONTRAST RAD - Routine (most inpatients and all outpatients) 01/23/2024 9:32 AM CDT Marginal Zone Lymphoma Splenic (HCC) US LOWER EXTREMITY VEINS LEFT RAD - Semiurgent (Fast; most ED patients; some inpatients) 12/01/2023 3:23 PM CDT Thrombosis Deep Vein Personal History ACTIVATED PARTIAL THROMBOPLASTIN TIME (APTT), P Routine 11/07/2023 11:30 AM LASTING ROOM SUPERVISOR Marginal Zone Lymphoma Splenic (HCC) Thrombocytopenia (HCC) Thrombosis Deep Vein Personal History Embolus Pulmonary (HCC) PROTHROMBIN TIME (PT), P Routine 11/07/2023 11:30 AM LASTING ROOM SUPERVISOR Marginal Zone Lymphoma Splenic (HCC) Thrombocytopenia (HCC) Thrombosis Deep Vein Personal History Embolus Pulmonary (HCC) CBC WITH DIFFERENTIAL, B Routine 11/07/2023 11:30 AM LASTING ROOM SUPERVISOR Marginal Zone Lymphoma Splenic (HCC) Thrombocytopenia (HCC) Thrombosis Deep Vein Personal History Embolus Pulmonary (HCC) from Last 3 Months Results * (ABNORMAL) CBC with Differential, Blood (01/23/2024 9:37 AM CDT) Only the most recent of2 resultswithin the time period is included. Hemoglobin 13.3 13.2 - 16.6 g/dL 01/23/2024 11:09 AM CDT DTL Hematocrit 37.1(L) 38.3 - 48.6 % 01/23/2024 11:09 AM CDT DTL Erythrocytes 3.64(L) 4.35 - 5.65 x10(12)/L 01/23/2024 11:09 AM CDT DTL MCV 101.9(H) 78.2 - 97.9 fL 01/23/2024 11:09 AM CDT DTL RBC Distrib Width 14.3 11.8 - 14.5 % 01/23/2024 11:09 AM CDT DTL Platelet Count 79(L) 135 - 317 x10(9)/L 01/23/2024 11:09 AM CDT DTL Leukocytes 5.1 3.4 - 9.6 x10(9)/L 01/23/2024 11:09 AM CDT DTL Neutrophils 3.00 1.56 - 6.45 x10(9)/L 01/23/2024 11:09 AM CDT DHPM Lymphocytes 1.05 0.95 - 3.07 x10(9)/L 01/23/2024 11:09 AM CDT DTL Monocytes 0.72 0.26 - 0.81 x10(9)/L 01/23/2024 11:09 AM CDT DTL Eosinophils 0.25 0.03 - 0.48 x10(9)/L 01/23/2024 11:09 AM CDT DTL Basophils 0.04 0.01 - 0.08 x10(9)/L 01/23/2024 11:09 AM CDT DTL Blood (Blood, Venous) 01/23/2024 9:37 AM CDT 01/23/2024 10:02 AM CDT Haritha Corrigan APRN, C.N.P., D.N.P. LAB BLOOD ADD-ON [facility] [address] [place] [address], [facility] DTL [facility] [address] [place] [address] DHPM [facility] [address] [place] [address] * AST (Aspartate Aminotransferase) (01/23/2024 9:37 AM CDT) Aspartate Aminotransferase (AST), S 21 8 - 48 U/L 01/23/2024 10:50 AM CDT DTL Blood (Blood, Venous) 01/23/2024 9:37 AM CDT 01/23/2024 10:13 AM CDT Gerber Watson APRN.N.P., D.N.P. LAB BLOOD ADD-ON Performing Organization Address City/[facility]/ZIP Co de Phone Number [facility] [address] [place] [address] * Potassium (01/23/2024 9:37 AM CDT) Potassium, S 4.4 3.6 - 5.2 mmol/L 01/23/2024 10:50 AM CDT DT Blood (Blood, Venous) 01/23/2024 9:37 AM CDT 01/23/2024 10:13 AM CDT Haritha Corrigan APRN, C.N.P., D.N.P. LAB BLOOD ADD-ON Performing Organization Address City/[facility] Co de Phone Number [facility] [address] [place] [address] * Alkaline Phosphatase (01/23/2024 9:37 AM CDT) Alkaline Phosphatase, S 104 40 - 129 U/L 01/23/2024 10:50 AM CDT DT Blood (Blood, Venous) 01/23/2024 9:37 AM CDT 01/23/2024 10:13 AM CDT Haritha Corrigan APRN C.N.P., D.N.P. LAB BLOOD ADD-ON Performing Organization Address City/[facility] Co de Phone Number [facility] [address] [place], [place] [id number] [place] [address] 200 [place] [address] * LD (Lactate Dehydrogenase) (01/23/2024 9:37 AM CDT) Lactate Dehydrogenase (LD), S 187 122 - 222 U/L 01/23/2024 10:50 AM CDT DTL Blood (Blood, Venous) 01/23/2024 9:37 AM CDT 01/23/2024 10:13 AM CDT Gerber Watson APRN.N.P., D.N.P. LAB BLOOD NON ADD-ON Performing Organization Address City/[facility] Co de Phone Number [facility] [address] [place], [place] [id number] [place] [address] [address] [place] [address] * Creatinine with Estimated GFR (01/23/2024 9:37 AM CDT) Creatinine 1.19 0.74 - 1.35 mg/dL 01/23/2024 10:50 AM CDT DTL Estimated GFR (eGFR) 61 >=60 mL/min/BSA 01/23/2024 10:50 AM CDT DT Comment: Estimated GFR calculated using the 2020 CKD_EPI creatinine equation. Blood (Blood, Venous) 01/23/2024 9:37 AM CDT 01/23/2024 10:13 AM CDT Gerber Watson APRN.N.P., D.N.P. LAB BLOOD ADD-ON Performing Organization Address City/[facility]/ZIP Co de Phone Number [facility] [address] [place] [address], [facility] [address] [place] [address] * Calcium, Total (01/23/2024 9:37 AM CDT) Calcium, Total, S 9.4 8.8 - 10.2 mg/dL 01/23/2024 10:50 AM CDT DTL Blood (Blood, Venous) 01/23/2024 9:37 AM CDT 01/23/2024 10:13 AM CDT Haritha Corrigan APRN C.N.P., D.N.P. LAB BLOOD ADD-ON Performing Organization Address City/[facility] [place] [address] * (ABNORMAL) Bilirubin, Total (01/23/2024 9:37 AM CDT) Bilirubin, Total, S 2.5(H) 0.0 - 1.2 mg/dL 01/23/2024 10:50 AM CDT DT Blood (Blood, Venous) 01/23/2024 9:37 AM CDT 01/23/2024 10:13 AM CDT Haritha Corrigan APRN, C.N.P., D.N.P. LAB BLOOD ADD-ON Performing Organization Address [facility] [place] [address] * CT Chest without IV Contrast (01/23/2024 9:32 AM CDT) Anatomical Region Laterality Modality Chest, Thoracic RST LOS, Tho racic ARZ LOS, Thoracic FLA LOS N/A Computed Tomography, Compute d Tomography Impressions 01/23/2024 1:19 PM CDT 1. Stable chest CT without evidence of recurrent lymphoma in the chest. 2. Stable small pulmonary nodules with a few examples listed in the body the report. Narrative 01/23/2024 1:19 PM CDT EXAM: CT CHEST WITHOUT IV CONTRAST COMPARISON: 07/24/2023, 01/05/2023, 04/23/2019 FINDINGS: Previously identified eccentric nonocclusive pulmonary emboli in the distal main pulmonary artery and interlobar artery are not appreciated without the benefit of IV contrast. No secondary signs of acute pulmonary embolus. No thoracic lymphadenopathy to suggest recurrent lymphoma. Stability of a few small pulmonary nodules with no new nodules. Some examples include tandem 5-6 mm nodules in the lateral left lower lobe (series 201/image 343), 7 x 5 mm nodule posterior left lower lobe (201/313), 3 mm nodule posterior left lower lobe (201/383) and 4-5 mm nodule posterior left lower lobe (201/394). Mild centrilobular emphysema. Nonspecific peripheral patchy groundglass opacities in the mid and lower lungs. Stable mild interlobular septal thickening predominantly within the lower lungs left greater than right with areas of mild bronchiectasis in the left lower lobe. Tiny calcified lung granulomas. Atherosclerotic arterial calcification including aorta, coronary arteries and mitral annular calcification. Degenerative changes both shoulders. Minor degenerative changes of the spine. This examination was performed in conjunction with a CT of the abdomen, which will be reported separately. Procedure Note Bonifacio Chavarria M.D. - 01/23/2024 EXAM: CT CHEST WITHOUT IV CONTRAST COMPARISON: 07/24/2023, 01/05/2023, 04/23/2019 FINDINGS: Previously identified eccentric nonocclusive pulmonary emboli in thedistal main pulmonary artery and interlobar artery are not appreciatedwithout the benefit of IV contrast. No secondary signs of acute pulmonaryembolus. No thoracic lymphadenopathy to suggest recurrent lymphoma. Stability of a few small pulmonary nodules with no new nodules. Someexamples include tandem 5-6 mm nodules in the lateral left lower lobe(series 201/image 343), 7 x 5 mm nodule posterior left lower lobe(201/313), 3 mm nodule posterior left lower lobe (201/383) and 4-5 mm nodule posterior left lower lobe (201/394). Mild centrilobular emphysema. Nonspecific peripheral patchy groundglassopacities in the mid and lower lungs. Stable mild interlobular septalthickening predominantly within the lower lungs left greater than rightwith areas of mild bronchiectasis in the left lower lobe. Tiny calcified lung granulomas. Atherosclerotic arterial calcification including aorta, coronary arteriesand mitral annular calcification. Degenerative changes both shoulders. Minor degenerative changes of thespine. This examination was performed in conjunction with a CT of the abdomen,which will be reported separately. IMPRESSION: 1. Stable chest CT without evidence of recurrent lymphoma in the chest. 2. Stable small pulmonary nodules with a few examples listed in the bodythe report. Haritha Corrigan APRN, C.N.P., D.N.P. IMG CT PROCEDURES * CT Abdomen Pelvis without IV Contrast (01/23/2024 9:32 AM CDT) Anatomical Region Laterality Modality Abdomen, Pelvis, Abdominal R ST LOS, Abdominal ARZ LOS, Abdominal FLA LOS N/A Computed Tomograp hy, Computed Tomography Impressions 01/23/2024 11:19 AM CDT Further mild interval decrease in the sagittal splenomegaly. No lymphadenopathy. Narrative 01/23/2024 11:19 AM CDT EXAM: ??CT ABDOMEN PELVIS WITHOUT IV CONTRAST COMPARISON: ??CT 07/24/2023 and 01/06/2020 FINDINGS: ??Further mild interval decrease in the size of the splenomegaly. The spleen volume today measures approximately 7 30 cc as compared to 7 50 cc on the prior study (Se206/ Image49). No focal lesions within the spleen. No retroperitoneal or abdominal lymphadenopathy. Liver normal size. No suspicious focal liver lesions. Both adrenals normal size. Cortical scarring both kidneys. Scattered vascular calcifications. No free fluid in the abdomen or pelvis. Small fat-containing bilateral inguinal hernias. This examination was performed in conjunction with a CT of the chest, which will be reported separately. Procedure Note Dusty Guzmán M.D. - 01/23/2024 EXAM: CT ABDOMEN PELVIS WITHOUT IV CONTRAST COMPARISON: CT 07/24/2023 and 01/06/2020 FINDINGS: Further mild interval decrease in the size of the splenomegaly.The spleen volume today measures approximately 7 30 cc as compared to 7 50cc on the prior study (Se206/ Image49). No focal lesions within thespleen. No retroperitoneal or abdominal lymphadenopathy. Liver normal size. No suspicious focal liver lesions. Both adrenals normal size. Cortical scarring both kidneys. Scattered vascular calcifications. No free fluid in the abdomen or pelvis. Small fat-containing bilateral inguinal hernias. This examination was performed in conjunction with a CT of the chest,which will be reported separately. IMPRESSION: Further mild interval decrease in the sagittal splenomegaly. Nolymphadenopathy. Haritha Corrigan APRN, C.N.P., D.N.P. IMG CT PROCEDURES * US Lower Extremity Veins Left (12/01/2023 [...] and management can be found on the [employer] site. Link [email or web address] Procedure Note Leann Linton D.O. - 12/01/2023 [...] thrombosis and management can be found on the[employer] site. [email or web address] [email or web address]/[email or web address] -[email or web address] [id number] IMPRESSION: Negative for acute DVT. Nettie Medina P.A.-C. IMG US PROCEDURES * APTT (Activated Partial Thromboplastin Time) (11/07/2023 11:30 AM LASTING ROOM SUPERVISOR) Activated Partial Thrombopl Time, P 30 25 - 37 sec 11/07/2023 12:30 PM LASTING ROOM SUPERVISOR DTL Blood (Blood, Venous) 11/07/2023 11:30 AM LASTING ROOM SUPERVISOR 11/07/2023 11:56 AM LASTING ROOM SUPERVISOR Gerber Watson APRN.N.PRui, D.N.P. [place] [address], [facility] [place] [address] * Prothrombin Time (PT) (11/07/2023 11:30 AM LASTING ROOM SUPERVISOR) Prothrombin Time, P 12.2 9.4 - 12.5 sec 11/07/2023 12:30 PM LASTING ROOM SUPERVISOR DTL INR 1.1 0.9 - 1.1 11/07/2023 12:30 PM LASTING ROOM SUPERVISOR DTL Comment: ----ADDITIONAL INFORMATION---- Standard intensity warfarin therapeutic range: 2.0 to 3.0 ?? High intensity warfarin therapeutic range: 2.5 to 3.5 Blood (Blood, Venous) 11/07/2023 11:30 AM LASTING ROOM SUPERVISOR 11/07/2023 11:56 AM LASTING ROOM SUPERVISOR Gerber Watson APRN.N.P., D.N.P. LAB BLOOD ADD-ON [facility] [address] [place] [address], [place] DTL [facility] [address] [place] [address] from Last 3 Months Additional Health Concerns Infection Onset Date Last Indicated Protective Environment 04/26/2023 3
--- OUTSIDE RECORDS SUMMARY | 2024-01-26 13:44 | XMS_ITS | Encounter Summary ---
Author Organization [facility] Address [address] [place] [address] Care Team Providers Care Snow Groomer Name Role Phone Unavailable Primary Care Provider Unavailabl e Encounter Details Date Type Department Care Team (Latest Contact Info) Description 01/20/2024 2:00 PM CDT Clinical Communication Virtual Review in [place], [place] [address] [place] [address] Social History Tobacco Use Types Packs/Day Years Used Date Smoking Tobacco: Former Cigarettes Q uit: 2007 Smokeless Tobacco: Never Tobacco Cessation:Counseling Given: Not Answered Comments:Not sure when I started/stopped but years ago Alcohol Use Standard Drinks/Week Comments Yes 8 (1 standard drink = 0.6 oz pur e alcohol) Moderate consumption [facility] Utilities Answer Date Recorded In the past 12 months has light, gas, oil, or water [employer] threatened to shut off services in your [...] often do you attend chur ch or shinto services? Never 12/24/2022 Do you belong to any clubs o r organizations such as zoroastrianism groups, unions, fraCitygoo or athletic groups, or school groups? No [...] and heating? Not hard at all 04/04/2023 [facility] [place] of Occupat ional Health - Occupational Stress [...] your living situation today? I have a [facility] place to live 01/18/2024 Education Answer Date Recorded What is the highest level of school you have completed or the highest degree you have received? Bachelor's degree (e.g., BA, AB, BS) 06/20/2020 Sex and Gender Information Value Date Recorded Sex Assigned at Male 10/26/2019 9:31 AM MARKETING COMMUNITY LIAISON Gender Identity Male 10/24/2019 8:47 AM MARKETING COMMUNITY LIAISON Sexual Orientation Straight 10/24/2019 8: 47 AM MARKETING COMMUNITY LIAISON documented as of this encounter Plan of Treatment Not on file documented as of this encounter Visit Diagnoses Not on filedocumented in this encounter Additional Health Concerns Infection Onset Date Last Indicated Resolved Time Protective Environment 04/26/2023 04/26/2023 documented as of this encounter
--- OUTSIDE RECORDS SUMMARY | 2024-01-26 13:44 | XMS_ITS | Encounter Summary ---
Author Organization [facility] Address [address] [place] [address] Care Team Providers Care Finish Cleaner Name Role Phone Unavailable Primary Care Provider Unavailabl e Reason for Referral * Outpatient (Routine) - Closed Specialty Diagnoses / Procedures Referred By Stella cobb Referred To Contact Diagnoses Thrombosis Deep Vein Personal History Procedures US Lower Extremity Veins Left Nettie Medina P.A.-C. [address] [place] [address] [facility] Region Referral ID Status Reason Start Date Expiration Date Visits Re quested Visits Authorized [id number] Closed 11/28/2023 11/27/2024 1 1 Reason for Visit * Outpatient (Routine) - Closed Specialty Diagnoses / Procedures Referred By Stella cobb Referred To Contact Diagnoses Thrombosis Deep Vein Personal History Procedures US Lower Extremity Veins Left Nettie Medina P.A.-C. [address] [place] [address] [facility] Region Referral ID Status Reason Start Date Expiration Date Visits Re quested Visits Authorized [id number] Closed 11/28/2023 11/27/2024 1 1 Encounter Details Date Type Department Care Team (Latest Contact Info) Description 12/01/2023 2:11 PM CDT - 12/01/2023 11:59 PM CDT Hospital Encounter Department of Radiology in [place], [place] [address] [place] [address] Nettie Medina P.A.-C. [address] [place] [address] Thrombosis Deep Vein Personal History Discharge Disposition: Home or Self Care Social History Tobacco Use Types Packs/Day Years Used Date Smoking Tobacco: Former Cigarettes Q uit: 2006 Smokeless Tobacco: Never Comments:Not sure when I [...] often do you attend chur ch or gnosticist services? Never 12/24/2022 Do you belong to any clubs o r organizations such as rastafarian groups, unions, fraternal or athletic groups, [...] and heating? Not hard at all 04/04/2023 [facility] of Occupat ional [facility] - Occupational Stress Questionnaire Answer Date Recorded [...] Sex Assigned at Male 10/26/2019 9:31 AM BEER MAKER Gender Identity Male 10/24/2019 8:47 AM BEER MAKER Sexual Orientation Straight 10/24/2019 8: 47 AM BEER MAKER documented as of this encounter Medications at Time of Discharge Medication Sig Dispensed Refills Start Date End Date acetaminophen (Tylenol Extra Strength) 500 mg tablet 03/17/2023 apixaban (ELIQUIS) 2.5 mg tablet Take 1 tablet (2.5 mg total) by mouth 2 (two) times a day. 180 tablet 3 11/07/2023 brimonidine (ALPHAGAN) 0.2 % ophthalmic solution Administer 1 drop into the right eye 2 (two) times a day. dorzolamide-timolol (COSOPT) 22.3-6.8 mg/mL ophthalmic solution INSTILL 1 DROP INTO RIGHT EYE TWICE A DAY 12 04/17/2019 glucosamine/chondr carter A sod (OSTEO BI-FLEX ORAL) Take by mouth daily. latanoprost (XALATAN) 0.005 % ophthalmic solution Administer 1 drop into both eyes daily. 08/13/2015 multivit-min/folic/vit K/lycop (MEN'S 50 PLUS MULTIVITAMIN ORAL) Take by mouth daily. documented as of this encounter Plan of Treatment Not on file documented as of this encounter Procedures Procedure Name Priority Date/Time Associated Diagnosis Comments US LOWER EXTREMITY VEINS LEFT RAD - Semiurgent (Fast; most ED patients; some inpatients) 12/01/2023 3:23 PM CDT Thrombosis Deep Vein Personal History documented in this encounter Results * US Lower Extremity [...] and management can be found on the [employer] site. Link [email or web address]/clinical-answers/[email or web address] Procedure Note Leann Linton D.O. - 12/01/2023 [...] thrombosis and management can be found on the[employer] site. [email or web address]/clinical-answers/[email or web address]/cpm -[email or web address] 1725 IMPRESSION: Negative for acute DVT. Nettie HORNE US PROCEDURES documented in this encounter Visit Diagnoses Diagnosis Thrombosis Deep Vein Personal History documented in this encounter Additional Health Concerns Infection Onset Date Last Indicated Resolved Time Protective Environment 04/26/2023 04/26/2023 documented as of this encounter
--- OUTSIDE RECORDS SUMMARY | 2024-01-26 13:44 | XMS_ITS | Encounter Summary ---
Author Organization [facility] Address [address] [place] [address] Care Team Providers Care Fire Fighter Airport Name Role Phone Unavailable Primary Care Provider Unavailabl e Reason for Visit * Reason Onset Date Comments Phone Contact 11/28/2023 Encounter Details Date Type Department Care Team (Late st Contact Info) Description 11/28/2023 Clinical Communication Department of Vascular Medicine in [place], [place] [address] [place] [address] Nettie Medina P.A.-C. [address] [place] [address] Phone Contact Social History Tobacco Use Types Packs/Day Years [...] often do you attend chur ch or scientologist services? Never 12/24/2022 Do you belong to any clubs o r organizations such as confucianist groups, unions, fraternal or athletic groups, [...] and heating? Not hard at all 04/04/2023 [facility] of Occupat ional Health - Occupational Stress [...] your living situation today? I have a [facility] place to live 04/04/2023 Education Answer Date Recorded What is the highest level of school you have completed or the highest degree you have received? Bachelor's degree (e.g., BA, AB, BS) 06/20/2020 Sex and Gender Information Value Date Recorded Sex Assigned at Male 10/26/2019 9:31 AM CHIP CRUSHER OPERATOR Gender Identity Male 10/24/2019 8:47 AM CHIP CRUSHER OPERATOR Sexual Orientation Straight 10/24/2019 8: 47 AM CHIP CRUSHER OPERATOR documented as of this encounter Plan of Treatment Not on file documented as of this encounter Visit Diagnoses Not on filedocumented in this encounter Additional Health Concerns Infection Onset Date Last Indicated Resolved Time Protective Environment 04/26/2023 04/26/2023 documented as of this encounter
--- OUTSIDE RECORDS SUMMARY | 2024-01-26 13:44 | XMS_ITS | Referral Summary ---
Author Organization [facility] Address [address] [place] [address] Care Team Providers Care Meter Installer Name Role Phone Unavailable Primary Care Provider Unavailabl e Source Comments Patient records contain information from all sites at [facility]. For routine questions regarding patient records, call [phone] during business hours, M-F 8:00 AM - 5:00 PM Central Time. Record requests for emergency care only can be directed to [phone] at any time.[facility] Encounters Date Type Department Care Team Description 01/23/2024 9:20 AM CDT - 01/23/2024 11:59 PM CDT Hospital Encounter Department of Laboratory Medicine and Pathology, [place], [place] [address] [place] [address] Haritha Corrigan APRN, C.N.P., D.N.P. 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 Marginal Zone Lymphoma Splenic (HCC) (Primary Dx) 01/20/2024 2:00 PM CDT Clinical Communication Virtual Review in [place], [place] 200 [place] [address] 12/01/2023 2:11 PM CDT - 12/01/2023 11:59 PM CDT Hospital Encounter Department of Radiology in [address] [phone] Nettie Medina P.A.-C. Thrombosis Deep Vein Personal History Discharge Disposition: Home or Self Care 11/28/2023 Documentation Department of Vascular Medicine in [address] [phone] Nettie Medina P.A.-C. Leg Pain 11/28/2023 Orders Only Department of Vascular Medicine in [address] [phone] Nettie Medina P.A.-C. Thrombosis Deep Vein Personal History (Primary Dx); Embolus Pulmonary (HCC) 11/28/2023 Clinical Communication Division of Hematology in [address] [phone] Yessenia Montalvo M.D., Ph.D. Med Question 11/28/2023 Clinical Communication Department of Vascular Medicine in [place], [place] [address] [place] [phone] Nettie Medina P.A.-C. Phone Contact 11/07/2023 11:16 AM HEAVY EQUIPMENT MECHANIC - 11/07/2023 11:59 PM HEAVY EQUIPMENT MECHANIC Hospital Encounter Department of Laboratory Medicine and Pathology, [facility], in [place], [place] [address] [place] [phone] Haritha Corrigan APRN, C.N.P., D.N.P. Marginal Zone Lymphoma Splenic (HCC); Thrombocytopenia (HCC); Thrombosis Deep Vein Personal History; Embolus Pulmonary (HCC) Discharge Disposition: Home or Self Care 11/07/2023 1:30 PM HEAVY EQUIPMENT MECHANIC Comprehensive Visit Department of Vascular Medicine in [place], [place] [address] [place] [address] Nettie Medina P.A.-C. Embolus Pulmonary (HCC) (Primary Dx); Thrombosis Deep Vein Personal History; Marginal Zone Lymphoma Splenic (HCC); Thrombocytopenia (HCC) from Last 3 Months Allergies Active Allergy Reactions Criticality Noted Date [...] Thrombocytopenia 04/23/2019 Marginal Zone Lymphoma Splenic 01/02/2004 Immunizations Name Administration Dates Next Due Influenza (IM) Preservative Free 013,07/18/2012,06/30/2011,2008,06/26/2008 Influenza Split 06/05/2013, 6,07/12/2005,2003,07/15/2003 Influenza, Injectable, Quadrivalent 05/07,06/05/2021,05/21/2020,2018,07/25/2015,06/16/2014,06/18/2013,1 09/17/2011,06/30/2011,06/17/2010, 009,06/26/2008,08/01/2007,06/27/2006,,07/08/2004,07/15/2003 Influenza, Quadrivalent, Adj uvanted, Preservative Free 06/02/2022,06/05/2021,05/21/2020 Influenza, Seasonal, Injectable 06/16/20 14,08/01/2007,06/27/2006,2004,07/08/2004,07/15/2003 Influenza, Unspecified 06/17/2010 PCV13 08/20/2015 PPSV23 01/11/2007 Td Preservative Free (TENIVA C, DECAVAC) 09/18/2008 Td, (Adult) Unspecified 09/18/2008 Tdap 2022,08/08/2013,06/05/2013 influenza high dose (65 year s or older) (PF) 06/07/2019,07/25/2015 Social History Tobacco Use Types Packs/Day Years Used Date Smoking Tobacco: Former Cigarettes Q uit: 2006 Smokeless Tobacco: Never Tobacco Cessation:Counseling Given: Not Answered Comments:Not sure when I started/stopped but years ago Alcohol Use Standard Drinks/Week Comments Yes 8 (1 standard drink = 0.6 oz pur e alcohol) Moderate consumption [facility] Utilities Answer Date Recorded In the past 12 months has [employer], gas, oil, or water [employer] threatened to shut off services in your [...] often do you attend chur ch or jewish services? Never 12/24/2022 Do you belong to any clubs o r organizations such as yarsanism groups, unions, fraternal or athletic groups, or [...] and heating? Not hard at all 04/04/2023 [facility] [place] of Occupat ional Health - Occupational Stress [...] your living situation today? I have a [facility] place to live 01/18/2024 Education Answer Date Recorded What is the highest level of school you have completed or the highest degree you have received? Bachelor's degree (e.g., BA, AB, BS) 06/20/2020 Sex and Gender Information Value Date Recorded Sex Assigned at Male 10/26/2019 9:31 AM HEAVY EQUIPMENT MECHANIC Gender Identity Male 10/24/2019 8:47 AM HEAVY EQUIPMENT MECHANIC Sexual Orientation Straight 10/24/2019 8: 47 AM HEAVY EQUIPMENT MECHANIC Last Filed Vital Signs Vital Sign Reading [...] 01/23/2024 2:52 PM CDT Plan of Treatment Not on file Procedures Procedure Name Priority Date/Time Associated Diagnosis [...] TIME (APTT), P Routine 11/07/2023 11:30 AM HEAVY EQUIPMENT MECHANIC Marginal Zone Lymphoma Splenic (HCC) Thrombocytopenia (HCC) Thrombosis Deep Vein Personal History Embolus Pulmonary (HCC) PROTHROMBIN TIME (PT), P Routine 11/07/2023 11:30 AM HEAVY EQUIPMENT MECHANIC Marginal Zone Lymphoma Splenic (HCC) Thrombocytopenia (HCC) Thrombosis Deep Vein Personal History Embolus Pulmonary (HCC) CBC WITH DIFFERENTIAL, B Routine 11/07/2023 11:30 AM HEAVY EQUIPMENT MECHANIC Marginal Zone Lymphoma Splenic (HCC) Thrombocytopenia (HCC) Thrombosis Deep Vein Personal History Embolus Pulmonary (HCC) from Last 3 Months Results * (ABNORMAL) CBC with Differential, Blood (01/23/2024 9:37 AM CDT) Only the most recent of2 resultswithin the time period is included. Pathologist [facility] Hemoglobin 13.3 13.2 - 16.6 g/dL 01/23/2024 [...] 01/23/2024 10:02 AM CDT Haritha Corrigan APRN, Gerber.N.P., D.N.P. LAB BLOOD ADD-ON [facility] [address] [place] [address] * AST (Aspartate Aminotransferase) (01/23/2024 9:37 AM CDT) Aspartate Aminotransferase (AST), S 21 8 - 48 U/L 01/23/2024 10:50 AM CDT DTL Blood (Blood, Venous) 01/23/2024 9:37 AM CDT 01/23/2024 10:13 AM CDT Gerber Watson APRN.N.P., D.N.P. LAB BLOOD ADD-ON [facility] 200 [place] [address] * Potassium (01/23/2024 9:37 AM CDT) Potassium, S 4.4 3.6 - 5.2 mmol/L 01/23/2024 10:50 AM CDT DTL Blood (Blood, Venous) 01/23/2024 9:37 AM CDT 01/23/2024 10:13 AM CDT Gerber Watson APRN.N.P., D.N.P. LAB BLOOD ADD-ON [facility] [address] [place] [address] * Alkaline Phosphatase (01/23/2024 9:37 AM CDT) Alkaline Phosphatase, S 104 40 - 129 U/L 01/23/2024 10:50 AM CDT DT Blood (Blood, Venous) 01/23/2024 9:37 AM CDT 01/23/2024 10:13 AM CDT Gerber Watson APRN.N.P., D.N.P. LAB BLOOD ADD-ON Performing Organization Address City/[facility]/ZIP Co de Phone Number [facility] [address] [place] [address] * LD (Lactate Dehydrogenase) (01/23/2024 9:37 AM CDT) Lactate Dehydrogenase (LD), S 187 122 - 222 U/L 01/23/2024 10:50 AM CDT DTL Blood (Blood, Venous) 01/23/2024 9:37 AM CDT 01/23/2024 10:13 AM CDT Haritha Corrigan APRN, C.N.P., D.N.P. LAB BLOOD NON ADD-ON Performing Organization Address City/[facility]/ZIP Co de Phone Number [facility] [address] [place] [address] * Creatinine with Estimated GFR (01/23/2024 9:37 AM CDT) Creatinine 1.19 0.74 - 1.35 mg/dL 01/23/2024 10:50 AM CDT DTL Estimated GFR (eGFR) 61 >=60 mL/min/BSA 01/23/2024 10:50 AM CDT DTL Comment: Estimated GFR calculated using the 2020 CKD_EPI creatinine equation. Blood (Blood, Venous) 01/23/2024 9:37 AM CDT 01/23/2024 10:13 AM CDT Haritha Corrigan APRN, C.N.P., D.N.P. LAB BLOOD ADD-ON Performing Organization Address City/[facility]/ZIP Co de Phone Number [phone] [place] [address] [place] [address] * Calcium, Total (01/23/2024 9:37 AM CDT) Calcium, Total, S 9.4 8.8 - 10.2 mg/dL 01/23/2024 10:50 AM CDT DTL Blood (Blood, Venous) 01/23/2024 9:37 AM CDT 01/23/2024 10:13 AM CDT Haritha Corrigan APRN, C.N.P., D.N.P. LAB BLOOD ADD-ON [phone] [place] [address] * (ABNORMAL) Bilirubin, Total (01/23/2024 9:37 AM CDT) Bilirubin, Total, S 2.5(H) 0.0 - 1.2 mg/dL 01/23/2024 10:50 AM CDT DTL Blood (Blood, Venous) 01/23/2024 9:37 AM CDT 01/23/2024 10:13 AM CDT Haritha Corrigan APRN, C.N.P., D.N.P. LAB BLOOD ADD-ON [facility] [address] [place] [address], [facility] DTL [facility] [address] [place] [address] * CT Chest without IV Contrast (01/23/2024 [...] and management can be found on the [employer] site. Link [email or web address]/clinical-answers/[email or web address]/[email or web address] Procedure Note Leann Linton D.O. - 12/01/2023 [...] thrombosis and management can be found on the[employer] site. [email or web address]/clinical-answers/[email or web address]/[email or web address] -[email or web address] 1725 IMPRESSION: Negative for acute DVT. Nettie Medina P.A.-C. IMG US PROCEDURES * APTT (Activated Partial Thromboplastin Time) (11/07/2023 11:30 AM HEAVY EQUIPMENT MECHANIC) Activated Partial Thrombopl Time, P 30 25 - 37 sec 11/07/2023 12:30 PM HEAVY EQUIPMENT MECHANIC DTL Blood (Blood, Venous) 11/07/2023 11:30 AM HEAVY EQUIPMENT MECHANIC 11/07/2023 11:56 AM HEAVY EQUIPMENT MECHANIC Gerber Watson APRN.N.P., D.N.P. LAB BLOOD ADD-ON [facility] 200 [place] [address], [facility] 200 [place] [address] * Prothrombin Time (PT) (11/07/2023 11:30 AM HEAVY EQUIPMENT MECHANIC) Prothrombin Time, P 12.2 9.4 - 12.5 sec 11/07/2023 12:30 PM HEAVY EQUIPMENT MECHANIC DTL INR 1.1 0.9 - 1.1 11/07/2023 12:30 PM HEAVY EQUIPMENT MECHANIC DTL Comment: ----ADDITIONAL INFORMATION---- Standard intensity warfarin therapeutic range: 2.0 to 3.0 ?? High intensity warfarin therapeutic range: 2.5 to 3.5 Blood (Blood, Venous) 11/07/2023 11:30 AM HEAVY EQUIPMENT MECHANIC 11/07/2023 11:56 AM HEAVY EQUIPMENT MECHANIC Haritha Corrigan APRN, C.N.P., D.N.P. LAB BLOOD ADD-ON Performing Organization Address City/[facility]/ZIP Co de Phone Number [facility] [address] [place], [place] [address] 200 [place] [address] from Last 3 Months Additional Health Concerns Infection Onset Date Last Indicated Protective Environment 04/26/2023 3
--- OUTSIDE RECORDS SUMMARY | 2024-01-26 13:44 | XMS_ITS | Encounter Summary ---
Author Organization [facility] Address [address] [place] [address] Care Team Providers Care Casting Machine Control Board Operator Name Role Phone Unavailable Primary Care Provider Unavailabl e Encounter Details Date Type Department Care Team (Latest Contact Info) Description 01/23/2024 9:20 AM CDT - 01/23/2024 11:59 PM CDT Hospital Encounter Department of Laboratory Medicine and Pathology, [facility] in [place], [place] [address] [place] [address] Haritha Corrigan APRN, C.N.P., D.N.P. 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 Never 12/24/2022 Do you belong to any clubs o r organizations such as islam groups, unions, fraternal or athletic groups, or [...] and heating? Not hard at all 04/04/2023 [facility] - Occupational Stress [...] your living situation today? I have a [facility] place to live 01/18/2024 Education Answer Date Recorded What is the highest level of school you have completed or the highest degree you have received? Bachelor's degree (e.g., BA, AB, BS) 06/20/2020 Sex and Gender Information Value Date Recorded Sex Assigned at Male 10/26/2019 9:31 AM CALL CENTER DISPATCHER Gender Identity Male 10/24/2019 8:47 AM CALL CENTER DISPATCHER Sexual Orientation Straight 10/24/2019 8: 47 AM CALL CENTER DISPATCHER documented as of this encounter Medications at [...] Procedure Name Priority Date/Time Associated Diagnosis Comments CBC WITH DIFFERENTIAL, B Routine 024 9:37 AM CDT Marginal Zone Lymphoma Splenic (HCC) ASPARTATE AMINOTRANSFERASE (AST), S/P Routine 01/23/2024 9:37 AM CDT Marginal Zone Lymphoma Splenic (HCC) POTASSIUM, S/P Routine 01/23/2024 9:37 AM CDT [...] AM CDT 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 LAB BLOOD ADD-ON [facility] 200 [place] [address] * LD (Lactate Dehydrogenase) (01/23/2024 9:37 AM CDT) Lactate Dehydrogenase (LD), S 187 122 - 222 U/L 01/23/2024 10:50 AM CDT DTL Blood (Blood, Venous) 01/23/2024 9:37 AM CDT 01/23/2024 10:13 AM CDT Haritha Corrigan APRN, C.N.P., D.N.P. LAB BLOOD NON ADD-ON Performing Organization Address City/[facility]/ZIP Co de Phone Number [facility] [address] [place] [address] * Creatinine with Estimated GFR (01/23/2024 9:37 AM CDT) Creatinine 1.19 0.74 - 1.35 mg/dL 01/23/2024 10:50 AM CDT DTL Estimated GFR (eGFR) 61 >=60 mL/min/BSA 01/23/2024 10:50 AM CDT DTL Comment: Estimated GFR calculated using the 2020 CKD_EPI creatinine equation. Blood (Blood, Venous) 01/23/2024 9:37 AM CDT 01/23/2024 10:13 AM CDT Haritha Corrigan APRN, C.N.P., D.N.P. LAB BLOOD ADD-ON [facility] [address] [place] [address], [facility] DTL [facility] [address] [place] [address] * (ABNORMAL) CBC with Differential, Blood (01/23/2024 9:37 AM CDT) Hemoglobin 13.3 13.2 - 16.6 g/dL 01/23/2024 [...] 9:37 AM CDT 01/23/2024 10:02 AM CDT Gerber Watson APRN.N.P., D.N.P. LAB BLOOD ADD-ON Performing Organization Address City/[facility]/ZIP Co de Phone Number [facility] [address] 200 [place] [address] * Calcium, Total (01/23/2024 9:37 AM CDT) Calcium, Total, S 9.4 8.8 - 10.2 mg/dL 01/23/2024 10:50 AM CDT DT Blood (Blood, Venous) 01/23/2024 9:37 AM CDT 01/23/2024 10:13 AM CDT Gerber Watson APRN.N.P., D.N.P. LAB BLOOD ADD-ON Performing Organization Address City/[facility] Co de Phone Number [facility] [address] 200 [place] [address] * (ABNORMAL) Bilirubin, Total (01/23/2024 9:37 AM CDT) Bilirubin, Total, S 2.5(H) 0.0 - 1.2 mg/dL 01/23/2024 10:50 AM CDT DTL Blood (Blood, Venous) 01/23/2024 9:37 AM CDT 01/23/2024 10:13 AM CDT Gerber Watson APRN.N.P., D.N.P. LAB BLOOD ADD-ON Performing Organization Address City/[facility] Co de Phone Number [facility] [address] 200 [place] [address] * AST (Aspartate Aminotransferase) (01/23/2024 9:37 AM CDT) Aspartate Aminotransferase (AST), S 21 8 - 48 U/L 01/23/2024 10:50 AM CDT DTL Blood (Blood, Venous) 01/23/2024 9:37 AM CDT 01/23/2024 10:13 AM CDT Gerber Watson APRN.N.P., D.N.P. LAB BLOOD ADD-ON Performing Organization Address City/[facility] Co de Phone Number [facility] [address] 200 [place] [address] * Alkaline Phosphatase (01/23/2024 9:37 AM CDT) Alkaline Phosphatase, S 104 40 - 129 U/L 01/23/2024 10:50 AM CDT DTL Blood (Blood, Venous) 01/23/2024 9:37 AM CDT 01/23/2024 10:13 AM CDT Haritha Corrigan APRN C.N.P., D.N.P. 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
--- OUTSIDE RECORDS SUMMARY | 2024-01-26 13:44 | XMS_ITS ---
Author Organization [facility] Address [address] [place] [address] Care Team Providers Care Scanning Manager Name Role Phone Unavailable Unavailable Unavailable Surgery Details Not on file Complications Check Surgery Details section. Procedure Estimated Blood Loss Check Surgery Details section. Procedure Findings Check Surgery Details section. Procedure Specimens Taken Check Surgery Details section.
--- OUTSIDE RECORDS SUMMARY | 2024-01-26 13:44 | XMS_ITS | Encounter Summary ---
Author Organization [facility] Address [address] [place] [address] Care Team Providers Care Pulp House Supervisor Name Role Phone Unavailable Primary Care Provider Unavailabl e Reason for Referral * Outpatient (Routine) - Authorized Specialty Diagnoses / Procedures Referred By Contac t Referred To Contact Hematology Oncology Haritha Corrigan APRN, C.N.P., D.N.P. [address] [place] [phone] [facility] Referral ID Status Reason Start Date Expiration Date V isits Requested Visits Authorized [id number] Authorized 01/23/2024 07/24/2025 1 1 Reason for Visit * Outpatient (Routine) - Closed Specialty Diagnoses / Procedures Referred By Contac t Referred To Contact Hematology Oncology Haritha Corrigan APRN, C.N.P., D.N.P. [address] [place] [phone] [facility] Referral ID Status Reason Start Date Expiration Date Visits Re quested Visits Authorized [id number] Closed 10/25/2023 04/25/2025 1 1 Encounter Details Date Type Department Care Team (Late st Contact Info) Description 01/23/2024 3:00 PM CDT Office Visit Division of Hematology in [place], [place] 200 [place] [address] aHritha Corrigan APRN, C.N.P., D.N.P. 200 [place] [address] Marginal Zone Lymphoma Splenic (HCC) (Primary Dx) Social History Tobacco Use Types Packs/Day Years Used Date Smoking Tobacco: Former Cigarettes Q uit: 2006 Smokeless Tobacco: Never Comments:Not sure when I sta rted/stopped but years ago Alcohol Use Standard Drinks/Week Comments Yes 8 (1 standard drink = 0.6 oz pur e alcohol) Moderate consumption [facility] Utilities Answer Date Recorded In the past 12 months has [employer], gas, oil, or water The city [place] [employer] threatened to shut off services in your [...] week 12/24/2022 How often do you attend [facility] or synagogue services? Never 12/24/2022 Do you belong to any clubs o r organizations such as episcopalian groups, unions, fraternal or athletic groups, [...] and heating? Not hard at all 04/04/2023 [facility] - [facility]ational Stress Questionnaire Answer Date [...] have a [facility] [place] place to live 01/18/2024 Education Answer Date Recorded What is the highest level of school you have completed or the highest degree you have received? Bachelor's degree (e.g., BA, AB, BS) 06/20/2020 Sex and Gender Information Value Date Recorded Sex Assigned at Male 10/26/2019 9:31 AM PSYCHOTHERAPIST Gender Identity Male 10/24/2019 8:47 AM PSYCHOTHERAPIST Sexual Orientation Straight 10/24/2019 8: 47 AM PSYCHOTHERAPIST documented as of this encounter Last Filed Vital Signs Vital Sign Reading Time Taken Comments Blood Pressure 134/78 01/23/2024 2:52 PM CDT Pulse 73 01/23/2024 2:52 PM CDT Temperature 36.3 ??C (97.4 ??F) 01/23/2024 2:52 PM CD T Respiratory Rate - - Oxygen Saturation 96% 01/23/2024 2:52 PM CDT Inhaled Oxygen Concentration - - Weight 78.9 kg (174 lb 0.9 oz) 01/23/2024 2:52 P M CDT Height 163.1 cm (5' 4.21) 01/23/2024 2:52 PM CD T Body Mass Index 29.68 01/23/2024 2:52 PM CDT documented in this encounter Progress Notes * Haritha Corrigan APRN, C.N.P., D.N.P. - 01/23/2024 3:00 PM CDT SUBJECTIVE CHIEF COMPLAINT / REASON FOR VISIT Primary lymphoma MD: Dr. 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 01/11/2003 Biopsy/Pathology Peripheral blood, flow cytometric immunophenotyping: B-cell chronic lymphoproliferative disorder. Although the lymphocytes also express CD5 and CD23, the bright CD20 and morphology are not typical for chronic lymphocytic leukemia. The differential diagnosis includes atypical chronic lymphocytic leuk emia or marginal zone lymphoma. Interphase FISH is nuc bernie 12cen([id number]),12q15(MDM2x3). 28.5% of 200 nuclei had two centromere 12 and three MDM2 signals. 12/27/2022 Genetic Testing and Tumor Genotyping Flow cytometry showed B-cell lymphoproliferative disorder with partial CD5 expression, kappa light chain restricted. B-cells: Monotypic kappa. Express: CD19, CD20, CD22, CD11c (partial), CD200 (dim). While CD5 and CD23 are predominately negative, a subset of cells appear to express CD5 and CD23. Do not express: CD10, CD38, CD10. Estimated size: 83% gated lymphoid events; 47% total analyzed events. IgHV: Unmutated CLL FISH: Trisomy 12 TP53: No mutation 01/05/[address] scans showed increased splenomegaly to 18 cm, compared to 16 cm in April 2019. No lymphadenopathy in chest/abdomen/pelvis. 04/28/2023 - 05/25/2023 Chemotherapy riTUXimab Start Date: 04/28/2023 Weekly Rituxan x4 (04/28, 05/05, 05/12, 05/19) WBC went from 21.2 to 3.4. ALC from 16.62 to 0.[address] on 07/24/23 showed decreased splenomegaly from 20 x 17.5 x 12 cm to 15 x 14.5 x 10 cm. INTERVAL HISTORY: Gopi Rayo is a 83 y.o. 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 Patient completed rituximab single agent in May of 2023. Patient reports he has been doing well since we last saw him. He denies B symptoms. He denies palpable adenopathy. He denies any abdominal pain or bloating. He has not had any infections or emergency room visits. He continues to try to be active as he can tolerate however, he has been having left anklepain that radiates up to his knee for several months now. He has been working with a physical therapist for the last 5 weeks without improvement. He inquires about the next steps of management. Otherwise, patient does not endorse fever, chills, drenching night sweats, unintentional weight loss, palpable adenopathy, fatigue, changes to appetite, nausea/vomiting, diarrhea, constipation, changes to bladder habits, neuropathy, palpitations, chest pain, shortness of breath, mouth sores, antibiotic use, hospitalizations, ER visits, changes to medical or surgical history, dizziness, and unexplained rash or pruritus. ECOG score 1. The following portions of the patient's history were reviewed and updated as appropriate: allergies, current medications, family history, medical history, social history, surgical history, and problem list. REVIEW OF SYSTEMS REVIEW OF SYSTEMS OBJECTIVE BP 134/78 (BP Location: Right arm, Patient Position: Sitting, Cuff Size: Regular) Pulse 73 Temp36.3 ??C (Tympanic) Ht 163.1 cm Wt 78.9 kg SpO2 96% BMI 29.68 kg/m?? Wt Readings from Last 3 Encounters: 01/23/24 78.9 kg 11/07/23 78.2 kg 10/25/23 77 kg PHYSICAL EXAM General: Well-nourished, in good hygiene, in no apparent distress. Lungs: Symmetrical movements, clear to auscultation in all cooper. No cough, wheezing, crackles or shortness of breath noted. Heart: Regular rate/rhythm, S1 S2, no gallop, rub, or murmur. Abdomen: Soft, non-tender, no distention. Bowel sounds in all 4 quadrants. There is no hepatomegaly, or palpable masses. Spleen palpable at left coastal margin. Lymphadenopathy: No cervical, supraclavicular, axillary, or inguinal lymphadenopathy palpable. Skin: Limited exam; No rash noted. Neck: Trachea midline, no tenderness, masses, lymphadenopathy, or enlargement of thyroid. Mouth: No erythema, ulcers, swelling, enlargement of tonsils or surrounding tissue, or thrush. Extremities: Warm, no edema. Spine: No tenderness on palpation of spinal processes. Psychiatric: Normal mood and affect. Behavior is normal. Judgment and thought content normal Neurological: Alert and oriented, clear speech. Steady gait without use of assistive device. No obvious deficits. DIAGNOSTICS I have reviewed the recent relevant laboratory studies and CT scan(s). Labs are unremarkable. CT scan(s) shows: IMPRESSION: Further mild interval decrease in the sagittal splenomegaly. No lymphadenopathy. IMPRESSION: 1. Stable chest CT without evidence of recurrent lymphoma in the chest. 2. Stable small pulmonary nodules with a few examples listed in the body the report. ASSESSMENT / PLAN #1 Marginal Zone Lymphoma Splenic (HCC) #2 Thrombocytopenia (HCC) It was a pleasure seeing Gopi Rayo and his in clinic this afternoon. I reviewed patient's labs with him which shows stable CBC and normal LDH. Specifically, his thrombocytopenia remains stable at 79,000 thousand. Clinically, patient has no symptoms of progressive lymphoma. Additionally, physical examination and CT findings show no evidence of progressive adenopathy or worseningsplenomegaly. Given all this, I see no clinical, biochemical, nor physical examination evidence of progression of his lymphoma. Will continue on a course of expectant management. I would like to see patient back in 3 months with labs and H& P. Patient understands he should contact me in the interim if he develops concerning symptoms or if he has any concerns. 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 He notes an improvement in his ecchymosis. #5 Left ankle pain I advised patient to follow up with his primary care provider. Typically, in my experience we have move forward with MRI if physical therapy is unsuccessful in managing the pain. Patient will follow up with his primary care providers to get their recommendations on moving forward with management ofhis ankle pain. PLAN: Return to lymphoma clinic in 3 months with labs and H&P. Clinical findings and plan communicated with Dr. Montalvo. Education We discussed the diagnosis and treatment plan in detail. The patient expressed understanding and agreement of the content and plan. No apparent learning barriers were identified; learning preferencesinclude listening. Pt allowed to ask questions; all questions answered. I personally spent a total 30 minutes face to face with the patient in counseling and discussion and/or coordination of care as described above. documented in this encounter Plan of Treatment Scheduled Orders Name Type Priority Associated Diagnoses Orde r Schedule Alkaline Phosphatase Lab Routine Marginal Zone Lymphoma Splenic (HCC) Expected: 04/24/2024, Expires: 01/22/2027 AST (Aspartate Aminotransferase) Lab Routine Marginal Zone Lymphoma Splenic (HCC) Expected: 04/24/2024, Expires: 01/22/2027 Bilirubin, Total Lab Routine Marginal Zone Lymphoma Splenic (HCC) Expected: 04/24/2024, Expires: 01/22/2027 Calcium, Total Lab Routine Marginal Zone Lymphoma Splenic (HCC) Expected: 04/24/2024, Expires: 01/22/2027 CBC with Differential, Blood Lab Routine Marginal Zone Lymphoma Splenic (HCC) Expected: 04/24/2024, Expires: 01/22/2027 Creatinine with Estimated GFR Lab Routine Marginal Zone Lymphoma Splenic (HCC) Expected: 04/24/2024, Expires: 01/22/2027 LD (Lactate Dehydrogenase) Lab Routine Marginal Zone Lymphoma Splenic (HCC) Expected: 04/24/2024, Expires: 01/22/2027 Potassium Lab Routine Marginal Zone Lymphoma Splenic (HCC) Expected: 04/24/2024, Expires: 01/22/2027 Scheduled Referrals Name Type Priority Associated Diagnoses Order Schedule Hematology office visit (clinic) [place]; Lymphoma; General Outpatient Referral Routine Expected: 04/24/2024 (Approximate), Expires: 04/24/2025 documented as of this encounter Visit Diagnoses Diagnosis Marginal Zone Lymphoma Splenic (HCC)- Primary documented in this encounter Additional Health Concerns Infection Onset Date Last Indicated Resolved Time Protective Environment 04/26/2023 04/26/2023 documented as of this encounter
--- OUTSIDE RECORDS SUMMARY | 2024-01-26 13:44 | XMS_ITS | Encounter Summary ---
Author Organization [facility] Address [address] [place] [address] Care Team Providers Care Bistro Attendant Name Role Phone Unavailable Primary Care Provider Unavailabl e Reason for Referral * MRI/CAT/PET Scan (Routine) - Closed Specialty Diagnoses / Procedures Referred By Chagoac t Referred To Contact Radiology Diagnoses Marginal Zone Lymphoma Splenic (HCC) Procedures CT Abdomen Pelvis without IV Contrast Haritha Corrigan APRN, C.N.P., D.N.P. 200 [place] [phone] [facility] Referral ID Status Reason Start Date Expiration Date Visits Re quested Visits Authorized [id number] Closed 10/25/2023 10/24/2024 1 1 * MRI/CAT/PET Scan (Routine) - Closed Specialty Diagnoses / Procedures Referred By Stella cobb Referred To Contact Radiology Diagnoses Marginal Zone Lymphoma Splenic (HCC) Procedures CT Chest without IV Contrast Haritha Corrigan APRN, C.N.P., D.N.P. [address] [place] [address] [facility] Referral ID Status Reason Start Date Expiration Date Visits Re quested Visits Authorized [id number] Closed 10/25/2023 10/24/2024 1 1 Reason for Visit * MRI/CAT/PET Scan (Routine) - Closed Specialty Diagnoses / Procedures Referred By Stella cobb Referred To Contact Radiology Diagnoses Marginal Zone Lymphoma Splenic (HCC) Procedures CT Abdomen Pelvis without IV Contrast Haritha Corrigan APRN, C.N.P., D.N.P. [address] [place] [phone] [facility] Referral ID Status Reason Start Date Expiration Date Visits Re quested Visits Authorized [id number] Closed 10/25/2023 10/24/2024 1 1 Encounter Details Date Type Department Care Team (Latest Contact Info) Description 01/23/2024 8:53 AM CDT - 01/23/2024 9:19 AM CDT Hospital Encounter Department of Radiology, [facility], in [place], [place] [address] [place] [address] Haritha Corrigan APRN, C.N.P., D.N.P. [address] [place] [address] Marginal Zone Lymphoma Splenic (HCC) Discharge Disposition: Home or Self Care Social History Tobacco Use Types Packs/Day Years Used Date Smoking Tobacco: Former Cigarettes Q uit: 2006 Smokeless Tobacco: Never Comments:Not sure when I sta rted/stopped but years ago Alcohol Use Standard Drinks/Week Comments Yes 8 (1 standard drink = 0.6 oz pur e alcohol) Moderate consumption [facility] Utilities Answer Date Recorded In [...] often do you attend chur ch or voodoo services? Never 12/24/2022 Do you belong to any clubs o r organizations such as pentecostalism groups, unions, fraternal or athletic groups, [...] and heating? Not hard at all 04/04/2023 [facility] Occupat ional Health - Occupational Stress [...] your living situation today? I have a [facility] place to live 01/18/2024 Education Answer Date Recorded What is the highest level of school you have completed or the highest degree you have received? Bachelor's degree (e.g., BA, AB, BS) 06/20/2020 Sex and Gender Information Value Date Recorded Sex Assigned at Male 10/26/2019 9:31 AM DIRECTOR OF CLINICAL SERVICES Gender Identity Male 10/24/2019 8:47 AM DIRECTOR OF CLINICAL SERVICES Sexual Orientation Straight 10/24/2019 8: 47 AM DIRECTOR OF CLINICAL SERVICES documented as of this encounter Medications at [...] Procedure Name Priority Date/Time Associated Diagnosis Comments CT CHEST WITHOUT IV CONTRAST RAD - Routine (most inpatients and all outpatients) 01/23/2024 9:32 AM CDT Marginal Zone Lymphoma Splenic (HCC) CT ABDOMEN PELVIS WITHOUT IV CONTRAST RAD - Routine (most inpatients and all outpatients) 01/23/2024 9:32 AM CDT Marginal Zone Lymphoma Splenic (HCC) documented in this encounter Results * CT Abdomen Pelvis without IV Contrast [...] C.N.P., D.N.P. IMG CT PROCEDURES * CT Chest without IV Contrast (01/23/2024 [...] Corrigan APRN, C.N.P., D.N.P. IMG CT PROCEDURES documented in this encounter Visit Diagnoses Diagnosis Marginal Zone Lymphoma Splenic (HCC) documented in this encounter Additional Health Concerns Infection Onset Date Last Indicated Resolved Time Protective Environment 04/26/2023 04/26/2023 documented as of this encounter
--- OUTSIDE RECORDS SUMMARY | 2024-01-26 13:45 | XMS_ITS | Continuity of Care Document ---
Author Organization [facility] Address [address] [address] [place] [address] Phone Care Team Providers Care Keno Dealer Name Role Phone Unavailable Unavailable Unavailable Allergies, Adverse Reactions, Alerts Substance Reaction Status Criticality No Known Allergies Active No Inform ation Medications Medication Instructions Dosage Effective Dates (start - stop) Status Comments Systane (propylene glycol) 0.4 %-0.3 % eye drops instill 1 Drop by Topical route every 4 hours 1 Drop - Active LATANOPROST 0.005% OPHTHSOLN 2.5ML INSTILL ONE DROP INTO RIGHT EYE AT NIGHT TIME - Active dorzolamide 22.3 mg-timolol 6.8 mg/mL eye drops instill 1 drop by ophthalmic route 2 times every day into right eye only - Active Glucosamine 500 mg tablet - Active Procedures Procedure Date Office/outpatient visit,est, mod 2018 Gonioscopy Office/outpatient visit,est, mod 2018 Comp eye examination, estab patient Computer Ophth Img Optic Nerve May-20 18 Visual field exam(s), extended 18 Determination of refractive state Office/outpatient visit,est, mod 2017 Office/outpatient visit,est, mod 2017 Comp eye examination, estab patient Computer Ophth Img Optic Nerve 17 Visual field exam(s), extended 17 Determination of refractive state Office/outpatient visit,est, mod 2016 Office/outpatient visit,est, mod 2016 Office/outpatient visit,est, low 2015 Computer Ophth Img Optic Nerve 16 Visual field exam(s), extended 16 Intermed eye exam, estab patient 2015 Comprehensive eye exam, new patient Determination of refractive state Advance Directives Directive Yes / No Effective Date File Name No Information Encounters Encounter Description Practice Location Reason(s) For Visit Diagnoses Date Provider Providers Copied on Encounter Office/outpat ient visit,est, mod [facility], [address] [address], [place], [place], [id number], tel:[phone] Rei Lezama Patient is here for a 4 month POAG follow up 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 9 No Information [facility], [address] [address], [place], [place], [id number], [place] tel:[phone] Rei Lezama Patient is here for a dilated fundus exam with OCT and 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Bila teral drusen of maculas H35.363Pseud ophakia Z96.1Presbyo martha H52.4 8 No Information [facility], [address] [address], [place], [place], [id number], tel:[phone] Rei Lezama No Information 8 No Information Office/outpat ient visit,est, [facility], [address] [address], [place], [place], [id number], [place] tel: [phone] Rei Lezama Patient is here for a 4 month glaucoma follow up, both 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; No Information Office/outpat ient visit,est, [facility], [address] [address], [place], [place], [id number], [place] tel: [phone] Rei Lezama Patient here for 4 month preglaucoma follow up right ey (chief complaint) Preglaucoma, unspecified, 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; No Information Office/outpat ient visit,est, [facility], [address] [address], [place], [place], [id number], [place] tel: [phone] Rei Lezama Patient is here for a 1 month follow up with VF/OCT for (chief complaint) Preglaucoma, unspecified, 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 He reports glaucoma rig (chief complaint) Preglaucoma, unspecified, 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Pseud ophakia Z96.1 6 No Information Family History Family Member Type Diagnosis Age At Onset Mother Problem (finding) cataract Mother Problem (finding) glaucoma Mother Problem (finding) degenerative disorder o f macula Payers Payer name Insurance type Covered democrat ID Hermelinda duffy(s) BS [place] Medicare Adv HMO BL [id number] Social History Type Description Quantity Date Captured Comments Alcohol Use Details Unknown Caffeine Use Details Unknown Tobacco Use Status No Information Smoking Status No Information Sex Male Chief Complaint And Reason For Visit From encounter dated '01/23/2019 07:50'. Patient is here for a 4 month POAG follow up (chief complaint) Reason For Referral Reason For Referral No Information Plan Of Treatment Date Type Action Status Patient Education The [employer] and How to Use It completed Patient Education Open-Angle Gla ucoma: Care Instructions completed Future Order: Radiology Order OC T Optic Nerve ([id number]), Ordered on: Ordered Future Order: Radiology Order OC T Optic Nerve ([id number]), Ordered on: Ordered History Of Present Illness Encounter Date Complaint History Of Prese nt Illness Patient is here for a 4 month POAG follow up Patient is here for a 4 month POAG follow up. Reports compliance w/both glaucoma drops. Using systane drops 2x/day as recommended. Vision is fine w/current glasses since last visit and denies any discomfort/pain in either eye. Patient here for a f our month follow up for glaucoma. Patient here for a four month follow up for glaucoma. Patient reports that his vision has remained stable [facility] last exam. Complies with all glaucoma drops. No complaints with his new glasses. Patient is here for a dilated fundus exam with OCT and Patient is here for a dilated fundus exam with OCT and VF for glaucoma, both eyes. Patient states that vision has decreased at near and distance in both eyes over the past 6 months. He has been compliant and tolerating the glaucoma drops well. {eyeChiefComplai nt_.cc3_comments} Patient is here for a 4 month glaucoma follow up, both Patient is here for a 4 month glaucoma follow up, both eyes. Patient states that vision has been stable since last visit. He has been compliant and tolerating the timolol and latanoprost drops well. Patient here for 4 m [facility] POAG vs ocular hypertension fo Patient here for 4 month POAG vs ocular hypertension follow up right eye. Patient uses Dorzolomide-timolol drops 2 times a day to right eye and uses Latanoprost to right eye at night time and tolerates drops well. He reports no vision changes since last visit with glasses {eyeChiefComplai nt_.cc3_comments} {eyeChiefComplai nt_.cc3_comments} Patient here for a p reglaucoma exam with lab testing. Patient here for a preglaucoma exam with lab testing. Patient reports that vision seems to stable besides slight difficulties with near vision. Patient tolerating glaucoma drops well with no issues. Patient here for 5 m [facility] Glaucoma follow up Patient here for 5 month Glaucoma follow up. Patient reports stable vision in both eyes with no noted changes following last visit. Denies ocular pain/ pressure. He is using glaucoma drops as directed and tolerates well {eyeChiefComplai nt_.cc3_comments} Functional Status Date Functional Assessmen t No Information Instructions Date Instruction Additional Infor silviano - Continue using cur rent medication(s).. 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 Patient agrees to continue current glaucoma medications. Will re-evaluate condition at next visit. 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 Related to Presbyopia H52.4 - Will continue to o bserve condition and or symptoms. 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 Vitamins have been shown to decrease progression. 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 Patient agrees to continue current glaucoma medications. Will re-evaluate condition at next visit. 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 Patient will return to dorz/timolol bid OD only. Will re-evaluate condition at next visit. 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 Patient agrees to continue current glaucoma medications. Will re-evaluate condition at next visit. 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 Patient agrees to continue current glaucoma medications. Will re-evaluate condition at next visit. 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 Patient agrees to continue current glaucoma medications. Will re-evaluate condition at next visit. 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 Patient agrees to continue current glaucoma medications. Will re-evaluate condition at next visit. 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 No treatment is required at the present time. Will continue to monitor IOP. Will re-evaluate condition at next visit. 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 There is no evidence of retinal pathology. Patient counseled in detail on signs and risks of retinal detachment or tears. If patient notices any symptoms discussed, contact office SAMANTHA. Recommend patient return for consult.Keep appt with Dr Michel in 1 month Related to PVD, left eye H43.812 - One Month from 03/30/2016 Rela aimee to Glaucoma - Will continue to o bserve condition and or symptoms. New glasses prescription was given today. Related to Pseudophakia Z96.1 - Counseled patient regarding findings today. Recommend further testing at this time. Ok to continue drops at this time. 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
--- OUTSIDE RECORDS SUMMARY | 2024-01-26 13:45 | XMS_ITS | Encounter Summary ---
Author Organization [facility] Address [address] [place] [address] Care Team Providers Care Railroad Car Letterer Name Role Phone Unavailable Primary Care Provider Unavailabl e Encounter Details Date Type Department Care Team (Late st Contact Info) Description 10/25/2023 Orders Only Division of Hematology in [place], [place] [address] [place] [phone] Yessenia Montalvo M.D., Ph.D. [address] [place] [phone] Social History Tobacco Use Types Packs/Day Years [...] often do you attend chur ch or pentecostalism services? Never 12/24/2022 Do you belong to [...] and heating? Not hard at all 04/04/2023 [facility] - Occupational [...] your living situation today? I have a [facility] place to live 04/04/2023 Education Answer Date Recorded What is the highest level of school you have completed or the highest degree you have received? Bachelor's degree (e.g., BA, AB, BS) 06/20/2020 Sex and Gender Information Value Date Recorded Sex Assigned at Male 10/26/2019 9:31 AM CHIEF MEDICAL TECHNOLOGIST Gender Identity Male 10/24/2019 8:47 AM CHIEF MEDICAL TECHNOLOGIST Sexual Orientation Straight 10/24/2019 8: 47 AM CHIEF MEDICAL TECHNOLOGIST documented as of this encounter Plan of Treatment Not on file documented as of this encounter Visit Diagnoses Not on filedocumented in this encounter Additional Health Concerns Infection Onset Date Last Indicated Resolved Time Protective Environment 04/26/2023 04/26/2023 documented as of this encounter
--- OUTSIDE RECORDS SUMMARY | 2024-01-26 13:45 | XMS_ITS | Encounter Summary ---
Author Organization [facility] Address [address] [place] [address] Care Team Providers Care Integrated Marketing Specialist Name Role Phone Unavailable Primary Care Provider Unavailabl e Encounter Details Date Type Department Care Team (Latest Contact Info) Description 11/07/2023 11:16 AM TRANSPORTATION DIRECTOR - 11/07/2023 11:59 PM TRANSPORTATION DIRECTOR Hospital Encounter Department of Laboratory Medicine and Pathology, [facility] in [place], [place] [address] [place] [address] Haritha Corrigan APRN, C.N.P., D.N.P. [address] [place] [address] Marginal Zone Lymphoma Splenic (HCC); Thrombocytopenia (HCC); [...] often do you attend chur ch or islam services? Never 12/24/2022 Do you belong to any clubs o r organizations such as gnosticist groups, unions, fraternal or athletic groups, [...] at all 04/04/2023 [facility] Occupat ional Health - Occupational Stress [...] your living situation today? I have a [facility] place to live 04/04/2023 Education Answer Date Recorded What is the highest level of school you have completed or the highest degree you have received? Bachelor's degree (e.g., BA, AB, BS) 06/20/2020 Sex and Gender Information Value Date Recorded Sex Assigned at Male 10/26/2019 9:31 AM TRANSPORTATION DIRECTOR Gender Identity Male 10/24/2019 8:47 AM TRANSPORTATION DIRECTOR Sexual Orientation Straight 10/24/2019 8: 47 AM TRANSPORTATION DIRECTOR documented as of this encounter Medications [...] Procedure Name Priority Date/Time Associated Diagnosis Comments ACTIVATED PARTIAL THROMBOPLASTIN TIME (APTT), P Routine 11/07/2023 11:30 AM TRANSPORTATION DIRECTOR Marginal Zone Lymphoma Splenic (HCC) Thrombocytopenia (HCC) Thrombosis Deep Vein Personal History Embolus Pulmonary (HCC) PROTHROMBIN TIME (PT), P Routine 11/07/2023 11:30 AM TRANSPORTATION DIRECTOR Marginal Zone Lymphoma Splenic (HCC) Thrombocytopenia (HCC) Thrombosis Deep Vein Personal History Embolus Pulmonary (HCC) CBC WITH DIFFERENTIAL, B Routine 11/07/2023 11:30 AM TRANSPORTATION DIRECTOR Marginal Zone Lymphoma Splenic (HCC) Thrombocytopenia (HCC) Thrombosis Deep Vein Personal History Embolus Pulmonary (HCC) documented in this encounter Results * APTT (Activated Partial Thromboplastin Time) (11/07/2023 11:30 AM TRANSPORTATION DIRECTOR) Activated Partial Thrombopl Time, P 30 25 - 37 sec 11/07/2023 12:30 PM TRANSPORTATION DIRECTOR DTL Blood (Blood, Venous) 11/07/2023 11:30 AM TRANSPORTATION DIRECTOR 11/07/2023 11:56 AM TRANSPORTATION DIRECTOR Haritha Corrigan APRN, C.N.P., D.N.P. LAB BLOOD ADD-ON [place] [address] [place], [place] [address] [address] [place] [address] * Prothrombin Time (PT) (11/07/2023 11:30 AM TRANSPORTATION DIRECTOR) [facility] Prothrombin Time, P 12.2 9.4 - 12.5 sec 11/07/2023 12:30 PM TRANSPORTATION DIRECTOR DTL INR 1.1 0.9 - 1.1 11/07/2023 12:30 PM TRANSPORTATION DIRECTOR DTL Comment: ----ADDITIONAL INFORMATION---- Standard intensity warfarin therapeutic range: 2.0 to 3.0 ?? High intensity warfarin therapeutic range: 2.5 to 3.5 Blood (Blood, Venous) 11/07/2023 11:30 AM TRANSPORTATION DIRECTOR 11/07/2023 11:56 AM TRANSPORTATION DIRECTOR Haritha Corrigan APRN, C.N.P., D.N.P. LAB BLOOD ADD-ON Performing Organization Address City/State/[facility] Co de Phone Number [facility] [address] [place], [place] [address] [address] * (ABNORMAL) CBC with Differential, Blood (11/07/2023 11:30 AM TRANSPORTATION DIRECTOR) [facility] Hemoglobin 13.5 13.2 - 16.6 g/dL 11/07/2023 12:04 PM TRANSPORTATION DIRECTOR DTL Hematocrit 37.8(L) 38.3 - 48.6 % 11/07/2023 12:04 PM TRANSPORTATION DIRECTOR DTL Erythrocytes 3.69(L) 4.35 - 5.65 x10(12)/L 11/07/2023 12:04 PM TRANSPORTATION DIRECTOR DTL MCV 102.4(H) 78.2 - 97.9 fL 11/07/2023 12:04 PM TRANSPORTATION DIRECTOR DTL RBC Distrib Width 14.5 11.8 - 14.5 % 11/07/2023 12:04 PM TRANSPORTATION DIRECTOR DTL Platelet Count 81(L) 135 - 317 x10(9)/L 11/07/2023 12:04 PM TRANSPORTATION DIRECTOR DTL Leukocytes 4.4 3.4 - 9.6 x10(9)/L 11/07/2023 12:04 PM TRANSPORTATION DIRECTOR DTL Neutrophils 3.00 1.56 - 6.45 x10(9)/L 11/07/2023 12:04 PM TRANSPORTATION DIRECTOR DHPM Lymphocytes 0.88(L) 0.95 - 3.07 x10(9)/L 11/07/2023 12:04 PM TRANSPORTATION DIRECTOR DTL Monocytes 0.29 0.26 - 0.81 x10(9)/L 11/07/2023 12:04 PM TRANSPORTATION DIRECTOR DTL Eosinophils 0.16 0.03 - 0.48 x10(9)/L 11/07/2023 12:04 PM TRANSPORTATION DIRECTOR DTL Basophils 0.03 0.01 - 0.08 x10(9)/L 11/07/2023 12:04 PM TRANSPORTATION DIRECTOR DTL Blood (Blood, Venous) 11/07/2023 11:30 AM TRANSPORTATION DIRECTOR 11/07/2023 11:56 AM TRANSPORTATION DIRECTOR Haritha Corrigan APRN, C.N.P., D.N.P. LAB BLOOD ADD-ON [facility] [address] [place] [address], [facility] DTL [facility] [address] [place] [address] DHPM [facility] [address] [place] [address] documented in this encounter Visit Diagnoses Diagnosis Marginal Zone Lymphoma Splenic (HCC) Thrombocytopenia (HCC) Thrombosis Deep Vein Personal History Embolus Pulmonary (HCC) documented in this encounter Additional Health Concerns Infection Onset Date Last Indicated Resolved Time Protective Environment 04/26/2023 04/26/2023 documented as of this encounter
--- OUTSIDE RECORDS SUMMARY | 2024-01-26 13:45 | XMS_ITS | Encounter Summary ---
Author Organization [facility] Address [address] [place] [address] Care Team Providers Care Door Fitter Name Role Phone Unavailable Primary Care Provider Unavailabl e Reason for Visit * Reason Onset Date Comments Pre-visit Intake 10/20/2023 Encounter Details Date Type Department Care Team (Latest Contact Info) Description 10/20/2023 9:15 AM PROCESSING ARCHIVIST Clinical Communication Virtual Review in [place], [place] [address] [place] [address] Pre-visit Intake Social History Tobacco Use Types Packs/Day Years [...] often do you attend chur ch or spiritism services? Never 12/24/2022 Do you belong to any clubs o r organizations such as methodist groups, unions, fraternal or athletic groups, or [...] and heating? Not hard at all 04/04/2023 [facility] - [facility]ational Stress Questionnaire Answer [...] your living situation today? I have a [facility] place to live 04/04/2023 Education Answer Date Recorded What is the highest level of school you have completed or the highest degree you have received? Bachelor's degree (e.g., BA, AB, BS) 06/20/2020 Sex and Gender Information Value Date Recorded Sex Assigned at Male 10/26/2019 9:31 AM PROCESSING ARCHIVIST Gender Identity Male 10/24/2019 8:47 AM PROCESSING ARCHIVIST Sexual Orientation Straight 10/24/2019 8: 47 AM PROCESSING ARCHIVIST documented as of this encounter Plan of Treatment Not on file documented as of this encounter Visit Diagnoses Not on filedocumented in this encounter Additional Health Concerns Infection Onset Date Last Indicated Resolved Time Protective Environment 04/26/2023 04/26/2023 documented as of this encounter
--- OUTSIDE RECORDS SUMMARY | 2024-01-26 13:45 | XMS_ITS | Encounter Summary ---
Author Organization [facility] Address [address] [place] [id number] Care Team Providers Care Land Resource Specialist Name Role Phone Unavailable Primary Care Provider Unavailabl e Reason for Referral * Outpatient (Routine) - Closed Specialty Diagnoses / Procedures Referred By Stella t Referred To Contact Vascular Medicine Diagnoses Marginal Zone Lymphoma Splenic (HCC) Thrombocytopenia (HCC) Thrombosis Deep Vein Personal History Embolus Pulmonary (HCC) Haritha Corrigan APRN, C.N.P., D.N.P. [address] [place] [address] [facility] [place] Referral ID Status Reason Start Date Expiration Date Visits Re quested Visits Authorized [id number] Closed 10/25/2023 04/25/2025 1 1 AL SUPERVISOR * Outpatient (Routine) - Closed Specialty Diagnoses / Procedures Referred By Stella cobb Referred To Contact Hematology Oncology Haritha Corrigan APRN, C.N.P., D.N.P. [address] [place] [address] [facility] [place] Referral ID Status Reason Start Date Expiration Date Visits Re quested Visits Authorized [id number] Closed 10/25/2023 04/25/2025 1 1 AL SUPERVISOR * MRI/CAT/PET Scan (Routine) - Closed Specialty Diagnoses / Procedures Referred By Contac t Referred To Contact Radiology Diagnoses Marginal Zone Lymphoma Splenic (HCC) Procedures CT Abdomen Pelvis without IV Contrast Haritha Corrigan APRN C.N.P., D.N.P. [address] [place] [phone] [facility] [place] Referral ID Status Reason Start Date Expiration Date Visits Re quested Visits Authorized [id number] Closed 10/25/2023 10/24/2024 1 1 AL SUPERVISOR * MRI/CAT/PET Scan (Routine) - Closed Specialty Diagnoses / Procedures Referred By Contac t Referred To Contact Radiology Diagnoses Marginal Zone Lymphoma Splenic (HCC) Procedures CT Chest without IV Contrast Haritha Corrigan APRN C.N.P., D.N.P. [address] [place] [phone] [facility] [place] Referral ID Status Reason Start Date Expiration Date Visits Re quested Visits Authorized [id number] Closed 10/25/2023 10/24/2024 1 1 AL SUPERVISOR Reason for Visit * Outpatient (Routine) - Closed Specialty Diagnoses / Procedures Referred By Contac t Referred To Contact Hematology Oncology Yessenia Montalvo M.D., Ph.D. [address] [place] [phone] [facility] [place] Referral ID Status Reason Start Date Expiration Date Visits Re quested Visits Authorized [id number] Closed 07/25/2023 07/24/2026 1 1 Encounter Details Date Type Department Care Team (Late st Contact Info) Description 10/25/2023 1:00 PM POSTAL SUPERVISOR Office Visit Division of Hematology in [place], [place] [address] [place] [address] Haritha Corrigan APRN, C.N.P., D.N.P. 200 [place] [phone] Marginal Zone Lymphoma Splenic (HCC) (Primary Dx); Thrombocytopenia (HCC); Thrombosis Deep Vein Personal History; Embolus Pulmonary (HCC) Social History Tobacco Use [...] often do you attend chur ch or presybeterian services? Never 12/24/2022 Do you belong to any clubs o r organizations such as holiness groups, unions, fraternal or athletic groups, or [...] and heating? Not hard at all 04/04/2023 [facility] [place] [facility] Occupat ional Health - Occupational Stress [...] Sex Assigned at Male 10/26/2019 9:31 AM POSTAL SUPERVISOR Gender Identity Male 10/24/2019 8:47 AM POSTAL SUPERVISOR Sexual Orientation Straight 10/24/2019 8: 47 AM POSTAL SUPERVISOR documented as of this encounter Last Filed Vital Signs Vital Sign Reading Time Taken Comments Blood Pressure 138/72 10/25/2023 12:58 PM POSTAL SUPERVISOR Pulse 60 10/25/2023 12:58 PM POSTAL SUPERVISOR Temperature 36.8 ??C (98.2 ??F) 10/25/2023 12:[address] Respiratory Rate - - Oxygen Saturation 97% 10/25/2023 12:58 PM POSTAL SUPERVISOR Inhaled Oxygen Concentration - - Weight 77 kg (169 lb 12.1 oz) 10/25/2023 12:58 P M POSTAL SUPERVISOR Height 160 cm (5' 2.99) 10/25/2023 12:58 PM POSTAL SUPERVISOR Body Mass Index 30.08 10/25/2023 12:58 PM POSTAL SUPERVISOR documented in this encounter Progress Notes * Che Zheng, R.N. - 10/25/2023 1:00 PM CST SUBJECTIVE CHIEF COMPLAINT / REASON FOR VISIT Primary lymphoma MD: Dr. Montalvo Primary lymphoma DANAE: Denilson Olson, CAMPAIGN ASSOCIATE, SOLE LEVELING MACHINE OPERATOR, MS Splenic marginal zone lymphoma Thrombocytopenia HISTORY OF PRESENT ILLNESS Oncology History Marginal [...] zone lymphoma. Interphase FISH is nuc bernie 12cen([id number]),12q15(MDM2x3). 28.5% of 200 nuclei had two centromere [...] is a 83 y.o. 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 He completed his Rituxan infusions on 05/19/2023. Overall, he has been doing well since his last visit. He stopped taking his Eliquis in September due to morningnosebleeds multiple times a week and bilateral upper extremity bruising. He states his nosebleeds would last a few minutes and would stopped with pressure. What bothered him most about taking the Eliquis was the bruising he obtain on his bilateral upper extremities. He states both his arms from theelbow to the tips of his fingers were black and blue.He would like to discontinue taking the medication as he does not see a benefit. He denies B symptoms and lymphadenopathy. He has not had any recent infections, antibiotic use, hospitalizations, or ED visits. Otherwise, patient does not endorse fever, chills, drenching night sweats, unintentional weight loss, palpable adenopathy, fatigue, changes to appetite, nausea/vomiting, diarrhea, constipation, changes to bladder habits, neuropathy, palpitations, chest pain, shortness of breath, mouth sores, antibiotic use, hospitalizations, ER visits, changes to medical or surgical history, dizziness, and unexplained rash or pruritus. ECOG score 0. The following portions of the patient's history were reviewed and updated as appropriate: allergies, current medications, family history, medical history, social history, surgical history, and problem list. REVIEW OF SYSTEMS REVIEW OF SYSTEMS OBJECTIVE BP 138/72 (BP Location: Right arm, Patient Position: Sitting, Cuff Size: Regular) Pulse 60 Temp36.8 ??C (Tympanic) Ht 160 cm Wt 77 kg SpO2 97% BMI 30.08 kg/m?? Wt Readings from Last 3 Encounters: 10/25/23 77 kg 07/25/23 76.7 kg 05/04/23 73.6 kg PHYSICAL EXAM General: Well-nourished, in good hygiene, in no apparent distress. Lungs: Symmetrical movements, clear to auscultation in all cooper. No cough, wheezing, crackles or shortness of breath noted. Heart: Regular rate/rhythm, S1 S2, no gallop, rub, or murmur. Abdomen: Soft, non-tender, no distention. Bowel sounds in all 4 quadrants. There is no hepatosplenomegaly, or palpable masses. Lymphadenopathy: No cervical, supraclavicular, axillary, or inguinal [...] I have reviewed the recent relevant laboratory studies. Labs are unremarkable. ASSESSMENT / PLAN #1 Marginal Zone Lymphoma Splenic (HCC) #2 Thrombocytopenia (HCC) We reviewed his labs today and note his platelet count continues to be low. Reviewed with patient that the improvement in his lymphocytes and decreased size in his spleen show Rituxan improved the marginal zone lymphoma. Physical exam is unremarkable without signs of infection, lymphadenopathy, or h epatosplenomegaly. Given this, we see no clinical, biochemical, or physical examination of advancement of disease. We will follow up in 3 months. 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 Discussed withpatient that due to history and increased risk of blood clots, we recommend following up in the thrombophilia Clinic for a consult for further guidance on anticoagulation. PLAN: 1. Follow-up in lymphoma clinic in 3 months with labs and CT scan. 2. Thrombophilia consult for guidance on anticoagulation. Clinical findings and plan discussed with Dr. Montalvo. Education We discussed the diagnosis and treatment plan in detail. The patient expressed understanding and agreement of the content and plan. No apparent learning barriers were identified; learning preferencesinclude listening. Pt allowed to ask questions; all questions answered. AL SUPERVISOR Associated attestation - Haritha Corrigan APRN, C.N.P., D.N.P. - 10/25/2023 2:09 PM POSTAL SUPERVISOR I saw and evaluated the patient, participating in the best portions of the service. I reviewed the ACTIVITIES ASSISTANT student???s note. I agree with the ACTIVITIES ASSISTANT student???s findings and plan. In short, patient continues to have thrombocytopenia but improved lymphocytosis and splenomegaly. It appears he has had an improvement of his disease with a single use of rituximab over, he does continue baseline without opinion which supports the notion of continued bone marrow involvement. However, he is asymptomatic and overall is doing well therefore, we will not pursue further treatment at this time. This was discussed with Dr. Montalvo today. In regards to his Eliquis use, patient is hesitant to continue on given his ecchymosis and occasional nosebleeds. These are self-limited after 10 minutes or so and he has not had any since he discontinued use 2 weeks ago. However, we explained to patient that we are concerned given his history of DVT and PE as well as likely active lymphoma that we would recommend he retrial Eliquis. We will have him meet with our thrombophilia Clinic to discuss how to do this in the best manner. Patient was agreeable to this plan. We will see him back in clinic in 3 months with labs, CTs, and H&P. I counseled patient on concerning symptoms that warrant sooner evaluation in the lymphoma clinic. Patient verbalized understanding and agreement of this plan. I personally spent 40 minutes in review of records, with the patient, and in coordination of care. documented in this encounter Plan of Treatment Scheduled Referrals Name Type Priority Associated Diagnoses Order Schedule Hematology office visit (clinic) [place] [facility]; Lymphoma; General Outpatient Referral Routine Expected: 01/23/2024 (Approximate), Expires: 01/22/2025 Vascular Medicine - Thrombophilia consult (clinic) Outpatient Referral Routine Marginal Zone Lymphoma Splenic (HCC) Thrombocytopenia (HCC) Thrombosis Deep Vein Personal History Embolus Pulmonary (HCC) Expected: 10/25/2023 (Approximate), Expires: 01/22/2025 documented as of this encounter Results * Potassium (01/23/2024 9:37 AM CDT) Potassium, S 4.4 3.6 - 5.2 mmol/L 01/23/2024 10:50 AM CDT DTL Blood (Blood, Venous) 01/23/2024 9:37 AM CDT 01/23/2024 10:13 AM CDT Haritha Corrigan APRN, C.N.P., D.N.P. LAB BLOOD ADD-ON [facility] [address] [place] [address], [facility] [address] [place] [address] * LD (Lactate Dehydrogenase) (01/23/2024 9:37 AM CDT) Lactate Dehydrogenase (LD), S 187 122 - 222 U/L 01/23/2024 10:50 AM CDT DTL Blood (Blood, Venous) 01/23/2024 9:37 AM CDT 01/23/2024 10:13 AM CDT Maximus Watson APRNN.Tashi., D.N.P. LAB BLOOD NON ADD-ON Performing Organization Address [facility] Co de Phone Number [facility] [address] [place] [address], [facility] [address] [place] [address] * Creatinine with Estimated GFR (01/23/2024 9:37 AM CDT) Creatinine 1.19 0.74 - 1.35 mg/dL 01/23/2024 10:50 AM CDT DTL Estimated GFR (eGFR) 61 >=60 mL/min/BSA 01/23/2024 10:50 AM CDT DTL Comment: Estimated GFR calculated using the 2020 CKD_EPI creatinine equation. Blood (Blood, Venous) 01/23/2024 9:37 AM CDT 01/23/2024 10:13 AM CDT Maximus Watson APRNN.P., D.N.P. LAB BLOOD ADD-ON Performing Organization Address [facility] Co de Phone Number [facility] [address] [place] [address], [facility] [address] [place] [address] * (ABNORMAL) CBC with Differential, Blood (01/23/2024 [...] CDT 01/23/2024 10:02 AM CDT Haritha Corrigan APRN C.N.P., D.N.P. LAB BLOOD ADD-ON [facility] [address] [place] [address], [facility] DTL [facility] [address] [place], [place] [phone] [place] [address] [place] [address] * Calcium, Total (01/23/2024 9:37 AM CDT) [facility] Calcium, Total, S 9.4 8.8 - 10.2 mg/dL 01/23/2024 10:50 AM CDT DTL Blood (Blood, Venous) 01/23/2024 9:37 AM CDT 01/23/2024 10:13 AM CDT Maximus Watson APRNN.Tashi., D.N.P. LAB BLOOD ADD-ON [facility] [address] [place] [address], [facility] [address] [place] [address] * (ABNORMAL) Bilirubin, Total (01/23/2024 9:37 AM CDT) Bilirubin, Total, S 2.5(H) 0.0 - 1.2 mg/dL 01/23/2024 10:50 AM CDT DTL Blood (Blood, Venous) 01/23/2024 9:37 AM CDT 01/23/2024 10:13 AM CDT Maximus Watson APRNN.P., D.N.P. LAB BLOOD ADD-ON Performing Organization Address City/[facility]/ZIP Co de Phone Number [facility] [address] [place], [place] [phone] [place] [address] [address] [place] [address] * AST (Aspartate Aminotransferase) (01/23/2024 9:37 AM CDT) Aspartate Aminotransferase (AST), S 21 8 - 48 U/L 01/23/2024 10:50 AM CDT DTL Blood (Blood, Venous) 01/23/2024 9:37 AM CDT 01/23/2024 10:13 AM CDT Gerber Watson APRN.N.P., D.N.P. LAB BLOOD ADD-ON [facility] [address] [place] [address], [facility] [address] [place] [address] * Alkaline Phosphatase (01/23/2024 9:37 AM CDT) Alkaline Phosphatase, S 104 40 - 129 U/L 01/23/2024 10:50 AM CDT DTL Blood (Blood, Venous) 01/23/2024 9:37 AM CDT 01/23/2024 10:13 AM CDT Haritha Corrigan APRN, C.N.P., D.N.P. LAB BLOOD ADD-ON [facility] [address] [place] [address], [facility] [address] [place] [address] * CT Abdomen Pelvis without IV Contrast [...] decrease in the sagittal splenomegaly. Nolymphadenopathy. Haritha A Meenu VILAN, C.N.P., D.N.P. IMG CT PROCEDURES * CT [...] bodythe report. Haritha Corrigan APRN, C.N.P., D.N.P. IM CT PROCEDURES * APTT (Activated Partial Thromboplastin Time) (11/07/2023 11:30 AM POSTAL SUPERVISOR) Activated Partial Thrombopl Time, P 30 25 - 37 sec 11/07/2023 12:30 PM POSTAL SUPERVISOR DTL Blood (Blood, Venous) 11/07/2023 11:30 AM POSTAL SUPERVISOR 11/07/2023 11:56 AM POSTAL SUPERVISOR Maximus Watson APRNN.Tashi., D.N.P. LAB BLOOD ADD-ON Performing Organization Address [facility] Co de Phone Number [facility] [address] [place], [place] [address] [address] [place] [address] * Prothrombin Time (PT) (11/07/2023 11:30 AM POSTAL SUPERVISOR) Prothrombin Time, P 12.2 9.4 - 12.5 sec 11/07/2023 12:30 PM POSTAL SUPERVISOR DTL INR 1.1 0.9 - 1.1 11/07/2023 12:30 PM POSTAL SUPERVISOR DTL Comment: ----ADDITIONAL INFORMATION---- Standard intensity warfarin therapeutic range: 2.0 to 3.0 ?? High intensity warfarin therapeutic range: 2.5 to 3.5 Blood (Blood, Venous) 11/07/2023 11:30 AM POSTAL SUPERVISOR 11/07/2023 11:56 AM POSTAL SUPERVISOR Gerber Watson APRN.N.P., D.N.P. LAB BLOOD ADD-ON Performing Organization Address [facility] Co de Phone Number [facility] [address] [place], [place] [address] [address] [place] [address] * (ABNORMAL) CBC with Differential, Blood (11/07/2023 11:30 AM POSTAL SUPERVISOR) Hemoglobin 13.5 13.2 - 16.6 g/dL 11/07/2023 12:04 PM POSTAL SUPERVISOR DTL Hematocrit 37.8(L) 38.3 - 48.6 % 11/07/2023 12:04 PM POSTAL SUPERVISOR DTL Erythrocytes 3.69(L) 4.35 - 5.65 x10(12)/L 11/07/2023 12:04 PM POSTAL SUPERVISOR DTL MCV 102.4(H) 78.2 - 97.9 fL 11/07/2023 12:04 PM POSTAL SUPERVISOR DTL RBC Distrib Width 14.5 11.8 - 14.5 % 11/07/2023 12:04 PM POSTAL SUPERVISOR DTL Platelet Count 81(L) 135 - 317 x10(9)/L 11/07/2023 12:04 PM POSTAL SUPERVISOR DTL Leukocytes 4.4 3.4 - 9.6 x10(9)/L 11/07/2023 12:04 PM POSTAL SUPERVISOR DTL Neutrophils 3.00 1.56 - 6.45 x10(9)/L 11/07/2023 12:04 PM POSTAL SUPERVISOR DHPM Lymphocytes 0.88(L) 0.95 - 3.07 x10(9)/L 11/07/2023 12:04 PM POSTAL SUPERVISOR DTL Monocytes 0.29 0.26 - 0.81 x10(9)/L 11/07/2023 12:04 PM POSTAL SUPERVISOR DTL Eosinophils 0.16 0.03 - 0.48 x10(9)/L 11/07/2023 12:04 PM POSTAL SUPERVISOR DTL Basophils 0.03 0.01 - 0.08 x10(9)/L 11/07/2023 12:04 PM POSTAL SUPERVISOR DTL Blood (Blood, Venous) 11/07/2023 11:30 AM POSTAL SUPERVISOR 11/07/2023 11:56 AM POSTAL SUPERVISOR Haritha Corrigan APRN C.N.P., D.N.P. LAB BLOOD ADD-ON [facility] [address] [place] [address], [facility] DTL [facility] [address] [place] [address] DHPM [facility] [address] [place] [address] documented in this encounter Visit Diagnoses Diagnosis Marginal Zone Lymphoma Splenic (HCC)- Primary Thrombocytopenia (HCC) Thrombosis Deep Vein Personal History Embolus Pulmonary (HCC) Marginal Zone Lymphoma Splenic (HCC) documented in this encounter Additional Health Concerns Infection Onset Date Last Indicated Resolved Time Protective Environment 04/26/2023 04/26/2023 documented as of this encounter
--- OUTSIDE RECORDS SUMMARY | 2024-01-26 13:45 | XMS_ITS | Encounter Summary ---
Author Organization [facility] Address [address] [place] [address] Care Team Providers Care Farm Loan Inspector Name Role Phone Unavailable Primary Care Provider Unavailabl e Encounter Details Date Type Department Care Team (Latest Contact Info) Description 10/25/2023 9:47 AM PHOTO EQUIPMENT TECHNICIAN - 10/25/2023 11:59 PM [facility] Hospital Encounter Department of Laboratory Medicine and Pathology, [facility] in [place], [place] [address] [place] [address] Yessenia Montalvo M.D., Ph.D. [address] [place] [address] Marginal Zone Lymphoma Splenic (HCC); Hyperbilirubinemia; Gilbert's Syndrome; Thrombocytopenia (HCC) Discharge Disposition: Home or Self Care [...] often do you attend chur ch or mu-ism services? Never 12/24/2022 Do you belong to any clubs o r organizations such as spiritism groups, unions, fraternal or athletic groups, or [...] and heating? Not hard at all 04/04/2023 [facility] of Occupat ional Health - Occupational Stress [...] your living situation today? [facility] place to live 04/04/2023 Education Answer Date Recorded What is the highest level of school you have completed or the highest degree you have received? Bachelor's degree (e.g., BA, AB, BS) 06/20/2020 Sex and Gender Information Value Date Recorded Sex Assigned at Male 10/26/2019 9:31 AM PHOTO EQUIPMENT TECHNICIAN Gender Identity Male 10/24/2019 8:47 AM PHOTO EQUIPMENT TECHNICIAN Sexual Orientation Straight 10/24/2019 8: 47 AM PHOTO EQUIPMENT TECHNICIAN documented as of this encounter Medications at Time of Discharge Medication Sig Dispensed Refills Start Date End Date acetaminophen (Tylenol Extra Strength) 500 mg tablet 03/17/2023 brimonidine (ALPHAGAN) 0.2 % ophthalmic solution Administer [...] PLUS MULTIVITAMIN ORAL) Take by mouth daily. apixaban (ELIQUIS) 2.5 mg tablet Take 1 tablet (2.5 mg total) by mouth 2 (two) times a day. 120 tablet 2 07/27/2023 11/07/2023 chlorhexidine (PERIDEX) 0.12 % mouthwash BEGINNING THE MORNING OF SURGERY RINSE 1/2OZ FPR 30 SECONDS AFTER BREAKFAST AND AT BEDTIME. DO NOT EAT, DRINK, OR RINSE FOR 30 MINUTES 12/30/2022 11/07/2023 prochlorperazine (COMPAZINE) 10 mg tabletIndications:Olena inal Zone Lymphoma Splenic (HCC) Take 1 tablet (10 mg total) by mouth every 6 (six) hours as needed for nausea or vomiting. 30 tablet 3 04/27/2023 11/07/2023 documented as of this encounter Plan of Treatment Not on file documented as of this encounter Procedures Procedure Name Priority Date/Time Associated Diagnosis Comments CBC WITH DIFFERENTIAL, B Routine 024 9:58 AM PHOTO EQUIPMENT TECHNICIAN Thrombocytopenia (HCC) Marginal Zone Lymphoma Splenic (HCC) ASPARTATE AMINOTRANSFERASE (AST), S/P Routine 10/25/2023 9:57 AM PHOTO EQUIPMENT TECHNICIAN Marginal Zone Lymphoma Splenic (HCC) ALKALINE PHOSPHATASE, S/P Routine 10/25/2023 9:57 AM PHOTO EQUIPMENT TECHNICIAN Marginal Zone Lymphoma Splenic (HCC) LACTATE DEHYDROGENASE (LD), S Routine 10/25/2023 9:57 AM PHOTO EQUIPMENT TECHNICIAN Marginal Zone Lymphoma Splenic (HCC) BILIRUBIN DIRECT, S/P Routine 10/25/2023 9:57 AM PHOTO EQUIPMENT TECHNICIAN Hyperbilirubinemia 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 BILIRUBIN, TOT, S/P Routine 10/25/2023 9 :57 AM PHOTO EQUIPMENT TECHNICIAN Hyperbilirubinemia 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 BASIC METABOLIC PANEL, S/P Routine 10/25/2023 9:57 AM PHOTO EQUIPMENT TECHNICIAN Marginal Zone Lymphoma Splenic (HCC) documented in this encounter Results * (ABNORMAL) CBC with Differential, Blood (10/25/2023 9:58 AM PHOTO EQUIPMENT TECHNICIAN) Hemoglobin 13.6 13.2 - 16.6 g/dL 10/25/2023 10:27 AM PHOTO EQUIPMENT TECHNICIAN DTL Hematocrit 36.8(L) 38.3 - 48.6 % 10/25/2023 10:27 AM PHOTO EQUIPMENT TECHNICIAN DTL Erythrocytes 3.63(L) 4.35 - 5.65 x10(12)/L 10/25/2023 10:27 AM PHOTO EQUIPMENT TECHNICIAN DTL MCV 101.4(H) 78.2 - 97.9 fL 10/25/2023 10:27 AM PHOTO EQUIPMENT TECHNICIAN DTL RBC Distrib Width 14.6(H) 11.8 - 14.5 % 10/25/2023 10:27 AM PHOTO EQUIPMENT TECHNICIAN DTL Platelet Count 68(L) 135 - 317 x10(9)/L 10/25/2023 10:27 AM PHOTO EQUIPMENT TECHNICIAN DTL Leukocytes 4.4 3.4 - 9.6 x10(9)/L 10/25/2023 10:27 AM PHOTO EQUIPMENT TECHNICIAN DTL Neutrophils 2.89 1.56 - 6.45 x10(9)/L 10/25/2023 10:26 AM PHOTO EQUIPMENT TECHNICIAN DHPM Lymphocytes 0.88(L) 0.95 - 3.07 x10(9)/L 10/25/2023 10:27 AM PHOTO EQUIPMENT TECHNICIAN DTL Monocytes 0.31 0.26 - 0.81 x10(9)/L 10/25/2023 10:27 AM PHOTO EQUIPMENT TECHNICIAN DTL Eosinophils 0.26 0.03 - 0.48 x10(9)/L 10/25/2023 10:27 AM PHOTO EQUIPMENT TECHNICIAN DTL Basophils 0.04 0.01 - 0.08 x10(9)/L 10/25/2023 10:27 AM PHOTO EQUIPMENT TECHNICIAN DTL Blood (Blood, Venous) 10/25/2023 9:58 AM PHOTO EQUIPMENT TECHNICIAN 10/25/2023 10:20 AM PHOTO EQUIPMENT TECHNICIAN Yessenia Montalvo M.D., Ph.D. LAB BLOOD ADD-ON Performing Organization Address City/[facility]/ZIP Co de Phone Number [facility] [address] [place] [address], [facility] [address] [place], [place] [phone] [place] [address] [address] [place] [address] * LD (Lactate Dehydrogenase) (10/25/2023 9:57 AM PHOTO EQUIPMENT TECHNICIAN) Lactate Dehydrogenase (LD), S 168 122 - 222 U/L 10/25/2023 10:53 AM PHOTO EQUIPMENT TECHNICIAN DTL Blood (Blood, Venous) 10/25/2023 9:57 AM PHOTO EQUIPMENT TECHNICIAN 10/25/2023 10:35 AM PHOTO EQUIPMENT TECHNICIAN Yessenia Montalvo M.D., Ph.D. LAB BLOOD NON ADD -ON Performing Organization Address City/[facility]/ZIP Co de Phone Number [facility] [address] [place] [address], [facility] [address] [place] [address] * (ABNORMAL) Bilirubin, Total (10/25/2023 9:57 AM PHOTO EQUIPMENT TECHNICIAN) Bilirubin, Total, S 2.9(H) 0.0 - 1.2 mg/dL 10/25/2023 10:53 AM PHOTO EQUIPMENT TECHNICIAN DTL Blood (Blood, Venous) 10/25/2023 9:57 AM PHOTO EQUIPMENT TECHNICIAN 10/25/2023 10:35 AM PHOTO EQUIPMENT TECHNICIAN Yessenia Montalvo M.D., Ph.D. LAB BLOOD ADD-ON Performing Organization Address City/[facility]/ZIP Co de Phone Number [facility] [address] [place], [place] [phone] [place] [address] [address] [place] [address] * Bilirubin, Direct (10/25/2023 9:57 AM PHOTO EQUIPMENT TECHNICIAN) Bilirubin, Direct, S 0.2 0.0 - 0.3 mg/dL 10/25/2023 10:53 AM PHOTO EQUIPMENT TECHNICIAN DTL Blood (Blood, Venous) 10/25/2023 9:57 AM PHOTO EQUIPMENT TECHNICIAN 10/25/2023 10:35 AM PHOTO EQUIPMENT TECHNICIAN Yessenia Montalvo M.D., Ph.D. LAB BLOOD ADD-ON [facility] [address] [place] [address], [facility] [address] [place] [address] * Basic Metabolic Panel (10/25/2023 9:57 AM PHOTO EQUIPMENT TECHNICIAN) Potassium, S 4.9 3.6 - 5.2 mmol/L 10/25/2023 10:53 AM PHOTO EQUIPMENT TECHNICIAN DTL Sodium, S 137 135 - 145 mmol/L 10/25/2023 10:53 AM PHOTO EQUIPMENT TECHNICIAN DTL Chloride, S 103 98 - 107 mmol/L 10/25/2023 10:53 AM PHOTO EQUIPMENT TECHNICIAN DTL Bicarbonate, S 25 22 - 29 mmol/L 10/25/2023 10:53 AM PHOTO EQUIPMENT TECHNICIAN DTL Anion Gap 9 7 - 15 10/25/2023 10:53 AM PHOTO EQUIPMENT TECHNICIAN DTL BUN (Blood Urea Nitrogen), S 17 8 - 24 mg/dL 10/25/2023 10:53 AM PHOTO EQUIPMENT TECHNICIAN DTL Creatinine 1.14 0.74 - 1.35 mg/dL 10/25/2023 10:53 AM PHOTO EQUIPMENT TECHNICIAN DTL Estimated GFR (eGFR) 65 >=60 mL/min/BSA 10/25/2023 10:53 AM PHOTO EQUIPMENT TECHNICIAN DTL Comment: Estimated GFR calculated using the 2020 CKD_EPI creatinine equation. Calcium, Total, S 9.4 8.8 - 10.2 mg/dL 10/25/2023 10:53 AM PHOTO EQUIPMENT TECHNICIAN DTL Glucose, S 111 70 - 140 mg/dL 10/25/2023 10:53 AM PHOTO EQUIPMENT TECHNICIAN DTL Blood (Blood, Venous) 10/25/2023 9:57 AM PHOTO EQUIPMENT TECHNICIAN 10/25/2023 10:35 AM PHOTO EQUIPMENT TECHNICIAN Yessenia Montalvo M.D., Ph.D. LAB BLOOD ADD-ON Performing Organization Address City/[facility]/ZIP Co de Phone Number [facility] [address] [place], [place] [phone] [place] [address] [address] [place] [address] * AST (Aspartate Aminotransferase) (10/25/2023 9:57 AM PHOTO EQUIPMENT TECHNICIAN) Aspartate Aminotransferase (AST), S 16 8 - 48 U/L 10/25/2023 10:53 AM PHOTO EQUIPMENT TECHNICIAN DTL Blood (Blood, Venous) 10/25/2023 9:57 AM PHOTO EQUIPMENT TECHNICIAN 10/25/2023 10:35 AM PHOTO EQUIPMENT TECHNICIAN Yessenia Montalvo M.D., Ph.D. LAB BLOOD ADD-ON Performing Organization Address City/[facility] Co de Phone Number [facility] [address] [place], [place] [address] [address] [place] [address] * Alkaline Phosphatase (10/25/2023 9:57 AM PHOTO EQUIPMENT TECHNICIAN) Alkaline Phosphatase, S 107 40 - 129 U/L 10/25/2023 10:53 AM PHOTO EQUIPMENT TECHNICIAN DTL Blood (Blood, Venous) 10/25/2023 9:57 AM PHOTO EQUIPMENT TECHNICIAN 10/25/2023 10:35 AM PHOTO EQUIPMENT TECHNICIAN Yessenia Montalvo M.D., Ph.D. LAB BLOOD ADD-ON [facility] [address] [place] [address], [facility] [address] [place] [address] documented in this encounter Visit Diagnoses Diagnosis Marginal Zone Lymphoma Splenic (HCC) Hyperbilirubinemia Gilbert's Syndrome Thrombocytopenia (HCC) documented in this encounter Additional Health Concerns Infection Onset Date Last Indicated Resolved Time Protective Environment 04/26/2023 04/26/2023 documented as of this encounter
--- OUTSIDE RECORDS SUMMARY | 2024-01-26 13:45 | XMS_ITS | Encounter Summary ---
Author Organization [facility] Address [address] [place] [address] Care Team Providers Care Manager Project Management Name Role Phone Unavailable Primary Care Provider Unavailabl e Reason for Referral * Outpatient (Routine) - Closed Specialty Diagnoses / Procedures Referred By Contmehul t Referred To Contact Vascular Medicine Diagnoses Anticoagulant Therapy Procedures Vascular Medicine - Thrombophilia general eConsult Yessenia Montalvo M.D., Ph.D. [address] [place] [phone] [facility] Referral ID Status Reason Start Date Expiration Date Visits Re quested Visits Authorized [id number] Closed 10/04/2023 10/03/2024 1 1 WALL SECURITY ENGINEER Encounter Details Date Type Department Care Team (Late st Contact Info) Description 10/04/2023 Orders Only Division of Hematology in [place], [place] [address] [place] [phone] Yessenia Montalvo M.D., Ph.D. [address] [place] [phone] Anticoagulant Therapy (Primary Dx) Social History Tobacco Use Types Packs/Day Years Used Date Smoking Tobacco: Former Cigarettes Q uit: 2007 Smokeless Tobacco: Never Alcohol Use Standard Drinks/Week Comments Yes 10 (1 standard drink = 0.6 oz pu re alcohol) Humiliation, Afraid, Rape, and Kick questionnair e [...] often do you attend chur ch or zoroastrianism services? Never 12/24/2022 Do you belong to any clubs o r organizations such as hindu groups, unions, fraternal or athletic groups, [...] and heating? Not hard at all 04/04/2023 [facility] of Occupat ional Health - Occupational [...] your living situation today? I have a [facility] place to live 04/04/2023 Education Answer Date Recorded What is the highest level of school you have completed or the highest degree you have received? Bachelor's degree (e.g., BA, AB, BS) 06/20/2020 Sex and Gender Information Value Date Recorded Sex Assigned at Male 10/26/2019 9:31 AM FIREWALL SECURITY ENGINEER Gender Identity Male 10/24/2019 8:47 AM FIREWALL SECURITY ENGINEER Sexual Orientation Straight 10/24/2019 8: 47 AM FIREWALL SECURITY ENGINEER documented as of this encounter Plan of Treatment Not on file documented as of this encounter Visit Diagnoses Diagnosis Anticoagulant Therapy- Primary documented in this encounter Additional Health Concerns Infection Onset Date Last Indicated Resolved Time Protective Environment 04/26/2023 04/26/2023 documented as of this encounter
--- OUTSIDE RECORDS SUMMARY | 2024-01-26 13:45 | XMS_ITS | Encounter Summary ---
Author Organization [facility] Address [address] [place] [address] Care Team Providers Care Home Energy Rater Name Role Phone Unavailable Primary Care Provider Unavailabl e Reason for Visit * Outpatient (Routine) - Closed Specialty Diagnoses / Procedures Referred By Stella cobb Referred To Contact Vascular Medicine Diagnoses Marginal Zone Lymphoma Splenic (HCC) Thrombocytopenia (HCC) Thrombosis Deep Vein Personal History Embolus Pulmonary (HCC) Haritha Corrigan APRN, C.N.P., D.N.P. [address] [place] [phone] [facility] Referral ID Status Reason Start Date Expiration Date Visits Re quested Visits Authorized [id number] Closed 10/25/2023 04/25/2025 1 1 Encounter Details Date Type Department Care Team (Latest Contact Info) Description 11/07/2023 1:30 PM POULTRY PROCESSOR Comprehensive Visit Department of Vascular Medicine in [place], [place] [address] [place] [phone] Nettie Medina P.A.-C. [address] [place] [phone] Embolus Pulmonary (HCC) (Primary Dx); Thrombosis Deep Vein Personal History; Marginal Zone Lymphoma Splenic (HCC); Thrombocytopenia (HCC) Social History Tobacco Use Types Packs/Day [...] often do you attend chur ch or lutheran services? Never 12/24/2022 Do you belong to any clubs o r organizations such as alevism groups, unions, fraternal or athletic groups, [...] and heating? Not hard at all 04/04/2023 [facility] - [facility]ational Stress Questionnaire Answer Date [...] your living situation today? I have a [facility] place to live 04/04/2023 Education Answer Date Recorded What is the highest level of school you have completed or the highest degree you have received? Bachelor's degree (e.g., BA, AB, BS) 06/20/2020 Sex and Gender Information Value Date Recorded Sex Assigned at Male 10/26/2019 9:31 AM POULTRY PROCESSOR Gender Identity Male 10/24/2019 8:47 AM POULTRY PROCESSOR Sexual Orientation Straight 10/24/2019 8: 47 AM POULTRY PROCESSOR documented as of this encounter Last Filed Vital Signs Vital Sign Reading Time Taken Comments Blood Pressure 125/77 11/07/2023 1:17 PM POULTRY PROCESSOR Pulse 56 11/07/2023 1:17 PM POULTRY PROCESSOR Temperature - - Respiratory Rate - - Oxygen Saturation - - Inhaled Oxygen Concentration - - Weight 78.2 kg (172 lb 6.4 oz) 11/07/2023 1:16 P M POULTRY PROCESSOR Height 163.9 cm (5' 4.53) 11/07/2023 1:16 PM CS T Body Mass Index 29.11 11/07/2023 1:16 PM POULTRY PROCESSOR documented in this encounter Consult Notes * Nettie Medina P.A.-C. - 11/07/2023 1:30 PM CST REFERRAL SOURCE Haritha Corrigan APRN, C.N.P., D.N.P. [address] [place] [phone] SUBJECTIVE CHIEF COMPLAINT / REASON FOR VISIT Anticoagulant therapy HISTORY OF PRESENT ILLNESS Mr. Rayo is a very pleasant 83 y.o. male that I am seeing today for anticoagulant therapy recommendations. He was found to have right lower lobe pulmonary emboli that appeared chronic in nature on CT scan done January 05, 2023. 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 A lower extremity ultrasound was done on January 07, 2023 which revealed age indeterminate, acute to subacute DVT in the right femoral, popliteal and gastrocnemius veins as well as the left common femoral vein. Please see theconsult note of Dr. Prajapati dated 01/07/2023 for full details. He was started on anticoagulation by his inspector sheet metal parts with apixaban. 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 He was treated appropriately with full-dose apixaban for acute DVT for 6 months, and then in July the dose was reduced to 2.5 mg b.i.d.. He followed up with his inspector sheet metal parts in July, and complained of easy bruising while on anticoagulation. That is in part why the dose was reduced. The CT scan of the abdomen showed a decrease in his noted splenomegaly. CT of the chest showed no change in the chronic right pulmonary emboli. He continued to have thrombocytopenia with platelet counts typically somewhere between 60-90. The patient states that over the winter he noticed he had nosebleeds sometimes in the morning. Usually they stopped within 5-10 minutes. His stated that they were happening for about 2 weeks, not quite every day. They have stopped after he discontinued the apixaban 2.5 mg b.i.d. in early October. The patient points out some bruising on the back of his hands and stated that it had been worseon the back of his hands and extending up his forearms while he was on apixaban. He states that he does not take aspirin or NSAIDs or naproxen sodium. The only supplement he takes his a multivitamin. He does have thrombocytopenia as described above, and he does admit to a few drinks of alcohol daily ???during happy hour?? . He states that he had a sister who also had bruising on her arms as she got older and skin gut thinner. Today he is accompanied by his and he denies any pain. He asked for verification of his previous blood clots as he states he does not have a goodmemory of them. Labs drawn 11/07/2023 showed WBC 4.4, hemoglobin 13.5, platelet 81, INR 1.1, APTT 30. Labs drawn 10/25/2023 showed creatinine 1.14 with EGFR 65, AST 16 and alkaline phosphatase 107. The following portions of the patient's history were reviewed and updated as appropriate: allergies, current medications, family history, medical history, social history, surgical history, psychiatric history, substance abuse history, problem list, labs, diagnostics tests. I reviewed the pertinent clinical notes in the electronic health record. REVIEW OF SYSTEMS 14 systems reviewed. Pertinent positives and pertinent negatives are documented in the history of present illness. OBJECTIVE VITALS BP 125/77 (BP Location: Left arm, Patient Position: Sitting) Pulse (!) 56 Ht 163.9 cm Wt 78.2kg BMI 29.11 kg/m?? BP right arm seated 113/73, pulse 56. PHYSICAL EXAMINATION Body mass index is 29.11 kg/m??. General: Patient is a 83 y.o. male, neatly dressed, seated and in no acute distress. Head: Atraumatic and normocephalic. Eyes: Sclera non-icteric with no injection and no drainage seen. ENT: Mucosa pink and moist. Neck: Neck appears supple. Skin: Warm and dry with good turgor. Few ecchymosis seen on visible skin on the backs of his hands. Extremities: No edema noted bilaterally. Gait: Normal gait with no gait aids needed. Mental: Alert and oriented with normal affect. DIAGNOSTIC REVIEW All labs and diagnostic studies were reviewed. ASSESSMENT / PLAN #1 Embolus Pulmonary (HCC) #2 Thrombosis Deep Vein Personal History #3 Marginal Zone Lymphoma Splenic (HCC) #4 Thrombocytopenia (HCC) Mr. 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 He is on Rituxan, and he has thrombocytopenia that is chronic. Platelets tend to run between 60-90 most of the time. He has been on apixaban due to his history of DVT and pulmonary embolism initially diagnosed January 05, 2023. I pulled up the scans and showed him the diagram of his DVTs as well as showed him the report from the pulmonary embolism that had been diagnosed. I confirmed that he truly did have previous DVT and PE. We discussed the multiple causes for bruising on his arms in the back of his hands. In part it is because of the thrombocytopenia, also in part because of increasing age which brings thinning skin with easier bruising, and then in part due to the medications. Apixaban will increase bleeding if he has any trauma or injury. Finally, he was told that alcohol inhibits platelet function and since he does have a few alcoholic drinks every evening, that could be contributing to the easy bruising on his hands and arms. I showed him the results of the amplify-extend clinical trial for patients with high risk for VTE recurrence. The results of that trial show clearly that patients benefit from long-term anticoagulation, at either 2.5 mg b.i.d. or 5 mg b.i.d.. Bleeding is really quite mild and uncommon in that trial. Mr. Rayo was told that he is considered high risk for VTE recurrence, and that would include pulmonary emboli. Therefore he has the choice of either accepting the risk for recurrent blood clots, or resuming apixaban at 2.5 mg b.i.d., knowing that the side effect of bruising will likely continue. He was told that cutting back on alcohol to 1 drink per day might help decrease the amount of bruising. He decided he would like to do that. He stated he will cut his alcohol back to 1 drink per day, andhe will resume apixaban 2.5 mg b.i.d.. I have sent the new prescription to his pharmacy, and he canget renewals of that from his inspector sheet metal parts or primary care provider in the future. Hopefully he will do well on the apixaban and avoid recurrent blood. All questions answered, and it was a pleasure meeting him and his today. Total time spent with patient including greater than 50% of time spent in counseling and education.45 minutes. Lilly Medina P.A.-C. TRY PROCESSOR documented in this encounter Plan of Treatment Not on file documented as of this encounter Visit Diagnoses Diagnosis Embolus Pulmonary (HCC)- Primary Thrombosis Deep Vein Personal History Marginal Zone Lymphoma Splenic (HCC) Thrombocytopenia (HCC) documented in this encounter Additional Health Concerns Infection Onset Date Last Indicated Resolved Time Protective Environment 04/26/2023 04/26/2023 documented as of this encounter
--- NOTE | 2024-01-26 14:00 | MR_ITS ---
[address] [address] Phone:?[phone] Fax:?[phone] Referring Physician Information: Maribell Garza [address] [facility] [address] Phone:?[phone] Fax:?[phone] Patient:?Gopi Rayo D.O.B:?1940 Sex:?Male Phone:?[phone] [facility] MRN:?[id number] Exam Date:?01/26/2024 EXAM: MRI OF THE LEFT ANKLE WITHOUT CONTRAST CLINICAL INFORMATION: Male, 83 years old, with left ankle pain. INDICATION: Evaluate Achilles tendon. PRIOR SURGERY: None reported. PLAIN FILMS: None available. COMPARISONS: No prior MRIs available. TECHNICAL INFORMATION: Using a 1.5T MR scanner and a localizing surface coil: sagittals: PD, T2, STIR coronals: PD, T2 axials: PD, T2 SEDATION: None. CONTRAST: None. FINDINGS: Osseous structures: Mild edema-like signal is present in the plantar aspect of the posterior calcaneal tuberosity, likely related to the plantar fasciitis, described below. The osseous structures are otherwise unremarkable. Os trigonum: No os trigonum or abnormally prominent Stieda's process. Tarsal coalition: No calcaneonavicular, talocalcaneal or cubonavicular coalition. Tibiotalar joint: Effusion: Mild tibiotalar joint effusion. Ganglion cyst: None. Osteochondral surfaces: No osteochondral abnormality. Loose bodies: No demonstrable loose bodies. Subtalar joint: Effusion: Physiologic. Articular cartilage: No osteochondral abnormality. Tarsal joints: Talonavicular: Unremarkable. Calcaneocuboid: Unremarkable. Naviculocuneiform: Unremarkable. Tarsometatarsal: Mild chondral thinning, osteophytosis, and irregularity of the 2nd-5th TMT joints (sagittal STIR series 5 images 15-23). Ligaments: Syndesmotic ligaments:?The anterior and posterior inferior tibiofibular syndesmotic ligaments are normal. Lateral ligaments:?The anterior talofibular ligament, posterior talofibular ligament, and calcaneofibular ligaments are intact. Deltoid ligament:?The visualized components of the superficial and deep deltoid ligament, specifically the tibiospring and posterior tibiotalar ligaments, are intact. Calcaneonavicular spring ligament:?The superomedial component of the calcaneonavicular spring ligament is grossly intact. Bifurcate and calcaneocuboid ligaments:?Intact lateral calcaneonavicular and medial calcaneocuboid ligaments. The dorsolateral calcaneocuboid ligament is intact. Tendons: Peroneal:?The peroneal tendons are appropriately situated within the retromalleolar groove and the superior peroneal retinaculum is intact. Normal thickness and signal intensity without tendinopathy, tenosynovitis, or split/tear. Flexor tendons:?The posterior tibialis, flexor digitorum and flexor hallucis longus tendons are intact. No significant tendinopathy and without tenosynovitis, tendon split or tendon disruption. Extensor tendons:?The anterior tibialis, extensor digitorum longus, and extensor hallucis longus tendons are intact. No significant tendinopathy and without tenosynovitis, tendon split or tendon disruption. Achilles:?Intact, without tendinopathy or tear. No retrocalcaneal or retro- Achilles bursitis. Sinus tarsi:?The sinus tarsi signal is normal. Plantar aponeurosis: Mild-moderate thickening of the central cord of the plantar fascia with mild perifascial edema, but without plantar fascial tear (sagittal STIR series 5 image 12) Plantar musculature:?The intrinsic foot musculature is normal in bulk and signal intensity without evidence of denervation atrophy. Neurovascular structures and tarsal tunnel: The posterior tibial neurovascular structures appear unremarkable coursing past the ankle and through the tarsal tunnel. IMPRESSION: 1. Mild plantar fasciopathy, with mild perifascial and bone marrow edema, but without plantar fascial tear. 2. 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 3. Mild tibiotalar joint effusion. 4. No ligamentous sprain/tear. 5. No myotendinous abnormality. 6. No fracture or osseous stress reaction. BC Electronically signed on 01/26/2024 3:44:00 PM by Konrad Parrish M.D.
== END 2024-01-26 13:42 | disposition home or self-care (01) ==
LOC: MRI 13:41
PROVIDERS: PCP Family Medicine; Visit Provider Physician Assistant
DX: M25.572 Pain in left ankle and joints of left foot (principal); M19.072 Primary osteoarthritis, left ankle and foot; M25.472 Effusion, left ankle; M76.62 Achilles tendinitis, left leg
CPT/HCPCS: 73721